=== PATIENT | female | born 1995 | race Caucasian/White ===

== ENCOUNTER → 2017-06-12 11:22 | Outpatient (CLI) | payer OTHER, SELFPAY ==
[2017-06-12 13:04] LABS: hCG Titer Quant., Serum 298 mIU/mL (<9 non-preg)
== END ==
PROVIDERS: Family Provider Pediatrics; PCP Pediatrics; Visit Provider Obstetrics & Gynecology
DX: O20.0 Threatened abortion (principal); Z3A.00 Weeks of gestation of pregnancy not specified
CPT/HCPCS: 36415; 84702

== ENCOUNTER → 2017-06-14 09:39 | Outpatient (CLI) | payer OTHER, SELFPAY ==
[2017-06-14 11:43] LABS: hCG Titer Quant., Serum 576 mIU/mL (<9 non-preg)
== END ==
PROVIDERS: Family Provider Pediatrics; PCP Pediatrics; Visit Provider Obstetrics & Gynecology
DX: O20.0 Threatened abortion (principal); Z3A.00 Weeks of gestation of pregnancy not specified
CPT/HCPCS: 36415; 84702

== ENCOUNTER → 2017-07-06 18:15 | Outpatient (CLI) | payer OTHER, SELFPAY ==
[2017-07-06 20:24] LABS: Chlamydia Trachomatis by PCR Negative (Negative); Neisserai gonorrhoeae by PCR Negative (Negative); Probe Check PASS; Sample Adequacy Control PASS; Specimen Processing Control PASS
[2017-07-11 16:24] LABS: HPV Reflexed? NOT INDICATED
== END ==
PROVIDERS: Visit Provider Obstetrics & Gynecology
DX: Z34.00 Encounter for supervision of normal first pregnancy, unspecified trimester (principal); Z12.4 Encounter for screening for malignant neoplasm of cervix
CPT/HCPCS: 87086; 87088; 87491; 87591; 88175; G0145

== ENCOUNTER → 2017-07-11 13:18 | Outpatient (CLI) | payer OTHER, SELFPAY ==
[2017-07-11 13:45] LABS: Absolute Neutrophil Count 6.4 X10^3/uL (2.0-7.7); Basophil# 0.07 X10^3/uL; Basophil% 0.6 % (0-1); Eosinophil# 0.27 X10^3/uL; Eosinophils% 2.4 % (0-5); Hematocrit 40.8 % (37-47); Hemoglobin 13.8 g/dl (12.0-15.0); Lymphocyte % 34.7 % (19-41); Mean Corp Hgb Conc 33.8 g/gl (32-36); Mean Corpuscular Hgb 27.9 pg (27.0-32.0); Mean Corpuscular Volume 82.6 fL (81-99); Mean Platelet Vol. 9.5 fl (6.2-12.0); Monocyte# 0.62 X10^3/uL; Monocyte% 5.5 % (0-10); Neutrophil # 6.36 X10^3/uL (2.7-7.7); Neutrophil % 56.5 % (47-70); Platelet Count 322 K/mm3 (150-450); RBC Distribution Width CV 13.7 % (11.6-14.6); RBC Distribution Width SD 40.7 fl (35.1-43.9); Red Blood Count 4.94 M/mm3 (4.2-5.4); White Blood Count 11.3 K/mm3 (4.4-11.0)
[2017-07-11 13:53] LABS: POSITIVE COUNT NO; POSITIVE DIFFERENTIAL NO; POSITIVE MORPHOLOGY NO
[2017-07-11 13:54] LABS: Protein, Urine (Random) 19.7 mg/dL (<11.9); Protein:Creat Ratio 111 mg/g CRE (0-200)
[2017-07-11 14:03] LABS: Glucose Challenge Gest 1H 50g 172 mg/dL (70-140)
[2017-07-12 09:23] LABS: HIV - WCH Non-Reactive (Nonreactive); Rubella IgG 19.5 IU/mL
[2017-07-12 20:07] LABS: HCV Quant. RNA PCR HCV Not Detected IU/mL (.)
[2017-07-13 10:16] LABS: HEPATITIS B SURFACE AG Negative (Negative)
[2017-07-14 02:34] LABS: Rapid Plasmin Reagin (RPR) NONREACTIVE (NONREACTIVE)
== END ==
PROVIDERS: Nurse Practitioner Women's Health; Family Provider Pediatrics; PCP Pediatrics; Visit Provider Obstetrics & Gynecology
DX: Z34.00 Encounter for supervision of normal first pregnancy, unspecified trimester (principal)
CPT/HCPCS: 36415; 82570; 82950; 84156; 85025; 86592; 86703; 86762; 86850; 86900; 87340; 87522

== ENCOUNTER 2017-07-12 21:04 | Emergency (ER) | payer OTHER, SELFPAY ==
[2017-07-12 21:05] VITALS: BP 153/102; PULSE 78; RESP 16; TEMP 37; O2SAT 98; BMI 54.7
[2017-07-12 21:35] VITALS: BP 150/95; PULSE 75; RESP 14; O2SAT 98
[2017-07-12] MEDS: DiphenhydrAMINE 50 MG/ML Syringe 25 MG IV (21:56)
[2017-07-12] MEDS: 0.9% Normal Saline 1,000 ML 1000 ML IV (21:56)
[2017-07-12] MEDS: proCHLORPERazine 10 MG/2 ML Vial IV (21:56)
--- NOTE | 2017-07-12 22:35 | ED.VISSUMM ---
- ER Visit Summary Date of Service: 07/12/17 Chief Complaint: [Blurred vision and headache] History of Present Illness: The patient is a 22 F [presents to the emergency department with complaint of blurred vision that started approximately 7:30 PM. Patient had sudden onset of blurred vision in the right eye temporal visual field where she describes almost like a watery film. Patient had a hard time reading the phone numbers on her phone. Patient also saw some flashing lights in her right eye. Symptoms lasted approximately 20 minutes and then patient developed a headache to the left side of her head. 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 Patient does complain of photophobia and nausea currently. Patient denies any recent illness or head injury. Patient is 9 weeks .] Physical Examination: [HEENT-PERRLA, EOMI. Cranial nerves II through XII grossly intact. TMs clear. Mucous membranes moist. No adenopathy. Cardiovascular-regular rate and rhythm without murmur or ectopy Lungs-clear to auscultation, chest wall stable without crepitus or subcu emphysema Abdomen-normoactive bowel sounds, soft, nontender, no rebound or rigidity, no peritoneal signs. Neuro cwtl-tbjjzc-vqoc and heel tang testing within normal limits, negative Romberg, negative pronator drift, fundi benign Extremities-intact ?4, normal range of motion, normal pulses, atraumatic] Test Results: [None indicated] Emergency Department Course and Treatment: [IV line was established and patient given a liter normal same fluid bolus along with Compazine 10 mg IV as well as Benadryl 25 mill grams IV. Patient's headache resolved. I did discuss case with neurologist on-call Dr. Jean Burgos and at this point it spelled symptoms most likely due to complex migraine.] Treatment Plan: [Patient will be referred to Dr. Burgos's office for follow-up.] Disposition: [Discharged to home in stable condition]. Patient advised to return if worsening symptoms or condition should worsen in any way. Impression: [Complex migraine] This note was generated with [employer] dictation software. It may contain incorrect words, spelling, and punctuation that were not noted in review of the chart prior to signing ED Disposition - Plan for ED Patient: Chief Complaint: Vision Prob Referrals: Care Physician,No Primary [Primary Care Provider] -
--- NOTE | 2017-07-12 22:38 | ED.DCSUM_ITS ---
- ER Visit Summary Date of Service: 07/12/17 Chief Complaint: [Blurred vision and headache] History of Present Illness: The patient is a 22 F [presents to the emergency department with complaint of blurred vision that started approximately 7:30 PM. Patient had sudden onset of blurred vision in the right eye temporal visual field where she describes almost like a watery film. Patient had a hard time reading the phone numbers on her phone. Patient also saw some flashing lights in her right eye. Symptoms lasted approximately 20 minutes and then patient developed a headache to the left side of her head. 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 Patient does complain of photophobia and nausea currently. Patient denies any recent illness or head injury. Patient is 9 weeks .] Physical Examination: [HEENT-PERRLA, EOMI. Cranial nerves II through XII grossly intact. TMs clear. Mucous membranes moist. No adenopathy. Cardiovascular-regular rate and rhythm without murmur or ectopy Lungs-clear to auscultation, chest wall stable without crepitus or subcu emphysema Abdomen-normoactive bowel sounds, soft, nontender, no rebound or rigidity, no peritoneal signs. Neuro vbwv-eaahoq-kgrt and heel tang testing within normal limits, negative Romberg, negative pronator drift, fundi benign Extremities-intact ?4, normal range of motion, normal pulses, atraumatic] Test Results: [None indicated] Emergency Department Course and Treatment: [IV line was established and patient given a liter normal same fluid bolus along with Compazine 10 mg IV as well as Benadryl 25 mill grams IV. Patient's headache resolved. I did discuss case with neurologist on-call Dr. Jean Burgos and at this point it spelled symptoms most likely due to complex migraine.] Treatment Plan: [Patient will be referred to Dr. Burgos's office for follow- up.] Disposition: [Discharged to home in stable condition]. Patient advised to return if worsening symptoms or condition should worsen in any way. Impression: [Complex migraine] This note was generated with [employer] dictation software. It may contain incorrect words, spelling, and punctuation that were not noted in review of the chart prior to signing ED Disposition - Plan for ED Patient: Chief Complaint: Vision Prob Referrals: Care Physician,No Primary [Primary Care Provider] -
--- NOTE | 2017-07-12 22:38 | ED.DEP ---
ED Disposition - Plan for ED Patient: Chief Complaint: Vision Prob Instructions: ED Headache Migraine Referrals: Care Physician,No Primary [Primary Care Provider] - Jean Burgos MD [STAFF PHYSICIAN] - 5-7 Days
[2017-07-12 22:49] VITALS: BP 152/100; PULSE 76; O2SAT 95
== END 2017-07-12 22:51 | disposition home or self-care (01) ==
LOC: ED 21:31
PROVIDERS: Emergency Provider Emergency Medicine
DX: O99.89 Other specified diseases and conditions complicating pregnancy, childbirth and the puerperium (principal); G43.909 Migraine, unspecified, not intractable, without status migrainosus; O16.1 Unspecified maternal hypertension, first trimester; O26.891 Other specified pregnancy related conditions, first trimester; R35.0 Frequency of micturition; Z3A.09 9 weeks gestation of pregnancy
CPT/HCPCS: 96374; 96375; 99284; J7030; A4216

== ENCOUNTER → 2017-07-20 07:02 | Outpatient (CLI) | payer OTHER, SELFPAY ==
[2017-07-20 09:06] LABS: Glucose GTT-Gestational 1 Hr 141 mg/dL (<190)
[2017-07-20 09:10] LABS: Glucose GTT-Gestation. Fasting 82 mg/dL (<105)
[2017-07-20 11:18] LABS: Glucose GTT-Gestational 3 Hr 64 L (<145)
[2017-07-20 11:25] LABS: Glucose GTT-Gestational 2 Hr 92 mg/dL (<165)
== END ==
PROVIDERS: Visit Provider Obstetrics & Gynecology
DX: O99.810 Abnormal glucose complicating pregnancy (principal); Z3A.00 Weeks of gestation of pregnancy not specified
CPT/HCPCS: 36415; 82951; 82952

== ENCOUNTER → 2017-08-07 13:31 | Outpatient (CLI) | payer OTHER, SELFPAY | PROVIDERS: Visit Provider Obstetrics & Gynecology Maternal & Fetal Medicine | DX: Z36.82 Encounter for antenatal screening for nuchal translucency (principal) | CPT/HCPCS: 36415 ==

== ENCOUNTER → 2017-08-31 17:13 | Outpatient (CLI) | payer OTHER, SELFPAY ==
[2017-08-31 17:34] LABS: Protein, Urine (Random) 17.5 mg/dL (<11.9); Protein:Creat Ratio 84 mg/g CRE (0-200)
== END ==
PROVIDERS: Visit Provider Obstetrics & Gynecology
DX: O10.919 Unspecified pre-existing hypertension complicating pregnancy, unspecified trimester (principal); Z3A.00 Weeks of gestation of pregnancy not specified
CPT/HCPCS: 82570; 84156

== ENCOUNTER → 2017-09-27 14:07 | Outpatient (CLI) | payer OTHER, SELFPAY ==
--- NOTE | 2017-09-27 14:09 | US_ITS ---
STUDY: SECOND AND THIRD TRIMESTER OBSTETRICAL ULTRASOUND REASON FOR EXAM: Female, 22 years old. Complete 2nd trimester OB ultrasound with anatomy survey and biometrics. LMP: 05/09/2017. GA (LMP) 20 week 1 day. RITA 02/13/2018. TECHNIQUE: Transabdominal pelvic ultrasound of 2nd trimester . Complete anatomic survey and biometrics. PRIOR ULTRASOUND: None. FINDINGS: There is a single intrauterine fetus. The fetus is in breech presentation. There is demonstrated cardiac activity with a heart rate of 160 bpm. There is a normal amniotic fluid volume. The largest amniotic fluid pocket measures 5.8 cm.The placenta is There are Grade 0 placental changes. There is a 1.2 cm placental venous sen. The cervix measures 3.8 in length. The cervix is closed. The placenta is fundal, without previa. No acute adnexal process is evident in limited evaluation. BIOMETRY: BPD: 4.4 cm: 19 weeks, 2 days HC: 16.5 cm: 19 weeks, 2 days AC: 14.2 cm: 19 weeks, 4 days FL: 3.2 cm: 19 weeks, 6 days CI: 80 FL/BPD: 72 FL/AC: 22 HC/AC: 1.16 age by current US: 19 weeks, 4 days. RITA by current US: 02/17/2018. Estimated weight: 301 grams, +/- 11 grams, 18 %. ANATOMY: Gender: Female Cranium: Normal lateral ventricles. Normal choroid plexus. Normal cerebellum. Normal cisterna magna. Normal face, nose and lips. Chest: Normal 4-chamber heart. Abdomen/Pelvis: Normal diaphragm. Normal stomach. Normal abdominal wall. Normal cord insertion. Normal 3 vessel cord. Normal kidneys. Normal bladder. Spine: Normal cervical spine. Normal thoracic spine. Normal lumbar spine. Normal sacrum. Extremities: Normal bilateral upper extremities. Normal bilateral lower extremities. US/OB Anatomy Scan IMPRESSION: 1. Normal anatomic survey. 2. Single live intrauterine gestation. No acute or maternal abnormality is evident. 3. Measurements on today's study are closely concordant with expected dates within 4 days. Electronically Signed: Justin Steward, at 11:13 EDT Tel , Service support ,
== END ==
LOC: US 14:09
PROVIDERS: Visit Provider Obstetrics & Gynecology
DX: Z34.90 Encounter for supervision of normal pregnancy, unspecified, unspecified trimester (principal)
CPT/HCPCS: 76805

== ENCOUNTER 2017-10-17 00:06 | Emergency (ER) | payer OTHER, SELFPAY ==
[2017-10-17 00:06] VITALS: BP 162/91; PULSE 99; RESP 20; TEMP 36.6; O2SAT 98; BMI 54.5
--- NOTE | 2017-10-17 01:13 | RAD_ITS ---
STUDY: X-RAY - LEFT HAND, ATTENTION THIRD FINGER REASON FOR EXAM: Female, 22 years old. Laceration TECHNIQUE: 3 view(s) of the finger were obtained. COMPARISON: None. FINDINGS: Normal metacarpal head. Normal metacarpophalangeal joint. Normal proximal phalanx. Normal middle phalanx. Normal distal phalanx. Normal proximal interphalangeal joint. Normal distal interphalangeal joint. RAD/Finger(s) Min 2 Views IMPRESSION: Normal x-ray examination of the finger. Electronically Signed: Vitaliy Sanchez MD at 1:33 EDT Tel , Service support ,
--- NOTE | 2017-10-17 01:15 | ED.DCSUM_ITS ---
- ER Visit Summary Date of Service: 10/17/17 Chief Complaint: [] Left middle finger injury History of Present Illness: The patient is a 22 F injured her left middle finger today just prior to arrival. She had a glass bowl break in her hand. Suffered laceration to the medial aspect of her distal left middle finger. Last tetanus was greater than 10 years she believes but she is not 100% sure. She is currently at 23 weeks. She is on labetalol for hypertension throughout this Physical Examination: [] Vital signs reviewed General: Well-nourished well-developed Head: Normocephalic atraumatic Eyes: Pupils equal round and reactive to light extraocular movements intact ENT: TMs clear no hemotympanum no trauma Neck: Nontender full range of motion Cardiovascular: Regular rate rhythm no murmurs normal S1-S2 Respiratory: No distress clear to auscultation bilaterally chest nontender Abdomen: Soft nontender nondistended normal bowel sounds no masses Back: Nontender no CVA tenderness Extremities: Abrasion to the left distal phalanx laterally on the middle finger. Distal neurovascular intact. No active bleeding. Neuro alert oriented cranial nerves II through XII intact normal strength sensation reflexes Test Results: [] Emergency Department Course and Treatment: [] X-ray of the finger obtained. Patient refuses tetanus shot. 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 She states that she gets these in her third trimester and her doctor can give it to her tomorrow. She understands the risk of getting tetanus. X- ray was negative for foreign body or injury to the bone. Wound was cleansed with chlorhexidine. Washed with 500 cc of normal saline after being anesthetized with 1% lidocaine 3 cc. Closed with 3 simple five-point 0 suture. Will follow-up in 2 weeks for suture removal. Bacitracin applied and a finger splint applied after wound care. Treatment Plan: [] Disposition: [] Impression: [] Finger laceration status post suture x3 This note was generated with [employer] dictation software. It may contain incorrect words, spelling, and punctuation that were not noted in review of the chart prior to signing ED Disposition - Plan for ED Patient: Chief Complaint: Laceration Referrals: Care Physician,No Primary [Primary Care Provider] -
--- NOTE | 2017-10-17 02:10 | ED.DEP ---
ED Disposition - Plan for ED Patient: Disposition: Home or Assisted Living Chief Complaint: Laceration Instructions: ED Laceration All Referrals: Care Physician,No Primary [Primary Care Provider] - Tres Moulton DO [NON CLINICAL AFFILIATE] -
[2017-10-17 02:15] VITALS: RESP 18
== END 2017-10-17 02:16 | disposition home or self-care (01) ==
PROVIDERS: Emergency Provider Emergency Medicine
DX: O99.89 Other specified diseases and conditions complicating pregnancy, childbirth and the puerperium (principal); S61.213A Laceration without foreign body of left middle finger without damage to nail, initial encounter; W25.XXXA Contact with sharp glass, initial encounter; Y93.9 Activity, unspecified; Y92.9 Unspecified place or not applicable; O10.912 Unspecified pre-existing hypertension complicating pregnancy, second trimester; Z3A.23 23 weeks gestation of pregnancy
CPT/HCPCS: 12001; 73140; 99283

== ENCOUNTER → 2017-11-14 16:30 | Outpatient (CLI) | payer OTHER, SELFPAY ==
[2017-11-14 16:58] LABS: Absolute Lymphocyte Count 2.93 X10^3/ul (0.83-4.51); Absolute Neutrophil Count 9.6 X10^3/uL (2.0-7.7); Basophil# 0.03 X10^3/uL; Basophil% 0.2 % (0-1); Eosinophil# 0.18 X10^3/uL; Eosinophils% 1.3 % (0-5); Hematocrit 37.4 % (37-47); Hemoglobin 12.3 g/dl (12.0-15.0); Lymphocyte # 2.93 X10^3/ul (4.0); Mean Corp Hgb Conc 32.9 g/gl (32-36); Mean Corpuscular Hgb 27.5 pg (27.0-32.0); Mean Corpuscular Volume 83.7 fL (81-99); Mean Platelet Vol. 9.7 fl (6.2-12.0); Monocyte# 1.14 X10^3/uL; Monocyte% 8.2 % (0-10); Neutrophil # 9.59 X10^3/uL (2.7-7.7); Neutrophil % 68.7 % (47-70); Platelet Count 268 K/mm3 (150-450); RBC Distribution Width CV 13.7 % (11.6-14.6); RBC Distribution Width SD 41.5 fl (35.1-43.9); Red Blood Count 4.47 M/mm3 (4.2-5.4)
[2017-11-14 17:08] LABS: POSITIVE COUNT NO; POSITIVE DIFFERENTIAL NO; POSITIVE MORPHOLOGY NO
[2017-11-14 17:14] LABS: ALB/GLOB Ratio 0.8 RATIO (0.9-2.4); AST(SGOT) 11 U/L (15-37); Alanine Aminotransfer ALT/SGPT 28 U/L (13-56); Alkaline Phosphatase 75 U/L (45-117); Anion Gap 7 (5-15); BUN 6 mg/dL (7-18); BUN/Creat Ratio 12.8 RATIO (10-20); Calcium,Total 8.8 mg/dL (8.5-10.1); Chloride 106 mmol/L (98-107); Creatinine, Serum 0.47 mg/dL (0.55-1.02); EST Glomerular Filtration Rate 173 mL/min (>60); Est Glom Filt Rate - Afr Amer 209 mL/min (>60); Globulin 3.9 g/dL (2.2-4.2); Glucose 105 mg/dL (74-106); Glucose Challenge Gest 1H 50g 105 mg/dL (70-140); Potassium 3.9 mmol/L (3.5-5.1); Protein, Total 6.9 g/dL (6.4-8.2); Sodium Level 138 mmol/L (136-145)
[2017-11-14 17:22] LABS: Protein, Urine (Random) 15.3 mg/dL (<11.9); Protein:Creat Ratio 135 mg/g CRE (0-200)
== END ==
PROVIDERS: Visit Provider Obstetrics & Gynecology
DX: O09.91 Supervision of high risk pregnancy, unspecified, first trimester (principal); O10.919 Unspecified pre-existing hypertension complicating pregnancy, unspecified trimester; Z3A.00 Weeks of gestation of pregnancy not specified
CPT/HCPCS: 36415; 80053; 82570; 82950; 84156; 85025

== ENCOUNTER 2017-11-24 15:44 | Outpatient (CLI) | payer OTHER, SELFPAY ==
[2017-11-24 16:34] VITALS: BMI 54.3
[2017-11-24] MEDS: Betamethasone/Betamethasone 30 MG/5 ML Vial 12 MG IM (17:11)
[2017-11-24 17:21] LABS: Hematocrit 37.5 % (37-47); Hemoglobin 12.8 g/dl (12.0-15.0); Mean Corp Hgb Conc 34.1 g/gl (32-36); Mean Corpuscular Hgb 27.9 pg (27.0-32.0); Mean Corpuscular Volume 81.7 fL (81-99); Mean Platelet Vol. 10.4 fl (6.2-12.0); Platelet Count 293 K/mm3 (150-450); RBC Distribution Width CV 13.7 % (11.6-14.6); RBC Distribution Width SD 39.9 fl (35.1-43.9); Red Blood Count 4.59 M/mm3 (4.2-5.4); White Blood Count 14.4 K/mm3 (4.4-11.0)
[2017-11-24 17:22] LABS: Scan Indicated on CBC? Y/N NO
[2017-11-24 17:24] LABS: Prothrombin Time (Protime)PT. 13.1 SECONDS (11.7-14.9)
[2017-11-24 17:25] LABS: Partial Thromboplast Time 24.4 Seconds (24.1-36.2)
[2017-11-24 17:31] LABS: AST(SGOT) 9 U/L (15-37); Alanine Aminotransfer ALT/SGPT 19 U/L (13-56); Creatinine, Serum 0.49 mg/dL (0.55-1.02); EST Glomerular Filtration Rate 164 mL/min (>60); Est Glom Filt Rate - Afr Amer 198 mL/min (>60); Estimated Creatinine Clearance 172.16 ml/min; Uric Acid 3.9 mg/dL (2.6-6.0)
[2017-11-24 17:32] LABS: Protein, Urine (Random) 15.3 mg/dL (<11.9); Protein:Creat Ratio 174 mg/g CRE (0-200)
[2017-11-24] MEDS: Acetaminophen 500 MG Tablet 1000 MG PO (17:49)
[2017-11-24] MEDS: Magnesium Sulfate 20 GM/500 ML BAG IV (18:15)
--- NOTE | 2017-11-24 18:31 | PCM.HPOB.BLA ---
- Problem List (1) Severe preeclampsia Status: Acute Qualifiers: Comment: transport to [facility] c/o Dr Lock (2) screening encounter Status: Acute Comment: 08/07/17 NT normal (3) Supervision of high risk in first trimester Status: Acute Comment: PRR RITA 02/13/18 Girl Crystal Omi (4) Chronic hypertension affecting Status: Acute Comment: labetalol 300mg bid, baseline labs ekg, baby ASA, testing at 32 weeks (5) Abnormal glucose in , antepartum Status: Acute Comment: nl 3 hour gtt (6) BMI 50.0-59.9, adult Status: Chronic Comment: nutrition consult, weekly nsts and growth us from 32 weeks History and Physical Date of Admission: 11/24/17 Allergies diphenhydramine [From Benadryl] Allergy (Mild, Verified 11/24/17 15:28) increases anxiety Medications vitamin,calcium,swgtsfgy-kjdp-trugq acid tablet 1 tab PO QDAY 07/06/17 [History Confirmed 11/24/17] promethazine 12.5 mg tablet 12.5 mg PO Q6H PRN #60 tab 08/31/17 [Rx Confirmed 11/24/17] magnesium oxide 500 mg capsule 500 mg PO QDAY cap 10/17/17 [History Confirmed 11/24/17] blood pressure monitor kit See Dose Instructions .ROUTE .MEDSUPPLY #1 ea 11/22/17 [Rx Confirmed 11/24/17] labetalol 300 mg tablet 300 mg PO BID 11/22/17 [History Confirmed 11/24/17] betamethasone acetate and sodium phos 6 mg/mL suspension for injection 12 mg IM QDAY #5 ml 11/24/17 [Rx Confirmed 11/24/17] Last Menstral Period: 05/09/17 PFSH PFSH Medical History Anxiety (Acute) Surgical History S/P tonsillectomy and adenoidectomy (Resolved) lymph node removed (Resolved) Family History Father Hypertension Grandmother Diabetes Mother Cervical cancer Social History Smoking Status: Never smoker alcohol intake: never substance use type: does not use caffeine: Yes (occasional) what type of physical activity do you participate in: walking, none seatbelt use: always do you feel safe at home: Yes additional social history: - 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 Date Name GA/Weeks Outcome Route Bth Weight Gen Labor Lgth Anesthesia Del Locatn Provider FOB Unknown Delivery Date: On 07/06/17 @ 13:57 Dana Gupta Miscarriage at 5 weeks in 02/2017 HPI BP CHECK : Details: MARCIA RODNEY is a 22 year old who presents for visit secondary to elevated bps at home 140s/80s-90s. she has had an intermittent headache since yesterday, improved today spontaneously but still present. she denies any blurry vision, nausea/vomiting, or RUQ pain. OB Visit RITA Calculator Estimated Delivery Date 02/13/18 Based on LMP (certain) 05/09/17 Current WG 28w 3d Number 1 Expected Delivery Route/Plan Specific Issue/Plans flu vaccine: given tdap vaccine: given rhogam: na LARC form signed: [] labor support person: Omi pain management: epidural cut cord/dad catch: yes : yes PP control planned: [] special requests: [] Initial Weight: 350 lb Labs Hct 37.5 % (37-47) 11/24/17 Hgb 12.8 g/dl (12.0-15.0) 11/24/17 Obstetrics Ultrasound 09/27/17 Glucose 1 Hr 50 gm 105 mg/dL (70-140) 11/14/17 Miscellaneous Test 08/07/17 Blood Type A POSITIVE 07/11/17 Antibody Screen NEGATIVE 07/11/17 Rubella IgG Antibody 19.5 IU/mL 07/11/17 RPR NONREACTIVE (NONREACTIVE) 07/11/17 Hep Bs Antigen Negative (Negative) 07/11/17 Chlam trachomat DNA PCR Negative (Negative) 07/06/17 N.gonorrhoeae DNA (PCR) Negative (Negative) 07/06/17 Details: HIV: neg Urine Culture: neg Sequential Screen: neg NIPT Screen: not done Exam Const General: cooperative, healthy appearing, comfortable, no acute distress GI Inspection: normal to inspection Palpation: soft (gravid appropriate for gestational age) Neuro General: other (no clonus), deep tendon reflexes 2+ bilaterally Assessment & Plan Problems 1. screening encounter Z36.9 08/07/17 NT normal 2. Supervision of high risk in first trimester O09.91 PRR RITA 02/13/18 Girl Crystal Omi 3. Chronic hypertension affecting O10.919 labetalol 300mg bid, baseline labs ekg, baby ASA, testing at 32 weeks 4. Abnormal glucose in , antepartum O99.810 nl 3 hour gtt 5. BMI 50.0-59.9, adult Z68.43 nutrition consult, weekly nsts and growth us from 32 weeks 6. Severe pre-eclampsia in third trimester O14.13 transport to [facility] c/o Dr Ashvin Vasquez patient evaluated on labor and delivery- developed severely elevated blood pressures 170-180/90s. cHTN with SI preeclampsia with severe features- magnesium started 6g bolus followed by 2g/hr. labetalol 20mg then 40mg IV given. bps 130s/90s now. additional 200mg labetalol oral maintenance given at 1830, 300mg was given at 1400 today. Prematurity- celestone 12 mg given. transport to the [facility]
--- NOTE | 2017-11-24 23:37 | NURSING ---
Patient being transferred per Dr. Pacheco to [facility] L&D under care of Dr. Lock.
[2017-11-24 23:40] VITALS: BP 142/71; PULSE 101; RESP 18; TEMP 37; O2SAT 95
== END 2017-11-24 21:00 | disposition short-term general hospital (02) ==
LOC: WPOUT 15:54 → WP 15:54
PROVIDERS: Visit Provider Obstetrics & Gynecology
DX: O14.10 Severe pre-eclampsia, unspecified trimester (principal); O10.919 Unspecified pre-existing hypertension complicating pregnancy, unspecified trimester; Z3A.00 Weeks of gestation of pregnancy not specified
CPT/HCPCS: 96365; 96366 ×3; 36415; 59025; 59050; 82565; 82570; 84156; 84450; 84460; 84550; 85027; 85610; 85730; 96372; 99218; G0378; J0702

== ENCOUNTER → 2017-12-15 12:37 | Outpatient (CLI) | payer OTHER, SELFPAY ==
[2017-12-15 12:57] LABS: Absolute Lymphocyte Count 2.36 X10^3/ul (0.83-4.51); Absolute Neutrophil Count 7.6 X10^3/uL (2.0-7.7); Basophil# 0.02 X10^3/uL; Basophil% 0.2 % (0-1); Eosinophil# 0.15 X10^3/uL; Eosinophils% 1.4 % (0-5); Hematocrit 38.5 % (37-47); Hemoglobin 12.7 g/dl (12.0-15.0); Lymphocyte # 2.36 X10^3/ul (4.0); Lymphocyte % 21.8 % (19-41); Mean Corpuscular Volume 81.9 fL (81-99); Mean Platelet Vol. 9.8 fl (6.2-12.0); Monocyte# 0.67 X10^3/uL; Monocyte% 6.2 % (0-10); Neutrophil # 7.58 X10^3/uL (2.7-7.7); Neutrophil % 69.9 % (47-70); Platelet Count 266 K/mm3 (150-450); RBC Distribution Width CV 13.9 % (11.6-14.6); RBC Distribution Width SD 41.5 fl (35.1-43.9); White Blood Count 10.8 K/mm3 (4.4-11.0)
[2017-12-15 12:58] LABS: POSITIVE COUNT NO; POSITIVE DIFFERENTIAL NO; POSITIVE MORPHOLOGY NO
[2017-12-15 13:24] LABS: ALB/GLOB Ratio 0.7 RATIO (0.9-2.4); AST(SGOT) 16 U/L (15-37); Alanine Aminotransfer ALT/SGPT 35 U/L (13-56); Albumin, Serum 2.9 g/dL (3.2-5.0); Alkaline Phosphatase 88 U/L (45-117); Anion Gap 11 (5-15); BUN 6 mg/dL (7-18); BUN/Creat Ratio 13.7 RATIO (10-20); Chloride 108 mmol/L (98-107); Creatinine, Serum 0.44 mg/dL (0.55-1.02); EST Glomerular Filtration Rate 186 mL/min (>60); Est Glom Filt Rate - Afr Amer 226 mL/min (>60); Globulin 3.9 g/dL (2.2-4.2); Glucose 117 mg/dL (74-106); LDH 154 U/L (84-246); Protein, Total 6.8 g/dL (6.4-8.2); Sodium Level 140 mmol/L (136-145); Uric Acid 3.9 mg/dL (2.6-6.0)
[2017-12-15 15:03] LABS: Protein, Urine (Random) 35.7 mg/dL (<11.9); Protein:Creat Ratio 178 mg/g CRE (0-200)
== END ==
LOC: US 12:38
PROVIDERS: Visit Provider Obstetrics & Gynecology
DX: O14.10 Severe pre-eclampsia, unspecified trimester (principal); O09.91 Supervision of high risk pregnancy, unspecified, first trimester; O10.919 Unspecified pre-existing hypertension complicating pregnancy, unspecified trimester; Z68.43 Body mass index [BMI] 50.0-59.9, adult; O99.810 Abnormal glucose complicating pregnancy; Z3A.00 Weeks of gestation of pregnancy not specified
CPT/HCPCS: 36415; 76816; 80053; 82570; 83615; 84156; 84550; 85025

== ENCOUNTER 2017-12-19 10:20 | Outpatient (CLI) | payer OTHER, SELFPAY ==
[2017-12-19 10:40] VITALS: BMI 53.7
--- NOTE | 2017-12-20 21:41 | OB.TRI.HP_ITS ---
- Problem List (1) Gestational diabetes, diet controlled Status: Acute (2) Severe preeclampsia Status: Acute Qualifiers: Comment: transport to [facility] c/o Dr Lock, unclear if severe pree vs exacerbation of cHTN. was discharged from [facility] will determine if delivery should be 34-37 weeks. recommend intensive outpatient managment with [employer] consult, plan twice weekly visits with weekly RIO/NST, weekly labs. (3) screening encounter Status: Acute Comment: 08/07/17 NT normal (4) Supervision of high risk in first trimester Status: Acute Comment: PRR RITA 02/13/18 Girl Crystal Omi (5) Chronic hypertension affecting Status: Acute Comment: labetalol 300mg bid, baseline labs ekg, baby ASA, testing at 32 weeks (6) Abnormal glucose in , antepartum Status: Acute Comment: nl 3 hour gtt (7) BMI 50.0-59.9, adult Status: Chronic Comment: nutrition consult, weekly nsts and growth us from 32 weeks History of Present Illness Date of Service: 12/19/17 Was patient seen by the physician?: Yes Reason For Visit: NON REACTIVE NST Date of Service: 12/19/17 History of Present Illness: difficulty tracing in office- to l and d for monitoring Allergies diphenhydramine [From Benadryl] Allergy (Mild, Verified 12/19/17 10:42) increases anxiety - Pertinent Past Medical History Medical History: Past Medical History (Last Reviewed 12/19/17 @ 09:06 by Tracey Childress) Anxiety Surgical History: Past Surgical History (Last Reviewed 12/19/17 @ 09:06 by Tracey Childress) S/P tonsillectomy and adenoidectomy lymph node removed from neck NST - FHR Rate Baby A Baseline: 140 Variability:: Moderate Accelerations:: 10 x 10 Decelerations:: None NST Reactive:: Yes FHR Category:: Category I Uterine Activity:: no regular ctx Impression/Plan reactive nst cat I tracing chtn with si preeclampsia
== END 2017-12-19 11:40 | disposition home or self-care (01) ==
LOC: WPOUT 10:24 → WP 10:25
PROVIDERS: Visit Provider Obstetrics & Gynecology
DX: O14.10 Severe pre-eclampsia, unspecified trimester (principal); O24.410 Gestational diabetes mellitus in pregnancy, diet controlled; Z3A.00 Weeks of gestation of pregnancy not specified
CPT/HCPCS: 59025

== ENCOUNTER 2017-12-22 16:30 | Outpatient (CLI) | payer OTHER, SELFPAY ==
[2017-12-22 16:52] VITALS: BMI 53.8
[2017-12-22] MEDS: Acetaminophen 325 MG Tablet 650 MG PO (17:17)
[2017-12-22] MEDS: 0.9% NaCl Peripheral Flush Adult/Peds IV (17:18)
[2017-12-22 17:21] LABS: Hematocrit 37.1 % (37-47); Hemoglobin 12.5 g/dl (12.0-15.0); Mean Corp Hgb Conc 33.7 g/gl (32-36); Mean Corpuscular Hgb 27.4 pg (27.0-32.0); Mean Corpuscular Volume 81.4 fL (81-99); Mean Platelet Vol. 9.9 fl (6.2-12.0); Platelet Count 274 K/mm3 (150-450); RBC Distribution Width SD 41.5 fl (35.1-43.9); Red Blood Count 4.56 M/mm3 (4.2-5.4); White Blood Count 11.3 K/mm3 (4.4-11.0)
[2017-12-22 17:26] LABS: Scan Indicated on CBC? Y/N NO
[2017-12-22 17:33] LABS: Prothrombin Time (Protime)PT. 13.1 SECONDS (11.7-14.9)
[2017-12-22 17:34] LABS: Partial Thromboplast Time 25.2 Seconds (24.1-36.2)
[2017-12-22 17:35] LABS: AST(SGOT) 10 U/L (15-37); Alanine Aminotransfer ALT/SGPT 30 U/L (13-56); Creatinine, Serum 0.49 mg/dL (0.55-1.02); EST Glomerular Filtration Rate 165 mL/min (>60); Est Glom Filt Rate - Afr Amer 200 mL/min (>60); Estimated Creatinine Clearance 172.16 ml/min
[2017-12-22 18:49] LABS: Protein, Urine (Random) 30.1 mg/dL (<11.9); Protein:Creat Ratio 131 mg/g CRE (0-200)
--- NOTE | 2017-12-28 22:27 | OB.TRI.HP_ITS ---
- Problem List (1) Threatened labor Status: Acute (2) Severe preeclampsia Status: Acute Qualifiers: Comment: transport to [facility] c/o Dr Lock, unclear if severe pree vs exacerbation of cHTN. was discharged from [facility] will determine if delivery should be 34-37 weeks. recommend intensive outpatient managment with [employer] consult, plan twice weekly visits with weekly RIO/NST, weekly labs. History of Present Illness Date of Service: 12/22/17 Was patient seen by the physician?: Yes Reason For Visit: R/O LABOR Date of Service: 12/22/17 History of Present Illness: threatened PTL and elevated bps Allergies diphenhydramine [From Benadryl] Allergy (Mild, Verified 12/26/17 11:44) increases anxiety - Pertinent Past Medical History Medical History: Past Medical History (Last Reviewed 12/22/17 @ 16:20 by Mary Robles) Anxiety Surgical History: Past Surgical History (Last Reviewed 12/22/17 @ 16:20 by Mary Robles) S/P tonsillectomy and adenoidectomy lymph node removed from neck NST - FHR Rate Baby A Baseline: 150 Variability:: Moderate Accelerations:: 15 x 15 Decelerations:: None NST Reactive:: Yes FHR Category:: Category I Uterine Activity:: irregular Impression/Plan repeta bps normal to mildly elevated, no regular ctx or cervical dilation. dc home reactive nst
== END 2017-12-22 19:27 | disposition home or self-care (01) ==
LOC: WPOUT 16:39 → WP 16:39
PROVIDERS: Visit Provider Obstetrics & Gynecology
DX: O10.919 Unspecified pre-existing hypertension complicating pregnancy, unspecified trimester (principal); Z3A.00 Weeks of gestation of pregnancy not specified
CPT/HCPCS: 36415; 59025; 59050; 76815; 82565; 82570; 84156; 84450; 84460; 84550; 85027; 85610; 85730; 86850; 86900; 99218; A4216; G0378

== ENCOUNTER → 2017-12-22 18:23 | Outpatient (CLI) | payer OTHER, SELFPAY ==
[2017-12-22 18:49] LABS: Protein, Urine (Random) 14.5 mg/dL (<11.9); Protein:Creat Ratio 166 mg/g CRE (0-200)
== END ==
PROVIDERS: Visit Provider Obstetrics & Gynecology
DX: O10.919 Unspecified pre-existing hypertension complicating pregnancy, unspecified trimester (principal); Z3A.00 Weeks of gestation of pregnancy not specified
CPT/HCPCS: 82570; 84156

== ENCOUNTER 2017-12-26 11:25 | Outpatient (CLI) | payer OTHER, SELFPAY ==
--- NOTE | 2017-12-28 22:29 | OB.TRI.HP_ITS ---
- Problem List (1) Severe preeclampsia Status: Acute Qualifiers: Comment: transport to [facility] c/o Dr Lock, unclear if severe pree vs exacerbation of cHTN. was discharged from [facility] will determine if delivery should be 34-37 weeks. recommend intensive outpatient managment with [employer] consult, plan twice weekly visits with weekly RIO/NST, weekly labs. History of Present Illness Date of Service: 12/26/17 Was patient seen by the physician?: No Reason For Visit: NST Date of Service: 12/26/17 History of Present Illness: elevate dbps and needs nst Allergies diphenhydramine [From Benadryl] Allergy (Mild, Verified 12/26/17 11:44) increases anxiety - Pertinent Past Medical History Medical History: Past Medical History (Last Reviewed 12/22/17 @ 16:20 by Mary Robles) Anxiety Surgical History: Past Surgical History (Last Reviewed 12/22/17 @ 16:20 by Mary Robles) S/P tonsillectomy and adenoidectomy lymph node removed from neck NST - FHR Rate Baby A Baseline: 150 Variability:: Moderate Accelerations:: 15 x 15 Decelerations:: None NST Reactive:: Yes FHR Category:: Category I Uterine Activity:: irregular Impression/Plan chtn reactive nst dc home precautions
== END 2017-12-26 12:20 | disposition home or self-care (01) ==
LOC: WPOUT 11:25 → WP 11:26
PROVIDERS: Visit Provider Obstetrics & Gynecology
DX: O14.10 Severe pre-eclampsia, unspecified trimester (principal); Z3A.00 Weeks of gestation of pregnancy not specified
CPT/HCPCS: 59025

== ENCOUNTER → 2017-12-29 10:51 | Outpatient (CLI) | payer OTHER, SELFPAY ==
--- NOTE | 2017-12-29 10:53 | US_ITS ---
STUDY: OBSTETRICAL ULTRASOUND - BIOPHYSICAL PROFILE REASON FOR EXAM: Female, 22 years old. growth. Preeclampsia. LMP: PRIOR ULTRASOUND: 12/15/2017. TECHNIQUE: Transabdominal ultrasound evaluation was performed. FINDINGS: There is a single intrauterine fetus. The fetus is in a cephalic presentation. There is demonstrated cardiac activity with a heart rate of 152 bpm. There is a normal amniotic fluid volume. The largest amniotic fluid pocket measures 3.0 cm. The amniotic fluid index (RIO) is 8.8 cm. The placenta is fundal in location. There are Grade 1 placental changes. Age by LMP: 33 weeks, 3 days. RITA by LMP: 02/13/2018. age by current US: 32 weeks, 4 days. RITA by current US: 02/19/2018. Gender: BIOPHYSICAL PROFILE: Breathing Movements (FBM): 2 Gross Body Movements (GBM): 2 Tone (FT): 2 Amniotic Fluid Volume (AFV): 2 TOTAL SCORE: US/Biophysical Profile IMPRESSION: Normal biophysical profile of 11/15. Electronically Signed: Genaro Webster MD at 11:49 EDT , Service support ,
[2017-12-29 13:36] LABS: Protein, Urine (Random) 22.5 mg/dL (<11.9); Protein:Creat Ratio 184 mg/g CRE (0-200)
[2017-12-29 13:48] LABS: Absolute Lymphocyte Count 2.44 X10^3/ul (0.83-4.51); Absolute Neutrophil Count 6.8 X10^3/uL (2.0-7.7); Basophil# 0.03 X10^3/uL; Basophil% 0.3 % (0-1); Eosinophil# 0.12 X10^3/uL; Eosinophils% 1.2 % (0-5); Hematocrit 38.3 % (37-47); Lymphocyte # 2.44 X10^3/ul (4.0); Lymphocyte % 23.9 % (19-41); Mean Corp Hgb Conc 33.9 g/gl (32-36); Mean Corpuscular Hgb 27.6 pg (27.0-32.0); Mean Corpuscular Volume 81.3 fL (81-99); Mean Platelet Vol. 10.3 fl (6.2-12.0); Monocyte# 0.77 X10^3/uL; Monocyte% 7.5 % (0-10); Neutrophil % 66.4 % (47-70); POSITIVE COUNT NO; POSITIVE DIFFERENTIAL NO; POSITIVE MORPHOLOGY NO; Platelet Count 288 K/mm3 (150-450); RBC Distribution Width CV 14.5 % (11.6-14.6); RBC Distribution Width SD 41.9 fl (35.1-43.9); Red Blood Count 4.71 M/mm3 (4.2-5.4); White Blood Count 10.2 K/mm3 (4.4-11.0)
[2017-12-29 14:22] LABS: ALB/GLOB Ratio 0.8 RATIO (0.9-2.4); AST(SGOT) 8 U/L (15-37); Alanine Aminotransfer ALT/SGPT 28 U/L (13-56); Albumin, Serum 2.8 g/dL (3.2-5.0); Alkaline Phosphatase 91 U/L (45-117); Anion Gap 11 (5-15); BUN 7 mg/dL (7-18); BUN/Creat Ratio 17.8 RATIO (10-20); Calcium,Total 9.3 mg/dL (8.5-10.1); Chloride 107 mmol/L (98-107); Creatinine, Serum 0.39 mg/dL (0.55-1.02); EST Glomerular Filtration Rate 212 mL/min (>60); Est Glom Filt Rate - Afr Amer 256 mL/min (>60); Globulin 3.7 g/dL (2.2-4.2); Glucose 101 mg/dL (74-106); LDH 126 U/L (84-246); Protein, Total 6.5 g/dL (6.4-8.2); Sodium Level 140 mmol/L (136-145); Uric Acid 3.6 mg/dL (2.6-6.0)
== END ==
PROVIDERS: Nurse Practitioner Women's Health; Visit Provider Obstetrics & Gynecology
DX: O14.10 Severe pre-eclampsia, unspecified trimester (principal); O24.410 Gestational diabetes mellitus in pregnancy, diet controlled; O09.91 Supervision of high risk pregnancy, unspecified, first trimester; O10.919 Unspecified pre-existing hypertension complicating pregnancy, unspecified trimester; Z3A.00 Weeks of gestation of pregnancy not specified
CPT/HCPCS: 36415; 76818; 80053; 82570; 83615; 84156; 84550; 85025

== ENCOUNTER 2018-01-05 12:15 | Outpatient (CLI) | payer OTHER, SELFPAY ==
[2018-01-05 12:54] VITALS: BMI 54.5
--- NOTE | 2018-01-05 14:30 | US_ITS ---
STUDY: OBSTETRICAL ULTRASOUND - BIOPHYSICAL PROFILE REASON FOR EXAM: Female, 22 years old. Evaluate well-being LMP: Unknown. PRIOR ULTRASOUND: 12/29/2017 TECHNIQUE: Transabdominal ultrasound evaluation was performed. FINDINGS: There is a single intrauterine fetus. The fetus is in a cephalic presentation. There is demonstrated cardiac activity with a heart rate of 153 bpm. There is a normal amniotic fluid volume. The largest amniotic fluid pocket measures 4.5 x 2.6 cm. The amniotic fluid index (RIO) is 9 cm. The placenta is fundal in location. There are Grade 2 placental changes. Age by LMP: 34 weeks, 3 days. Estimated date of delivery 02/13/2018 BIOPHYSICAL PROFILE: Breathing Movements (FBM): 2 Gross Body Movements (GBM): 2 Tone (FT): 2 Amniotic Fluid Volume (AFV): 2 TOTAL SCORE: 8 / 8 US/Biophysical Profile IMPRESSION: Normal biophysical profile of 11/15. Electronically Signed: Wayne Jordan DO at 15:31 EDT Tel , Service support ,
--- NOTE | 2018-01-07 02:52 | OB.TRI.NOTE ---
- Problem List (1) Gestational diabetes, diet controlled Status: Acute Qualifiers: Comment: started on NPH 2 U at night, increase to 4 U if above goal at next visit (2) screening encounter Status: Acute Comment: 08/07/17 NT normal (3) Supervision of high risk in first trimester Status: Acute Comment: PRR RITA 02/13/18 Girl Crystal Omi (4) Chronic hypertension affecting Status: Acute Comment: labetalol 600mg TID, baseline labs nl, on baby ASA, recommend growth q 4 wks and weekly quentin and weekly nst, weekly preeclampsia labs. s/p mfm consult and admit for suspected pree, but was exacerbation of cHTN. recommend deliver at 37 weeks (5) BMI 50.0-59.9, adult Status: Chronic Comment: nutrition consult, weekly nsts and growth us from 32 weeks History of Present Illness Date of Service: 01/05/18 Was patient seen by the physician?: No Reason For Visit: NST Date of Service: 01/05/18 History of Present Illness: routine nst Allergies diphenhydramine [From Benadryl] Allergy (Mild, Verified 01/07/18 01:48) increases anxiety - Pertinent Past Medical History Medical History: Past Medical History (Last Reviewed 01/02/18 @ 16:21 by Tracey Childress) Anxiety Surgical History: Past Surgical History (Last Reviewed 01/02/18 @ 16:21 by Tracey Childress) S/P tonsillectomy and adenoidectomy lymph node removed from neck NST - FHR Rate Baby A Baseline: 145-150 Variability:: Moderate Accelerations:: 10 x 10 Decelerations:: None NST Reactive:: Appropriate for gestational age FHR Category:: Category I Uterine Activity:: no regular Impression/Plan borderline reactive nst, 11/15 BPP. kick counts, continue routine monitoring and care
== END 2018-01-05 15:30 | disposition home or self-care (01) ==
LOC: WPOUT 12:31 → WP 12:38
PROVIDERS: Referring Provider Obstetrics & Gynecology; Visit Provider Obstetrics & Gynecology
DX: O24.410 Gestational diabetes mellitus in pregnancy, diet controlled (principal); O10.919 Unspecified pre-existing hypertension complicating pregnancy, unspecified trimester; Z3A.00 Weeks of gestation of pregnancy not specified
CPT/HCPCS: 59025; 76818; 99218; G0378

== ENCOUNTER 2018-01-07 01:30 | Outpatient (CLI) | payer OTHER, SELFPAY ==
[2018-01-07 01:48] VITALS: BMI 54.8
[2018-01-07 02:16] LABS: Bedside Glucose 125 mg/dL (70-110)
--- NOTE | 2018-01-07 02:21 | EKGRS_ITS ---
Test Reason : SHORTNESS OF BREATH Blood Pressure : / mmHG Vent. Rate : 082 BPM Atrial Rate : 082 BPM P-R Int : 148 ms QRS Dur : 098 ms QT Int : 388 ms P-R-T Axes : 044 030 007 degrees QTc Int : 453 ms Normal sinus rhythm Nonspecific T wave abnormality Abnormal ECG Confirmed by RACHEL GODINEZ, EMILIA ([id number]), art editor ORVILLE HERNANDEZ ([id number] on 01/09/2018 2:50:30 PM Referred By: [email or web address] Confirmed By:EMILIA ARMOS MD
[2018-01-07 02:38] LABS: Hematocrit 37.6 % (37-47); Hemoglobin 13.1 g/dl (12.0-15.0); Mean Corp Hgb Conc 34.8 g/gl (32-36); Mean Corpuscular Hgb 27.9 pg (27.0-32.0); Mean Corpuscular Volume 80.2 fL (81-99); Mean Platelet Vol. 10.5 fl (6.2-12.0); Platelet Count 318 K/mm3 (150-450); RBC Distribution Width CV 14.3 % (11.6-14.6); RBC Distribution Width SD 40.8 fl (35.1-43.9); Red Blood Count 4.69 M/mm3 (4.2-5.4); White Blood Count 13.6 K/mm3 (4.4-11.0)
[2018-01-07 02:39] LABS: Scan Indicated on CBC? Y/N NO
[2018-01-07 02:44] LABS: Protein, Urine (Random) 18.1 mg/dL (<11.9); Protein:Creat Ratio 200 mg/g CRE (0-200)
[2018-01-07 02:45] LABS: Partial Thromboplast Time 24.5 Seconds (24.1-36.2); Prothrombin Time (Protime)PT. 13.5 SECONDS (11.7-14.9)
[2018-01-07 02:49] LABS: AST(SGOT) 11 U/L (15-37); Alanine Aminotransfer ALT/SGPT 24 U/L (13-56); Creatinine, Serum 0.43 mg/dL (0.55-1.02); EST Glomerular Filtration Rate 190 mL/min (>60); Est Glom Filt Rate - Afr Amer 230 mL/min (>60); Estimated Creatinine Clearance 196.18 ml/min; Uric Acid 3.3 mg/dL (2.6-6.0)
--- NOTE | 2018-01-07 02:57 | OB.TRI.NOTE ---
- Problem List (1) Gestational diabetes, diet controlled Status: Acute Qualifiers: Comment: started on NPH 2 U at night, increase to 4 U if above goal at next visit (2) screening encounter Status: Acute Comment: 08/07/17 NT normal (3) Supervision of high risk in first trimester Status: Acute Comment: PRR RITA 02/13/18 Girl Crystal Omi (4) Chronic hypertension affecting Status: Acute Comment: labetalol 600mg TID, baseline labs nl, on baby ASA, recommend growth q 4 wks and weekly quentin and weekly nst, weekly preeclampsia labs. s/p mfm consult and admit for suspected pree, but was exacerbation of cHTN. recommend deliver at 37 weeks (5) BMI 50.0-59.9, adult Status: Chronic Comment: nutrition consult, weekly nsts and growth us from 32 weeks History of Present Illness Date of Service: 01/07/18 Was patient seen by the physician?: Yes Reason For Visit: R/O LABOR Date of Service: 01/07/18 Final RITA: 02/13/18 Gestational age: 34 Weeks and 5 Days History of Present Illness: 22 yo @ 34w5d presents with elevated bps at home and nausea. She denies any SAWANT BV RUQ pain, but has had increasing intermittent shortness of breath the last few days. Her bp at home was 160/98 an hour after her labetalol dosing. Allergies diphenhydramine [From Benadryl] Allergy (Mild, Verified 01/07/18 01:48) increases anxiety - Pertinent Past Medical History Medical History: Past Medical History (Last Reviewed 01/02/18 @ 16:21 by Tracey Childress) Anxiety Surgical History: Past Surgical History (Last Reviewed 01/02/18 @ 16:21 by Tracey Childress) S/P tonsillectomy and adenoidectomy lymph node removed from neck Review of Systems Constitutional: Denies: Fever, Malaise Eyes: Denies: Blurred vision, Vision Change HEENT: Denies: Head Aches, Visual Changes Cardiovascular: Denies: Chest Pain, Palpitations Respiratory: Reports: Shortness of Breath. Denies: Cough, Wheezing Gastrointestinal: Reports: Nausea. Denies: Abdominal Pain, Diarrhea, Vomiting Genitourinary: Denies: Dysuria, Hematuria Musculoskeletal: Denies: Joint Pain, Muscle pain Skin: Denies: Lesions, Rash Neurological: Denies: Blurred vision, Focal weakness, Headaches Psychiatric: Denies: Anxiety, Depression Endocrine: Denies: Heat/ Cold Intolerance Hematologic/ Lymphatic: Denies: Easy Bruising, Easy Bleeding Physical Exam General: Alert, Cooperative, No apparent distress HEENT: Atraumatic, Normocephalic. Negative for: Thyromegaly, Lymphadenopathy Cardiovascular: Regular rate Lungs: Normal air movement Abdomen: Soft, Non Tender, Gravid Neurological: Deep Tendon Reflexes 2+/4 and Symmetrical, Neuro grossly intact. 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 Negative for: Vulvar lesions Estimated gestational size: Appropriate for gestational size NST - FHR Rate Baby A Baseline: 140 Variability:: Moderate Accelerations:: 15 x 15 Decelerations:: None NST Reactive:: Yes FHR Category:: Category I Uterine Activity:: no regular Impression/Plan 22 yo @ 34w5d presents with elevated bp 1. preeclampsia labs ordered. mildly elevated bps here. monitor extended obs for now. continue home dose of labetalol. 2. EKG 3. s/p BMZ at 28 weeks, no rescue dose indicated
[2018-01-07 06:16] LABS: Bedside Glucose 115 mg/dL (70-110)
--- NOTE | 2018-01-07 07:24 | OB.TRI.NOTE ---
- Problem List (1) Gestational diabetes, diet controlled Status: Resolved Qualifiers: Comment: started on NPH 2 U at night, increase to 4 U if above goal at next visit (2) screening encounter Status: Acute Comment: 08/07/17 NT normal (3) Supervision of high risk in first trimester Status: Acute Comment: PRR RITA 02/13/18 Girl Crystal Omi (4) Chronic hypertension affecting Status: Acute Comment: labetalol 600mg TID, baseline labs nl, on baby ASA, recommend growth q 4 wks and weekly quentin and weekly nst, weekly preeclampsia labs. s/p mfm consult and admit for suspected pree, but was exacerbation of cHTN. recommend deliver at 37 weeks. declined [facility] consult. (5) BMI 50.0-59.9, adult Status: Chronic Comment: nutrition consult, weekly nsts and growth us from 32 weeks History of Present Illness Reason For Visit: R/O LABOR Date of Service: 01/07/18 Final RITA: 02/13/18 Gestational age: 34 Weeks and 5 Days History of Present Illness: patient did well overnight- normal ekg, labs, and bps lisa lto mildly elevated, sob only with activity not at rest, no SAWANT BV Allergies diphenhydramine [From Benadryl] Allergy (Mild, Verified 01/07/18 01:48) increases anxiety - Pertinent Past Medical History Medical History: Past Medical History (Last Reviewed 01/02/18 @ 16:21 by Tracey Childress) Anxiety Surgical History: Past Surgical History (Last Reviewed 01/02/18 @ 16:21 by Tracey Childress) S/P tonsillectomy and adenoidectomy lymph node removed from neck Review of Systems Constitutional: Denies: Fever, Malaise Eyes: Denies: Blurred vision, Vision Change HEENT: Denies: Head Aches, Visual Changes Cardiovascular: Denies: Chest Pain, Palpitations Respiratory: Denies: Cough, Shortness of Breath, Wheezing Gastrointestinal: Denies: Abdominal Pain, Diarrhea, Nausea, Vomiting Genitourinary: Denies: Dysuria, Hematuria Musculoskeletal: Denies: Joint Pain, Muscle pain Skin: Denies: Lesions, Rash Neurological: Denies: Blurred vision, Focal weakness, Headaches Psychiatric: Denies: Anxiety, Depression Endocrine: Denies: Heat/ Cold Intolerance Hematologic/ Lymphatic: Denies: Easy Bruising, Easy Bleeding Physical Exam General: Alert, Cooperative, No apparent distress HEENT: Atraumatic, Normocephalic. Negative for: Thyromegaly, Lymphadenopathy Cardiovascular: Regular rate Lungs: Normal air movement Abdomen: Soft, Non Tender, Gravid Neurological: Deep Tendon Reflexes 2+/4 and Symmetrical, Neuro grossly intact. 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 Negative for: Vulvar lesions Estimated gestational size: Appropriate for gestational size Presentation: Cephalic Impression/Plan chtn - stable labs and urine negative for protein. dc home preeclampsia preacutions
[2018-01-07] MEDS: Labetalol 200 MG Tablet 600 MG PO (08:04)
== END 2018-01-07 08:15 | disposition home or self-care (01) ==
LOC: WPOUT 01:42 → WP 01:43
PROVIDERS: Visit Provider Obstetrics & Gynecology
DX: O10.913 Unspecified pre-existing hypertension complicating pregnancy, third trimester (principal); O24.410 Gestational diabetes mellitus in pregnancy, diet controlled; Z3A.34 34 weeks gestation of pregnancy
CPT/HCPCS: 36415; 59025; 59050; 82565; 82570; 82962; 84156; 84450; 84460; 84550; 85027; 85610; 85730; 93005; 99218; G0378

== ENCOUNTER 2018-01-09 15:50 | Outpatient (CLI) | payer OTHER, SELFPAY ==
[2018-01-09 16:37] VITALS: BMI 54.5
[2018-01-09] MEDS: Labetalol 200 MG Tablet 600 MG PO (16:53)
--- NOTE | 2018-01-09 17:57 | US_ITS ---
STUDY: OBSTETRICAL ULTRASOUND - BIOPHYSICAL PROFILE REASON FOR EXAM: Female, 22 years old. Nonreactive stress test. LMP: May 09, 2017 per study of December 15, 2017. PRIOR ULTRASOUND: OB ultrasound December 15, 2017; biophysical profile January 05, 2018. TECHNIQUE: Transabdominal TECHNICAL QUALITY: Adequate. FINDINGS: There is a single intrauterine fetus. The fetus is in a cephalic presentation. There is demonstrated cardiac activity with a heart rate of 153 bpm. There is a normal amniotic fluid volume. The largest amniotic fluid pocket measures 2.7 x 3.3 cm. The amniotic fluid index (RIO) is 9.34 cm. The placenta is fundal in location. There are Grade 2 placental changes. Age by LMP: 35 weeks, 0 days. RITA by LMP: February 13, 2018. age by prior US: 34 weeks, 5 days. RTIA by prior US: May 2017. BIOPHYSICAL PROFILE: Breathing Movements (FBM): 0 Gross Body Movements (GBM): 2 Tone (FT): 2 Amniotic Fluid Volume (AFV): 2 TOTAL SCORE: 6 / 8 US/Biophysical Profile IMPRESSION: biophysical profile of only 6/8. No spontaneous breathing movements were observed Electronically Signed: Vincenzo Eubanks MD at 19:16 EDT , Service support ,
--- NOTE | 2018-01-13 04:20 | OB.TRI.NOTE ---
- Problem List (1) Insulin controlled gestational diabetes mellitus (GDM) in third trimester Status: Acute Comment: 4U nph at night. 2x weekly testing. s/p nutrition consult. patient declined [facility] consult (2) Chronic hypertension affecting Status: Acute Comment: plan IOL 37 weeks. labetalol 600mg TID, baseline labs nl, on baby ASA, recommend growth q 4 wks and weekly quentin and weekly nst, weekly preeclampsia labs. s/p mfm consult and admit for suspected pree, but was exacerbation of cHTN. recommend deliver at 37 weeks. declined [facility] consult. History of Present Illness Date of Service: 01/09/18 Was patient seen by the physician?: Yes Reason For Visit: NST History of Present Illness: nst secondary to chtn and diabetes in Allergies diphenhydramine [From Benadryl] Allergy (Mild, Verified 01/12/18 16:18) increases anxiety - Pertinent Past Medical History Medical History: Past Medical History (Last Reviewed 01/12/18 @ 16:19 by Tracey Childress) Anxiety Surgical History: Past Surgical History (Last Reviewed 01/12/18 @ 16:19 by Tracey Childress) S/P tonsillectomy and adenoidectomy lymph node removed from neck NST - FHR Rate Baby A Baseline: 150 Variability:: Moderate Accelerations:: 15 x 15 Decelerations:: None NST Reactive:: Yes FHR Category:: Category I Uterine Activity:: no regular Impression/Plan reactive nst dc home
== END 2018-01-09 19:35 | disposition home or self-care (01) ==
LOC: WPOUT 15:57 → WP 15:57
PROVIDERS: Referring Provider Obstetrics & Gynecology; Visit Provider Obstetrics & Gynecology
DX: O24.414 Gestational diabetes mellitus in pregnancy, insulin controlled (principal); O10.919 Unspecified pre-existing hypertension complicating pregnancy, unspecified trimester; Z3A.00 Weeks of gestation of pregnancy not specified
CPT/HCPCS: 59025; 76818

== ENCOUNTER → 2018-01-10 15:23 | Outpatient (CLI) | payer OTHER, SELFPAY ==
--- NOTE | 2018-01-10 15:25 | US_ITS ---
STUDY: OBSTETRICAL ULTRASOUND - BIOPHYSICAL PROFILE REASON FOR EXAM: Female, 22 years old. well-being. biophysical profile for nonstress test. LMP: May 09, 2017. PRIOR ULTRASOUND: biophysical profile January 09, 2018. TECHNIQUE: Transabdominal TECHNICAL QUALITY: Adequate. FINDINGS: There is a single intrauterine fetus. The fetus is in a cephalic presentation. There is demonstrated cardiac activity with a heart rate of 144 bpm. There is a normal amniotic fluid volume. The largest amniotic fluid pocket measures 3.8 cm. The amniotic fluid index (RIO) is 10.3 cm. The placenta is fundal in location. There are Grade 2 placental changes. Age by LMP: 35 weeks, 1 days. RITA by LMP: February 13, 2018. age by prior US (December 15, 2017): 34 weeks, 6 days. RITA by prior US: February 15, 2018. BIOPHYSICAL PROFILE: Breathing Movements (FBM): 2 Gross Body Movements (GBM): 2 Tone (FT): 2 Amniotic Fluid Volume (AFV): 2 TOTAL SCORE: 8 / 8 US/Biophysical Profile IMPRESSION: Normal biophysical profile of 11/15. Findings were called by the technologist to Camilla at Dr. Pacheco's office at 1616 hours. Electronically Signed: Vincenzo Eubanks MD at 17:33 EDT , Service support ,
== END ==
PROVIDERS: Referring Provider Nurse Practitioner Women's Health; Visit Provider Nurse Practitioner Women's Health
DX: O09.91 Supervision of high risk pregnancy, unspecified, first trimester (principal); O10.919 Unspecified pre-existing hypertension complicating pregnancy, unspecified trimester; O24.414 Gestational diabetes mellitus in pregnancy, insulin controlled; Z3A.00 Weeks of gestation of pregnancy not specified
CPT/HCPCS: 76818

== ENCOUNTER 2018-01-12 15:04 | Outpatient (CLI) | payer OTHER, SELFPAY ==
--- NOTE | 2018-01-12 15:12 | US_ITS ---
STUDY: SECOND AND THIRD TRIMESTER OBSTETRICAL ULTRASOUND - LIMITED REASON FOR EXAM: Female, 22 years old. Check growth. LMP: 05/09/2017 PRIOR ULTRASOUND: None. TECHNIQUE: Transabdominal TECHNICAL QUALITY: Adequate. FINDINGS: There is a single intrauterine fetus. The fetus is in a cephalic presentation. There is demonstrated cardiac activity with a heart rate of 165 bpm. There is a normal amniotic fluid volume. The largest amniotic fluid pocket measures 3.2 cm. The amniotic fluid index (RIO) is 10.6 cm. The placenta is fundal in status location. There are Grade 2 placental changes. The cervix not evaluated as the urinary bladder was not full. BIOMETRY: BPD: 8.48 cm: 34 weeks, 2 days HC: 30.85 cm: 34 weeks, 3 days AC: 31.30 cm: 35 weeks, 2 days FL: 6.85 cm: 35 weeks, 2 days Age by LMP: 35 weeks, 3 days. RITA by LMP: 02/13/2018. age by prior US: 35 weeks, 1 days. RITA by prior US: 02/15/2018. age by current US: 34 weeks, 6 days. RITA by current US: 02/17/2018. Estimated weight: 2573 grams, +/- 370 grams, 37 percentile. US/OB Limited With Biometrics IMPRESSION: 1. Single alive intrauterine uterine seen in a cephalic position. 2. Estimated gestational age by current ultrasound: 34 weeks 6 days and RITA: 02/17/2018. Based on LMP gestational age: 35 weeks 3 days and RITA: 02/13/2018. Based on prior ultrasound gestational age: 35 weeks 1 day and RITA: 02/15/2018. 3. EFW: 2573 g. Electronically Signed: Lebron Kirby MD at 11:38 EDT Tel , Service support ,
[2018-01-12 16:58] VITALS: BMI 55.0
[2018-01-12 18:03] LABS: Hematocrit 39.2 % (37-47); Hemoglobin 13.1 g/dl (12.0-15.0); Mean Corp Hgb Conc 33.4 g/gl (32-36); Mean Corpuscular Hgb 27.2 pg (27.0-32.0); Mean Corpuscular Volume 81.3 fL (81-99); Mean Platelet Vol. 10.4 fl (6.2-12.0); Platelet Count 207 K/mm3 (150-450); RBC Distribution Width CV 14.2 % (11.6-14.6); RBC Distribution Width SD 42.2 fl (35.1-43.9); Red Blood Count 4.82 M/mm3 (4.2-5.4); White Blood Count 12.9 K/mm3 (4.4-11.0)
[2018-01-12 18:04] LABS: Scan Indicated on CBC? Y/N NO
[2018-01-12 18:21] LABS: AST(SGOT) 9 U/L (15-37); Alanine Aminotransfer ALT/SGPT 22 U/L (13-56); Creatinine, Serum 0.48 mg/dL (0.55-1.02); EST Glomerular Filtration Rate 166 mL/min (>60); Est Glom Filt Rate - Afr Amer 201 mL/min (>60); Estimated Creatinine Clearance 175.75 ml/min; Uric Acid 3.5 mg/dL (2.6-6.0)
[2018-01-12 19:07] LABS: Partial Thromboplast Time 24.1 Seconds (24.1-36.2)
[2018-01-12 19:20] LABS: Prothrombin Time (Protime)PT. 13.3 SECONDS (11.7-14.9)
[2018-01-12 19:21] LABS: Protein, Urine (Random) 22.9 mg/dL (<11.9); Protein:Creat Ratio 170 mg/g CRE (0-200)
--- NOTE | 2018-01-12 20:44 | OB.TRI.HP_ITS ---
- Problem List (1) Insulin controlled gestational diabetes mellitus (GDM) in third trimester Status: Acute Comment: 4U nph at night. 2x weekly testing. s/p nutrition consult. patient declined [facility] consult (2) screening encounter Status: Acute Comment: 08/07/17 NT normal (3) Supervision of high risk in first trimester Status: Acute Comment: PRR RITA 02/13/18 Girl Crystal Omi (4) Chronic hypertension affecting Status: Acute Comment: labetalol 600mg TID, baseline labs nl, on baby ASA, recommend growth q 4 wks and weekly rio and weekly nst, weekly preeclampsia labs. s/p mfm consult and admit for suspected pree, but was exacerbation of cHT N. recommend deliver at 37 weeks. declined [facility] consult. (5) BMI 50.0-59.9, adult Status: Chronic Comment: nutrition consult, weekly nsts and growth us from 32 weeks History of Present Illness Date of Service: 01/12/18 Reason For Visit: NO BIOMETRICE/RIO/ NST Allergies diphenhydramine [From Benadryl] Allergy (Mild, Verified 01/12/18 16:18) increases anxiety - Pertinent Past Medical History Medical History: Past Medical History (Last Reviewed 01/12/18 @ 16:19 by Tracey Childress) Anxiety Surgical History: Past Surgical History (Last Reviewed 01/12/18 @ 16:19 by Tracey Childress) S/P tonsillectomy and adenoidectomy lymph node removed from neck NST - FHR Rate Baby A Baseline: 150 Variability:: Moderate Accelerations:: 15 x 15 Decelerations:: None NST Reactive:: Yes FHR Category:: Category I Uterine Activity:: nmo regular Impression/Plan reactive nst
== END 2018-01-12 19:00 | disposition home or self-care (01) ==
LOC: OPUS 15:05 → WPOUT 16:56 → WP 16:57
PROVIDERS: Obstetrics & Gynecology; Referring Provider Nurse Practitioner Women's Health; Visit Provider Nurse Practitioner Women's Health
DX: O24.414 Gestational diabetes mellitus in pregnancy, insulin controlled (principal); O10.919 Unspecified pre-existing hypertension complicating pregnancy, unspecified trimester; Z3A.00 Weeks of gestation of pregnancy not specified
CPT/HCPCS: 36415; 59025; 59050; 76816; 82565; 82570; 84156; 84450; 84460; 84550; 85027; 85610; 85730; 99218; G0378

== ENCOUNTER 2018-01-16 14:40 | Outpatient (CLI) | payer OTHER, SELFPAY ==
[2018-01-16 15:14] VITALS: BMI 55.1
--- NOTE | 2018-01-17 02:41 | OB.TRI.NOTE ---
- Problem List (1) Insulin controlled gestational diabetes mellitus (GDM) in third trimester Status: Acute Comment: 4U nph at night. 2x weekly testing. s/p nutrition consult. patient declined [facility] consult (2) screening encounter Status: Acute Comment: 08/07/17 NT normal (3) Supervision of high risk in first trimester Status: Acute Comment: PRR RITA 02/13/18 Girl Crystal Omi (4) Chronic hypertension affecting Status: Acute Comment: plan IOL 37 weeks. labetalol 600mg TID, baseline labs nl, on baby ASA, recommend growth q 4 wks and weekly quentin and weekly nst, weekly preeclampsia labs. s/p mfm consult and admit for suspected pree, but was exacerbation of cHTN. recommend deliver at 37 weeks. declined [facility] consult. (5) BMI 50.0-59.9, adult Status: Chronic Comment: nutrition consult, weekly nsts and growth us from 32 weeks History of Present Illness Date of Service: 01/16/18 Was patient seen by the physician?: No Reason For Visit: NST Allergies diphenhydramine [From Benadryl] Allergy (Mild, Verified 01/12/18 16:18) increases anxiety - Pertinent Past Medical History Medical History: Past Medical History (Last Reviewed 01/12/18 @ 16:19 by Tracey Childress) Anxiety Surgical History: Past Surgical History (Last Reviewed 01/12/18 @ 16:19 by Tracey Childress) S/P tonsillectomy and adenoidectomy lymph node removed from neck NST - FHR Rate Baby A Baseline: 140 Variability:: Moderate Accelerations:: 15 x 15 Decelerations:: None NST Reactive:: Yes FHR Category:: Category I Uterine Activity:: no regular Impression/Plan chtn diabetes reactive nst cat I
== END 2018-01-16 15:35 | disposition home or self-care (01) ==
LOC: WPOUT 14:41 → WP 14:42
PROVIDERS: Referring Provider Obstetrics & Gynecology; Visit Provider Obstetrics & Gynecology
DX: O10.919 Unspecified pre-existing hypertension complicating pregnancy, unspecified trimester (principal); O24.414 Gestational diabetes mellitus in pregnancy, insulin controlled; Z3A.00 Weeks of gestation of pregnancy not specified
CPT/HCPCS: 59025

== ENCOUNTER → 2018-01-19 18:24 | Outpatient (CLI) | payer OTHER, SELFPAY ==
[2018-01-19 20:52] LABS: Group B Strep DNA By PCR POSITIVE (Negative); Probe Check PASS
== END ==
PROVIDERS: Referring Provider Obstetrics & Gynecology; Visit Provider Obstetrics & Gynecology
DX: Z34.90 Encounter for supervision of normal pregnancy, unspecified, unspecified trimester (principal)
CPT/HCPCS: 87653

== ENCOUNTER 2018-01-20 08:15 | Inpatient (IN) | payer OTHER, SELFPAY ==
[2018-01-19 12:45] VITALS: BMI 55.4
--- NOTE | 2018-01-19 12:56 | US_ITS ---
STUDY: SECOND AND THIRD TRIMESTER OBSTETRICAL ULTRASOUND - LIMITED REASON FOR EXAM: Female, 22 years old. RIO LMP: PRIOR ULTRASOUND: 10.5.18 TECHNIQUE: Transabdominal TECHNICAL QUALITY: Adequate. FINDINGS: There is a single intrauterine fetus. The fetus is in a cephalic presentation. There is demonstrated cardiac activity with a heart rate of 138 bpm. There is a normal amniotic fluid volume. The amniotic fluid index (RIO) is 6.6 cm. The placenta is fundal in location. There are Grade 2 placental changes. The cervix IS NOT SEEN. US/OB Limited (No Biometrics) IMPRESSION: There is a single live intrauterine with a heart rate of 138 bpm. RIO: 6.6 Electronically Signed: Hayder Bella MD at 19:05 EDT , Service support ,
[2018-01-19] MEDS: Labetalol 200 MG Tablet 600 MG PO ×2 (16:29→23:00)
[2018-01-19 23:01] LABS: Bedside Glucose 130 mg/dL (70-110)
[2018-01-19] MEDS: Insulin NPH Human 100 UNITS/ML PEN SC (23:01)
[2018-01-19 23:06] LABS: Bedside Glucose 102 mg/dL (70-110)
[2018-01-20] VITALS (9 sets, daily range): BP systolic 84–134; BP diastolic 40–78; PULSE 83–107; RESP 12–26; TEMP 36.2–37.1; O2SAT 97–100
[2018-01-20] MEDS: Labetalol 200 MG Tablet 600 MG PO ×2 (06:47→14:52)
[2018-01-20 07:51] LABS: Bedside Glucose 95 mg/dL (70-110)
--- NOTE | 2018-01-20 08:00 | US_ITS ---
STUDY: SECOND AND THIRD TRIMESTER OBSTETRICAL ULTRASOUND - LIMITED REASON FOR EXAM: Female, 22 years old. Recheck RIO. LMP: 05/09/2017 PRIOR ULTRASOUND: 01/19/2018 TECHNIQUE: Transabdominal TECHNICAL QUALITY: Adequate. FINDINGS: There is a single intrauterine fetus. The fetus is in a cephalic presentation. There is demonstrated cardiac activity with a heart rate of 150 bpm. There is decreased amniotic fluid volume consistent with oligohydramnios. The largest amniotic fluid pocket measures 3.91 cm. There are Grade 2 placental changes. Cervical length is not visualized. US/OB Limited (No Biometrics) IMPRESSION: Decreased amniotic fluid volume. The largest amniotic fluid pocket measures: 3.91 cm Electronically Signed: Lebron Kirby MD at 8:35 EDT Tel , Service support ,
[2018-01-20] MEDS: 0.9% Saline Lock 10 ML Syringe IV ×2 (09:20→16:23)
[2018-01-20 09:48] LABS: Absolute Lymphocyte Count 2.61 X10^3/ul (0.83-4.51); Absolute Neutrophil Count 8.7 X10^3/uL (2.0-7.7); Basophil# 0.02 X10^3/uL; Basophil% 0.2 % (0-1); Eosinophil# 0.13 X10^3/uL; Eosinophils% 1.1 % (0-5); Hemoglobin 12.7 g/dl (12.0-15.0); Lymphocyte # 2.61 X10^3/ul (4.0); Lymphocyte % 21.1 % (19-41); Mean Corp Hgb Conc 33.4 g/gl (32-36); Mean Corpuscular Hgb 27.1 pg (27.0-32.0); Mean Corpuscular Volume 81.2 fL (81-99); Mean Platelet Vol. 10.4 fl (6.2-12.0); Monocyte# 0.84 X10^3/uL; Monocyte% 6.8 % (0-10); Neutrophil # 8.72 X10^3/uL (2.7-7.7); Neutrophil % 70.6 % (47-70); Platelet Count 268 K/mm3 (150-450); RBC Distribution Width CV 14.4 % (11.6-14.6); RBC Distribution Width SD 42.1 fl (35.1-43.9); Red Blood Count 4.68 M/mm3 (4.2-5.4); White Blood Count 12.4 K/mm3 (4.4-11.0)
[2018-01-20 09:49] LABS: POSITIVE COUNT NO; POSITIVE DIFFERENTIAL NO; POSITIVE MORPHOLOGY NO
[2018-01-20] MEDS: Lactated Ringers 1,000 ML 50 ML IV ×2 (09:56→16:35)
--- NOTE | 2018-01-20 10:05 | HP.PCM_ITS ---
- Problem List (1) Oligohydramnios in third trimester Status: Acute (2) Status: Acute Qualifiers: Comment: Growth US normal 01/12 (3) Insulin controlled gestational diabetes mellitus (GDM) in third trimester Status: Acute Comment: 4U nph at night. 2x weekly testing. s/p nutrition consult. patient declined [facility] consult (4) screening encounter Status: Acute Comment: 08/07/17 NT normal (5) Supervision of high risk in first trimester Status: Acute Comment: PRR RITA 02/13/18 Girl Crystal Omi (6) Chronic hypertension affecting Status: Acute Comment: plan IOL 37 weeks. labetalol 600mg TID, baseline labs nl, on baby ASA, recommend growth q 4 wks and weekly quentin and weekly nst, weekly preeclampsia labs. s/p mfm consult and admit for suspected pree, but was exacerbation of cHTN. recommend deliver at 37 weeks. declined [facility] consult. (7) BMI 50.0-59.9, adult Status: Chronic Comment: nutrition consult, weekly nsts and growth us from 32 weeks History Date of Admission: 11/24/17 Final RITA: 02/13/18 Gestational age: 36 Weeks and 4 Days History of this : This is a 22 year-old, at 36w4d weeks gestational age presents with oligohydramnios. she denies any vb or lof. she admits good fm. she denies any regular ctx. bloodpressures have been well controlled in the third trimester but she had a severe exacerbation of chtn at 28 weeks, received steroids, and was admitted for several weeks to the hospital. since then she has been stable and managed as intensive outpatient. Medical History: Medical History (Last Updated 01/20/18 @ 10:02 by Mishel Pacheco MD) Chronic hypertension I10 Anxiety F41.9 Surgical History: Surgical History (Last Reviewed 01/19/18 @ 11:50 by Tracey Childress) S/P tonsillectomy and adenoidectomy Z90.89 lymph node removed from neck Allergies diphenhydramine [From Benadryl] Allergy (Mild, Verified 01/19/18 11:50) increases anxiety Home Medications: Home Medications vitamin,calcium,[id number] acid tablet 1 tab PO QDAY 07/06/17 magnesium oxide 500 mg capsule 500 mg PO QDAY cap 10/17/17 blood pressure monitor kit See Dose Instructions .ROUTE .MEDSUPPLY #1 ea 11/22/17 Insulin NPH Human Isophane [Novolin N] 4 unit SQ QHS 01/05/18 labetalol 300 mg tablet 600 mg PO TID #120 tab 01/19/18 Smoking Status: Never smoker Alcohol: None Number of Fetus(es): 1 Heart Tracin moderate variability reactive no decels TOCO Analysis: none History Past Pregnancies: Past Pregnancies Delivery Date Name GA/Weeks Outcome Route Weight Gender Labor Length Anesthesia Delivery Location Provider FOB Labs: 22 yo @ 36w4d with oligohydramnios and chtn and GDMA2 Patient presents IOL plan pit/fb, arom prn. Pain management: plans epidural. GBS negative. Management of any complications: continue labetalol, monitor bs q 4 hr latent phase q 1 hr active phase. preeclampsia labs drawn. I have reviewed the [facility] and made any clinically relevant updates. Expected Infant Delivery Method: Spontaneous Vaginal Assessment/Plan All Active Problems (Last Reviewed 01/19/18 @ 11:50 by Tracey Childress) Oligohydramnios in third trimester (Acute) (Acute) Insulin controlled gestational diabetes mellitus (GDM) in third trimester (Acute) screening encounter (Acute) Supervision of high risk in first trimester (Acute) Chronic hypertension affecting (Acute) Abnormal glucose in , antepartum (Resolved) Gestational diabetes, diet controlled (Resolved) Threatened labor (Resolved) Severe preeclampsia (Ruled-out) This is a 22 year-old, G [], P [], at weeks gestational age.
[2018-01-20] MEDS: 0.9% Normal Saline 100 ML IV.SOLN. INTRA-UTER (10:18)
[2018-01-20 10:20] LABS: ALB/GLOB Ratio 0.7 RATIO (0.9-2.4); AST(SGOT) 11 U/L (15-37); Alanine Aminotransfer ALT/SGPT 22 U/L (13-56); Albumin, Serum 2.7 g/dL (3.2-5.0); Alkaline Phosphatase 97 U/L (45-117); Anion Gap 8 (5-15); BUN 10 mg/dL (7-18); BUN/Creat Ratio 18.1 RATIO (10-20); Calcium,Total 8.8 mg/dL (8.5-10.1); Chloride 106 mmol/L (98-107); Creatinine, Serum 0.55 mg/dL (0.55-1.02); EST Glomerular Filtration Rate 142 mL/min (>60); Est Glom Filt Rate - Afr Amer 172 mL/min (>60); Estimated Creatinine Clearance 153.38 ml/min; Globulin 3.8 g/dL (2.2-4.2); Glucose 134 mg/dL (74-106); Potassium 3.8 mmol/L (3.5-5.1); Protein, Total 6.5 g/dL (6.4-8.2); Sodium Level 137 mmol/L (136-145)
[2018-01-20] MEDS: Oxytocin 30 units/NS 500 ml 30 UNITS/500 ML IV.SOLN IV (10:54)
[2018-01-20 11:51] LABS: Bedside Glucose 110 mg/dL (70-110)
[2018-01-20 13:01] LABS: Bedside Glucose 98 mg/dL (70-110)
[2018-01-20] MEDS: Ondansetron 4 MG/2 ML Vial IV (16:23)
[2018-01-20 16:25] LABS: ROM Internal Control Test YES-OK TO RESULT pt. (Internal QC); ROM Patient Test Negative (Negative)
[2018-01-20] MEDS: fentaNYL-bupivacaine (epidural) 100 ML BAG EPIDURAL (16:43)
[2018-01-20 17:31] LABS: Bedside Glucose 93 mg/dL (70-110)
--- NOTE | 2018-01-20 18:07 | PCM.PN.BLA ---
Progress Note cervical change to 4 cm, arom clear fluid. internals placed. now showing cat II tracing with recurrent variables recommend amnioinfusion. continue to monitor. pitocin was turned down.
[2018-01-20] MEDS: Terbutaline 1 MG/ML Vial 0.25 MG SC (18:34)
[2018-01-20] MEDS: Lactated Ringers 1,000 ML 100 ML IV (19:00)
[2018-01-20] MEDS: Oxytocin 30 units/NS 500 ml 30 UNITS/500 ML IV.SOLN 167 UNITS IV (19:18)
--- NOTE | 2018-01-20 20:05 | PCM.OPRPT ---
Problem List (1) Oligohydramnios in third trimester Status: Acute (2) Status: Acute Qualifiers: Comment: Growth US normal 01/12 (3) Insulin controlled gestational diabetes mellitus (GDM) in third trimester Status: Acute Comment: 4U nph at night. 2x weekly testing. s/p nutrition consult. patient declined [facility] (4) screening encounter Status: Acute Comment: 08/07/17 NT normal (5) Supervision of high risk in first trimester Status: Acute Comment: PRR RITA 02/13/18 Girl Crystal Omi (6) Chronic hypertension affecting Status: Acute Comment: plan IOL 37 weeks. labetalol 600mg TID, baseline labs nl, on baby ASA, recommend growth q 4 wks and weekly rio and weekly nst, weekly preeclampsia labs. s/p mfm consult and admit for suspected pree, but was exacerbation of cHTN. recommend deliver at 37 weeks. declined [facility] consult. (7) BMI 50.0-59.9, adult Status: Chronic Comment: nutrition consult, weekly nsts and growth us from 32 weeks (8) heart rate decelerations affecting management of mother Status: Acute Report of Operation Date of Procedure: 01/20/18 Pre-Operative Diagnosis: Induction of labor oligohydramnios, chronic hypertension, insulin controlled gestational diabetes, morbid obesity, prematurity, recurrent heart rate decelerations category 2 tracing Post-Operative Diagnosis: Same Surgery/Procedure Performed:: Primary low transverse Description of Surgical Findings:: Normal uterus tubes and ovaries female vertex with a nuchal cord x1 dope and fabric worker: Rick Greenberg Type of Anesthesia:: Spinal Special Medications: none Specimen's removed: female Drains: evangelista Estimated Blood Loss (mL): 600 Fluids Replaced: crystalloid Description of Procedure: The patient is a 82-year-old at 36 weeks 4 days presented for induction of labor secondary to oligohydramnios with an RIO of 3 cm. Patient had a complicated by chronic hypertension and insulin controlled gestational diabetes but had negative proteinuria and normal laboratory evaluation and blood pressures were stable in the normal to mildly elevated range at the time of induction. Patient underwent Pitocin and Evangelista bulb induction of labor and after the Evangelista bulb was removed artificial rupture membranes showed clear fluid and internal monitors were placed. After rupture of membranes recurrent variable decelerations were noted and the heart rate followed by a decrease in variability and then developing recurrent late decelerations and a category 2 tracing. Pitocin was turned off, IV fluids were given, an amnioinfusion was started, oxygen was given and the patient was changed to multiple positions. Cervical exam was still 4 cm and patient was remote from delivery therefore the decision was made for a primary . Spinal anesthesia was placed without difficulty. Evangelista catheter was placed. The patient was placed in the dorsal supine position with leftward tilt. Patient was prepped and draped in the normal sterile fashion. Pfannenstiel skin incision was made with the scalpel and carried through to the underlying layer of fascia with the scalpel. Fascia was nicked in the midline and the incision extended laterally. The peritoneum was entered digitally. The incision was stretched in a double ring retractor was placed and a low transverse uterine incision was made with the scalpel. The infant's head was delivered atraumatically followed by the anterior and posterior shoulders without complication the rest of the delivered. A loose nuchal cord x1 was reduced over the 's head. Delayed cord clamping was employed for approximately 30-60 seconds and then the cord was clamped and cut and the was handed off to awaiting nurse. The placenta was delivered spontaneously immediately following and was noted to be intact and have a three-vessel cord. The uterus was cleared of all clots and debris, and the incision was closed in a double layer closure using #1 Monocryl. The uterus was returned to the maternal abdomen and gutters were cleared of all clots and debris. The ovaries and fallopian tubes were noted to be within normal limits. The peritoneum was closed with 3-0 Monocryl in a running fashion. Fascia was closed with 0 PDS in a running fashion. Subcutaneous tissue was copiously irrigated and the skin was closed with 3-0 Monocryl in a subcuticular fashion. Steri-Strips and Mepilex dressing were applied without complication. Patient was taken to recovery in stable condition. Grafts/Implants Used: none - Complications none - Admit VTE Documentation VTE Present on Admission: No
--- NOTE | 2018-01-20 20:10 | OP.PCM_ITS ---
Problem List (1) Oligohydramnios in third trimester Status: Acute (2) Status: Acute Qualifiers: Comment: Growth US normal 01/12 (3) Insulin controlled gestational diabetes mellitus (GDM) in third trimester Status: Acute Comment: 4U nph at night. 2x weekly testing. s/p nutrition consult. patient declined [facility] (4) screening encounter Status: Acute Comment: 08/07/17 NT normal (5) Supervision of high risk in first trimester Status: Acute Comment: PRR RITA 02/13/18 Girl Crystal Omi (6) Chronic hypertension affecting Status: Acute Comment: plan IOL 37 weeks. labetalol 600mg TID, baseline labs nl, on baby ASA, recommend growth q 4 wks and weekly rio and weekly nst, weekly preeclampsia labs. s/p mfm consult and admit for suspected pree, but was exacerbation of cHTN. recommend deliver at 37 weeks. declined [facility] consult. (7) BMI 50.0-59.9, adult Status: Chronic Comment: nutrition consult, weekly nsts and growth us from 32 weeks (8) heart rate decelerations affecting management of mother Status: Acute Report of Operation Date of Procedure: 01/20/18 Pre-Operative Diagnosis: Induction of labor oligohydramnios, chronic hypertension, insulin controlled gestational diabetes, morbid obesity, prematurity, recurrent heart rate decelerations category 2 tracing Post-Operative Diagnosis: Same Surgery/Procedure Performed:: Primary low transverse Description of Surgical Findings:: Normal uterus tubes and ovaries female vertex with a nuchal cord x1 wildland firefighter: Rick Greenberg Type of Anesthesia:: Spinal Special Medications: none Specimen's removed: female Drains: evangelista Estimated Blood Loss (mL): 600 Fluids Replaced: crystalloid Description of Procedure: The patient is a 82-year-old at 36 weeks 4 days presented for induction of labor secondary to oligohydramnios with an RIO of 3 cm. Patient had a complicated by chronic hypertension and insulin controlled gestational diabetes but had negative proteinuria and normal laboratory evaluation and blood pressures were stable in the normal to mildly elevated range at the time of induction. Patient underwent Pitocin and Evangelista bulb induction of labor and after the Evangelista bulb was removed artificial rupture membranes showed clear fluid and internal monitors were placed. After rupture of membranes recurrent variable decelerations were noted and the heart rate followed by a decrease in variability and then developing recurrent late decelerations and a category 2 tracing. Pitocin was turned off, IV fluids were given, an amnioinfusion was started, oxygen was given and the patient was changed to multiple positions. Cervical exam was still 4 cm and patient was remote from delivery therefore the decision was made for a primary . Spinal anesthesia was placed without difficulty. Evangelista catheter was placed. The patient was placed in the dorsal supine position with leftward tilt. Patient was prepped and draped in the normal sterile fashion. Pfannenstiel skin incision was made with the scalpel and carried through to the underlying layer of fascia with the scalpel. Fascia was nicked in the midline and the incision extended laterally. The peritoneum was entered digitally. The incision was stretched in a double ring retractor was placed and a low transverse uterine incision was made with the scalpel. The infant's head was delivered atraumatically followed by the anterior and posterior shoulders without complication the rest of the delivered. A loose nuchal cord x1 was reduced over the 's head. Delayed cord clamping was employed for approximately 30-60 seconds and then the cord was clamped and cut and the was handed off to awaiting nurse. The placenta was delivered spontaneously immediately following and was noted to be intact and have a three- vessel cord. The uterus was cleared of all clots and debris, and the incision was closed in a double layer closure using #1 Monocryl. The uterus was returned to the maternal abdomen and gutters were cleared of all clots and debris. The ovaries and fallopian tubes were noted to be within normal limits. The peritoneum was closed with 3-0 Monocryl in a running fashion. Fascia was closed with 0 PDS in a running fashion. Subcutaneous tissue was copiously irrigated and the skin was closed with 3-0 Monocryl in a subcuticular fashion. Steri- Strips and Mepilex dressing were applied without complication. Patient was take n to recovery in stable condition. Grafts/Implants Used: none - Complications none - Admit VTE Documentation VTE Present on Admission: No
[2018-01-20 23:00] LABS: Bedside Glucose 77 mg/dL (70-110)
[2018-01-20] MEDS: oxyCODONE 5 MG Tablet PO (23:06)
[2018-01-20] MEDS: HYDROmorphone 1 MG/ML Syringe IV (23:51)
[2018-01-21] VITALS (8 sets, daily range): BP systolic 114–148; BP diastolic 60–92; PULSE 98–115; RESP 16–20; TEMP 36.3–37.3; O2SAT 96–98
[2018-01-21] MEDS: Ketorolac 30 MG/ML Syringe IV ×4 (01:35→19:13)
[2018-01-21] MEDS: oxyCODONE 5 MG Tablet PO ×5 (03:03→21:35)
[2018-01-21] MEDS: 0.9% Saline Lock 10 ML Syringe IV ×3 (05:36→19:13)
[2018-01-21] MEDS: Labetalol 100 MG Tablet 300 MG PO ×3 (05:37→22:33)
[2018-01-21] MEDS: HYDROmorphone 0.5 MG/0.5 ML SYRINGE IV (05:37)
[2018-01-21 06:02] LABS: Hematocrit 34.2 % (37-47); Hemoglobin 11.6 g/dl (12.0-15.0); Mean Corp Hgb Conc 33.9 g/gl (32-36); Mean Corpuscular Hgb 27.8 pg (27.0-32.0); Mean Corpuscular Volume 81.8 fL (81-99); Mean Platelet Vol. 10.6 fl (6.2-12.0); Platelet Count 242 K/mm3 (150-450); RBC Distribution Width CV 14.4 % (11.6-14.6); RBC Distribution Width SD 41.8 fl (35.1-43.9); Red Blood Count 4.18 M/mm3 (4.2-5.4); White Blood Count 13.5 K/mm3 (4.4-11.0)
[2018-01-21 06:08] LABS: Scan Indicated on CBC? Y/N NO
[2018-01-21 06:15] LABS: Bedside Glucose 96 mg/dL (70-110)
[2018-01-21] MEDS: Senna/Docusate Sodium 1 Tablet PO (07:32)
--- NOTE | 2018-01-21 08:52 | NURSING ---
Patient up to bathroom to perform partial bath at sink. Able to void. Ambulated to [facility] with nurse close behind. Tolerating activity well.
[2018-01-21] MEDS: Enoxaparin 40 MG/0.4 ML Syringe SC (09:41)
--- NOTE | 2018-01-21 10:45 | PCM.PN.OB ---
Patient Problems: Active and Suspected Problems (Last Updated 01/20/18 @ 10:02 by Mishel Pacheco MD) Oligohydramnios in third trimester (Acute) heart rate decelerations affecting management of mother (Acute) Subjective: doing well no complaints no cp sob pain controlled - Physical Exam General: Alert, Oriented x3 Abdomen: Soft, Non Tender, - - C/D/I incision bandage intact Vital Signs Temp Pulse Resp BP Pulse Ox 98.7 F 98 16 128/78 H 98 01/21/18 08:00 01/21/18 08:00 01/21/18 08:00 01/21/18 08:00 01/21/18 08:00 Oxygen Delivery Method Room Air Weight: 353 lb 13.471 oz Body Mass Index (BMI) 55.4 Intake and Output for Last 24 Hours 01/19/18 01/20/18 01/21/18 23:59 23:59 23:59 Intake Total 2900 / 2900 1901 / 1901 Output Total 400 / 400 850 / 850 Balance 2500 / 2500 1051 / 1051 Laboratory Tests Past 24 Hrs 01/20/18 01/20/18 01/21/18 09:20 13:40 05:41 WBC 13.5 H RBC 4.18 L Hgb 11.6 L Hct 34.2 L MCV 81.8 MCH 27.8 MCHC 33.9 RDW 14.4 RDW Differential 41.8 Plt Count 242 MPV 10.6 Vag Amniotic Fld Detect Negative Blood Type A POSITIVE Antibody Screen NEGATIVE POC Glucose 01/21/18 01/20/18 01/20/18 05:37 22:04 17:20 POC Glucose 96 77 93 01/20/18 01/20/18 12:56 11:45 POC Glucose 98 110 Medical Necessity - Tobacco Use Smoking Status: Former smoker Assessment/Plan All Active Problems (Last Updated 01/20/18 @ 10:02 by Mishel Pacheco MD) Chronic hypertension affecting (Acute) Supervision of high risk in first trimester (Acute) screening encounter (Acute) Insulin controlled gestational diabetes mellitus (GDM) in third trimester (Acute) (Acute) Oligohydramnios in third trimester (Acute) heart rate decelerations affecting management of mother (Acute) Abnormal glucose in , antepartum (Resolved) Gestational diabetes, diet controlled (Resolved) Threatened labor (Resolved) Severe preeclampsia (Ruled-out) s/p LTCS POD 1 1. routine care, ambulate, oral pain control 2. dvt prophylaxis- lovenox 3. chtn- labetalol 300 TID 4. GDMA2 BS WNL 5. in SCN
--- NOTE | 2018-01-21 14:23 | CPS ---
nursing to start
[2018-01-21] MEDS: Acetaminophen 500 MG Tablet 1000 MG PO (17:40)
[2018-01-22] MEDS: Acetaminophen 500 MG Tablet 1000 MG PO ×2 (00:43→11:01)
[2018-01-22 01:23] VITALS: BP 115/47; PULSE 105; RESP 18; TEMP 36.7
[2018-01-22] MEDS: oxyCODONE 5 MG Tablet PO (01:29)
[2018-01-22] MEDS: Ketorolac 30 MG/ML Syringe IV ×3 (01:30→12:44)
[2018-01-22] MEDS: 0.9% Saline Lock 10 ML Syringe IV ×2 (01:30→07:19)
[2018-01-22 05:43] VITALS: BP 118/66; PULSE 104
[2018-01-22] MEDS: Enoxaparin 40 MG/0.4 ML Syringe SC (05:47)
[2018-01-22] MEDS: Labetalol 100 MG Tablet 300 MG PO ×3 (05:48→21:41)
[2018-01-22 07:30] VITALS: BP 124/55; PULSE 101; RESP 20; TEMP 36.9; O2SAT 98
--- NOTE | 2018-01-22 07:42 | PCM.PN.OB ---
Patient Problems: Active and Suspected Problems (Last Updated 01/20/18 @ 10:02 by Mishel Pacheco MD) Oligohydramnios in third trimester (Acute) heart rate decelerations affecting management of mother (Acute) Subjective: Doing well, up ambulating. No SOB, CP. Pain controlled - Physical Exam General: Alert, Oriented x3 Abdomen: Soft, Non Tender, Non-Distended, - - FF below U. Dressing dry and intact Vital Signs Temp Pulse Resp BP Pulse Ox 98.1 F 104 H 18 118/66 96 01/22/18 01:23 01/22/18 05:43 01/22/18 01:23 01/22/18 05:43 01/21/18 17:15 Oxygen Delivery Method Room Air Weight: 353 lb 13.471 oz Body Mass Index (BMI) 55.4 Intake and Output for Last 24 Hours 01/20/18 01/21/18 01/22/18 23:59 23:59 23:59 Intake Total 2900 / 2900 1901 / 1901 Output Total 400 / 400 1050 / 1050 Balance 2500 / 2500 851 / 851 Medical Necessity - Tobacco Use Smoking Status: Former smoker Assessment/Plan All Active Problems (Last Updated 01/20/18 @ 10:02 by Mishel Pacheco MD) Chronic hypertension affecting (Acute) Supervision of high risk in first trimester (Acute) screening encounter (Acute) Insulin controlled gestational diabetes mellitus (GDM) in third trimester (Acute) (Acute) Oligohydramnios in third trimester (Acute) heart rate decelerations affecting management of mother (Acute) Abnormal glucose in , antepartum (Resolved) Gestational diabetes, diet controlled (Resolved) Threatened labor (Resolved) Severe preeclampsia (Ruled-out) LTPCS POD #2: Routine care. BPs WNL. Continue labetalol at current dosage for now.
--- NOTE | 2018-01-22 11:15 | CASEMGMT ---
Date of Referral: 01/21/18 Time of Referral: 1407 Referred by: Macey Douglass RN Reason for Referral: Hx of anxiety/depression Date of Intervention: 01/22/18 Time of Intervention: 1045 History obtained from: Medical record and mother of baby (MOB). No family present with MOB during assessment. Household Consists of: MOB, FOKalani, and new infant, Crystal Thomas. No other family, friends or children are in the home. Infant's Parent/Guardian Situations: MOB and FOB have approximately been for 3 years. This is their first child together, and neither of them have children from other relationships. They did have a miscarriage 2 months prior to this , and MOB reports that this was at 5 weeks gestation. Emotional support provided. MOB denies abuse or neglect within the home. Medical History: MOB is G2, P1. Miscarriage nearly a year ago at 5 weeks gestation. MOB received adequate care throughout . Underwent STAT and is presently in [facility]. Educational Status: MOB reports high school education. Pt is able to read and write, and denies issues with comprehension. Financial Status: MOB reports to work for an [employer] in [place]. She will be taking off 12 weeks. Spouse works FT. Reports financial stability and denies any concerns. Childcare/Caregiver: MOB intends on being primary caregiver. Her mother will watch upon MOB's return to work. States that KACIE has room setup at her home and will be on MOB way to work for easy drop off and product picker. Transportation: Both MOB and LORETTA has access to transportation and are able to drive. Agency Involvement: MOB denies any involvement with various agencies. Declines services at this time. Accepts education to various resources such as counseling and [facility]. Behavioral Health History: MOB reports a history of counseling for anxiety and depression as a child. Does not remember what agency this was through. Reports to have symptoms well managed and her spouse is her primary support and she gorge with symptoms by talking with him. Denies hx of medication for mental health diagnoses and does not anticipate need for them at this time. Educate pt to PPD and understanding is expressed. Family and/or Social Stressors: MOB states that her mother presently is ill and on an antibiotic and cannot come to visit or see the which is difficult. Expresses importance of keeping infant away from others while they are sick. Otherwise denies concerns and states that are looking forward to introducing Crystal to family. Support System: MOB identifies spouse, her parents, and FOB parents as supports. FOB parents live in [place] and MOB parents live in [place]. They intend on using [facility] for childcare once MOB returns to work. ASSESSMENT: MOB engaged in conversation. She presents with pleasant affect as evidenced by smiling and willingness to participate in assessment. Maintained eye contact with social work professor throughout conversation and had appropriate social etiquette. Infant was not in room to see MOB interact with infant. No other family or visitors were present at time. MOB educated to resources for counseling and other assistive agencies such [place] [facility] Declined referrals at this time, but did take information. Also discussed importance of a PCP for MOB, and provided with a list of in-network family physicians. She intends on establishing infant with [facility] here in [place]. No further concerns or needs at this time. PLAN: MOB and infant to be discharged home when medically ready. MOB accepted education and information on various resources, but did decline referrals at this time. No further needs at this time. Dena Tyler, COLOR DIPPER, FLIGHT ATTENDANT RAMP
[2018-01-22] MEDS: Senna/Docusate Sodium 1 Tablet PO (13:57)
[2018-01-22 14:15] VITALS: BP 122/76; PULSE 99; RESP 20; TEMP 36.7; O2SAT 99
[2018-01-22 20:31] VITALS: BP 123/72; PULSE 105; RESP 18; TEMP 36.8; O2SAT 94
[2018-01-23] VITALS (8 sets, daily range): BP systolic 128–164; BP diastolic 76–98; PULSE 94–99; RESP 16–26; TEMP 36.7–37; O2SAT 96–99
[2018-01-23] MEDS: Acetaminophen 500 MG Tablet 1000 MG PO ×3 (00:27→18:28)
[2018-01-23] MEDS: Labetalol 100 MG Tablet 300 MG PO ×3 (06:02→20:40)
[2018-01-23] MEDS: Enoxaparin 40 MG/0.4 ML Syringe SC (14:08)
--- NOTE | 2018-01-23 20:43 | PCM.PN.OB ---
Patient Problems: Active and Suspected Problems (Last Updated 01/20/18 @ 10:02 by Mishel Pacheco MD) Oligohydramnios in third trimester (Acute) heart rate decelerations affecting management of mother (Acute) Subjective: doing well no complaints, pain controlled and breast milk production increasing. - Physical Exam General: Alert, Oriented x3 Vital Signs Temp Pulse Resp BP Pulse Ox 98.5 F 98 16 151/83 H 96 01/23/18 14:03 01/23/18 14:03 01/23/18 14:03 01/23/18 14:03 01/23/18 14:03 Oxygen Delivery Method Room Air Weight: 353 lb 13.471 oz Body Mass Index (BMI) 55.4 Intake and Output for Last 24 Hours 01/21/18 01/22/18 01/23/18 23:59 23:59 23:59 Intake Total 1901 / 1901 Output Total 1050 / 1050 Balance 851 / 851 Medical Necessity - Tobacco Use Smoking Status: Former smoker Assessment/Plan All Active Problems (Last Updated 01/20/18 @ 10:02 by Mishel Pacheco MD) Chronic hypertension affecting (Acute) Supervision of high risk in first trimester (Acute) screening encounter (Acute) Insulin controlled gestational diabetes mellitus (GDM) in third trimester (Acute) (Acute) Oligohydramnios in third trimester (Acute) heart rate decelerations affecting management of mother (Acute) Abnormal glucose in , antepartum (Resolved) Gestational diabetes, diet controlled (Resolved) Threatened labor (Resolved) Severe preeclampsia (Ruled-out) s/p LTCS POD 3 1. routine care, ambulate, oral pain control 2. dvt prophylaxis- lovenox 3. chtn- labetalol 300 TID. continue to monitor- elevated this evening will keep another day 4. GDMA2 BS WNL 5. infant in SCN
[2018-01-23] MEDS: Naproxen 250 MG Tablet PO (23:09)
[2018-01-24 01:50] VITALS: BP 143/83; PULSE 96; RESP 18; TEMP 36.7; O2SAT 98
--- NOTE | 2018-01-24 05:14 | DCINST_ITS ---
Discharge Diet: No Restrictions Discharge Activity: Return to Normal Activity, May not drive while taking narcotic pain medications., May Shower May resume sexual activity in: 4-6 weeks Call your doctor if your incision/area has: Continuous Slow Oozing, Sudden Increased Bleeding, Increased Pain/ Swelling, Increased Redness, Foul Smelling Discharge Additional Instructions: If you experience any of the following, contact your healthcare provider. * Bleeding that soaks a pad every hour for 2 hours * Fever 100.4 or higher * Unrelieved incision or abdominal pain * Swelling, redness, discharge or bleeding from your incision or episiotomy site * Your incision begins to separate * Problems urinating (including inability to urinate or burning while urinating). * Visual changes * Severe headache * Flu-like symptoms * Pain or redness in one of both of your breasts * Pain, warmth, tenderness or swelling in your legs, especially the calf area * Frequent nausea and vomiting * Symptoms of depression or anxiety If you experience any of the following, call 911 or go to the nearest Emergency Room. * Chest pain * Problems breathing * Seizure activity * Partial or complete paralysis of a body part, slurred speech, weakness or drooping of the face, or a sudden inability to walk or hold your balance Allergies/Adverse Reactions: Allergies diphenhydramine [From Benadryl] Allergy (Mild, Verified 01/19/18 11:50) increases anxiety Medications to take at Discharge vitamin,calcium,lgeepqqv-rqih-fizwr acid tablet 1 tab PO QDAY 07/06/17 magnesium oxide 500 mg capsule 500 mg PO QDAY cap 10/17/17 Insulin NPH Human Isophane [Novolin N] 4 unit SQ QHS 01/05/18 labetalol 300 mg tablet 600 mg PO TID #120 tab 01/19/18 Please Follow Up With: Mishel Pacheco MD - [phone] When: Call to make an appointment with your doctor in 6 weeks. If you had elevated Blood pressure or 4th degree laceration you will need to be seen in 2 weeks. Primary Care Physician: Care Physician,No Primary [Primary Care Provider] - Test Results: Test results from this visit will be discussed in further detail at your follow- up appointment, if applicable.
--- NOTE | 2018-01-24 05:14 | PCM.DCVAG ---
Discharge Diet: No Restrictions Discharge Activity: Return to Normal Activity, May not drive while taking narcotic pain medications., May Shower May resume sexual activity in: 4-6 weeks Call your doctor if your incision/area has: Continuous Slow Oozing, Sudden Increased Bleeding, Increased Pain/ Swelling, Increased Redness, Foul Smelling Discharge Additional Instructions: If you experience any of the following, contact your healthcare provider. Bleeding that soaks a pad every hour for 2 hours Fever 100.4 or higher Unrelieved incision or abdominal pain Swelling, redness, discharge or bleeding from your incision or episiotomy site Your incision begins to separate Problems urinating (including inability to urinate or burning while urinating). Visual changes Severe headache Flu-like symptoms Pain or redness in one of both of your breasts Pain, warmth, tenderness or swelling in your legs, especially the calf area Frequent nausea and vomiting Symptoms of depression or anxiety If you experience any of the following, call 911 or go to the nearest Emergency Room. Chest pain Problems breathing Seizure activity Partial or complete paralysis of a body part, slurred speech, weakness or drooping of the face, or a sudden inability to walk or hold your balance Allergies/Adverse Reactions: Allergies diphenhydramine [From Benadryl] Allergy (Mild, Verified 01/19/18 11:50) increases anxiety Medications to take at Discharge vitamin,calcium,zrertlaz-kqug-krdog acid tablet 1 tab PO QDAY 07/06/17 magnesium oxide 500 mg capsule 500 mg PO QDAY cap 10/17/17 Insulin NPH Human Isophane [Novolin N] 4 unit SQ QHS 01/05/18 labetalol 300 mg tablet 600 mg PO TID #120 tab 01/19/18 Please Follow Up With: Mishel Pacheco MD - [phone] When: Call to make an appointment with your doctor in 6 weeks. If you had elevated Blood pressure or 4th degree laceration you will need to be seen in 2 weeks. Primary Care Physician: Care Physician,No Primary [Primary Care Provider] - Test Results: Test results from this visit will be discussed in further detail at your follow-up appointment, if applicable.
[2018-01-24] MEDS: Labetalol 100 MG Tablet 300 MG PO (06:23)
--- NOTE | 2018-01-24 07:56 | PCM.PN.OB ---
Patient Problems: Active and Suspected Problems (Last Updated 01/20/18 @ 10:02 by Mishel Pachceo MD) Oligohydramnios in third trimester (Acute) heart rate decelerations affecting management of mother (Acute) Subjective: Doing well. Pain controlled with nonnarcotics. Plans hotel status today. No SOB, CP - Physical Exam General: Alert, Oriented x3 Abdomen: Soft, Non Tender, Non-Distended, - - FF below U. Dressing dry and intact Vital Signs Temp Pulse Resp BP Pulse Ox 98.1 F 96 18 143/83 H 98 01/24/18 01:50 01/24/18 01:50 01/24/18 01:50 01/24/18 01:50 01/24/18 01:50 Oxygen Delivery Method Room Air Weight: 353 lb 13.471 oz Body Mass Index (BMI) 55.4 Medical Necessity - Tobacco Use Smoking Status: Former smoker Assessment/Plan All Active Problems (Last Updated 01/20/18 @ 10:02 by Mishel Pacheco MD) Chronic hypertension affecting (Acute) Supervision of high risk in first trimester (Acute) screening encounter (Acute) Insulin controlled gestational diabetes mellitus (GDM) in third trimester (Acute) (Acute) Oligohydramnios in third trimester (Acute) heart rate decelerations affecting management of mother (Acute) Abnormal glucose in , antepartum (Resolved) Gestational diabetes, diet controlled (Resolved) Threatened labor (Resolved) Severe preeclampsia (Ruled-out) LTPCS POD#4: continue labetalol current dosage. Plan Hotel status today. .
[2018-01-24 10:00] VITALS: BP 154/88; PULSE 90; RESP 20; TEMP 37.1; O2SAT 100
[2018-01-24] MEDS: Enoxaparin 40 MG/0.4 ML Syringe SC (11:01)
[2018-01-24 11:15] VITALS: BP 128/70
--- NOTE | 2018-01-24 11:16 | NURSING ---
patient resting at bp check this time , earlier bp done while sitting and feeding baby
[2018-01-24] MEDS: Labetalol 200 MG Tablet 400 MG PO (14:54)
[2018-01-24 14:59] VITALS: BP 157/89; PULSE 103; RESP 18; TEMP 36.9; O2SAT 99
--- NOTE | 2018-01-24 15:53 | CASEMGMT ---
Social Work Labor and Delivery Unit Touched base with mother of baby (MOB) today as it relates to baby who is in the SCN. Baby may be discharged tomorrow if things continue to go well. MOB denies any new new needs or concerns for home going. However, as conversation went along MOB did discuss feeling a bit stressed with not wanting to offend anyone in the family , but also wanting to set limits in visitors due to worry about baby being exposed to germs. Supportive listening and reflection offered, discussed possible assertive ways to discuss limits with family members, while also encouraging MOB to discuss a plan with father of baby. MOB pleasant, talkative, good eye contact, full affect during social work visit. MOB reports to still have resources provided by director social Dena DALE on Monday. This lyric writer did educate MOB to a weekly chat for MOB who may be experiencing some form of depression and/or anxiety. MOB accepting of this resource. No other services requested or indicated. -SUNSHINE Herrera, VENTILATION WORKER
[2018-01-24 16:27] VITALS: BP 146/52
--- NOTE | 2018-01-24 18:07 | NURSING ---
pt to zainab
--- NOTE | 2018-01-29 10:36 | PCM.DC.SUM ---
Discharge Date and Diagnosis Date of Admission: 11/24/17 - Secondary Discharge Diagnosis Chronic Problems (Last Updated 01/20/18 @ 10:02 by Mishel Pacheco MD) BMI 50.0-59.9, adult (Chronic) nutrition consult, weekly nsts and growth us from 32 weeks Hospital Course and Treatment Consultations 01/20/18 08:18 Consult: Anesthesia Routine Comment: Reason For Exam: LABOR Summary of Care Provided: The patient is a 22 year old F [] - Physical Exam Vital Signs Temp Pulse Resp BP Pulse Ox 98.4 F 103 H 18 146/52 H 99 01/24/18 14:59 01/24/18 14:59 01/24/18 14:59 01/24/18 16:27 01/24/18 14:59 Oxygen Delivery Method Room Air Weight: 353 lb 13.471 oz Body Mass Index (BMI) 55.4 Discharge Diet: No Restrictions Discharge Activity: Return to Normal Activity, May not drive while taking narcotic pain medications., May Shower May resume sexual activity in: 4-6 weeks Call your doctor if your incision/area has: Continuous Slow Oozing, Sudden Increased Bleeding, Increased Pain/ Swelling, Increased Redness, Foul Smelling Discharge Home Medications: Medications to take at Discharge Naproxen [Naprosyn] 250 - 500 mg PO Q8H PRN PRN #30 tablet 01/24/18 Oxycodone HCl/Acetaminophen [Percocet 5-325] 1 - 2 tablet PO Q4H PRN PRN 7 Days #28 tablet 01/24/18 Labetalol [Trandate (Beta Stephanie)] 400 mg PO TID 01/26/18 Following Prescrptions Were Given to Patient: Oxycodone HCl/Acetaminophen [Percocet 5-325] 1 - 2 tablet PO Q4H PRN PRN 7 Days #28 tablet PRN Reason: Moderate-Severe pain Naproxen [Naprosyn] 250 - 500 mg PO Q8H PRN PRN #30 tablet PRN Reason: MILD PAIN Primary Care Physician: Care Physician,No Primary [Primary Care Provider] - Please Follow Up With: Mishel Pacheco MD - [phone] Medical Necessity - Tobacco Use Smoking Status: Former smoker Meaningful Use Info Meaningful Use Diagnoses (Choose all that apply): None applicable
== END 2018-01-24 18:00 | disposition home or self-care (01) | DRG 787 ==
LOC: WPOUT 08:18
PROVIDERS: Admitting Provider Obstetrics & Gynecology; Referring Provider Obstetrics & Gynecology; Visit Provider Obstetrics & Gynecology
DX: O76 Abnormality in fetal heart rate and rhythm complicating labor and delivery (principal); O41.03X0 Oligohydramnios, third trimester, not applicable or unspecified; O10.92 Unspecified pre-existing hypertension complicating childbirth; Z68.43 Body mass index [BMI] 50.0-59.9, adult; Z3A.36 36 weeks gestation of pregnancy; Z37.0 Single live birth; O24.424 Gestational diabetes mellitus in childbirth, insulin controlled; O99.214 Obesity complicating childbirth; E66.01 Morbid (severe) obesity due to excess calories; Z71.3 Dietary counseling and surveillance; Z23 Encounter for immunization; O69.81X0 Labor and delivery complicated by cord around neck, without compression, not applicable or unspecified
CPT/HCPCS: 59025; 59050; 76815; 80053; 82962; 84112; 85025; 85027; 86850; 86900; 99218; J7030; J7120; 90686; A4216; G0378; J2405

== ENCOUNTER 2018-01-26 03:11 | Emergency (ER) | payer OTHER, SELFPAY ==
[2018-01-26 03:12] VITALS: BP 167/93; PULSE 98; RESP 20; TEMP 37; O2SAT 98; BMI 53.2
--- NOTE | 2018-01-26 03:18 | EKG12_ITS ---
Test Reason : Blood Pressure : / mmHG Vent. Rate : 091 BPM Atrial Rate : 091 BPM P-R Int : 154 ms QRS Dur : 090 ms QT Int : 372 ms P-R-T Axes : 034 017 024 degrees QTc Int : 457 ms Normal sinus rhythm Minimal voltage criteria for LVH, may be normal variant Borderline ECG Confirmed by FARIHA GODINEZ, AYO ([id number]), field map editor MAICOL ENCARNACION ([id number]) on 01/29/2018 12:48:42 PM Referred By: Mishel Pacheco Confirmed By:AYO FRIED MD
--- NOTE | 2018-01-26 03:19 | ED.VISSUMM ---
- ER Visit Summary Date of Service: 01/26/18 Chief Complaint: Left leg numbness and tingling History of Present Illness: The patient is a 22 F complaint of numbness and tingling started in her left leg today. Patient just had a baby last week. She did not have any symptoms while she was . She denies any history of DVT or PE. She now complains of some chest pain. She describes as pressure. Worse with breathing. She denies any pain in that left leg. Physical Examination: Vital signs reviewed. HEENT exam unremarkable. Heart is regular rate and rhythm without murmurs. Lungs are clear to auscultation. Abdomen is soft and nontender. Extremities reveal no edema. Peripheral pulses are equal. Skin exam normal. Neurologic exam normal. Test Results: Laboratory studies normal except for a d-dimer of 1.23. CAT scan of the chest reveals no evidence of PE or any other acute pathology Emergency Department Course and Treatment: Patient is concerned about DVT, especially with her recent . Ultrasound will be available in approximately 2 hours. The patient will be observed the emergency department until that time. She was requesting a shot of Lovenox until that time. I feel that that is reasonable. I did give her aspirin during her initial presentation. Patient will be signed out to the oncoming physician to review the patient's ultrasound. Treatment Plan: [] Disposition: Pending ultrasound of the left leg Impression: Left leg paresthesias This note was generated with [employer] dictation software. It may contain incorrect words, spelling, and punctuation that were not noted in review of the chart prior to signing <Charly Mckeon - Last Filed: 01/26/18 05:26> - ER Visit Summary Date of Service: 01/26/18 Chief Complaint: Not applicable History of Present Illness: The patient is a [address] Mckeon. Patient has history of hypertension. She reports systolic blood pressure normally is 150-160. She reports she has not taken her blood pressure medication. Physical Examination: Per Dr. Mckeon Test Results: Venous duplex study was negative. Therefore patient will be discharged home. Emergency Department Course and Treatment: Per Dr. Mckeon Treatment Plan: Discharged home to follow-up with doctors as needed. Disposition: Discharged to home Impression: 1. Left leg pain and paresthesia 2. Pedal edema 3. Hypertension secondary to noncompliance with medication This note was generated with [employer] dictation software. It may contain incorrect words, spelling, and punctuation that were not noted in review of the chart prior to signing <Lucas Ross - Last Filed: 01/26/18 07:52> ED Disposition <Charly Mckeon - Last Filed: 01/26/18 05:26> <Lucas Ross - Last Filed: 01/26/18 07:52> - Plan for ED Patient: Disposition: Home or Assisted Living Chief Complaint: Lower Extremity Injury Instructions: ED Leg Swelling Unilateral Referrals: Mishel Pacheco MD [STAFF PHYSICIAN] -
[2018-01-26] MEDS: Aspirin 81 MG TAB.CHEW 324 MG PO (03:28)
[2018-01-26 04:22] LABS: Absolute Lymphocyte Count 3.15 X10^3/ul (0.83-4.51); Absolute Neutrophil Count 5.1 X10^3/uL (2.0-7.7); Basophil# 0.04 X10^3/uL; Basophil% 0.4 % (0-1); Eosinophil# 0.32 X10^3/uL; Eosinophils% 3.4 % (0-5); Hematocrit 35.1 % (37-47); Hemoglobin 11.5 g/dl (12.0-15.0); Lymphocyte # 3.15 X10^3/ul (4.0); Lymphocyte % 33.6 % (19-41); Mean Corp Hgb Conc 32.8 g/gl (32-36); Mean Corpuscular Hgb 27.3 pg (27.0-32.0); Mean Corpuscular Volume 83.2 fL (81-99); Mean Platelet Vol. 9.6 fl (6.2-12.0); Monocyte# 0.75 X10^3/uL; Neutrophil # 5.08 X10^3/uL (2.7-7.7); Neutrophil % 54.3 % (47-70); Platelet Count 341 K/mm3 (150-450); RBC Distribution Width CV 14.1 % (11.6-14.6); Red Blood Count 4.22 M/mm3 (4.2-5.4); White Blood Count 9.4 K/mm3 (4.4-11.0)
[2018-01-26 04:23] LABS: POSITIVE COUNT NO; POSITIVE DIFFERENTIAL NO; POSITIVE MORPHOLOGY NO
[2018-01-26 04:35] LABS: Anion Gap 11 (5-15); BUN 13 mg/dL (7-18); BUN/Creat Ratio 23.2 RATIO (10-20); Chloride 109 mmol/L (98-107); Creatinine, Serum 0.56 mg/dL (0.55-1.02); EST Glomerular Filtration Rate 141 mL/min (>60); Est Glom Filt Rate - Afr Amer 170 mL/min (>60); Estimated Creatinine Clearance 150.64 ml/min; Glucose 97 mg/dL (74-106); Potassium 3.6 mmol/L (3.5-5.1); Sodium Level 144 mmol/L (136-145)
[2018-01-26 04:37] LABS: D-Dimer Quantitative (DVT/PE) 1.23 FEU/ug/m (0.27-0.49)
--- NOTE | 2018-01-26 04:38 | CT_ITS ---
STUDY: CTA CHEST REASON FOR EXAM: Female, 22 years old. Elevated d-dimer RADIATION DOSAGE (If Supplied By Facility): CTDIvol = ( 13.36 ) mGy, DLP = ( 767.72 ) mGycm TECHNIQUE: The examination was performed with the intravenous administration of 100 ml of Isovue 370 contrast material. Post-processing of the angiographic images was performed, with multiplanar reformation and 3D reconstruction. # of Images: 1225 Individualized dose optimization techniques were used for this CT. COMPARISON: None. FINDINGS: The contrast bolus is suboptimal for detecting small or distal pulmonary emboli. No large or central pulmonary emboli are seen. Normal thoracic aorta and visualized great vessels. There is no demonstrated aortic dissection. Normal heart and pericardium. Normal mediastinum. Normal hilar regions. Normal visualized trachea and bronchi. The lungs are well expanded. Normal pulmonary parenchyma. Normal pleura. Normal chest wall structures. Normal osseous structures. Probable splenomegaly. CT/CTA Chest W/WO Contrast IMPRESSION: The contrast bolus is suboptimal for detecting small or distal pulmonary emboli. No large or central pulmonary emboli are seen. Electronically Signed: Bernard Mitchell MD at 5:20 EDT Tel , Service support ,
[2018-01-26 05:11] VITALS: BP 167/93; PULSE 91; RESP 16; O2SAT 97
--- NOTE | 2018-01-26 05:25 | VDLE_ITS ---
Reason For Study: SWELLING Procedure LEFT Exam performed portable in ED. GSV is normal. The study was technically limited. FV is compressible, spontaneous, phasic, Left CFV not visualized due to recent C- competent and demonstrates normal section and body habitus. Tchnically augmentation. difficult study due to body habitus. POP V is compressible, spontaneous, phasic, A preliminary report was called and/or faxed competent and demonstrates normal to ED. augmentation. T/P Trunk is compressible. PTV is compressible. LT PerV is compressible. Interpretation Summary Deep veins of the left lower extremity are patent and compressible segmentally. There is no evidence of left lower extremity deep vein thrombosis. Valvular competence appears intact within the proximal deep venous system on the left . The left greater saphenous vein appears patent and compressible segmentally. The left common femoral vein was not visualized. Ordering Physician: Charly Mckeon Referring Physician: Mishel Pacheco Performed By: Pam Messina, SUNITHA, RVT
--- NOTE | 2018-01-26 05:27 | ED.DEP ---
ED Disposition - Plan for ED Patient: Disposition: Home or Assisted Living Chief Complaint: Lower Extremity Injury Instructions: ED Leg Swelling Unilateral Referrals: Mishel Pacheco MD [STAFF PHYSICIAN] -
[2018-01-26] MEDS: Enoxaparin 120 MG/0.8 ML Syringe SC (05:38)
[2018-01-26 07:50] VITALS: BP 172/81; PULSE 70; RESP 16; O2SAT 97
--- NOTE | 2018-01-26 07:51 | ED.RN ---
PT STATED HER B/P WAS ALWAYS ELEVATED AND SHE DID NOT TAKE HER BP MEDS YET THIS MORNING.
== END 2018-01-26 07:53 | disposition home or self-care (01) ==
PROVIDERS: Emergency Provider Emergency Medicine
DX: M79.605 Pain in left leg (principal); R20.2 Paresthesia of skin; R60.0 Localized edema; I10 Essential (primary) hypertension; Z91.14 Patient's other noncompliance with medication regimen; R79.89 Other specified abnormal findings of blood chemistry; G43.909 Migraine, unspecified, not intractable, without status migrainosus; Z79.899 Other long term (current) drug therapy
CPT/HCPCS: 71275; 80048; 84484; 85025; 85379; 93005; 93971; 96372; 99284; Q9967; A4216

== ENCOUNTER → 2018-01-31 17:10 | Outpatient (CLI) | payer OTHER, SELFPAY | PROVIDERS: Referring Provider Obstetrics & Gynecology; Visit Provider Obstetrics & Gynecology | DX: R30.0 Dysuria (principal) | CPT/HCPCS: 87086; 87088 ==

== ENCOUNTER → 2018-03-22 14:00 | Outpatient (CLI) | payer OTHER, SELFPAY ==
[2018-03-22 14:30] VITALS: BMI 49.9
[2018-03-27 11:35] LABS: HPV Reflexed? NOT INDICATED
--- OUTSIDE RECORDS SUMMARY | 2018-05-08 22:29 | XMS RPT_ITS ---
:1995 Author Organization [place] Support Name Relationship Address Phone DEEDEE TIPTON Unavailable [address] + [facility], [facility] PHYSICIAN AMBULANCE Unavailable [address] + [place] [address] DEEDEE TIPTON Unavailable [address] + [facility] YOHANA SHI Unavailable [address] + [facility] PHYSICIAN AMBULANCE Unavailable [address] + [place] [id number] DEEDEE TIPTON Unavailable [address] + [facility], [facility] PHYSICIAN AMBULANCE Unavailable [address] + [place] [phone] DEEDEE TIPTON Unavailable [address] + [facility], [facility] YOHANA SHI Unavailable [address] + [facility], [facility] PHYSICIAN AMBULANCE Unavailable [address] + [place] [phone] DEEDEE TIPTON Unavailable [address] + [facility] YOHANA SHI Unavailable [address] + [facility] PHYSICIAN AMBULANCE Unavailable [address] + [place] [id number] ADAN TIPTONSHUA Unavailable [address] + [facility] YOHANA SHI Unavailable [address] + [facility], [facility] PHYSICIAN AMBULANCE Unavailable [address] + [place] [phone] DEEDEE TIPTON Unavailable [address] + [place] [address] YOHANA SHI Unavailable [address] + [place] [address] PHYSICIAN AMBULANCE Unavailable [address] + [place] [address] DEEDEE TIPTON Unavailable [address] + [facility], [place] [address] YOHANA SHI Unavailable [address] + [facility], [place] [address] PHYSICIAN AMBULANCE Unavailable [address] + [place] [address] DEEDEE TIPTON Unavailable [address] + [place] [address] YOHANA SHI Unavailable [address] + [place] [address] PHYSICIAN AMBULANCE Unavailable [address] + [place] [address] DEEDEE TIPTON Unavailable [address] + [facility], [place] [address] YOHANA SHI Unavailable [address] + [place] [address] PHYSICIAN AMBULANCE Unavailable [address] + [place] [phone] DEEDEE TIPTON Unavailable [address] + [place] [id number] YOHANA SHI Unavailable [address] + [facility], [place] [address] PHYSICIAN AMBULANCE Unavailable [address] + [place] [phone] DEEDEE TIPTON Unavailable [address] + [facility], [place] [address] YOHANA SHI Unavailable [address] + [place] [address] PHYSICIAN AMBULANCE Unavailable [address] + [place] [phone] DEEDEE TIPTON Unavailable [address] + [place] [phone] YOHANA SHI Unavailable [address] + [facility], [facility] PHYSICIAN AMBULANCE Unavailable [address] + [place] [phone] DEEDEE TIPTON Unavailable [address] + [facility], [facility] YOHANA SHI Unavailable [address] + [facility], [facility] PHYSICIAN AMBULANCE Unavailable [address] + [place] [phone] DEEDEE TIPTON Unavailable [address] + [place], [place] [address] YOHANA SHI Unavailable [address] + [facility], [place] [address] PHYSICIAN AMBULANCE Unavailable [address] + [place] [address] DEEDEE TIPTON Unavailable [address] + [facility], [place] [address] YOHANA SHI Unavailable [address] + [facility], [place] [address] PHYSICIAN AMBULANCE Unavailable [address] + [place] [address] DEEDEE TIPTON Unavailable [address] + [facility], [facility] YOHANA SHI Unavailable [address] + [facility], [facility] PHYSICIAN AMBULANCE Unavailable [address] + [place] [phone] DEEDEE TIPTON Unavailable [address] + [facility], [facility] YOHANA SHI Unavailable Unavailable + [place] [address] PHYSICIAN AMBULANCE Unavailable [address] + [place] [phone] DEEDEE TIPTON Unavailable [address] + [facility], [facility] YOHANA SHI Unavailable [address] + [facility], [facility] PHYSICIAN AMBULANCE Unavailable [address] + [place] [address] DEEDEE TIPTON Unavailable [address] + [place] [address] YOHANA SHI Unavailable . + [place] [address] PHYSICIAN AMBULANCE Unavailable [address] + [place] [address] DEEDEE TIPTON Unavailable [address] + [place] [address] YOHANA SHI Unavailable . + [place] [address] PHYSICIAN AMBULANCE Unavailable [address] + [place] [address] ADAN TIPTONSHUA Unavailable [address] + [facility], [facility] YOHANA SHI Unavailable Unavailable + [place] [address] PHYSICIAN AMBULANCE Unavailable [address] + [place] [address] DEEDEE TIPTON Unavailable [address] + [facility], [facility] YOHANA SHI Unavailable Unavailable + [place] [address] PHYSICIAN AMBULANCE Unavailable [address] + [place] [address] DEEDEE TIPTON Unavailable [address] + [facility], [facility] YOHANA SHI Unavailable Unavailable + [place] [address] PHYSICIAN AMBULANCE Unavailable [address] + [place] [address] DEEDEE TIPTON Unavailable [address] + [facility], [facility] YOHANA SHI Unavailable [address] + [place], [facility] PHYSICIAN AMBULANCE Unavailable [address] + [place] [address] GUSTABO TIPTONUA Unavailable [address] + [facility], [facility] YOHANA SHI Unavailable Unavailable + [place] [address] PHYSICIAN AMBULANCE Unavailable [address] + [place] [address] ADAN TIPTONSHUA Unavailable [address] + [facility], [facility] YOHANA SHI Unavailable [address] + [facility], [facility] PHYSICIAN AMBULANCE Unavailable [address] + [place] [address] ADAN TIPTONSHUA Unavailable [address] + [facility], [facility] YOHANA SHI Unavailable Unavailable + [place] [address] PHYSICIAN AMBULANCE Unavailable [address] + [place] [phone] ADAN TIPTONSHUA Unavailable [address] + [facility], [facility] YOHANA SHI Unavailable . + [place] [address] PHYSICIAN AMBULANCE Unavailable [address] + [place] [phone] GUSTABO TIPTONUA Unavailable [address] + [place] [phone] YOHANA SHI Unavailable . + [place] [address] PHYSICIAN AMBULANCE Unavailable [address] + [place] [address] ADAN TIPTONSHUA Unavailable [address] + [facility], [facility] YOHANA SHI Unavailable . + [place] [address] PHYSICIAN AMBULANCE Unavailable [address] + [place] [address] ADAN TIPTONSHUA Unavailable [address] + [facility], [facility] YOHANA SHI Unavailable . + [place] [address] PHYSICIAN AMBULANCE Unavailable [address] + [place] [address] ADAN TIPTONSHUA Unavailable [address] + [facility], [facility] YOHANA SHI Unavailable . + [place] [address] PHYSICIAN AMBULANCE Unavailable [address] + [place] [address] ADAN TIPTONSHUA Unavailable [address] + [facility], [facility] YOHANA SHI Unavailable . + [place] [address] PHYSICIAN AMBULANCE Unavailable [address] + [place] [address] DANUTA DEEDEE Unavailable [address] + [facility], [facility] YOHANA SHI Unavailable Unavailable + PHYSICIAN AMBULANCE Unavailable [address] + [place] [phone] ADAN TIPTONSHUA Unavailable [address] + [place] [phone] YOHANA SHI Unavailable . + [place] [address] PHYSICIAN AMBULANCE Unavailable [address] + [place] [phone] ADAN TIPTONSHUA Unavailable [address] + [facility], [facility] YOHANA SHI Unavailable . + [place] [address] PHYSICIAN AMBULANCE Unavailable [address] + [place] [address] ADAN TIPTONSHUA Unavailable [address] + [place] [phone] YOHANA SHI Unavailable [address] + [place] [id number] PHYSICIAN AMBULANCE Unavailable [address] + [place] [address] DANUTA DEEDEE Unavailable [address] + [facility], [facility] YOHANA SHI Unavailable Unavailable + [place] [address] PHYSICIAN AMBULANCE Unavailable [address] + [place] [address] DANUTA DEEDEE Unavailable [address] + [facility], [facility] YOHANA SHI Unavailable . + [place] [address] PHYSICIAN AMBULANCE Unavailable [address] + [place] [address] ADAN TIPTONSHUA Unavailable [address] + [place] [id number] YOHANA SHI Unavailable Unavailable + [place] [address] PHYSICIAN AMBULANCE Unavailable [address] + [place] [address] ADAN TIPTONSHUA Unavailable [address] + [place] [phone] YOHANA SHI Unavailable . + [place] [address] PHYSICIAN AMBULANCE Unavailable [address] + [place] [phone] ADAN TIPTONSHUA Unavailable [address] + [place] [address] YOHANA SHI Unavailable Unavailable + PHYSICIAN AMBULANCE Unavailable [address] + [place] [address] Gustabo Tipton Unavailable Unavailable + Yohana Shi Unavailable Unavailable + ADAN TIPTONSHUA Unavailable [address] + [place] [id number] YOHANA SHI Unavailable Unavailable + PHYSICIAN AMBULANCE Unavailable [address] + [place] [address] ADAN TIPTONSHUA Unavailable [address] + [place] [address] YOHANA SHI Unavailable Unavailable + PHYSICIAN AMBULANCE Unavailable [address] + [place] [address] ADAN TIPTONSHUA Unavailable [address] + [place] [address] YOHANA SHI Unavailable UNKNOWN + [place] [address] PHYSICIAN AMBULANCE Unavailable [address] + [place] [address] ADAN TIPTONSHUA Unavailable [address] + [place] [address] YOHANA SHI Unavailable UNKNOWN + [place] [address] PHYSICIAN AMBULANCE Unavailable [address] + [place] [address] ADAN TIPTONSHUA Unavailable [address] + [facility] [place] [address] YOHANA SHI Unavailable UNKNOWN + [place] [address] PHYSICIAN AMBULANCE Unavailable [address] + [place] [address] ADAN TIPTONSHUA Unavailable [address] + [place] [address] YOHANA SHI Unavailable UNKNOWN + [place] [address] PHYSICIAN AMBULANCE Unavailable [address] + [place] [address] ADAN TIPTONSHUA Unavailable [address] + [place] [address] YOHANA SHI Unavailable UNKNOWN + [place] [address] PHYSICIAN AMBULANCE Unavailable [address] + [place] [address] ADAN TIPTONSHUA Unavailable [address] + [facility] [place] [address] YOHANA SHI Unavailable UNKNOWN + [place] [address] PHYSICIAN AMBULANCE Unavailable [address] + [place] [address] ADAN TIPTONSHUA Unavailable [address] + [facility] [place] [address] YOHANA SHI Unavailable UNKNOWN + [place] [address] PHYSICIAN AMBULANCE Unavailable [address] + [place] [address] ADAN TIPTONSHUA Unavailable [address] + [place] [address] YOHANA SHI Unavailable UNKNOWN + [place] [address] PHYSICIAN AMBULANCE Unavailable [address] + [place] [address] ADAN TIPTONSHUA Unavailable [address] + [place] [address] YOHANA SHI Unavailable UNKNOWN + [place] [address] PHYSICIAN AMBULANCE Unavailable [address] + [place] [address] DANUTAADANDEEDEE Unavailable [address] + [place] [address] YOHANA SHI Unavailable UNKNOWN + [place] [address] PHYSICIAN AMBULANCE Unavailable [address] + [place] [address] DANUTAADANDEEDEE Unavailable [address] + [place] [id number] YOHANA SHI Unavailable UNKNOWN + [place] [address] PHYSICIAN AMBULANCE Unavailable [address] + [place] [address] YOHANA RODNEY Unavailable [address] + [place] [address] DANUTA DEEDEE Unavailable [address] + [place] [id number] YOHANA SHI Unavailable UNKNOWN + [place] [address] PHYSICIAN AMBULANCE Unavailable [address] + [place] [address] DANUTAADANDEEDEE Unavailable [address] + [place] [address] YOHANA SHI Unavailable UNKNOWN + [place] [address] PHYSICIAN AMBULANCE Unavailable [address] + [place] [address] DANUTAADANDEEDEE Unavailable [address] + [place] [address] YOHANA SHI Unavailable UNKNOWN + [place] [address] PHYSICIAN AMBULANCE Unavailable [address] + [place] [address] DANUTAADANDEEDEE Unavailable [address] + [place] [address] YOHANA SHI Unavailable UNKNOWN + [place] [address] PHYSICIAN AMBULANCE Unavailable [address] + [place] [address] TIPTON, DEEDEE Unavailable [address] + [place] [address] PHYSICIAN AMBULANCE Unavailable / +/ [place] [address] [facility] Unavailable [address] + [place] [address] ADAN TIPTONSHUA Unavailable [address] + [place] [address] [facility] Unavailable [address] + [place] [address] ADAN TIPTONSHUA Unavailable [address] + [place] [address] [facility] Unavailable [address] + [place] [address] ADAN TIPTONSHUA Unavailable [address] + [place] [address] [facility] Unavailable [address] + [place] [address] [facility] Unavailable [address] + [place] [id number] ADAN TIPTONSHUA Unavailable [address] + [place] [address] [facility] Unavailable [address] + [place] [address] ADAN TIPTONSHUA Unavailable [address] + [place] [address] YOHANA RODNEY/CAS Unavailable [address] + [place] [address] [facility] Unavailable [address] + [place] [address] ADAN TIPTONSHUA Unavailable [address] + [place] [address] YOHANA RODNEY/CAS Unavailable [address] + [place] [address] Danuta Gustabo Unavailable Unavailable + Yohana Shi Unavailable Unavailable + Gustabo Tipton Unavailable Unavailable + Yohana Shi Unavailable Unavailable + Care Team Providers Name Role Phone Kaiden Huber Attending Unavailable Ananth, Mirian Referring Unavailable Ananth, Mirian Primary Care Unavailable Kaiden Huber Attending Unavailable Ananth, Mirian Referring Unavailable Ananth, Mirian Primary Care Unavailable Ananth, Mirian Referring Unavailable Ananth, Mirian Primary Care Unavailable Lauren Lock Attending Unavailable GUY, GALILEA Michele Attending Unavailable MARCANTHONY, MISHEL Barron Referring Unavailable FALL, IONA L Primary Care Unavailable RAEDY, EMILIANO F Attending Unavailable SELF, SELF Referring Unavailable Willi, Marielle Attending Unavailable Primay Care Physicia, No Referring Unavailable Willi, Marielle Attending Unavailable Willi, Marielle Referring Unavailable Primay Care Physicia, No Primary Care Unavailable Marcanthony, Mishel Attending Unavailable Marcanthony, Mishel Referring Unavailable Ananth, Mirian Primary Care Unavailable Marcanthony, Mishel Attending Unavailable Marcanthony, Mishel Referring Unavailable Ananth, Mirian Primary Care Unavailable Marcanthony, Mishel Attending Unavailable Ananth, Mirian Referring Unavailable Ananth, Mirian Primary Care Unavailable [place], Marielle Attending Unavailable Primay Care Physicia, No Referring Unavailable Marcanthony, Mishel Attending Unavailable Willi, Marielle Attending Unavailable Ananth, Mirian Referring Unavailable Marcanthony, Mishel Attending Unavailable Marcanthony, Mishel Referring Unavailable Ananth, Mirian Primary Care Unavailable Darrell Emmanuel Attending Unavailable Primay Care Physicia, No Primary Care Unavailable Marcanthony, Mishel Attending Unavailable Marcanthony, Mishel Referring Unavailable Primay Care Physicia, No Primary Care Unavailable Marcanthony, Mishel Attending Unavailable Ananht, Mirian Referring Unavailable Primay Care Physicia, No Primary Care Unavailable Marcanthony, Mishel Attending Unavailable Ananth, Mirian Referring Unavailable Marcanthony, Mishel Attending Unavailable Marcanthony, Mishel Referring Unavailable Primay Care Physicia, No Primary Care Unavailable Guy, Galilea Attending Unavailable Guy, Galilea Referring Unavailable Primay Care Physicia, No Primary Care Unavailable Marcanthony, Mishel Attending Unavailable Primay Care Physicia, No Referring Unavailable Primay Care Physicia, No Primary Care Unavailable Marcanthony, Mishel Attending Unavailable Primay Care Physicia, No Primary Care Unavailable Marcanthony, Mishel Referring Unavailable Marcanthony, Mishel Attending Unavailable Primay Care Physicia, No Referring Unavailable Primay Care Physicia, No Primary Care Unavailable Marcanthony, Mishel Attending Unavailable Marcanthony, Mishel Referring Unavailable Primay Care Physicia, No Primary Care Unavailable Primay Care Physicia, No Primary Care Unavailable Cas Morrell Attending Unavailable [place], Marielle Attending Unavailable Primay Care Physicia, No Referring Unavailable Primay Care Physicia, No Primary Care Unavailable Marcanthony, Mishel Attending Unavailable Primay Care Physicia, No Referring Unavailable Primay Care Physicia, No Primary Care Unavailable Marcanthony, Mishel Attending Unavailable Marcanthony, Mishel Referring Unavailable Primay Care Physicia, No Primary Care Unavailable Willi, Marielle Attending Unavailable Primay Care Physicia, No Referring Unavailable Primay Care Physicia, No Primary Care Unavailable Marcanthony, Mishel Attending Unavailable Primay Care Physicia, No Referring Unavailable Primay Care Physicia, No Primary Care Unavailable Marcanthony, Mishel Attending Unavailable Marcanthony, Mishel Referring Unavailable Primay Care Physicia, No Primary Care Unavailable Marcanthony, Mishel Attending Unavailable Marcanthony, Mishel Referring Unavailable Primay Care Physicia, No Primary Care Unavailable Marcanthony, Mishel Consulting Unavailable Marcanthony, Mishel Attending Unavailable Primay Care Physicia, No Referring Unavailable Marcanthony, Mishel Attending Unavailable Primay Care Physicia, No Referring Unavailable Primay Care Physicia, No Primary Care Unavailable Marcanthony, Mishel Attending Unavailable Marcanthony, Mishel Referring Unavailable Primay Care Physicia, No Primary Care Unavailable Marcanthony, Mishel Attending Unavailable Primay Care Physicia, No Referring Unavailable Primay Care Physicia, No Primary Care Unavailable Marcanthony, Mishel Attending Unavailable Marcanthony, Mishel Referring Unavailable Primay Care Physicia, No Primary Care Unavailable Marcanthony, Mishel Attending Unavailable Marcanthony, Mishel Referring Unavailable Primay Care Physicia, No Primary Care Unavailable Marcanthony, Mishel Consulting Unavailable Marcanthony, Mishel Attending Unavailable Primay Care Physicia, No Referring Unavailable Primay Care Physicia, No Primary Care Unavailable Marcanthony, Mishel Attending Unavailable Marcanthony, Mishel Referring Unavailable Primay Care Physicia, No Primary Care Unavailable Marcanthony, Mishel Attending Unavailable Marcanthony, Mishel Referring Unavailable Marcanthony, Mishel Attending Unavailable Marcanthony, Mishel Referring Unavailable Primay Care Physicia, No Primary Care Unavailable [place], Marielle Attending Unavailable Primay Care Physicia, No Referring Unavailable Primay Care Physicia, No Primary Care Unavailable Marcanthony, Mishel Attending Unavailable Marcanthony, Mishel Referring Unavailable Primay Care Physicia, No Primary Care Unavailable Marcanthony, Mishel Consulting Unavailable Marcanthony, Mishel Attending Unavailable Marcanthony, Mishel Referring Unavailable Primay Care Physicia, No Primary Care Unavailable Willi, Marielle Consulting Unavailable Willi, Marielle Attending Unavailable Primay Care Physicia, No Referring Unavailable Primay Care Physicia, No Primary Care Unavailable Primay Care Physicia, No Referring Unavailable Marcanthony, Mishel Attending Unavailable Marcanthony, Mishel Attending Unavailable Marcanthony, Mishel Referring Unavailable Primay Care Physicia, No Primary Care Unavailable Marcanthony, Mishel Attending Unavailable Primay Care Physicia, No Primary Care Unavailable Marcanthony, Mishel Attending Unavailable Marcanthony, Mishel Referring Unavailable Primay Care Physicia, No Primary Care Unavailable Marcanthony, Mishel Consulting Unavailable Marcanthony, Mishel Attending Unavailable Marcanthony, Mishel Referring Unavailable Primay Care Physicia, No Primary Care Unavailable [place], Marielle Attending Unavailable [place], Marielle Referring Unavailable Primay Care Physicia, No Primary Care Unavailable [place], Marielle Attending Unavailable Primay Care Physicia, No Primary Care Unavailable Marcanthony, Mishel Consulting Unavailable [place], Marielle Referring Unavailable Marcanthony, Mishel Attending Unavailable Primay Care Physicia, No Referring Unavailable Marcanthony, Mishel Attending Unavailable [place], Marielle Referring Unavailable Primay Care Physicia, No Primary Care Unavailable Marcanthony, Mishel Consulting Unavailable Willi, Marielle Consulting Unavailable Marcanthony, Mishel Attending Unavailable Marcanthony, Mishel Referring Unavailable Primay Care Physicia, No Primary Care Unavailable Marcanthony, Mishel Consulting Unavailable Marcanthony, Mishel Attending Unavailable Marcanthony, Mishel Referring Unavailable Primay Care Physicia, No Primary Care Unavailable Marcanthony, Mishel Attending Unavailable Marcanthony, Mishel Referring Unavailable Primay Care Physicia, No Primary Care Unavailable Marcanthony, Mishel Consulting Unavailable Marcanthony, Mishel Attending Unavailable Primay Care Physicia, No Referring Unavailable Marcanthony, Mishel Attending Unavailable Marcanthony, Mishel Referring Unavailable Primay Care Physicia, No Primary Care Unavailable Marcanthony, Mishel Admitting Unavailable Marcanthony, Mishel Attending Unavailable Primay Care Physicia, No Primary Care Unavailable Marcanthony, Mishel Referring Unavailable Marcanthony, Mishel Admitting Unavailable Marcanthony, Mishel Attending Unavailable Marcanthony, Mishel Referring Unavailable Primay Care Physicia, No Primary Care Unavailable Marcanthony, Mishel Consulting Unavailable Marcanthony, Mishel Admitting Unavailable Marcanthony, Mishel Attending Unavailable Marcanthony, Mishel Referring Unavailable Primay Care Physicia, No Primary Care Unavailable Marcanthony, Mishel Consulting Unavailable Marcanthony, Mishel Admitting Unavailable [place], Marielle Attending Unavailable Marcanthony, Mishel Referring Unavailable Primay Care Physicia, No Primary Care Unavailable Marcanthony, Mishel Consulting Unavailable Marcanthony, Mishel Admitting Unavailable Marcanthony, Mishel Attending Unavailable Marcanthony, Mishel Referring Unavailable Primay Care Physicia, No Primary Care Unavailable Marcanthony, Mishel Consulting Unavailable Marcanthony, Mishel Admitting Unavailable [place], Marielle Attending Unavailable Marcanthony, Mishel Referring Unavailable Primay Care Physicia, No Primary Care Unavailable Marcanthony, Mishel Consulting Unavailable Primay Care Physicia, No Primary Care Unavailable Charly Mckeon Attending Unavailable Marcanthony, Mishel Admitting Unavailable Willi, Marielle Attending Unavailable Marcanthony, Mishel Referring Unavailable Primay Care Physicia, No Primary Care Unavailable Marcanthony, Mishel Consulting Unavailable Marcanthony, Mishel Attending Unavailable Primay Care Physicia, No Referring Unavailable Marcanthony, Mishel Attending Unavailable Marcanthony, Mishel Referring Unavailable Primay Care Physicia, No Primary Care Unavailable Brayan Cole Attending Unavailable Marcanthony, Mishel Referring Unavailable Willi, Marielle Attending Unavailable [facility] Physicia, No Referring Unavailable PROBLEMS PROBLEMS DATE TYPE CONDITION / CODE ATTENDING STATUS SOURCE Unknown Z30.431 - Encounter Willi, Active [place] 8 for routine checking [facility] contraceptive device / Repository Z30.431(ICD-10) Unknown N92.6 - Irregular Willi, Active [place] 8 menstruation, [facility] unspecified / Hospital N92.6(ICD-10) Repository Unknown Z97.5 - Presence of Willi, Active [place] 8 (intrauterine) [facility] contraceptive device / Hospital Z97.5(ICD-10) Repository Unknown Z30.430 - Encounter Willi, Active [place] 8 for insertion of [facility] intrauterine Hospital contraceptive device / Repository Z30.430(ICD-10) Unknown I10 - Essential Willi, Active [place] (primary) hypertension [facility] / I10(ICD-10) Hospital Repository Unknown Z12.4 - Encounter for Willi, Active [place] 8 screening for [facility] malignant neoplasm of Hospital cervix / Z12.4(ICD-10) Repository Unknown Z39.2 - Encounter for Willi, Active [place] 8 routine [facility] follow-up / Hospital Z39.2(ICD-10) Repository Unknown R30.0 - Dysuria / Marcanthony, Active [place] 8 R30.0(ICD-10) [facility] Repository Unknown G89.18 - Other acute Willi, Active [place] 8 postprocedural pain / [facility] G89.18(ICD-10) Hospital Repository Unknown Z34.90 - Encounter for Edwige, Active [place] 8 supervision of normal [facility] , Hospital unspecified, Repository unspecified trimester / Z34.90(ICD-10) Unknown O10.919 - Unspecified Marcclaudioony, Active [place] 8 pre-existing [facility] hypertension Hospital complicating Repository , unspecified trimester / O10.919(ICD-10) Unknown O09.91 - Supervision Marcnata, Active [place] 8 of high risk [facility] , Hospital unspecified, first Repository trimester / O09.91(ICD-10) Unknown Z36.9 - Encounter for Marcnata, Active [place] 8 screening, [facility] unspecified / Hospital Z36.9(ICD-10) Repository Unknown O24.414 - Gestational Marcnata, Active [place] 8 diabetes mellitus in [facility] , insulin Hospital controlled / Repository O24.414(ICD-10) Unknown Z68.43 - Body mass Marcnata, Active [place] 8 index (BMI) 50-59.9, [facility] adult / Z68.43(ICD-10) Hospital Repository Unknown Z3A.36 - 36 weeks Marcnata, Active [place] 8 gestation of [facility] / Z3A.36(ICD-10) Hospital Repository Unknown R94.31 - Abnormal Douglas, Ladd Active [place] 8 electrocardiogram [facility] [ECG] [EKG] / Hospital R94.31(ICD-10) Repository Unknown Z68.43 - Body mass Marcanthony, Active [place] 8 index (BMI) 50-59.9 , [facility] adult / Z68.43(ICD-10) Hospital Repository Unknown O14.10 - Severe Marcanthony, Active [place] 8 pre-eclampsia, [facility] unspecified trimester Hospital / O14.10(ICD-10) Repository Unknown O24.410 - Gestational Marcanthbenson, Active [place] 8 diabetes mellitus in [facility] , [facility] controlled / Repository O24.410(ICD-10) Admitting Pre-existing Ashvin Lauren Active [facility] 8 Diagnosis hypertension w System pre-eclampsia, third Repository trimester / O11.3(ICD-10) Admitting Pre-existing essential Ashvin, Lauren Active [facility] 8 Diagnosis htn comp , System third trimester / Repository O10.013(ICD-10) Admitting Body mass index (BMI) Ashvin Lauren Active [facility] 8 Diagnosis 50-59.9 , adult / System Z68.43(ICD-10) Repository Admitting Diseases of the circ Ashvin Lauren Active [facility] 8 Diagnosis sys comp , System third trimester / Repository O99.413(ICD-10) Admitting Other ill-defined Ashvin, Lauren Active [facility] 8 Diagnosis heart diseases / System I51.89(ICD-10) Repository Admitting 28 weeks gestation of Ashvin Lauren Active [facility] 8 Diagnosis / System Z3A.28(ICD-10) Repository Admitting Obesity complicating Ashvin, Lauren Active [facility] 8 Diagnosis , third System trimester / Repository O99.213(ICD-10) Admitting Morbid (severe) Lauren Lock [facility] 8 Diagnosis obesity due to excess System calories / Repository E66.01(ICD-10) Admitting Diseases of the Lauren Lock Active [facility] 8 Diagnosis nervous sys comp System , third Repository trimester / O99.353(ICD-10) Admitting Migraine with aura, Lauren [facility] 8 Diagnosis not intractable, w/o System status migrainosus / Repository G43.109(ICD-10) Admitting Oth mental disorders Lauren Lock [facility] 8 Diagnosis complicating System , third Repository trimester / O99.343(ICD-10) Admitting Generalized anxiety Casey Locka [facility] 8 Diagnosis disorder / System F41.1(ICD-10) Repository Admitting Major depressive Lauren Lock [facility] 8 Diagnosis disorder, single System episode, unspecified / Repository F32.9(ICD-10) Admitting Oth related Lauren Lock [facility] 8 Diagnosis conditions, third System trimester / Repository O26.893(ICD-10) Admitting Other chronic pain / Lauren Lock Active [facility] 8 Diagnosis G89.29(ICD-10) System Repository Admitting Dorsalgia, unspecified Lauren Lock [facility] 8 Diagnosis / M54.9(ICD-10) System Repository Unknown O16.2 - Unspecified Willi, Active [place] 8 maternal hypertension, Marielle [facility] second trimester / Hospital O16.2(ICD-10) Repository Unknown Z23 - Encounter for Edwige, Active [place] 8 immunization / [facility] Z23(ICD-10) Hospital Repository Admitting Migraine with aura, RAEDY, EMILIANO Active [facility] 8 Diagnosis not intractable, F System ([place]) without status Repository migrainosus / G43.109(ICD-10) Unknown Z36.82 - Encounter for Galilea Valente Active [place] 8 [facility] translucency / Repository Z36.82(ICD-10) Unknown Z34.00 - Encounter for Willi, Active [place] 8 supervision of normal Marielle [facility] first , Hospital unspecified trimester Repository / Z34.00(ICD-10) Unknown O20.0 - Threatened Edwige, Active [place] 8 / Mishel [facility] O20.0(ICD-10) Hospital Repository PROCEDURES PROCEDURES No Procedure Records FoundRESULTS RESULTS CONTRACT AGENT OFFICE VISIT Observed: 03/28/2018 Status: F Source: [place] REPORT 2:13 PM [facility] REPOSITORY [facility] [address] [place] [address]. [address] [place] [address] OFFICE VISIT Date of Service: 03/28/18 MR#: [id number] Acct: [id number] Name: REBECCA RODNEY Rep #: [id number] : 1995 Provider: RONDA Márquez Age/Sex: 22/F Location: [facility] Status: Signed Intake Vital Signs03/28/18 Body Mass Index (BMI) 49.9 03/28/18 Height 5 ft 7 in 03/28/18 Weight: 319 lb 03/28/18 Body Mass Index (BMI) 49.9 Intake Visit Reasons: IUD coming out/pinching Linen Room Custodian Required: No Is patient in pain?: No Allergies diphenhydramine [From Benadryl] Allergy (Mild, Verified 03/28/18 13:53) increases anxiety Medications labetalol 200 mg tablet 400 mg PO TID #180 tab 03/22/18 [Rx Confirmed 03/28/18] levonorgestrel 19.5 mcg/24 hour (4 years) intrauterine device 1 insert INTRAUTERINE ONCE 03/28/18 [History Confirmed 03/28/18] PFSH Medical History Anxiety (Acute) Chronic hypertension (Acute) Surgical History S/P tonsillectomy and adenoidectomy (Resolved) lymph node removed (Resolved) Family History Father Hypertension Grandmother Diabetes Mother Cervical cancer Social History Smoking Status: Former smoker alcohol intake: never substance use type: does not use caffeine: Yes (occasional) what type of physical activity do you participate in: walking, none seatbelt use: always do you feel safe at home: Yes 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 Pregancy History 2 Elective abortions Hx Para 1 Spontaneous abortions 1 Past Pregnancies Del. DateName GA/Weeks Outcome Route Bth WeighInfant GeLabor LgtAnesthesiDel LocatProvider FOB t n h a n Delivery Date: 01/20/18 On 01/24/18 @ 15:15 Dana Gupta Chronic HTN, GDMA2, Oligo, decels Delivery Date: On 07/06/17 @ 13:57 Dana Gupta Miscarriage at 5 weeks in 02/2017 Exam Speculum Exam - Cervix: normal appearance of the cervix (IUD strings trimmed to 1 cm from os. No vaginal irritation noted) Assessment AND Plan Problems 1. IUD check up Z30.431 Plan RTO 5 weeks for follow up Coding Level of Care Code Off vis,est,level 3 Diagnoses IUD check up Z30.431 03/28/18 1413 <Electronically signed by Marielle RIOS> Date Marielle RIOS Cosigner Signature: Date (if applicable) CC: CONTRACT AGENT OFFICE VISIT Observed: 03/22/2018 Status: F Source: [place] REPORT 3:33 PM [facility] REPOSITORY [facility] [address] [place] [address]. [address] [place] [address] OFFICE VISIT Date of Service: 03/22/18 MR#: [id number] Acct: [id number] Name: REBECCA RODNEY Rep #: [id number] : 1995 Provider: RONDA Márquez Age/Sex: 22/F Location: [facility] Status: Signed with Addenda ADDENDUM by Mary Robles on 03/22/18 at 1533 OFFICE PROCEDURES Office Procedure Documentation entered by Mary Robles 03/22/18 15:33: Liletta IUD IUD GC/Chlamydia:: not done Test: Yes Negative Consent Signed: Yes Time out checklist: patient, procedure, site marked/identified, positioning of patient, supplies available, allergies confirmed, team agrees on procedure IUD: Yes Dickson Time out time: 14:45 Details: Sign in Communication: Completed Sign out documentation: Completed The uterus sounded to 8 cm. After prepping the cervix with betadine and using sterile technique, the cervix was grasped with a single tooth tenaculum and the IUD was inserted without difficulty and the string was cut to 3cm from the external os of the cervix. All instruments were removed from the vagina and excellent hemostasis was noted. Procedure Summary: patient tolerated the procedure well without complication. levonorgestrel 20 mcg/24 hr (5 years) intrauterine device 1 insert Intrauterine ONCE IUD Details: Sign in Communication: Completed Sign out documentation: Completed The uterus sounded to [] cm. After prepping the cervix with betadine and using sterile technique, the cervix was grasped with a single tooth tenaculum and the IUD was inserted without difficulty and the string was cut to 3cm from the external os of the cervix. All instruments were removed from the vagina and excellent hemostasis was noted. Procedure Summary: patient tolerated the procedure well without complication. Office Meds levonorgestrel Performing Provider: BLANCA Levine Administered by: BLANCA Levine on 03/22/18 14:44 Dose Route Admin Location Lot Number Expiration DateNDC Refrigerating Engineer 1 insert Intrauterine uterus [id number] 12/07/21 [id number] [employer] 03/22/18 1533 <Electronically signed by Mary Robles > Date Robles,Mary M cc: * Signed Intake Vital Signs03/22/18 Height 5 ft 7 in 03/22/18 Weight: 319 lb 03/22/18 Body Mass Index (BMI) 49.9 03/22/18 Blood Pressure 122/80 H Intake Visit Reasons: PP Visit (work as annual) and IUD Insert Chief Complaint: post and iud insertion Linen Room Custodian Required: No Is patient in pain?: No Allergies diphenhydramine [From Benadryl] Allergy (Mild, Verified 03/22/18 14:31) increases anxiety Medications labetalol 200 mg tablet 400 mg PO TID #180 tab 03/22/18 [Rx Confirmed 03/22/18] : Yes [facility] Medical History Anxiety (Acute) Chronic hypertension (Acute) Surgical History S/P tonsillectomy and adenoidectomy (Resolved) lymph node removed (Resolved) Family History Father Hypertension Grandmother Diabetes Mother Cervical cancer Social History Smoking Status: Former smoker alcohol intake: never substance use type: does not use caffeine: Yes (occasional) what type of physical activity do you participate in: walking, none seatbelt use: always do you feel safe at home: Yes 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 DateName GA/Weeks Outcome Route [facility] WeighInfant GeLabor LgtAnesthesiDel LocatProvider FOB t n h a n Delivery Date: 01/20/18 On 01/24/18 @ 15:15 Dana Gupta Chronic HTN, GDMA2, Oligo, decels Delivery Date: On 07/06/17 @ 13:57 Dana Gupta Miscarriage at 5 weeks in 02/2017 Depression Screen PHQ-2/9 If score is 2 or greater, continue Source: Developed by Drs. Ej Walden, Pamela Balderas, Srikanth Aleman and colleagues, with an educational jaden from [employer]. Scoring: Total Score Depression Severity Action 1-4 Minimal depression No action needed 5-9 Mild depression Repeat PHQ-9 at follow up 10-14 Moderate depression Make tx plan,consider counseling, fup, prescription Post HPI PP Visit (work as annual) and IUD Insert: Details: REBECCA ORDNEY is a 22 year old who presents for insertion mirena IUD and due for pap Infant Feeding: Breast Menses resumed: Yes [place] since delivery: Yes Emotional Support: Yes ROS Card Denies chest pain, Denies shortness of breath Resp Denies shortness of breath GI Denies change in bowel habits, Denies bloating Denies difficulty urinating Skin/Breast Denies breast lump, Denies breast pain, Denies breast skin changes Exam General: bladder normal to palpation External Female Exam: normal external appearance, normal appearance of the urethra Urethra: normal appearance of the urethra Speculum Exam - Vagina: normal appearance of the vagina, normal vaginal discharge Speculum Exam - Cervix: normal appearance of the cervix Bimanual Exam- Vagina AND Uterus: bladder normal to palpation, normal bimanual exam, uterine size normal, uterine shape normal, uterine mobility normal, uterus non-tender Bimanual Exam- Adnexa, other: normal adnexae, no adnexal masses, adnexae non-tender, pelvic support normal Pelvic Support: normal Office Procedures Liletta IUD IUD GC/Chlamydia:: not done Test: Yes Negative Consent Signed: Yes Time out checklist: patient, procedure, site marked/identified, positioning of patient, supplies available, allergies confirmed, team agrees on procedure IUD: Yes Dickson Time out time: 14:45 Details: Sign in Communication: Completed Sign out documentation: Completed The uterus sounded to 8 cm. After prepping the cervix with betadine and using sterile technique, the cervix was grasped with a single tooth tenaculum and the IUD was inserted without difficulty and the string was cut to 3cm from the external os of the cervix. All instruments were removed from the vagina and excellent hemostasis was noted. Procedure Summary: patient tolerated the procedure well without complication. levonorgestrel 20 mcg/24 hr (5 years) intrauterine device 1 insert Intrauterine ONCE IUD Details: Sign in Communication: Completed Sign out documentation: Completed The uterus sounded to [] cm. After prepping the cervix with betadine and using sterile technique, the cervix was grasped with a single tooth tenaculum and the IUD was inserted without difficulty and the string was cut to 3cm from the external os of the cervix. All instruments were removed from the vagina and excellent hemostasis was noted. Procedure Summary: patient tolerated the procedure well without complication. Office Meds levonorgestrel Performing Provider: BLANCA Levine Documented (not given) by: BLANCA Levine on 03/22/18 14:44 Dose Route Admin Location Lot Number Expiration Date NDC Refrigerating Engineer 1 insert Intrauterine Results Office , Urine Office , Urine Negative Last Edit by Mary Robles on 03/22/18 14:32 Assessment AND Plan Problems 1. Encounter for IUD insertion Z30.430 2. Pap smear for cervical cancer screening Z12.4 3. Essential hypertension I10 Plan Reviewed S AND S infection and condom use. Written information given Refilled labetelol and will see PCP for further management Thin prep pap with reflex HPV RTO 6 weeks Orders Orders: Medications New: Discontinued: labetalol Take one tablet by mouth with 300 mg L400 mg (4 x 100 mg) PO TID 36 tabs 3RF abetalol tablets to equal 400 mg. Discontinued Reason: Order Changed Coding Level of Care Code No Charge Diagnoses Encounter for IUD insertion Z30.430 Pap smear for cervical cancer screening Z12.4 Essential hypertension I10 Hypertension type: essential hypertension Additional Codes IUD (05788) 03/22/18 1501 <Electronically signed by Marielle RIOS> Date Marielle RIOS Cosigner Signature: Date (if applicable) CC: PAP I-G W/RFX Collected: 03/22/2018 Status: F Source: [place] HRHPV-APTIMA 2:00 PM [facility] REPOSITORY Order Comment: CYTOLOGY INFORMATION: - CLINICAL INFORMATION: - DATE LMP/MENOPAUSE: - COLLECTION VIAL: Thin Prep Vial - PROCESS DESIGNER SOURCE: CERVICAL - COLLECTION TECHNIQUE: CX BROOM ONLY Specimen Comment: [id number] Specimen Comment: Source.............Cervix Specimen Comment: Other..............Post- Specimen Comment: No. of containers..01 ThinPrep Vial TYPE CODE TESTS RESULT OUT OF RANGE REFERENCE UNITS LAB L7400.0800 . Normal DIAGN Comment Result Comment: NEGATIVE FOR INTRAEPITHELIAL LESION AND MALIGNANCY. LAB L7400.0900 . Normal ADEQ Comment Result Comment: Satisfactory for evaluation. Endocervical and/or squamous metaplastic cells (endocervical component) are present. LAB L7400.1400 . Normal PERFORM Comment Result Comment: Liz Riley, Clerk Operator (ASCP) LAB L7400.2575 . Normal TEST METHOD Comment Result Comment: This liquid based ThinPrep(R) pap test was screened with the use of an image guided system. LAB L7400.2600 . Normal . COMM LAB L7400.2700 . Normal PAPSMR Comment Result Comment: The Pap smear is a screening test designed to aid in the detection of premalignant and malignant conditions of the uterine cervix. It is not a diagnostic procedure and should not be used as the sole means of detecting cervical cancer. Both false-positive and false-negative reports do occur. LAB L7400.2800 . Normal HPV RFLX Comment Result Comment: The HPV DNA reflex criteria were not met with this specimen result therefore, no HPV testing was performed. Performed at: [address] [id number] Bobtail Driver: Rosana Condon MD, Phone: [phone] Performed By: #### L7400.0353 #### [facility] (refer to report for specific site) refer to report for address and phone number CONTRACT AGENT OFFICE VISIT Observed: 02/16/2018 Status: F Source: [place] REPORT 3:19 PM [facility] [address] [place] [address] OFFICE VISIT Date of Service: 02/16/18 MR#: [id number] Acct: [id number] Name: REBECCA RODNEY Rep #: [id number] : 1995 Provider: RONDA Márquez Age/Sex: 22/F Location: [facility] Status: Signed Intake Vital Signs02/16/18 Height 5 ft 7 in 02/16/18 Weight: 325 lb 02/16/18 Body Mass Index (BMI) 50.8 02/16/18 Blood Pressure 124/84 H Intake Visit Reasons: 2 WEEK PP Linen Room Custodian Required: No Is patient in pain?: No Allergies diphenhydramine [From Benadryl] Allergy (Mild, Verified 02/16/18 15:04) increases anxiety Medications Naproxen [Naprosyn] 250 - 500 mg PO Q8H PRN PRN #30 tab 01/24/18 [Rx Confirmed 02/16/18] Labetalol [Trandate (Beta Stephanie)] 400 mg PO TID 01/26/18 [History Confirmed 02/16/18] sulfamethoxazole 400 mg-trimethoprim 80 mg tablet 1 tab PO BID #6 tab 01/31/18 [Rx Confirmed 02/16/18] : No PFSH Medical History Anxiety (Acute) Chronic hypertension (Acute) Surgical History S/P tonsillectomy and adenoidectomy (Resolved) lymph node removed (Resolved) Family History Father Hypertension Grandmother Diabetes Mother Cervical cancer Social History Smoking Status: Former smoker alcohol intake: never substance use type: does not use caffeine: Yes (occasional) what type of physical activity do you participate in: walking, none seatbelt use: always do you feel safe at home: Yes 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 DateName GA/Weeks Outcome Route Bth WeighInfant GeLabor LgtAnesthesiDel LocatProvider FOB t n h a n Delivery Date: 01/20/18 On 01/24/18 @ 15:15 Dana Gupta Chronic HTN, GDMA2, Oligo, decels Delivery Date: On 07/06/17 @ 13:57 Dana Gupta Miscarriage at 5 weeks in 02/2017 Depression Screen PHQ-2/9 If score is 2 or greater, continue Source: Developed by Drs. Ej Walden, Pamela Balderas, Srikanth Aleman and colleagues, with an educational jaden from [employer]. Scoring: Total Score Depression Severity Action 1-4 Minimal depression No action needed 5-9 Mild depression Repeat PHQ-9 at follow up 10-14 Moderate depression Make tx plan,consider counseling, fup, prescription Post HPI 2 WEEK PP: Details: REBECCA RODNEY is a 22 year old who presents for her 2 week post visit. Had primary c section. Denies problems with bowel or bladder habits. States doing well. . Exam Const General: cooperative Orientation: oriented x3 GI Palpation: soft, nontender, other (Incision well healed, nonerythematous) Assessment AND Plan Problems 1. Routine follow-up Z39.2 Plan Routine care Contraceptive options discussed. Will plan liletta at 6 wk pp visit. BP now normal. Discussed will need 2 hr glucose in future RTO 4 weeks Coding Level of Care Code No Charge Diagnoses Routine follow-up Z39.2 02/16/18 1519 <Electronically signed by Marielle RIOS> Date Marielle RIOS Cosigner Signature: Date (if applicable) CC: OFFICE VISIT REPORT Observed: 02/03/2018 Status: F Source: [place] 6:02 AM [place] [id number] [place] [id number] OFFICE VISIT Date of Service: 01/31/18 MR#: [id number] Acct: [id number] Patient: REBECCA RODNEY Rep #: [id number] : 1995 Provider: Mishel Pacheco MD Age/Sex: 22/F Location: [facility] Status: Signed Intake Vital Signs01/31/18 Height 5 ft 7 in 01/31/18 Weight: 333 lb 01/31/18 Body Mass Index (BMI) 52.1 01/31/18 Blood Pressure 138/78 H Intake Visit Reasons: BP check Chief Complaint: est ob Linen Room Custodian Required: No Is patient in pain?: No Allergies diphenhydramine [From Benadryl] Allergy (Mild, Verified 01/31/18 14:31) increases anxiety Medications Naproxen [Naprosyn] 250 - 500 mg PO Q8H PRN PRN #30 tab 01/24/18 [Rx Confirmed 01/31/18] Labetalol [Trandate (Beta Stephanie)] 400 mg PO TID 01/26/18 [History Confirmed 01/31/18] sulfamethoxazole 400 mg-trimethoprim 80 mg tablet 1 tab PO BID #6 tab 01/31/18 [Rx] Is last menstrual period known: No Post menopausal: No Patient : No Results BMSUA Office Urine Color DARK YELLOW Last Edit by Mary Robles on 01/31/18 14:40 Office Urine Clarity Cloudy Last Edit by Mary Robles on 01/31/18 14:40 Assessment AND Plan Orders Orders: 02/03/18 0602 <Electronically signed by Mishel Pacheco MD> Date Mishel Pacheco MD Cosigner Signature: Date (if applicable) CC: Observed: 01/31/2018 Status: F Source: [place] CULTURE, URINE 5:57 PM [facility] REPOSITORY Urine Culture ORGANISM 1: Mixed Gram Positive Organisms Deridder Count >100,000 MIX CULTURE Mixed contaminants. Submit a new specimen if indicated. Performed By: #### M100.0650 #### [facility] [address] [place], [address] 12 LEAD ELECTROCARDIOGRAM Observed: 01/29/2018 Status: F Source: [place] 12:49 PM [facility] REPOSITORY [facility] Cardiovascular Services [address] [place] [address] 12 Lead EKG 01/26/18 0332 MR#: [id number] Acct: [id number] Name: REBECCA RODNEY Carlos Rep #: [id number] : 1995 22 From: Alec Whitt MD Attending Dr: Status: DEP ER Ordering Dr: Charly Mckeon MD Date: 01/26/18 Location: ED Sex: F C Admitted: Test Reason : Blood Pressure : / mmHG Vent. Rate : 091 BPM Atrial Rate : 091 BPM P-R Int : 154 ms QRS Dur : 090 ms QT Int : 372 ms P-R-T Axes : 034 017 024 degrees QTc Int : 457 ms Normal sinus rhythm Minimal voltage criteria for LVH, may be normal variant Borderline ECG Confirmed by FARIHA GODINEZ, ALEC ([id number]), desk editor MAICOL ENCARNACION ([id number]) on 01/29/2018 12:48:42 PM Referred By: Mishel Pacheco Confirmed By:ALEC WHITT MD 01/29/18 1248 Date Alec Whitt MD CC: No Primary Care Physician; Charly Mckeon MD Signed DISCHARGE SUMMARY Observed: 01/29/2018 Status: F Source: [facility]KA 10:38 AM [facility] REPOSITORY [facility] Medical Records Department [address] [place] [address] Discharge Summary 01/29/18 1036 MR#: [id number] Acct: [id number] Name: REBECCA RODNEY Carlos Rep #: [id number] : 1995 22 From: Marielle Márquez WATER SUPERVISORAyaan PCP: Care Physician, No Primary Status: DIS IN Y Location: [id number] Discharge Date and Diagnosis Date of Admission: 11/24/17 - Secondary Discharge Diagnosis Chronic Problems (Last Updated 01/20/18 @ 10:02 by Mishel Pacheco MD) BMI 50.0-59.9, adult (Chronic) nutrition consult, weekly nsts and growth us from 32 weeks Hospital Course and Treatment Consultations 01/20/18 08:18 Consult: Anesthesia Routine Comment: Reason For Exam: LABOR Summary of Care Provided: The patient is a 22 year old F [] - Physical Exam Vital Signs Temp Pulse Resp BP Pulse Ox 98.4 F 103 H 18 146/52 H 99 01/24/18 14:59 01/24/18 14:59 01/24/18 14:59 01/24/18 16:27 01/24/18 14:59 Oxygen Delivery Method Room Air Weight: 353 lb 13.471 oz Body Mass Index (BMI) 55.4 Discharge Diet: No Restrictions Discharge Activity: Return to Normal Activity, May not drive while taking narcotic pain medications., May Shower May resume sexual activity in: 4-6 weeks Call your doctor if your incision/area has: Continuous Slow Oozing, Sudden Increased Bleeding, Increased Pain/ Swelling, Increased Redness, Foul Smelling Discharge Home Medications: Medications to take at Discharge Naproxen [Naprosyn] 250 - 500 mg PO Q8H PRN PRN #30 tablet 01/24/18 Oxycodone HCl/Acetaminophen [Percocet 5-325] 1 - 2 tablet PO Q4H PRN PRN 7 Days #28 tablet 01/24/18 Labetalol [Trandate (Beta Stephanie)] 400 mg PO TID 01/26/18 Following Prescrptions Were Given to Patient: Oxycodone HCl/Acetaminophen [Percocet 5-325] 1 - 2 tablet PO Q4H PRN PRN 7 Days #28 tablet PRN Reason: Moderate-Severe pain Naproxen [Naprosyn] 250 - 500 mg PO Q8H PRN PRN #30 tablet PRN Reason: MILD PAIN Primary Care Physician: Care Physician,No Primary [Primary Care Provider] - Please Follow Up With: Mishel Pacheco MD - [phone] Medical Necessity - Tobacco Use Smoking Status: Former smoker Meaningful Use Info Meaningful Use Diagnoses (Choose all that apply): None applicable 01/29/18 1038 <Electronically signed by Marielle HENSONC> Date Marielle Márquez WATER SUPERVISOR-C Cosigner Signature (if applicable): Date CC: WATER SUPERVISOR Marielle Márquez; No Primary Care Physician Signed EMERGENCY DEPARTMENT Observed: 01/27/2018 Status: F Source: [place] SUMMARY 3:09 PM [facility] REPOSITORY [facility] Medical Records Department [address] [facility] [place] [address] Emergency Department Summary 01/26/18 0319 MR#: [id number] Acct: [id number] Name: REBECCA RODNEY Rep #: [id number] : 1995 22 From: Charly Mckeon MD PCP: Care Physician, No Primary Status: DEP ER - ER Visit Summary Date of Service: 01/26/18 Chief Complaint: Left leg numbness and tingling History of Present Illness: The patient is a 22 F complaint of numbness and tingling started in her left leg today. Patient just had a baby last week. She did not have any symptoms while she was . She denies any history of DVT or PE. She now complains of some chest pain. She describes as pressure. Worse with breathing. She denies any pain in that left leg. Physical Examination: Vital signs reviewed. HEENT exam unremarkable. Heart is regular rate and rhythm without murmurs. Lungs are clear to auscultation. Abdomen is soft and nontender. Extremities reveal no edema. Peripheral pulses are equal. Skin exam normal. Neurologic exam normal. Test Results: Laboratory studies normal except for a d-dimer of 1.23. CAT scan of the chest reveals no evidence of PE or any other acute pathology Emergency Department Course and Treatment: Patient is concerned about DVT, especially with her recent . Ultrasound will be available in approximately 2 hours. The patient will be observed the emergency department until that time. She was requesting a shot of Lovenox until that time. I feel that that is reasonable. I did give her aspirin during her initial presentation. Patient will be signed out to the oncoming physician to review the patient's ultrasound. Treatment Plan: [] Disposition: Pending ultrasound of the left leg Impression: Left leg paresthesias This note was generated with KartMe dictation software. It may contain incorrect words, spelling, and punctuation that were not noted in review of the chart prior to signing <Charly Mckeon - Last Filed: 01/26/18 05:26> - ER Visit Summary Date of Service: 01/26/18 Chief Complaint: Not applicable History of Present Illness: The patient is a [address] Mckeon. Patient has history of hypertension. She reports systolic blood pressure normally is 150-160. She reports she has not taken her blood pressure medication. Physical Examination: Per Dr. Mckeon Test Results: Venous duplex study was negative. Therefore patient will be discharged home. Emergency Department Course and Treatment: Per Dr. Mckeon Treatment Plan: Discharged home to follow-up with doctors as needed. Disposition: Discharged to home Impression: 1. Left leg pain and paresthesia 2. Pedal edema 3. Hypertension secondary to noncompliance with medication This note was generated with KartMe dictation software. It may contain incorrect words, spelling, and punctuation that were not noted in review of the chart prior to signing <Lucas Ross - Last Filed: 01/26/18 07:52> ED Disposition <Charly Mckeon - Last Filed: 01/26/18 05:26> <Lucas Ross - Last Filed: 01/26/18 07:52> - Plan for ED Patient: Disposition: Home or Assisted Living Chief Complaint: Lower Extremity Injury Instructions: ED Leg Swelling Unilateral Referrals: Mishel Pacheco MD [STAFF PHYSICIAN] - What to do if you have Problems For any increased pain, shortness of breath, bleeding, nausea or vomiting, chest pain, or any unexpected problems, contact your Primary Care Provider. Call [facility] ([phone]) or report to the closest Emergency Room. Call 911 if necessary. 01/27/18 5166 <Electronically signed by Charly Mckeon MD> Date Charly Mckeon MD 01/27/18 0811<Electronically signed by Lucas Ross MD> Cosigner Signature (If Indicated): Date Lucas Ross MD CC: No Primary Care Physician VENOUS DUPLEX LOWER Observed: 01/27/2018 Status: F Source: [facility] EXTREMITY 10:34 AM [facility] REPOSITORY [facility] Cardiovascular Services [address] [place] [address] Venous Duplex US, Unilateral 01/26/18 0711 MR#: [id number] Acct: [id number] Name: REBECCA RODNEY Rep #: [id number] : 1995 22 From: Javi Smith MD Attending Dr: Status: DEP ER Ordering Dr: Charly Mckeon MD Date: 01/26/18 Location: ED Sex: F C Admitted: Reason For Study: SWELLING Procedure LEFT Exam performed portable in ED. GSV is normal. The study was technically limited. FV is compressible, spontaneous, phasic, Left CFV not visualized due to recent C- competent and demonstrates normal section and body habitus. Tchnically augmentation. difficult study due to body habitus. POP V is compressible, spontaneous, phasic, A preliminary report was called and/or faxed competent and demonstrates normal to ED. augmentation. T/P Trunk is compressible. PTV is compressible. LT PerV is compressible. Interpretation Summary Deep veins of the left lower extremity are patent and compressible segmentally. There is no evidence of left lower extremity deep vein thrombosis. Valvular competence appears intact within the proximal deep venous system on the left . The left greater saphenous vein appears patent and compressible segmentally. The left common femoral vein was not visualized. Ordering Physician: Charly Mckeon Referring Physician: Mishel Pacheco Performed By: Pam Messina RDCS, RVT 01/27/18 103 Date Javi Smith MD CC: No Primary Care Physician; Charly Mckeon MD Date Dictated: 01/26/18710 Date Transcribed: 01/27/181032 Whittling Room Operator: Signed DISCHARGE INSTRUCTION Observed: 01/26/2018 Status: F Source: [place] 5:28 AM [facility] REPOSITORY [facility] Medical Records Department [address] [place] [address] Discharge Instruction 01/26/18526 MR#: [id number] Acct: [id number] Name: REBECCA RODNEY Rep #: [id number] : 1995 22 From: Charly Mckeon MD PCP: Care Physician, No Primary Status: REG ER ED Disposition - Plan for ED Patient: Disposition: Home or Assisted Living Chief Complaint: Lower Extremity Injury Instructions: ED Leg Swelling Unilateral Referrals: Mishel Pacheco MD [STAFF PHYSICIAN] - What to do if you have Problems For any increased pain, shortness of breath, bleeding, nausea or vomiting, chest pain, or any unexpected problems, contact your Primary Care Provider. Call [facility] ([phone]) or report to the closest Emergency Room. Call 911 if necessary. 01/26/18527 <Electronically signed by Charly Mckeon MD> Date Charly Mckeon MD Cosigner Signature (If Indicated): Date CC: No Primary Care Physician CTA CHEST W/WO Observed: 01/26/2018 Status: F Source: [place] CONTRAST 4:38 AM [facility] REPOSITORY [facility] Imaging Services [address] [address] CTA Chest W/WO Contrast MR#: [id number] Acct: [id number] Name: REBECCA RODNEY Rep #: [id number] : 1995 F 22 From: Bernard Mitchell MD PCP: Care Physician, No Primary Status: REG ER Study: CTA Chest W/WO Contrast Date of Exam: 01/26/18 Exam# [id number] Ordering Dr: Charly Mckeon MD STUDY: CTA CHEST REASON FOR EXAM: Female, 22 years old. Elevated d-dimer RADIATION DOSAGE (If Supplied By Facility): CTDIvol = ( 13.36 ) mGy, DLP = ( 767.72 ) mGycm TECHNIQUE: The examination was performed with the intravenous administration of 100 ml of Isovue 370 contrast material. Post-processing of the angiographic images was performed, with multiplanar reformation and 3D reconstruction. # of Images: 1225 Individualized dose optimization techniques were used for this CT. COMPARISON: None. FINDINGS: The contrast bolus is suboptimal for detecting small or distal pulmonary emboli. No large or central pulmonary emboli are seen. Normal thoracic aorta and visualized great vessels. There is no demonstrated aortic dissection. Normal heart and pericardium. Normal mediastinum. Normal hilar regions. Normal visualized trachea and bronchi. The lungs are well expanded. Normal pulmonary parenchyma. Normal pleura. Normal chest wall structures. Normal osseous structures. Probable splenomegaly. CT/CTA Chest W/WO Contrast IMPRESSION: The contrast bolus is suboptimal for detecting small or distal pulmonary emboli. No large or central pulmonary emboli are seen. Electronically Signed: Bernard Mitchell MD at 5:20 EDT Tel , Service support , CC: No Primary Care Physician; Charly Mckeon MD Whittling Room Operator: Signed CBC W/DIFF, AUTOMATED Collected: 01/26/2018 Status: F Source: [place] 3:27 AM [facility] REPOSITORY TYPE CODE TESTS RESULT OUT OF RANGE REFERENCE UNITS LAB L100.1000 4.4-11.0 K/mm3 Normal WBC 9.4 LAB L100.1200 4.2-5.4 M/mm3 Normal RBC 4.22 LAB L100.1300 12.0-15.0 g/dl Low HGB 11.5 LAB L100.1400 37-47 % Low HCT 35.1 LAB L100.1500 81-99 fL Normal MCV 83.2 LAB L100.1600 27.0-32.0 pg Normal MCH 27.3 LAB L100.1700 32-36 g/gl Normal MCHC 32.8 LAB L100.1810 11.6-14.6 % Normal RDW CV 14.1 LAB L100.1820 35.1-43.9 fl Normal RDW SD 43.0 LAB L100.1900 150-450 K/mm3 Normal PLT 341 LAB L100.2000 6.2-12.0 fl Normal MPV 9.6 LAB L100.2100 47-70 % Normal NEUT% 54.3 LAB L100.2200 19-41 % Normal LY% 33.6 LAB L100.2300 0-10 % Normal MONO% 8.0 LAB L100.2400 0-5 % Normal EO% 3.4 LAB L100.2500 0-1 % Normal BASO% 0.4 LAB L100.2550 0.0-0.9 % Normal IM GRAN % 0.300 Result Comment: IG% - Immature Granulocytes (promyelocytes, myelocytes and metamyelocytes) > 1% indicates that a LEFT SHIFT is Present. LAB L100.2620 2.0-7.7 X10 3/uL Normal Absolute Neut 5.1 LAB L100.2720 0.83-4.51 X10 3/ul Normal Absolute Lymph 3.15 Performed By: #### L100.0100 #### [facility] [address] [place], [place], [address] BASIC METABOLIC Collected: 01/26/2018 Status: F Source: [place] PROFILE (BMP) 3:27 AM [facility] REPOSITORY TYPE CODE TESTS RESULT OUT OF RANGE REFERENCE UNITS LAB L501.0100 74-106 mg/dL Normal GLU 97 Result Comment: Please note revised GLUCOSE reference range effective 2017. LAB L501.1000 7-18 mg/dL Normal BUN 13 LAB L501.1100 0.55-1.02 mg/dL Normal CREAT,SERUM 0.56 Result Comment: The validity of the calculated GFR AND GFRAA in patients over 70 years has not been determined. Clinical correlation is essential. LAB L501.1110 >60 mL/min Normal EST GFR 141 Result Comment: Non- GFR Calc LAB L501.1115 >60 mL/min Normal EST GFR - AA 170 Result Comment: GFR Calc LAB L501.1255 ml/min Normal Estimated CRCL 150.64 LAB L501.1300 10-20 RATIO High BUN/CRE 23.2 LAB L501.2200 8.5-10 mg/dL .1 CA Normal 9.0 LAB L501.5300 136-14 mmol/L 5 NA Normal 144 LAB L501.5600 3.5-5. mmol/L 1 K Normal 3.6 LAB L501.5900 98-107 mmol/L High CL 109 LAB L501.6100 21.0-3 mmol/L 2.0 CO2 Normal 24.0 LAB L501.6200 5-15 GAP Normal 11 Performed By: #### L500.2500, L501.4010 #### [facility] [address] [place], [address] TROPONIN-I Collected: 01/26/2018 Status: F Source: [facility] 3:27 AM [facility] REPOSITORY TYPE CODE TESTS RESULT OUT OF RANGE REFERENCE UNITS LAB L501.4010 <0.045 ng/mL Normal < 0.015 TROPONIN-I Result Comment: TROPONIN-I EXPECTED VALUES <0.045 Negative 0.045 - 0.590 Consistent with Cardiac Damage > OR = 0.600 Critical Value Not every elevated troponin is indicative of KS. These values should be used with clinical judgement in examining the patient's clinical picture for diagnosis. To establish a diagnosis of KS versus myocardial injury, there must be a demonstrated rise and/or fall in the troponin values, in addition to ischemic symptoms, EKG changes, new regional wall motion abnormality, and/or angiographical evidence. PLEASE NOTE: REFERENCE RANGES EDITED 17 Performed By: #### L500.2500, L501.4010 #### [facility] [address] [place] [place], [address] D-DIMER QUANTITATIVE Collected: 01/26/2018 Status: F Source: [place] (DVT/PE) 3:27 AM [facility] REPOSITORY TYPE CODE TESTS RESULT OUT OF RANGE REFERENCE UNITS LAB L300.8000 0.27-0.49 FEU/ug/m High alert D-DIMER 1.23 QUANT Result Comment: D-Dimer ELEVATED (>0.49): Additional studies and clinical assessments are indicated to conclude diagnosis of: Deep Vein Thrombosis (DVT) or Pulmonary Embolism (PE) CRITICAL VALUE VERIFIED. CALLED TO [place] [phone] 01/26/18 0429 Valeria Roldan. RESULTS READ BACK BY SAME . Performed By: #### L300.8000 #### [facility] [address] [facility] [place], [address] DISCHARGE INSTRUCTION Observed: 01/24/2018 Status: F Source: [place] 5:14 AM [facility] REPOSITORY [facility] Medical Records Department [address] [place] [address] Instructions for Home/Discharge Instructions 01/24/18 0514 MR#: [id number] Acct: [id number] Name: RASHAUNREBECCA L Rep #: [id number] : 1995 22 From: Mishel Pacheco MD PCP: Care Physician, No Primary Status: ADM IN Discharge Diet: No Restrictions Discharge Activity: Return to Normal Activity, May not drive while taking narcotic pain medications., May Shower May resume sexual activity in: 4-6 weeks Call your doctor if your incision/area has: Continuous Slow Oozing, Sudden Increased Bleeding, Increased Pain/ Swelling, Increased Redness, Foul Smelling Discharge Additional Instructions: If you experience any of the following, contact your healthcare provider. * Bleeding that soaks a pad every hour for 2 hours * Fever 100.4 or higher * Unrelieved incision or abdominal pain * Swelling, redness, discharge or bleeding from your incision or episiotomy site * Your incision begins to separate * Problems urinating (including inability to urinate or burning while urinating). * Visual changes * Severe headache * Flu-like symptoms * Pain or redness in one of both of your breasts * Pain, warmth, tenderness or swelling in your legs, especially the calf area * Frequent nausea and vomiting * Symptoms of depression or anxiety If you experience any of the following, call 911 or go to the nearest Emergency Room. * Chest pain * Problems breathing * Seizure activity * Partial or complete paralysis of a body part, slurred speech, weakness or drooping of the face, or a sudden inability to walk or hold your balance Allergies/Adverse Reactions: Allergies diphenhydramine [From Benadryl] Allergy (Mild, Verified 01/19/18 11:50) increases anxiety Medications to take at Discharge vitamin,calcium,sptkcdnf-aqvk-aqmel acid tablet 1 tab PO QDAY 07/06/17 magnesium oxide 500 mg capsule 500 mg PO QDAY cap 10/17/17 Insulin NPH Human Isophane [Novolin N] 4 unit SQ QHS 01/05/18 labetalol 300 mg tablet 600 mg PO TID #120 tab 01/19/18 Please Follow Up With: Mishel Pacheco MD - [phone] When: Call to make an appointment with your doctor in 6 weeks. If you had elevated Blood pressure or 4th degree laceration you will need to be seen in 2 weeks. Primary Care Physician: Care Physician,No Primary [Primary Care Provider] - Test Results: Test results from this visit will be discussed in further detail at your follow-up appointment, if applicable. 01/24/18 0514 <Electronically signed by Mishel Pacheco MD> Date Mishel Pacheco MD CC: No Primary Care Physician CBC-COMPLETE BLOOD CNT Collected: 01/21/2018 Status: F Source: [place] NO DIFF 5:41 AM [facility] REPOSITORY Order Comment: Comments: Day #1 Reason for Laboratory Test TYPE CODE TESTS RESULT OUT OF RANGE REFERENCE UNITS LAB L100.1000 4.4-11.0 K/mm3 High WBC 13.5 LAB L100.1200 4.2-5.4 M/mm3 Low RBC 4.18 LAB L100.1300 12.0-15.0 g/dl Low HGB 11.6 LAB L100.1400 37-47 % Low HCT 34.2 LAB L100.1500 81-99 fL Normal MCV 81.8 LAB L100.1600 27.0-32.0 pg Normal MCH 27.8 LAB L100.1700 32-36 g/gl Normal MCHC 33.9 LAB L100.1810 11.6-14.6 % Normal RDW CV 14.4 LAB L100.1820 35.1-43.9 fl Normal RDW SD 41.8 LAB L100.1900 150-450 K/mm3 Normal PLT 242 LAB L100.2000 6.2-12.0 fl Normal MPV 10.6 Performed By: #### L100.0500 #### [facility] [address] [facility] [address] BEDSIDE GLUCOSE Collected: 01/21/2018 Status: F Source: [facility]KA 5:37 AM [facility] REPOSITORY TYPE CODE TESTS RESULT OUT OF RANGE REFERENCE UNITS LAB L501.080 70-110 mg/dL Normal BEDSIDE GLU 96 Result Comment: MANAGEMENT OF PATIENT CARE PER NURSING PROTOCOL Performed By: #### L501.080 #### [facility] Point of Care [address] [facility] [place] [address] BEDSIDE GLUCOSE Collected: 01/20/2018 Status: F Source: [place] 10:04 PM [facility] REPOSITORY TYPE CODE TESTS RESULT OUT OF RANGE REFERENCE UNITS LAB L501.080 70-110 mg/dL Normal BEDSIDE GLU 77 Result Comment: MANAGEMENT OF PATIENT CARE PER NURSING PROTOCOL Performed By: #### L501.080 #### [facility] Point of Care [address] [place] [place] [address] OPERATIVE REPORT Observed: 01/20/2018 Status: F Source: [facility] 8:10 PM [facility] REPOSITORY [facility] Medical Records Department [address] [place] [address] Operative Report 01/20/182004 MR#: [id number] Acct: [id number] Name: REBECCA RODNEY Rep #: [id number] : 1995 22 From: Mishel Pacheco MD PCP: Care Physician, No Primary Status: ADM IN Y Location: [place] [address] Problem List (1) Oligohydramnios in third trimester Status: Acute (2) Status: Acute Qualifiers: Comment: Growth US normal 01/12 (3) Insulin controlled gestational diabetes mellitus (GDM) in third trimester Status: Acute Comment: 4U nph at night. 2x weekly testing. s/p nutrition consult. patient declined [facility] consult (4) screening encounter Status: Acute Comment: 08/07/17 NT normal (5) Supervision of high risk in first trimester Status: Acute Comment: PRR RITA 02/13/18 Girl Crystal Gustabo (6) Chronic hypertension affecting Status: Acute Comment: plan IOL 37 weeks. labetalol 600mg TID, baseline labs nl, on baby ASA, recommend growth q 4 wks and weekly quentin and weekly nst, weekly preeclampsia labs. s/p mfm consult and admit for suspected pree, but was exacerbation of cHTN. recommend deliver at 37 weeks. declined [facility] consult. (7) BMI 50.0-59.9, adult Status: Chronic Comment: nutrition consult, weekly nsts and growth us from 32 weeks (8) heart rate decelerations affecting management of mother Status: Acute Report of Operation Date of Procedure: 01/20/18 Pre-Operative Diagnosis: Induction of labor oligohydramnios, chronic hypertension, insulin controlled gestational diabetes, morbid obesity, prematurity, recurrent heart rate decelerations category 2 tracing Post-Operative Diagnosis: Same Surgery/Procedure Performed:: Primary low transverse Description of Surgical Findings:: Normal uterus tubes and ovaries female vertex with a nuchal cord x1 surgical pathologist: Rick Greenberg Type of Anesthesia:: Spinal Special Medications: none Specimen's removed: female infant Drains: nance Estimated Blood Loss (mL): 600 Fluids Replaced: crystalloid Description of Procedure: The patient is a 82-year-old at 36 weeks 4 days presented for induction of labor secondary to oligohydramnios with an QUENTIN of 3 cm. Patient had a complicated by chronic hypertension and insulin controlled gestational diabetes but had negative proteinuria and normal laboratory evaluation and blood pressures were stable in the normal to mildly elevated range at the time of induction. Patient underwent Pitocin and Nance bulb induction of labor and after the Nance bulb was removed artificial rupture membranes showed clear fluid and internal monitors were placed. After rupture of membranes recurrent variable decelerations were noted and the heart rate followed by a decrease in variability and then developing recurrent late decelerations and a category 2 tracing. Pitocin was turned off, IV fluids were given, an amnioinfusion was started, oxygen was given and the patient was changed to multiple positions. Cervical exam was still 4 cm and patient was remote from delivery therefore the decision was made for a primary . Spinal anesthesia was placed without difficulty. Nance catheter was placed. The patient was placed in the dorsal supine position with leftward tilt. Patient was prepped and draped in the normal sterile fashion. Pfannenstiel skin incision was made with the scalpel and carried through to the underlying layer of fascia with the scalpel. Fascia was nicked in the midline and the incision extended laterally. The peritoneum was entered digitally. The incision was stretched in a double ring retractor was placed and a low transverse uterine incision was made with the scalpel. The infant's head was delivered atraumatically followed by the anterior and posterior shoulders without complication the rest of the infant delivered. A loose nuchal cord x1 was reduced over the infant's head. Delayed cord clamping was employed for approximately 30-60 seconds and then the cord was clamped and cut and the was handed off to awaiting nurse. The placenta was delivered spontaneously immediately following and was noted to be intact and have a three-vessel cord. The uterus was cleared of all clots and debris, and the incision was closed in a double layer closure using #1 Monocryl. The uterus was returned to the maternal abdomen and gutters were cleared of all clots and debris. The ovaries and fallopian tubes were noted to be within normal limits. The peritoneum was closed with 3-0 Monocryl in a running fashion. Fascia was closed with 0 PDS in a running fashion. Subcutaneous tissue was copiously irrigated and the skin was closed with 3-0 Monocryl in a subcuticular fashion. Steri-Strips and Mepilex dressing were applied without complication. Patient was taken to recovery in stable condition. Grafts/Implants Used: none - Complications none - Admit VTE Documentation VTE Present on Admission: No 01/20/182009 <Electronically signed by Mishel Pacheco MD> Date Mishel Pacheco MD CC: No Primary Care Physician; Mishel Pacheco MD Signed BEDSIDE GLUCOSE Collected: 01/20/2018 Status: F Source: [facility] 5:20 PM [facility] REPOSITORY TYPE CODE TESTS RESULT OUT OF RANGE REFERENCE UNITS LAB L501.080 70-110 mg/dL Normal BEDSIDE GLU 93 Result Comment: MANAGEMENT OF PATIENT CARE PER NURSING PROTOCOL Performed By: #### L501.080 #### [facility] Point of Care [address] [place] [address] (ROM) RUPTURE OF Collected: 01/20/2018 Status: F Source: [facility] 1:40 PM [facility] REPOSITORY TYPE CODE TESTS RESULT OUT OF RANGE REFERENCE UNITS LAB L205.1310 Negative Normal ROM Negative Result Comment: Amniotic fluid not present indicates No Rupture of Membranes at time of specimen collection. Performed By: #### L205.1000 #### [facility] [address] [place], [address] BEDSIDE GLUCOSE Collected: 01/20/2018 Status: F Source: [facility] 12:56 PM [facility] REPOSITORY TYPE CODE TESTS RESULT OUT OF RANGE REFERENCE UNITS LAB L501.080 70-110 mg/dL Normal BEDSIDE GLU 98 Result Comment: MANAGEMENT OF PATIENT CARE PER NURSING PROTOCOL Performed By: #### L501.080 #### [facility] Point of Care [address] [place] [address] BEDSIDE GLUCOSE Collected: 01/20/2018 Status: F Source: [place] 11:45 AM [facility] REPOSITORY TYPE CODE TESTS RESULT OUT OF RANGE REFERENCE UNITS LAB L501.080 70-110 mg/dL Normal BEDSIDE GLU 110 Result Comment: MANAGEMENT OF PATIENT CARE PER NURSING PROTOCOL Performed By: #### L501.080 #### [facility] Point of Care [address] [place] [address] HISTORY AND PHYSICAL Observed: 01/20/2018 Status: F Source: [facility] 10:23 AM [facility] REPOSITORY [facility] Medical Records Department [address] [place] [address] History and Physical 01/20/18 1000 MR#: [id number] Acct: [id number] Name: REBECCA RODNEY Rep #: [id number] : 1995 22 From: Mishel Pacheco MD PCP: Care Physician, No Primary Status: ADM IN Y Location: [place] [id number] ADDENDUM by Mishel Pacheco MD on 01/20/18 at 1023 Code Visit initial GBS at 28 weeks was negative but repeat gbs yesterday showed dna positive- will recommend PCN in active labor 01/20/18 1023 <Electronically signed by Mishel Pacheco MD> Date Mishel Pacheco MD cc: No Primary Care Physician; Mishel Pacheco MD * Signed - Problem List (1) Oligohydramnios in third trimester Status: Acute (2) Status: Acute Qualifiers: Comment: Growth US normal 01/12 (3) Insulin controlled gestational diabetes mellitus (GDM) in third trimester Status: Acute Comment: 4U nph at night. 2x weekly testing. s/p nutrition consult. patient declined [facility] consult (4) screening encounter Status: Acute Comment: 08/07/17 NT normal (5) Supervision of high risk in first trimester Status: Acute Comment: PRR RITA 02/13/18 Girl Crystal Gustabo (6) Chronic hypertension affecting Status: Acute Comment: plan IOL 37 weeks. labetalol 600mg TID, baseline labs nl, on baby ASA, recommend growth q 4 wks and weekly quentin and weekly nst, weekly preeclampsia labs. s/p mfm consult and admit for suspected pree, but was exacerbation of cHTN. recommend deliver at 37 weeks. declined [facility] home [facility] care consult. (7) BMI 50.0-59.9, adult Status: Chronic Comment: nutrition consult, weekly nsts and growth us from 32 weeks History Date of Admission: 11/24/17 Final RITA: 02/13/18 Gestational age: 36 Weeks and 4 Days History of this : This is a 22 year-old, at 36w4d weeks gestational age presents with oligohydramnios. she denies any vb or lof. she admits good fm. she denies any regular ctx. bloodpressures have been well controlled in the third trimester but she had a severe exacerbation of chtn at 28 weeks, received steroids, and was admitted for several weeks to the hospital. since then she has been stable and managed as intensive outpatient. Medical History: Medical History (Last Updated 01/20/18 @ 10:02 by Mishel Pacheco MD) Chronic hypertension I10 Anxiety F41.9 Surgical History: Surgical History (Last Reviewed 01/19/18 @ 11:50 by Tracey Childress) S/P tonsillectomy and adenoidectomy Z90.89 lymph node removed from neck Allergies diphenhydramine [From Benadryl] Allergy (Mild, Verified 01/19/18 11:50) increases anxiety Home Medications: Home Medications vitamin,calcium,dhpiprgq-dmlc-pdxew acid tablet 1 tab PO QDAY 07/06/17 magnesium oxide 500 mg capsule 500 mg PO QDAY cap 10/17/17 blood pressure monitor kit See Dose Instructions .ROUTE .MEDSUPPLY #1 ea 11/22/17 Insulin NPH Human Isophane [Novolin N] 4 unit SQ QHS 01/05/18 labetalol 300 mg tablet 600 mg PO TID #120 tab 01/19/18 Smoking Status: Never smoker Alcohol: None Number of Fetus(es): 1 Heart Tracin moderate variability reactive no decels TOCO Analysis: none History Past Pregnancies: Past Pregnancies Delivery Name GA/Weeks Outcome Route WeiInfant GeLabor LenAnesthesiDelivery Provider FOB Date ght [facility] a Location Labs: 22 yo @ 36w4d with oligohydramnios and chtn and GDMA2 Patient presents IOL plan pit/fb, arom prn. Pain management: plans epidural. GBS negative. Management of any complications: continue labetalol, monitor bs q 4 hr latent phase q 1 hr active phase. preeclampsia labs drawn. I have reviewed the [facility] and made any clinically relevant updates. Expected Infant Delivery Method: Spontaneous Vaginal Assessment/Plan All Active Problems (Last Reviewed 01/19/18 @ 11:50 by Tracey Childress) Oligohydramnios in third trimester (Acute) (Acute) Insulin controlled gestational diabetes mellitus (GDM) in third trimester (Acute) screening encounter (Acute) Supervision of high risk in first trimester (Acute) Chronic hypertension affecting (Acute) Abnormal glucose in , antepartum (Resolved) Gestational diabetes, diet controlled (Resolved) Threatened labor (Resolved) Severe preeclampsia (Ruled-out) This is a 22 year-old, G [], P [], at weeks gestational age. 01/20/18 1005 <Electronically signed by Mishel Pacheco MD> Date Mishel Pacheco MD Cosigner Signature: Date (if applicable) CC: No Primary Care Physician; Mishel Pacheco MD Signed CBC W/DIFF, AUTOMATED Collected: 01/20/2018 Status: F Source: [facility] 9:20 AM [facility] REPOSITORY TYPE CODE TESTS RESULT OUT OF RANGE REFERENCE UNITS LAB L100.1000 4.4-11.0 K/mm3 High WBC 12.4 LAB L100.1200 4.2-5.4 M/mm3 Normal RBC 4.68 LAB L100.1300 12.0-15.0 g/dl Normal HGB 12.7 LAB L100.1400 37-47 % Normal HCT 38.0 LAB L100.1500 81-99 fL Normal MCV 81.2 LAB L100.1600 27.0-32.0 pg Normal MCH 27.1 LAB L100.1700 32-36 g/gl Normal MCHC 33.4 LAB L100.1810 11.6-14.6 % Normal RDW CV 14.4 LAB L100.1820 35.1-43.9 fl Normal RDW SD 42.1 LAB L100.1900 150-450 K/mm3 Normal PLT 268 LAB L100.2000 6.2-12.0 fl Normal MPV 10.4 LAB L100.2100 47-70 % High NEUT% 70.6 LAB L100.2200 19-41 % Normal LY% 21.1 LAB L100.2300 0-10 % Normal MONO% 6.8 LAB L100.2400 0-5 % Normal EO% 1.1 LAB L100.2500 0-1 % Normal BASO% 0.2 LAB L100.2550 0.0-0.9 % Normal IM GRAN % 0.200 Result Comment: IG% - Immature Granulocytes (promyelocytes, myelocytes and metamyelocytes) > 1% indicates that a LEFT SHIFT is Present. LAB L100.2620 2.0-7.7 X10 3/uL High Absolute Neut 8.7 LAB L100.2720 0.83-4.51 X10 3/ul Normal Absolute Lymph 2.61 Performed By: #### L100.0100, L500.4050 #### [facility] [address] [place], [address] COMPREHENSIVE METABOLIC Collected: 01/20/2018 Status: F Source: [facility] 9:20 AM [facility] REPOSITORY TYPE CODE TESTS RESULT OUT OF RANGE REFERENCE UNITS LAB L501.0100 74-106 mg/dL High GLU 134 Result Comment: Fasting Glucose result greater than or equal to 126 mg/dL suggests DIABETES MELLITUS per A.D.A. criteria. Please note revised GLUCOSE reference range effective 2017. LAB L501.1000 7-18 mg/dL Normal BUN 10 LAB L501.1100 0.55-1.02 mg/dL Normal CREAT,SERUM 0.55 Result Comment: The validity of the calculated GFR AND GFRAA in patients over 70 years has not been determined. Clinical correlation is essential. LAB L501.1110 >60 mL/min Normal EST GFR 142 Result Comment: Non- GFR Calc LAB L501.1115 >60 mL/min Normal EST GFR - AA 172 Result Comment: GFR Calc LAB L501.1255 ml/min Normal Estimated CRCL 153.38 LAB L501.1300 10-20 RATIO BUN/CRE Normal 18.1 LAB L501.1500 6.4-8. g/dL 2 T PROT Normal 6.5 LAB L501.1800 3.2-5. g/dL Low 0 ALB 2.7 LAB L501.1950 2.2-4. g/dL 2 GLOB Normal 3.8 LAB L501.2000 0.9-2. RATIO Low 4 A/G 0.7 LAB L501.2200 8.5-10 mg/dL .1 CA Normal 8.8 LAB L501.4100 15-37 U/L Low AST 11 LAB L501.4305 45-117 U/L ALK P Normal 97 LAB L501.4405 13-56 U/L ALT Normal 22 LAB L501.4600 0.20-1 mg/dL .00 T BILI Normal 0.20 LAB L501.5300 136-14 mmol/L 5 NA Normal 137 LAB L501.5600 3.5-5. mmol/L 1 K Normal 3.8 LAB L501.5900 98-107 mmol/L CL Normal 106 LAB L501.6100 21.0-3 mmol/L 2.0 CO2 Normal 23.0 LAB L501.6200 5-15 GAP Normal 8 Performed By: #### L100.0100, L500.4050 #### [facility] [address] [place], [place], [id number] TYPE AND SCREEN Collected: 01/20/2018 Status: F Source: [facility] 9:20 AM [facility] REPOSITORY Order Comment: Has pt arrived? Y Reason for Type AND Screen/Red Cells: TYPE CODE TESTS RESULT OUT OF RANGE REFERENCE UNITS LAB B10.0800 A Normal BLOOD TYPE GEL POSITIVE LAB B100.4000 Normal Antibody NEGATIVE Screen Performed By: #### B101.7450 #### [facility] [address] [place], [place], [id number] BEDSIDE GLUCOSE Collected: 01/20/2018 Status: F Source: [facility] 6:46 AM [facility] REPOSITORY TYPE CODE TESTS RESULT OUT OF RANGE REFERENCE UNITS LAB L501.080 70-110 mg/dL Normal BEDSIDE GLU 95 Result Comment: MANAGEMENT OF PATIENT CARE PER NURSING PROTOCOL Performed By: #### L501.080 #### [facility] Point of Care [address] [place] [address] OB LIMITED (NO Observed: 01/20/2018 Status: F Source: [facility]) 12:01 AM [facility] REPOSITORY [facility] Imaging Services [address] [place] [address] OB Limited (No Biometrics) MR#: [id number] Acct: [id number] Name: REBECCA RODNEY Rep #: [id number] : 1995 F 22 From: Minh Kirby PCP: Care Physician, No Primary Status: ADM IN Study: OB Limited (No Biometrics) Date of Exam: 01/20/18 Exam# [id number] Ordering Dr: Mishel Pacheco MD STUDY: SECOND AND THIRD TRIMESTER OBSTETRICAL ULTRASOUND - LIMITED REASON FOR EXAM: Female, 22 years old. Recheck QUENTIN. LMP: 05/09/2017 PRIOR ULTRASOUND: 01/19/2018 TECHNIQUE: Transabdominal TECHNICAL QUALITY: Adequate. FINDINGS: There is a single intrauterine fetus. The fetus is in a cephalic presentation. There is demonstrated cardiac activity with a heart rate of 150 bpm. There is decreased amniotic fluid volume consistent with oligohydramnios. The largest amniotic fluid pocket measures 3.91 cm. There are Grade 2 placental changes. Cervical length is not visualized. US/OB Limited (No Biometrics) IMPRESSION: Decreased amniotic fluid volume. The largest amniotic fluid pocket measures: 3.91 cm Electronically Signed: Lebron Kirby MD at 8:35 EDT Tel , Service support , CC: No Primary Care Physician; Mishel Pacheco MD Whittling Room Operator: Signed BEDSIDE GLUCOSE Collected: 01/19/2018 Status: F Source: [facility] 10:59 PM [facility] REPOSITORY TYPE CODE TESTS RESULT OUT OF RANGE REFERENCE UNITS LAB L501.080 70-110 mg/dL Normal BEDSIDE GLU 102 Result Comment: MANAGEMENT OF PATIENT CARE PER NURSING PROTOCOL Performed By: #### L501.080 #### [facility] Point of Care [address] [place] [address] BEDSIDE GLUCOSE Collected: 01/19/2018 Status: F Source: [facility] 8:12 PM [facility] REPOSITORY TYPE CODE TESTS RESULT OUT OF REFERENCE UNITS RANGE LAB L501.080 70-110 mg/dL High BEDSIDE GLU 130 Result Comment: MANAGEMENT OF PATIENT CARE PER NURSING PROTOCOL Performed By: #### L501.080 #### [facility] Point of Care [address] [place] [address] OB LIMITED (NO Observed: 01/19/2018 Status: F Source: [facility]) 12:56 PM [facility] REPOSITORY [facility] Imaging Services [address] [place] [address] OB Limited (No Biometrics) MR#: [id number] Acct: [id number] Name: REBECCA RODNEY Rep #: [id number] : 1995 F 22 From: Hayder Bella MD PCP: Care Physician, No Primary Status: REG CLI Study: OB Limited (No Biometrics) Date of Exam: 01/19/18 Exam# [id number] Ordering Dr: Mishel Pacheco MD STUDY: SECOND AND THIRD TRIMESTER OBSTETRICAL ULTRASOUND - LIMITED REASON FOR EXAM: Female, 22 years old. QUENTIN LMP: PRIOR ULTRASOUND: 01.12.18 TECHNIQUE: Transabdominal TECHNICAL QUALITY: Adequate. FINDINGS: There is a single intrauterine fetus. The fetus is in a cephalic presentation. There is demonstrated cardiac activity with a heart rate of 138 bpm. There is a normal amniotic fluid volume. The amniotic fluid index (QUENTIN) is 6.6 cm. The placenta is fundal in location. There are Grade 2 placental changes. The cervix IS NOT SEEN. US/OB Limited (No Biometrics) IMPRESSION: There is a single live intrauterine with a heart rate of 138 bpm. QUENTIN: 6.6 Electronically Signed: Hayder Bella MD at 19:05 EDT , Service support , CC: No Primary Care Physician; Mishel Pacheco MD Whittling Room Operator: Signed CONTRACT AGENT OFFICE VISIT Observed: 01/19/2018 Status: F Source: [facility] 12:10 PM [facility] [address] [place] [address] OFFICE VISIT Date of Service: 01/19/18 MR#: [id number] Acct: [id number] Name: REBECCA RODNEY Rep #: [id number] : 1995 Provider: Mishel Pacheco MD Age/Sex: 22/F Location: [facility] Status: Signed Intake Vital Signs01/19/18 Height 5 ft 7 in 01/19/18 Weight: 355 lb 01/19/18 Body Mass Index (BMI) 55.5 01/19/18 Blood Pressure 144/90 H Intake Visit Reasons: ob/nst Linen Room Custodian Required: No Is patient in pain?: No Allergies diphenhydramine [From Benadryl] Allergy (Mild, Verified 01/19/18 11:50) increases anxiety Medications vitamin,calcium,wpanocdi-gbcg-bolef acid tablet 1 tab PO QDAY 07/06/17 [History Confirmed 01/19/18] magnesium oxide 500 mg capsule 500 mg PO QDAY cap 10/17/17 [History Confirmed 01/19/18] blood pressure monitor kit See Dose Instructions .ROUTE .MEDSUPPLY #1 ea 11/22/17 [Rx Confirmed 01/19/18] Insulin NPH Human Isophane [Novolin N] 4 unit SQ QHS 01/05/18 [History Confirmed 01/19/18] labetalol 300 mg tablet 600 mg PO TID #120 tab 01/19/18 [Rx Confirmed 01/19/18] Last Menstral Period: 05/09/17 Zika: Zika virus screening: Negative : No PFSH PFSH Medical History Anxiety (Acute) Surgical History S/P tonsillectomy and adenoidectomy (Resolved) lymph node removed (Resolved) Family History Father Hypertension Grandmother Diabetes Mother Cervical cancer Social History Smoking Status: Never smoker alcohol intake: never substance use type: does not use caffeine: Yes (occasional) what type of physical activity do you participate in: walking, none seatbelt use: always do you feel safe at home: Yes 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 DateName GA/Weeks Outcome Route Bth WeighInfant GeLabor LgtAnesthesiDel LocatProvider FOB t n h a n Unknown Delivery Date: On 07/06/17 @ 13:57 Dana Gupta Miscarriage at 5 weeks in 02/2017 HPI ob/nst: Details: REBECCA RODNEY is a 22 year old who presents for routine OB visit. OB Visit RITA Calculator Estimated Delivery Date 02/13/18 Based on LMP (certain) 05/09/17 Current WG 36w 3d Number 1 Expected Delivery Route/Plan Specific Issue/Plans flu vaccine: given tdap vaccine: given rhogam: na LARC form signed: declined labor support person: Gustabo pain management: epidural cut cord/dad catch: yes : yes PP control planned: [] special requests: [] Initial Weight: 350 lb Date Weight BP Urine PrFHR FuHt Pres MoCTX DilationFetal StVisit NoProviderComments E ot v te GA G Effac lucose ed Visit Notes Visit Date: 01/19/18 to l graciela d for nst. Mishel Pacheco MD on 01/19/18 Visit Date: 01/12/18 no vb lof good fm no regualr ctx no SAWANT BV n v bps controlled at home. fbs 90s 2 hr ppg 120s. on 4 u nph at night Mishel Pacheco MD on 01/12/18 Visit Date: 01/02/18 reviewed blood sugars, increase nph to 4 u at night. no vb lof good fm no regular ctx no SAWANT BV bps well controlled. labs done. continue to monitor outpatient expectant management with 2x weekly testing. reactive nst Mishel Pacheco MD on 01/07/18 Visit Date: 12/29/17 No visit notes to display Visit Date: 12/19/17 borderline non reactive nst recommend prolonged monitoring and possible BPP. to l and d for monitoring. expecting call from [facility] tomorrow to discuss plan for GA of delivery. FBS normal today. discussed making snack earlier at night to decrease FBS Mishel Pacheco MD on 12/19/17 Visit Date: 12/15/17 follow up after transport to [facility]. severe preeclampsia versus exacerbation of cHTN. will call [facility] to discuss management. recommend home bp checks. plan twice weekly visits, weekly nst and weekly QUENTIN. recommend optum consult for bp and GDM intensive outpatient managment. consult endocrine to start insulin. check weekly labs. reviewed preeclampsia precautions- negative today. Mishel Pacheco MD on 12/16/17 Visit Date: 11/24/17 reveiwed home bps- elevated to 140s over 80s which is higher than they have been in the past few weeks- having a headache today. labs normal two weeks ago. recommend evaluation on l and d- see hpi Mishel Pacheco MD on 11/24/17 Visit Date: 11/22/17 Note slight elevated BP. No headache or vision changes. States BPs at work are 130s/80s daily. Good FM. No VB, LOF BLANCA Levine on 11/22/17 Visit Date: 11/14/17 elevated bp- check cmp and urine protein cr ratio and increased labetalol to 300mg BID, fu 1 week Mishel Pacheco MD on 11/14/17 no vb lof good fm no regular ctx bp elevated today. no SAWANT BV cbc glucola Mishel Pacheco MD on 11/14/17 Visit Date: 10/17/17 No VB, LOF. Good FM. ED last night-sutures in left finger/dropped a glass bowl Marielle Márquez NP-Paul on 10/17/17 Visit Date: 08/31/17 no vb lof good fm no regualr ctx Mishel Pacheco MD on 09/05/17 labetalol increased borderline elevated bps at home. urine protein ratio sent. seeing neurologist for migraines. referring to PT and chiropractor also. no vb still having nausea Mishel Pacheco MD on 08/31/17 Visit Date: 08/03/17 bps WNL at home, needs nt screening and ekg done, ordered Mishel Pacheco MD on 08/04/17 Visit Date: 07/25/17 no vb cramping, elevated bps recommend starting labetalol, already had baseline urine negative for protein, ordered ekg Mishel Pacheco MD on 07/25/17 no vb cramping Mishel Pacheco MD on 07/25/17 Visit Date: 07/06/17 No visit notes to display ACOG First Trimester First Trimester: Desire for , Alcohol, Tobacco Cessation, Illicit/Recreational Drug/Substance Use, Intimate Partner Violence, Barriers to care, Unstable Housing, Communication Barriers, Environmental/Work Hazards, Anticipated Course of Care, Toxoplasmosis Precations, Use of Any medications, Sexual activity, Exercise, Dental Care, Sauna/Hot tub use, Seat Belt use, Childbirth classes/Hospital facilities, , Travel, Indications for US and Screening for Aneuploidy Diagnostics Diagnostics Labs Hct 39.2 % (37-47) 01/12/18 Hgb 13.1 g/dl (12.0-15.0) 01/12/18 Obstetrics Ultrasound 01/12/18 Details: HIV: Urine Culture: Sequential Screen: NIPT Screen: Results [id number] Office Urine Glucose Negative Last Edit by Tracey Childress on 01/19/18 11:47 Office Urine Protein Negative Last Edit by Tracey Childress on 01/19/18 11:47 Assessment AND Plan Problems 1. 36 weeks gestation of Z3A.36 Growth US normal 01/12 2. Insulin controlled gestational diabetes mellitus (GDM) in third trimester O24.414 4U nph at night. 2x weekly testing. s/p nutrition consult. patient declined [facility] care consult 3. screening encounter Z36.9 08/07/17 NT normal 4. Supervision of high risk in first trimester O09. PRR RITA 02/13/18 Girl Crystal Gustabo 5. Chronic hypertension affecting O10.919 plan IOL 37 weeks. labetalol 600mg TID, baseline labs nl, on baby ASA, recommend growth q 4 wks and weekly quentin and weekly nst, weekly preeclampsia labs. s/p mfm consult and admit for suspected pree, but was exacerbation of cHTN. recommend deliver at 37 weeks. declined [facility] home health care consult. 6. BMI 50.0-59.9, adult Z68.43 nutrition consult, weekly nsts and growth us from 32 weeks Plan movement and labor precautions reviewed. ACOG trimester education reviewed and updated. see problem list details for updated plan management information and see below for orders placed at this visit. GA appropriate handout given. Orders Orders: Medications New: Coding Level of Care Code OB Routine Diagnoses 36 weeks gestation of Z3A.36 Weeks of gestation: 36 weeks Insulin controlled gestational diabetes mellitus (GDM) in third trimester O24.414 screening encounter Z36.9 Supervision of high risk in first trimester O09. Chronic hypertension affecting O10.919 BMI 50.0-59.9, adult Z68.43 01/19/18 1210 <Electronically signed by Mishel Pacheco MD> Date Mishel Pacheco MD Cosigner Signature: Date (if applicable) CC: GROUP B STREP DNA Collected: 01/19/2018 Status: F Source: [place] BY [facility] 12:00 AM [facility] REPOSITORY Order Comment: Source: Vaginal-Rectal TYPE CODE TESTS RESULT OUT OF REFERENCE UNITS RANGE LAB L8200.0100 Negative High GBS TEST POSITIVE RESULT Result Comment: Penicillin is the recommended antibiotic for the treatment of Group B Streptococcal disease. In case of penicillin allergy, susceptibility testing for Clindamycin and Erythromycin is suggested by request. Performed By: #### L8200.0000 #### [facility] [address] [place], [address] CONTRACT AGENT OFFICE VISIT Observed: 01/12/2018 Status: F Source: [place] RE[facility] 8:53 PM [facility] REPOSITORY [facility] [address] [place] [address] OFFICE VISIT Date of Service: 01/12/18 MR#: [id number] Acct: [id number] Name: REBECCA RODNEY Rep #: [id number] : 1995 Provider: Mishel Pacheco MD Age/Sex: 22/F Location: [facility] Status: Signed Intake Vital Signs01/12/18 Height 5 ft 7 in 01/12/18 Weight: 352 lb 8 oz 01/12/18 Body Mass Index (BMI) 55.2 01/12/18 Blood Pressure 124/90 H H Intake Visit Reasons: OB/NST Linen Room Custodian Required: No Is patient in pain?: No Allergies diphenhydramine [From Benadryl] Allergy (Mild, Verified 01/12/18 16:18) increases anxiety Medications vitamin,calcium,mwijavrl-djfd-nqrjd acid tablet 1 tab PO QDAY 07/06/17 [History Confirmed 01/12/18] magnesium oxide 500 mg capsule 500 mg PO QDAY cap 10/17/17 [History Confirmed 01/12/18] blood pressure monitor kit See Dose Instructions .ROUTE .MEDSUPPLY #1 ea 11/22/17 [Rx Confirmed 01/12/18] labetalol 300 mg tablet 600 mg PO TID tab 12/15/17 [History Confirmed 01/12/18] Insulin NPH Human Isophane [Novolin N] 4 unit SQ QHS 01/05/18 [History Confirmed 01/12/18] Last Menstral Period: 05/09/17 Zika: Zika virus screening: Negative : No PFSH PFSH Medical History Anxiety (Acute) Surgical History S/P tonsillectomy and adenoidectomy (Resolved) lymph node removed (Resolved) Family History Father Hypertension Grandmother Diabetes Mother Cervical cancer Social History Smoking Status: Never smoker alcohol intake: never substance use type: does not use caffeine: Yes (occasional) what type of physical activity do you participate in: walking, none seatbelt use: always do you feel safe at home: Yes 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 DateName GA/Weeks Outcome Route Bth WeighInfant GeLabor LgtAnesthesiDel LocatProvider FOB t n h a n Unknown Delivery Date: On 07/06/17 @ 13:57 Dana Gupta Miscarriage at 5 weeks in 02/2017 HPI OB/NST: Details: REBECCA RODNEY is a 22 year old who presents for routine OB visit. OB Visit RITA Calculator Estimated Delivery Date 02/13/18 Based on LMP (certain) 05/09/17 Current WG 35w 3d Number 1 Expected Delivery Route/Plan Specific Issue/Plans flu vaccine: given tdap vaccine: given rhogam: na LARC form signed: declined labor support person: Gustabo pain management: epidural cut cord/dad catch: yes : yes PP control planned: [] special requests: [] Initial Weight: 350 lb Date Weight BP Urine PFHR FuHt Pres MCTX DilatioFetal SVisit NProvideComment rot ov n t ote r s EGA Ef Gluco faced se 07/06/1349 lb 156/93 8 2 oz (+ 8w2 oz) 2d Visit Notes Visit Date: 01/12/18 no vb lof good fm no regualr ctx no SAWANT BV n v bps controlled at home. fbs 90s 2 hr ppg 120s. on 4 u nph at night Mishel Pacheco MD on 01/12/18 Visit Date: 01/02/18 reviewed blood sugars, increase nph to 4 u at night. no vb lof good fm no regular ctx no SAWANT BV bps well controlled. labs done. continue to monitor outpatient expectant management with 2x weekly testing. reactive nst Mishel Pacheco MD on 01/07/18 Visit Date: 12/29/17 No visit notes to display Visit Date: 12/19/17 borderline non reactive nst recommend prolonged monitoring and possible BPP. to l and d for monitoring. expecting call from [facility] tomorrow to discuss plan for GA of delivery. FBS normal today. discussed making snack earlier at night to decrease FBS Mishel Pacheco MD on 12/19/17 Visit Date: 12/15/17 follow up after transport to [facility]. severe preeclampsia versus exacerbation of cHTN. will call [facility] to discuss management. recommend home bp checks. plan twice weekly visits, weekly nst and weekly QUENTIN. recommend optum consult for bp and GDM intensive outpatient managment. consult endocrine to start insulin. check weekly labs. reviewed preeclampsia precautions- negative today. Mishel Pacheco MD on 12/16/17 Visit Date: 11/24/17 reveiwed home bps- elevated to 140s over 80s which is higher than they have been in the past few weeks- having a headache today. labs normal two weeks ago. recommend evaluation on l and d- see hpi Mishel Pacheco MD on 11/24/17 Visit Date: 11/22/17 Note slight elevated BP. No headache or vision changes. States BPs at work are 130s/80s daily. Good FM. No VB, LOF NATIVIDAD LevineC on 11/22/17 Visit Date: 11/14/17 elevated bp- check cmp and urine protein cr ratio and increased labetalol to 300mg BID, fu 1 week Mishel Pacheco MD on 11/14/17 no vb lof good fm no regular ctx bp elevated today. no SAWANT BV cbc glucola Mishel Pacheco MD on 11/14/17 Visit Date: 10/17/17 No VB, LOF. Good FM. ED last night-sutures in left finger/dropped a glass bowl NATIVIDAD LevineC on 10/17/17 Visit Date: 08/31/17 no vb lof good fm no regualr ctx Mishel Pacheco MD on 09/05/17 labetalol increased borderline elevated bps at home. urine protein ratio sent. seeing neurologist for migraines. referring to PT and chiropractor also. no vb still having nausea Mishel Pacheco MD on 08/31/17 Visit Date: 08/03/17 bps WNL at home, needs nt screening and ekg done, ordered Mishel Pacheco MD on 08/04/17 Visit Date: 07/25/17 no vb cramping, elevated bps recommend starting labetalol, already had baseline urine negative for protein, ordered ekg Mishel Pacheco MD on 07/25/17 no vb cramping Mishel Pacheco MD on 07/25/17 Visit Date: 07/06/17 No visit notes to display ACOG First Trimester First Trimester: Desire for , Alcohol, Tobacco Cessation, Illicit/Recreational Drug/Substance Use, Intimate Partner Violence, Barriers to care, Unstable Housing, Communication Barriers, Environmental/Work Hazards, Anticipated Course of Care, Toxoplasmosis Precations, Use of Any medications, Sexual activity, Exercise, Dental Care, Sauna/Hot tub use, Seat Belt use, Childbirth classes/Hospital facilities, , Travel, Indications for US and Screening for Aneuploidy Diagnostics Diagnostics Labs Hct 39.2 % (37-47) 01/12/18 Hgb 13.1 g/dl (12.0-15.0) 01/12/18 Obstetrics Ultrasound 01/12/18 Details: HIV: Urine Culture: Sequential Screen: NIPT Screen: Results [id number] Office Urine Glucose Negative Last Edit by Tracey Childress on 01/12/18 16:17 Office Urine Protein Negative Last Edit by Tracey Childress on 01/12/18 16:17 Assessment AND Plan Problems 1. Insulin controlled gestational diabetes mellitus (GDM) in third trimester O24.414 4U nph at night. 2x weekly testing. s/p nutrition consult. patient declined [facility] consult 2. Supervision of high risk in first trimester O09.91 PRR RITA 02/13/18 Girl Crystal Gustabo 3. screening encounter Z36.9 08/07/17 NT normal 4. Chronic hypertension affecting O10.919 plan IOL 37 weeks. labetalol 600mg TID, baseline labs nl, on baby ASA, recommend growth q 4 wks and weekly quentin and weekly nst, weekly preeclampsia labs. s/p mfm consult and admit for suspected pree, but was exacerbation of cHTN. recommend deliver at 37 weeks. declined [facility] home [facility] care consult. 5. BMI 50.0-59.9, adult Z68.43 nutrition consult, weekly nsts and growth us from 32 weeks Plan movement and labor precautions reviewed. ACOG trimester education reviewed and updated. see problem list details for updated plan management information and see below for orders placed at this visit. GA appropriate handout given. nst on l and d Orders Orders: Coding Level of Care Code OB Routine Diagnoses Insulin controlled gestational diabetes mellitus (GDM) in third trimester O24.414 Supervision of high risk in first trimester O09.91 screening encounter Z36.9 Chronic hypertension affecting O10.919 BMI 50.0-59.9, adult Z68.43 01/12/182052 <Electronically signed by Mishel Pacheco MD> Date Mishel Pacheco MD Cosigner Signature: Date (if applicable) CC: PROTEIN+CREATININE Collected: Status: F Source: [facility],URINE 01/12/2018 6:50 PM [facility] REPOSITORY TYPE CODE TESTS RESULT OUT OF RANGE REFERENCE UNITS LAB L501.1200 NO RANGE EST. mg/dL Normal UR CREAT 135.00 LAB L501.1930 <11.9 mg/dL High 22.9 PROTEIN,UR.R AN. LAB L501.1940 0-200 mg/g CRE Normal PROT:CRE 170 RATIO Performed By: #### L501.0900 #### [facility] [address] [place], [place], [id number] PROTHROMBIN TIME W/INR Collected: 01/12/2018 Status: F Source: [facility] 6:25 PM [facility] REPOSITORY Order Comment: REDRAW. PREVIOUS SPECIMEN REJECTED DUE TO CLOTTED SPECIMEN. 01/12/18 182 Sabina Bruno. TYPE CODE TESTS RESULT OUT OF RANGE REFERENCE UNITS LAB L300.4150 11.7-14.9 SECONDS Normal PROTIME 13.3 LAB L300.4200 Normal INR 1.0 Performed By: #### L300.3900, L300.4310 #### [facility] [address] [place], [address] PARTIAL THROMBOPLAST Collected: 01/12/2018 Status: F Source: [facility] TIME 6:25 PM [facility] REPOSITORY Order Comment: REDRAW. PREVIOUS SPECIMEN REJECTED DUE TO CLOTTED SPECIMEN. 01/12/181821 Sabina Bruno. TYPE CODE TESTS RESULT OUT OF RANGE REFERENCE UNITS LAB L300.4310 24.1-36.2 Seconds Normal PTT 24.1 Performed By: #### L300.3900, L300.4310 #### [facility] [address] [place], [address] CBC-COMPLETE BLOOD CNT Collected: 01/12/2018 Status: F Source: [facility] NO DIFF 5:45 PM [facility] REPOSITORY TYPE CODE TESTS RESULT OUT OF RANGE REFERENCE UNITS LAB L100.1000 4.4-11.0 K/mm3 High WBC 12.9 LAB L100.1200 4.2-5.4 M/mm3 Normal RBC 4.82 LAB L100.1300 12.0-15.0 g/dl Normal HGB 13.1 LAB L100.1400 37-47 % Normal HCT 39.2 LAB L100.1500 81-99 fL Normal MCV 81.3 LAB L100.1600 27.0-32.0 pg Normal MCH 27.2 LAB L100.1700 32-36 g/gl Normal MCHC 33.4 LAB L100.1810 11.6-14.6 % Normal RDW CV 14.2 LAB L100.1820 35.1-43.9 fl Normal RDW SD 42.2 LAB L100.1900 150-450 K/mm3 Normal PLT 207 LAB L100.2000 6.2-12.0 fl Normal MPV 10.4 Performed By: #### L100.0500 #### [facility] [address] [place], [place], [id number] SERUM CREATININE AND Collected: 01/12/2018 Status: F Source: [facility] GFR 5:45 PM [facility] REPOSITORY TYPE CODE TESTS RESULT OUT OF RANGE REFERENCE UNITS LAB L501.1100 0.55-1.02 mg/dL Low 0.48 CREAT,SERUM Result Comment: The validity of the calculated GFR AND GFRAA in patients over 70 years has not been determined. Clinical correlation is essential. LAB L501.1110 >60 mL/min Normal EST GFR 166 Result Comment: Non- GFR Calc LAB L501.1115 >60 mL/min Normal EST GFR - AA 201 Result Comment: GFR Calc LAB L501.1255 ml/min Normal Estimated CRCL 175.75 Performed By: #### L501.1105, L501.1400, L501.4100, L501.4405 #### [facility] [address] [place], [address] URIC ACID Collected: 01/12/2018 Status: F Source: [facility] 5:45 PM [facility] REPOSITORY TYPE CODE TESTS RESULT OUT OF RANGE REFERENCE UNITS LAB L501.1400 2.6-6.0 mg/dL Normal URIC 3.5 Result Comment: The drugs N-Acetylcysteine and Metamizole may falsely depress this assay. Performed By: #### L501.1105, L501.1400, L501.4100, L501.4405 #### [facility] [address] [place], [address] AST(SGOT) Collected: 01/12/2018 Status: F Source: [place] 5:45 PM [facility] REPOSITORY TYPE CODE TESTS RESULT OUT OF RANGE REFERENCE UNITS LAB L501.4100 15-37 U/L Low AST 9 Performed By: #### L501.1105, L501.1400, L501.4100, L501.4405 #### [facility] [address] [place], [address] ALANINE AMINOTRANSFERAS Collected: 01/12/2018 Status: F Source: [facility] (SGPT) 5:45 PM [facility] REPOSITORY TYPE CODE TESTS RESULT OUT OF RANGE REFERENCE UNITS LAB L501.4405 13-56 U/L Normal ALT 22 Performed By: #### L501.1105, L501.1400, L501.4100, L501.4405 #### [facility] [address] [place], [address] OB LIMITED WITH Observed: 01/12/2018 Status: F Source: [facility] BIOMETRICS 3:12 PM [facility] REPOSITORY [facility] Services [address] [place] [address] OB Limited With Biometrics MR#: [id number] Acct: [id number] Name: REBECCA RODNEY Rep #: [id number] : 1995 F 22 From: Minh Kirby PCP: Care Physician, No Primary Status: DEP CLI Study: OB Limited With Biometrics Date of Exam: 01/12/18 Exam# [id number] Ordering Dr: Marielle Márquez WATER SUPERVISOR-C STUDY: SECOND AND THIRD TRIMESTER OBSTETRICAL ULTRASOUND - LIMITED REASON FOR EXAM: Female, 22 years old. Check growth. LMP: 05/09/2017 PRIOR ULTRASOUND: None. TECHNIQUE: Transabdominal TECHNICAL QUALITY: Adequate. FINDINGS: There is a single intrauterine fetus. The fetus is in a cephalic presentation. There is demonstrated cardiac activity with a heart rate of 165 bpm. There is a normal amniotic fluid volume. The largest amniotic fluid pocket measures 3.2 cm. The amniotic fluid index (QUENTIN) is 10.6 cm. The placenta is fundal in status location. There are Grade 2 placental changes. The cervix not evaluated as the urinary bladder was not full. BIOMETRY: BPD: 8.48 cm: 34 weeks, 2 days HC: 30.85 cm: 34 weeks, 3 days AC: 31.30 cm: 35 weeks, 2 days FL: 6.85 cm: 35 weeks, 2 days Age by LMP: 35 weeks, 3 days. RITA by LMP: 02/13/2018. age by prior US: 35 weeks, 1 days. RITA by prior US: 02/15/2018. age by current US: 34 weeks, 6 days. RITA by current US: 02/17/2018. Estimated weight: 2573 grams, +/- 370 grams, 37 percentile. US/OB Limited With Biometrics IMPRESSION: 1. Single alive intrauterine uterine seen in a cephalic position. 2. Estimated gestational age by current ultrasound: 34 weeks 6 days and RITA: 02/17/2018. Based on LMP gestational age: 35 weeks 3 days and RITA: 02/13/2018. Based on prior ultrasound gestational age: 35 weeks 1 day and RITA: 02/15/2018. 3. EFW: 2573 g. Electronically Signed: Lebron Kirby MD at 11:38 EDT Tel , Service support , CC: RONDA Márquez; No Primary Care Physician Whittling Room Operator: Signed BIOPHYSICAL PROFILE Observed: 01/10/2018 Status: F Source: [place] 3:25 PM [facility] REPOSITORY [facility] Imaging Services [address] [place] [id number] Biophysical Profile MR#: [id number] Acct: [id number] Name: REBECCA RODNEY Rep #: [id number] : 1995 F 22 From: Robin Eubanks MD PCP: Care Physician, No Primary Status: REG CLI Study: Biophysical Profile Date of Exam: 01/10/18 Exam# [id number] Ordering Dr: Marielle Márquez WATER SUPERVISOR-C STUDY: OBSTETRICAL ULTRASOUND - BIOPHYSICAL PROFILE REASON FOR EXAM: Female, 22 years old. well-being. biophysical profile for nonstress test. LMP: May 09, 2017. PRIOR ULTRASOUND: biophysical profile January 09, 2018. TECHNIQUE: Transabdominal TECHNICAL QUALITY: Adequate. FINDINGS: There is a single intrauterine fetus. The fetus is in a cephalic presentation. There is demonstrated cardiac activity with a heart rate of 144 bpm. There is a normal amniotic fluid volume. The largest amniotic fluid pocket measures 3.8 cm. The amniotic fluid index (QUENTIN) is 10.3 cm. The placenta is fundal in location. There are Grade 2 placental changes. Age by LMP: 35 weeks, 1 days. RITA by LMP: February 13, 2018. age by prior US (December 15, 2017): 34 weeks, 6 days. RITA by prior US: February 15, 2018. BIOPHYSICAL PROFILE: Breathing Movements (FBM): 2 Gross Body Movements (GBM): 2 Tone (FT): 2 Amniotic Fluid Volume (AFV): 2 TOTAL SCORE: US/Biophysical Profile IMPRESSION: Normal biophysical profile of 11/15. Findings were called by the technologist to Camilla at Dr. Pacheco's office at 1616 hours. Electronically Signed: Vincenzo Eubanks MD at 17:33 EDT , Service support , CC: RONDA Márquez; No Primary Care Physician Whittling Room Operator: Signed BIOPHYSICAL PROFILE Observed: 01/09/2018 Status: F Source: [place] 5:58 PM [facility] REPOSITORY [facility] Imaging Services [address] [place] [address] Biophysical Profile MR#: [id number] Acct: [id number] Name: REBECCA RODNEY Rep #: [id number] : 1995 F 22 From: Robin Eubanks MD PCP: Care Physician, No Primary Status: REG CLI Study: Biophysical Profile Date of Exam: 01/09/18 Exam# [id number] Ordering Dr: Mishel Pacheco MD STUDY: OBSTETRICAL ULTRASOUND - BIOPHYSICAL PROFILE REASON FOR EXAM: Female, 22 years old. Nonreactive stress test. LMP: May 09, 2017 per study of December 15, 2017. PRIOR ULTRASOUND: OB ultrasound December 15, 2017; biophysical profile January 05, 2018. TECHNIQUE: Transabdominal TECHNICAL QUALITY: Adequate. FINDINGS: There is a single intrauterine fetus. The fetus is in a cephalic presentation. There is demonstrated cardiac activity with a heart rate of 153 bpm. There is a normal amniotic fluid volume. The largest amniotic fluid pocket measures 2.7 x 3.3 cm. The amniotic fluid index (QUENTIN) is 9.34 cm. The placenta is fundal in location. There are Grade 2 placental changes. Age by LMP: 35 weeks, 0 days. RITA by LMP: February 13, 2018. age by prior US: 34 weeks, 5 days. RITA by prior US: May 2017. BIOPHYSICAL PROFILE: Breathing Movements (FBM): 0 Gross Body Movements (GBM): 2 Tone (FT): 2 Amniotic Fluid Volume (AFV): 2 TOTAL SCORE: 6 / 8 US/Biophysical Profile IMPRESSION: biophysical profile of only 09/15. No spontaneous breathing movements were observed Electronically Signed: Vincenzo Eubanks MD at 19:16 EDT , Service support , CC: No Primary Care Physician; Mishel Pacheco MD Whittling Room Operator: Signed 12 LEAD EKG W/ Observed: 01/09/2018 Status: F Source: [facility] RHYTHM STRIP 2:50 PM [facility] REPOSITORY [facility] Cardiovascular Services [address] [place] [address] 12 Lead EKG with Rhythm Strip 01/07/18 0323 MR#: [id number] Acct: [id number] Name: REBECCA RODNEY Rep #: [id number] : 1995 22 From: Brayan Cole MD Attending Dr: Msihel Pacheco MD Status: DEP CLI Ordering Dr: Mishel Pacheco MD Date: 01/07/18 Location: [facility] Sex: F C Admitted: Test Reason : SHORTNESS OF BREATH Blood Pressure : / mmHG Vent. Rate : 082 BPM Atrial Rate : 082 BPM P-R Int : 148 ms QRS Dur : 098 ms QT Int : 388 ms P-R-T Axes : 044 030 007 degrees QTc Int : 453 ms Normal sinus rhythm Nonspecific T wave abnormality Abnormal ECG Confirmed by BRAYAN COLE MD ([id number]), desk editor ORVILLE HERNANDEZ ([id number]) on 01/09/2018 2:50:30 PM Referred By: [email or web address] Confirmed By:BRAYAN COLE MD 01/09/18 1450 Date Brayan Cole MD CC: No Primary Care Physician; Mishel Pacheco MD Signed BEDSIDE GLUCOSE Collected: 01/07/2018 Status: F Source: [facility] 6:06 AM [facility] REPOSITORY TYPE CODE TESTS RESULT OUT OF REFERENCE UNITS RANGE LAB L501.080 70-110 mg/dL High BEDSIDE GLU 115 Result Comment: MANAGEMENT OF PATIENT CARE PER NURSING PROTOCOL Performed By: #### L501.080 #### [facility] Point of Care [facility] [place] [address] CONTRACT AGENT OFFICE VISIT Observed: 01/07/2018 Status: F Source: [facility] REPORT 3:54 AM [facility] REPOSITORY [facility] [place] [address] [place] [address] OFFICE VISIT Date of Service: 01/02/18 MR#: [id number] Acct: [id number] Name: RASHAUNREBECCA L Rep #: [id number] : 1995 Provider: Mishel Pacheco MD Age/Sex: 22/F Location: [facility] Status: Signed Intake Vital Signs01/02/18 Blood Pressure 132/88 H Intake Visit Reasons: 34 weeks Is patient in pain?: No Allergies diphenhydramine [From Benadryl] Allergy (Mild, Verified 01/07/18 01:48) increases anxiety Medications vitamin,calcium,hnzhyzlg-auhh-kwykb acid tablet 1 tab PO QDAY 07/06/17 [History Confirmed 01/07/18] magnesium oxide 500 mg capsule 500 mg PO QDAY cap 10/17/17 [History Confirmed 01/07/18] blood pressure monitor kit See Dose Instructions .ROUTE .MEDSUPPLY #1 ea 11/22/17 [Rx Confirmed 01/02/18] labetalol 300 mg tablet 600 mg PO TID tab 12/15/17 [History Confirmed 01/07/18] Insulin NPH Human Isophane [Novolin N] 4 unit SQ QHS 01/05/18 [History Confirmed 01/07/18] Last Menstral Period: 05/09/17 Zika: Zika virus screening: Negative : No PFSH PFSH Medical History Anxiety (Acute) Surgical History S/P tonsillectomy and adenoidectomy (Resolved) lymph node removed (Resolved) Family History Father Hypertension Grandmother Diabetes Mother Cervical cancer Social History Smoking Status: Never smoker alcohol intake: never substance use type: does not use caffeine: Yes (occasional) what type of physical activity do you participate in: walking, none seatbelt use: always do you feel safe at home: Yes 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 DateName GA/Weeks Outcome Route Bth WeighInfant GeLabor LgtAnesthesiDel LocatProvider FOB t n h a n Unknown Delivery Date: On 07/06/17 @ 13:57 Dana Gupta Miscarriage at 5 weeks in 02/2017 HPI 34 weeks: Details: REBECCA RODNEY is a 22 year old who presents for routine OB visit. OB Visit RITA Calculator Estimated Delivery Date 02/13/18 Based on LMP (certain) 05/09/17 Current WG 34w 5d Number 1 Expected Delivery Route/Plan Specific Issue/Plans flu vaccine: given tdap vaccine: given rhogam: na LARC form signed: [] labor support person: [employer] pain management: epidural cut cord/dad catch: yes : yes PP control planned: [] special requests: [] Initial Weight: 350 lb Date Weight BP Urine PrFHR FuHt Pres MoCTX DilationFetal StVisit NoProviderComments E ot v te GA G Effac lucose ed Visit Notes Visit Date: 01/02/18 reviewed blood sugars, increase nph to 4 u at night. no vb lof good fm no regular ctx no SAWANT BV bps well controlled. labs done. continue to monitor outpatient expectant management with 2x weekly testing. reactive nst Mishel Pacheco MD on 01/07/18 Visit Date: 12/29/17 No visit notes to display Visit Date: 12/19/17 borderline non reactive nst recommend prolonged monitoring and possible BPP. to l and d for monitoring. expecting call from [facility] tomorrow to discuss plan for GA of delivery. FBS normal today. discussed making snack earlier at night to decrease FBS Mishel Pacheco MD on 12/19/17 Visit Date: 12/15/17 follow up after transport to [facility]. severe preeclampsia versus exacerbation of cHTN. will call [facility] to discuss management. recommend home bp checks. plan twice weekly visits, weekly nst and weekly QUENTIN. recommend optum consult for bp and GDM intensive outpatient managment. consult endocrine to start insulin. check weekly labs. reviewed preeclampsia precautions- negative today. Mishel Pacheco MD on 12/16/17 Visit Date: 11/24/17 reveiwed home bps- elevated to 140s over 80s which is higher than they have been in the past few weeks- having a headache today. labs normal two weeks ago. recommend evaluation on l and d- see hpi Mishel Pacheco MD on 11/24/17 Visit Date: 11/22/17 Note slight elevated BP. No headache or vision changes. States BPs at work are 130s/80s daily. Good FM. No VB, LOF NATIVIDAD LevineC on 11/22/17 Visit Date: 11/14/17 elevated bp- check cmp and urine protein cr ratio and increased labetalol to 300mg BID, fu 1 week Mishel Pacheco MD on 11/14/17 no vb lof good fm no regular ctx bp elevated today. no SAWANT BV cbc glucola Mishel Pacheco MD on 11/14/17 Visit Date: 10/17/17 No VB, LOF. Good FM. ED last night-sutures in left finger/dropped a glass bowl Marielle Márquez NP-C on 10/17/17 Visit Date: 08/31/17 no vb lof good fm no regualr ctx Mishel Pacheco MD on 09/05/17 labetalol increased borderline elevated bps at home. urine protein ratio sent. seeing neurologist for migraines. referring to PT and chiropractor also. no vb still having nausea Mishel Pacheco MD on 08/31/17 Visit Date: 08/03/17 bps WNL at home, needs nt screening and ekg done, ordered Mishel Pacheco MD on 08/04/17 Visit Date: 07/25/17 no vb cramping, elevated bps recommend starting labetalol, already had baseline urine negative for protein, ordered ekg Mishel Pacheco MD on 07/25/17 no vb cramping Mishel Pacheco MD on 07/25/17 Visit Date: 07/06/17 No visit notes to display ACOG First Trimester First Trimester: Desire for , Alcohol, Tobacco Cessation, Illicit/Recreational Drug/Substance Use, Intimate Partner Violence, Barriers to care, Unstable Housing, Communication Barriers, Environmental/Work Hazards, Anticipated Course of Care, Toxoplasmosis Precations, Use of Any medications, Sexual activity, Exercise, Dental Care, Sauna/Hot tub use, Seat Belt use, Childbirth classes/Hospital facilities, , Travel, Indications for US and Screening for Aneuploidy Diagnostics Diagnostics Labs Blood Type A POSITIVE 12/22/17 Antibody Screen NEGATIVE 12/22/17 Hct 37.6 % (37-47) 01/07/18 Hgb 13.1 g/dl (12.0-15.0) 01/07/18 Details: HIV: Urine Culture: Sequential Screen: NIPT Screen: Results [id number] Office Urine Glucose Negative Last Edit by Tracey Childress on 01/02/18 16:18 Office Urine Protein Negative Last Edit by Tracey Childress on 01/02/18 16:18 Assessment AND Plan Problems 1. Insulin controlled gestational diabetes mellitus (GDM) in third trimester O24.414 4U nph at night. 2x weekly testing. s/p nutrition consult. patient declined [facility] care consult 2. BMI 50.0-59.9, adult Z68.43 nutrition consult, weekly nsts and growth us from 32 weeks 3. Chronic hypertension affecting O10.919 labetalol 600mg TID, baseline labs nl, on baby ASA, recommend growth q 4 wks and weekly quentin and weekly nst, weekly preeclampsia labs. s/p mfm consult and admit for suspected pree, but was exacerbation of cHTN. recommend deliver at 37 weeks. declined [facility] home health care consult. 4. Supervision of high risk in first trimester O09. PRR RITA 02/13/18 Girl Crystal Gustabo 5. screening encounter Z36.9 08/07/17 NT normal Plan movement and labor precautions reviewed. ACOG trimester education reviewed and updated. see problem list details for updated plan management information and see below for orders placed at this visit. GA appropriate handout given. Coding Level of Care Code OB Routine Diagnoses Insulin controlled gestational diabetes mellitus (GDM) in third trimester O24.414 BMI 50.0-59.9, adult Z68.43 Chronic hypertension affecting O10.919 Supervision of high risk in first trimester O09. screening encounter Z36.9 01/07/18 0354 <Electronically signed by Mishel Pacheco MD> Date Mishel Pacheco MD Cosigner Signature: Date (if applicable) CC: CBC-COMPLETE BLOOD CNT Collected: 01/07/2018 Status: F Source: [facility] NO DIFF 2:10 AM [facility] REPOSITORY TYPE CODE TESTS RESULT OUT OF RANGE REFERENCE UNITS LAB L100.1000 4.4-11.0 K/mm3 High WBC 13.6 LAB L100.1200 4.2-5.4 M/mm3 Normal RBC 4.69 LAB L100.1300 12.0-15.0 g/dl Normal HGB 13.1 LAB L100.1400 37-47 % Normal HCT 37.6 LAB L100.1500 81-99 fL Low MCV 80.2 LAB L100.1600 27.0-32.0 pg Normal MCH 27.9 LAB L100.1700 32-36 g/gl Normal MCHC 34.8 LAB L100.1810 11.6-14.6 % Normal RDW CV 14.3 LAB L100.1820 35.1-43.9 fl Normal RDW SD 40.8 LAB L100.1900 150-450 K/mm3 Normal PLT 318 LAB L100.2000 6.2-12.0 fl Normal MPV 10.5 Performed By: #### L100.0500 #### [facility] [address] [place], [address] SERUM CREATININE AND Collected: 01/07/2018 Status: F Source: [place] GFR 2:10 AM [facility] REPOSITORY TYPE CODE TESTS RESULT OUT OF RANGE REFERENCE UNITS LAB L501.1100 0.55-1.02 mg/dL Low 0.43 CREAT,SERUM Result Comment: The validity of the calculated GFR AND GFRAA in patients over 70 years has not been determined. Clinical correlation is essential. LAB L501.1110 >60 mL/min Normal EST GFR 190 Result Comment: Non- GFR Calc LAB L501.1115 >60 mL/min Normal EST GFR - AA 230 Result Comment: GFR Calc LAB L501.1255 ml/min Normal Estimated CRCL 196.18 Performed By: #### L501.1105, L501.1400, L501.4100, L501.4405, L300.3900, L300.4310 #### [facility] [address] [place], [place], [id number] URIC ACID Collected: 01/07/2018 Status: F Source: [place] 2:10 AM [facility] REPOSITORY TYPE CODE TESTS RESULT OUT OF RANGE REFERENCE UNITS LAB L501.1400 2.6-6.0 mg/dL Normal URIC 3.3 Result Comment: The drugs N-Acetylcysteine and Metamizole may falsely depress this assay. Performed By: #### L501.1105, L501.1400, L501.4100, L501.4405, L300.3900, L300.4310 #### [facility] [address] [place], [place], [id number] AST(SGOT) Collected: 01/07/2018 Status: F Source: [place] 2:10 AM [facility] REPOSITORY TYPE CODE TESTS RESULT OUT OF RANGE REFERENCE UNITS LAB L501.4100 15-37 U/L Low AST 11 Performed By: #### L501.1105, L501.1400, L501.4100, L501.4405, L300.3900, L300.4310 #### [facility] [address] [place], [place], [id number] ALANINE AMINOTRANSFERAS Collected: 01/07/2018 Status: F Source: [facility] (SGPT) 2:10 AM [facility] REPOSITORY TYPE CODE TESTS RESULT OUT OF RANGE REFERENCE UNITS LAB L501.4405 13-56 U/L Normal ALT 24 Performed By: #### L501.1105, L501.1400, L501.4100, L501.4405, L300.3900, L300.4310 #### [facility] [address] [place], [place], [id number] PROTHROMBIN TIME W/INR Collected: 01/07/2018 Status: F Source: [place] 2:10 AM [facility] REPOSITORY TYPE CODE TESTS RESULT OUT OF RANGE REFERENCE UNITS LAB L300.4150 11.7-14.9 SECONDS Normal PROTIME 13.5 LAB L300.4200 Normal INR 1.0 Performed By: #### L501.1105, L501.1400, L501.4100, L501.4405, L300.3900, L300.4310 #### [facility] [address] [place], [place], [id number] PARTIAL THROMBOPLAST Collected: 01/07/2018 Status: F Source: [place] TIME 2:10 AM [facility] REPOSITORY TYPE CODE TESTS RESULT OUT OF RANGE REFERENCE UNITS LAB L300.4310 24.1-36.2 Seconds Normal PTT 24.5 Performed By: #### L501.1105, L501.1400, L501.4100, L501.4405, L300.3900, L300.4310 #### [facility] [address] [place], [address] BEDSIDE GLUCOSE Collected: 01/07/2018 Status: F Source: [facility] 2:06 AM [facility] REPOSITORY TYPE CODE TESTS RESULT OUT OF REFERENCE UNITS RANGE LAB L501.080 70-110 mg/dL High BEDSIDE GLU 125 Result Comment: MANAGEMENT OF PATIENT CARE PER NURSING PROTOCOL Performed By: #### L501.080 #### [facility] Point of Care [address] [place] [address] PROTEIN+CREATININE Collected: Status: F Source: [facility] RATIO,URINE 01/07/2018 1:40 AM [facility] REPOSITORY TYPE CODE TESTS RESULT OUT OF RANGE REFERENCE UNITS LAB L501.1200 NO RANGE EST. mg/dL Normal UR CREAT 90.50 LAB L501.1930 <11.9 mg/dL High 18.1 PROTEIN,UR.R AN. LAB L501.1940 0-200 mg/g CRE Normal PROT:CRE 200 RATIO Performed By: #### L501.0900 #### [facility] [address] [place], [address] BIOPHYSICAL PROFILE Observed: 01/05/2018 Status: F Source: [facility] 12:54 PM [facility] REPOSITORY [facility] Imaging Services [address] [place] [address] Biophysical Profile MR#: [id number] Acct: [id number] Name: REBECCA RODNEY Rep #: [id number] : 1995 F 22 From: Wayne Jordan DO PCP: Care Physician, No Primary Status: REG CLI Study: Biophysical Profile Date of Exam: 01/05/18 Exam# [id number] Ordering Dr: Mishel Pacheco MD STUDY: OBSTETRICAL ULTRASOUND - BIOPHYSICAL PROFILE REASON FOR EXAM: Female, 22 years old. Evaluate well-being LMP: Unknown. PRIOR ULTRASOUND: 12/29/2017 TECHNIQUE: Transabdominal ultrasound evaluation was performed. FINDINGS: There is a single intrauterine fetus. The fetus is in a cephalic presentation. There is demonstrated cardiac activity with a heart rate of 153 bpm. There is a normal amniotic fluid volume. The largest amniotic fluid pocket measures 4.5 x 2.6 cm. The amniotic fluid index (QUENTIN) is 9 cm. The placenta is fundal in location. There are Grade 2 placental changes. Age by LMP: 34 weeks, 3 days. Estimated date of delivery 02/13/2018 BIOPHYSICAL PROFILE: Breathing Movements (FBM): 2 Gross Body Movements (GBM): 2 Tone (FT): 2 Amniotic Fluid Volume (AFV): 2 TOTAL SCORE: 8 / 8 US/Biophysical Profile IMPRESSION: Normal biophysical profile of 11/15. Electronically Signed: Wayne Jordan DO at 15:31 EDT Tel , Service support , CC: No Primary Care Physician; Mishel Pacheco MD Whittling Room Operator: Signed CONTRACT AGENT OFFICE VISIT Observed: 12/29/2017 Status: F Source: [facility] REPORT 2:33 PM [facility] [address] [place] [address] OFFICE VISIT Date of Service: 12/29/17 MR#: [id number] Acct: [id number] Name: RASHAUNLITORobert Gonzalez Rep #: [id number] : 1995 Provider: RONDA Márquez Age/Sex: 22/F Location: [facility] Status: Signed Intake Vital Signs12/29/17 Height 5 ft 7 in 12/29/17 Weight: 345 lb 8 oz 12/29/17 Body Mass Index (BMI) 54.1 12/29/17 Blood Pressure 120/68 Intake Visit Reasons: 33 weeks Is patient in pain?: No Allergies diphenhydramine [From Benadryl] Allergy (Mild, Verified 12/29/17 12:16) increases anxiety Medications vitamin,calcium,xjrrynat-kcaz-hqfsx acid tablet 1 tab PO QDAY 07/06/17 [History Confirmed 12/29/17] magnesium oxide 500 mg capsule 500 mg PO QDAY cap 10/17/17 [History Confirmed 12/29/17] blood pressure monitor kit See Dose Instructions .ROUTE .MEDSUPPLY #1 ea 11/22/17 [Rx Confirmed 12/29/17] labetalol 300 mg tablet 600 mg PO TID tab 12/15/17 [History Confirmed 12/29/17] Insulin NPH Human Isophane [Novolin N] 2 unit SQ QHS #5 vial 12/22/17 [Rx Confirmed 12/29/17] Last Menstral Period: 05/09/17 Zika: Zika virus screening: Negative : No PFSH PFSH Medical History Anxiety (Acute) Surgical History S/P tonsillectomy and adenoidectomy (Resolved) lymph node removed (Resolved) Family History Father Hypertension Grandmother Diabetes Mother Cervical cancer Social History Smoking Status: Never smoker alcohol intake: never substance use type: does not use caffeine: Yes (occasional) what type of physical activity do you participate in: walking, none seatbelt use: always do you feel safe at home: Yes 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 DateName GA/Weeks Outcome Route Bth WeighInfant GeLabor LgtAnesthesiDel LocatProvider FOB t n h a n Unknown Delivery Date: On 07/06/17 @ 13:57 Dana Gupta Miscarriage at 5 weeks in 02/2017 HPI 33 weeks: Details: REBECCA RODNEY is a 22 year old who presents for routine OB visit. OB Visit RITA Calculator Estimated Delivery Date 02/13/18 Based on LMP (certain) 05/09/17 Current WG 33w 3d Number 1 Expected Delivery Route/Plan Specific Issue/Plans flu vaccine: given tdap vaccine: given rhogam: na LARC form signed: [] labor support person: Gustabo pain management: epidural cut cord/dad catch: yes : yes PP control planned: [] special requests: [] Initial Weight: 350 lb Date Weight BP Urine PFHR FuHt Pres MCTX DilatioFetal SVisit NProvideComment rot ov n t ote r s EGA Ef Gluco faced se 07/06/1349 lb 156/93 8 2 oz (+ 8w2 oz) 2d Visit Notes Visit Date: 12/29/17 No visit notes to display Visit Date: 12/19/17 borderline non reactive nst recommend prolonged monitoring and possible BPP. to l and d for monitoring. expecting call from m tomorrow to discuss plan for GA of delivery. FBS normal today. discussed making snack earlier at night to decrease FBS Mishel Pacheco MD on 12/19/17 Visit Date: 12/15/17 follow up after transport to [facility]. severe preeclampsia versus exacerbation of cHTN. will call [facility] to discuss management. recommend home bp checks. plan twice weekly visits, weekly nst and weekly QUENTIN. recommend optum consult for bp and GDM intensive outpatient managment. consult endocrine to start insulin. check weekly labs. reviewed preeclampsia precautions- negative today. Mishel Pacheco MD on 12/16/17 Visit Date: 11/24/17 reveiwed home bps- elevated to 140s over 80s which is higher than they have been in the past few weeks- having a headache today. labs normal two weeks ago. recommend evaluation on l and d- see hpi Mishel Pacheco MD on 11/24/17 Visit Date: 11/22/17 Note slight elevated BP. No headache or vision changes. States BPs at work are 130s/80s daily. Good FM. No VB, LOF Marielle Márquez NP-C on 11/22/17 Visit Date: 11/14/17 elevated bp- check cmp and urine protein cr ratio and increased labetalol to 300mg BID, fu 1 week Mishel Pacheco MD on 11/14/17 no vb lof good fm no regular ctx bp elevated today. no SAWANT BV cbc glucola Mishel Pacheco MD on 11/14/17 Visit Date: 10/17/17 No VB, LOF. Good FM. ED last night-sutures in left finger/dropped a glass bowl Marielle Márquez NP-C on 10/17/17 Visit Date: 08/31/17 no vb lof good fm no regualr ctx Mishel Pacheco MD on 09/05/17 labetalol increased borderline elevated bps at home. urine protein ratio sent. seeing neurologist for migraines. referring to PT and chiropractor also. no vb still having nausea Mishel Pacheco MD on 08/31/17 Visit Date: 08/03/17 bps WNL at home, needs nt screening and ekg done, ordered Mishel Pacheco MD on 08/04/17 Visit Date: 07/25/17 no vb cramping, elevated bps recommend starting labetalol, already had baseline urine negative for protein, ordered ekg Mishel Pacheco MD on 07/25/17 no vb cramping iMshel Pacheco MD on 07/25/17 Visit Date: 07/06/17 No visit notes to display ACOG First Trimester First Trimester: Desire for , Alcohol, Tobacco Cessation, Illicit/Recreational Drug/Substance Use, Intimate Partner Violence, Barriers to care, Unstable Housing, Communication Barriers, Environmental/Work Hazards, Anticipated Course of Care, Toxoplasmosis Precations, Use of Any medications, Sexual activity, Exercise, Dental Care, Sauna/Hot tub use, Seat Belt use, Childbirth classes/Hospital facilities, , Travel, Indications for US and Screening for Aneuploidy Diagnostics Diagnostics Labs Blood Type A POSITIVE 12/22/17 Antibody Screen NEGATIVE 12/22/17 Hct 38.3 % (37-47) 12/29/17 Hgb 13.0 g/dl (12.0-15.0) 12/29/17 Obstetrics Ultrasound 12/15/17 Details: HIV: Urine Culture: Sequential Screen: NIPT Screen: Results [id number] Office Urine Glucose Negative Last Edit by Camilla Finnegan on 12/29/17 12:16 Office Urine Protein Negative Last Edit by Camilla Finnegan on 12/29/17 12:16 Assessment AND Plan Problems 1. Supervision of high risk in first trimester O09.91 PRR RITA 02/13/18 Girl Crystal Gustabo 2. screening encounter Z36.9 08/07/17 NT normal 3. Diet controlled gestational diabetes mellitus (GDM) in third trimester O24.410 started on NPH 2 U at night, increase to 4 U if above goal at next visit 4. Chronic hypertension affecting O10.919 labetalol 600mg TID, baseline labs nl, on baby ASA, recommend growth q 4 wks and weekly quentin and weekly nst, weekly preeclampsia labs. s/p mfm consult and admit for suspected pree, but was exacerbation of cHTN. recommend deliver at 37 weeks 5. BMI 50.0-59.9, adult Z68.43 nutrition consult, weekly nsts and growth us from 32 weeks Plan Orders placed: NST reactive; pre E labs BBP was 11/15 today Reviewed of labor precautions, movement/kick counts ACOG trimester education reviewed and updated See problem list details for updated plan of care Gestational age appropriate handout given RTO: 4 days for NST, 1 week OB/NST and also BPP next week Orders Orders: Coding Level of Care Code OB Routine Diagnoses Supervision of high risk in first trimester O09.91 screening encounter Z36.9 Diet controlled gestational diabetes mellitus (GDM) in third trimester O24.410 Trimester: third trimester Chronic hypertension affecting O10.919 BMI 50.0-59.9, adult Z68.43 12/29/17 1433 <Electronically signed by Marielle RIOS> Date Marielle Márquez NP-C Cosigner Signature: Date (if applicable) CC: CBC W/DIFF, AUTOMATED Collected: 12/29/2017 Status: F Source: [facility] 1:35 PM [facility] REPOSITORY TYPE CODE TESTS RESULT OUT OF RANGE REFERENCE UNITS LAB L100.1000 4.4-11.0 K/mm3 Normal WBC 10.2 LAB L100.1200 4.2-5.4 M/mm3 Normal RBC 4.71 LAB L100.1300 12.0-15.0 g/dl Normal HGB 13.0 LAB L100.1400 37-47 % Normal HCT 38.3 LAB L100.1500 81-99 fL Normal MCV 81.3 LAB L100.1600 27.0-32.0 pg Normal MCH 27.6 LAB L100.1700 32-36 g/gl Normal MCHC 33.9 LAB L100.1810 11.6-14.6 % Normal RDW CV 14.5 LAB L100.1820 35.1-43.9 fl Normal RDW SD 41.9 LAB L100.1900 150-450 K/mm3 Normal PLT 288 LAB L100.2000 6.2-12.0 fl Normal MPV 10.3 LAB L100.2100 47-70 % Normal NEUT% 66.4 LAB L100.2200 19-41 % Normal LY% 23.9 LAB L100.2300 0-10 % Normal MONO% 7.5 LAB L100.2400 0-5 % Normal EO% 1.2 LAB L100.2500 0-1 % Normal BASO% 0.3 LAB L100.2550 0.0-0.9 % Normal IM GRAN % 0.700 Result Comment: IG% - Immature Granulocytes (promyelocytes, myelocytes and metamyelocytes) > 1% indicates that a LEFT SHIFT is Present. LAB L100.2620 2.0-7.7 X10 3/uL Normal Absolute Neut 6.8 LAB L100.2720 0.83-4.51 X10 3/ul Normal Absolute Lymph 2.44 Performed By: #### L100.0100 #### [facility] [address] [facility]. [place], [place], [address] COMPREHENSIVE METABOLIC Collected: 12/29/2017 Status: F Source: [facility] 1:35 PM [facility] REPOSITORY Order Comment: Serial Specimen #1, #2 or #3? 1 TYPE CODE TESTS RESULT OUT OF RANGE REFERENCE UNITS LAB L501.0100 74-106 mg/dL Normal GLU 101 Result Comment: Fasting Glucose result from 100 to 125 mg/dL suggests IMPAIRED HOMEOSTASIS per A.D.A. criteria. Please note revised GLUCOSE reference range effective 2017. LAB L501.1000 7-18 mg/dL Normal BUN 7 LAB L501.1100 0.55-1.02 mg/dL Low CREAT,SERUM 0.39 Result Comment: The validity of the calculated GFR AND GFRAA in patients over 70 years has not been determined. Clinical correlation is essential. LAB L501.1110 >60 mL/min Normal EST GFR 212 Result Comment: Non- GFR Calc LAB L501.1115 >60 mL/min Normal EST GFR - AA 256 Result Comment: GFR Calc LAB L501.1300 10-20 RATIO Normal BUN/CRE 17.8 LAB L501.1500 6.4-8.2 g/dL T Normal PROT 6.5 LAB L501.1800 3.2-5.0 g/dL Low ALB 2.8 LAB L501.1950 2.2-4.2 g/dL Normal GLOB 3.7 LAB L501.2000 0.9-2.4 RATIO Low A/G 0.8 LAB L501.2200 8.5-10.1 mg/dL CA Normal 9.3 LAB L501.4100 15-37 U/L Low AST 8 LAB L501.4305 45-117 U/L Normal ALK P 91 LAB L501.4405 13-56 U/L Normal ALT 28 LAB L501.4600 0.20-1.00 mg/dL T Normal BILI 0.20 LAB L501.5300 136-145 mmol/L NA Normal 140 LAB L501.5600 3.5-5.1 mmol/L K Normal 4.0 LAB L501.5900 98-107 mmol/L CL Normal 107 LAB L501.6100 21.0-32.0 mmol/L Normal CO2 22.0 LAB L501.6200 5-15 Normal GAP 11 Performed By: #### L500.4050, L501.1400, L504.2610 #### [facility] [address] [place], [address] URIC ACID Collected: 12/29/2017 Status: F Source: [place] 1:35 PM [facility] REPOSITORY Order Comment: Serial Specimen #1, #2 or #3? 1 TYPE CODE TESTS RESULT OUT OF RANGE REFERENCE UNITS LAB L501.1400 2.6-6.0 mg/dL Normal URIC 3.6 Result Comment: The drugs N-Acetylcysteine and Metamizole may falsely depress this assay. Performed By: #### L500.4050, L501.1400, L504.2610 #### [facility] [address] [place] [place], [address] LDH Collected: 12/29/2017 Status: F Source: [facility] 1:35 PM [facility] REPOSITORY Order Comment: Serial Specimen #1, #2 or #3? 1 TYPE CODE TESTS RESULT OUT OF RANGE REFERENCE UNITS LAB L504.2610 84-246 U/L Normal LDH 126 Performed By: #### L500.4050, L501.1400, L504.2610 #### [facility] [address] [place], [address] PROTEIN+CREATININE Collected: Status: F Source: [facility] RATIO,URINE 12/29/2017 1:21 PM [facility] REPOSITORY TYPE CODE TESTS RESULT OUT OF RANGE REFERENCE UNITS LAB L501.1200 NO RANGE EST. mg/dL Normal UR CREAT 122.00 LAB L501.1930 <11.9 mg/dL High 22.5 PROTEIN,UR.R AN. LAB L501.1940 0-200 mg/g CRE Normal PROT:CRE 184 RATIO Performed By: #### L501.0900 #### [facility] [address] [place], [address] BIOPHYSICAL PROFILE Observed: 12/29/2017 Status: F Source: [facility] 10:53 AM [facility] REPOSITORY [facility] Imaging Services [address] [facility] [place] [address] Biophysical Profile MR#: [id number] Acct: [id number] Name: RASHAUNREBECCA L Rep #: [id number] : 1995 F 22 From: Genaro Webster MD PCP: Care Physician, No Primary Status: REG CLI Study: Biophysical Profile Date of Exam: 12/29/17 Exam# [id number] Ordering Dr: Marielle Márquez STUDY: OBSTETRICAL ULTRASOUND - BIOPHYSICAL PROFILE REASON FOR EXAM: Female, 22 years old. growth. Preeclampsia. LMP: PRIOR ULTRASOUND: 12/15/2017. TECHNIQUE: Transabdominal ultrasound evaluation was performed. FINDINGS: There is a single intrauterine fetus. The fetus is in a cephalic presentation. There is demonstrated cardiac activity with a heart rate of 152 bpm. There is a normal amniotic fluid volume. The largest amniotic fluid pocket measures 3.0 cm. The amniotic fluid index (QUENTIN) is 8.8 cm. The placenta is fundal in location. There are Grade 1 placental changes. Age by LMP: 33 weeks, 3 days. RITA by LMP: 02/13/2018. age by current US: 32 weeks, 4 days. RITA by current US: 02/19/2018. Gender: BIOPHYSICAL PROFILE: Breathing Movements (FBM): 2 Gross Body Movements (GBM): 2 Tone (FT): 2 Amniotic Fluid Volume (AFV): 2 TOTAL SCORE: US/Biophysical Profile IMPRESSION: Normal biophysical profile of 11/15. Electronically Signed: Genaro Webster MD at 11:49 EDT , Service support , CC: RONDA Márquez; No Primary Care Physician Whittling Room Operator: Signed PROTEIN+CREATININE Collected: Status: F Source: [facility] RATIO,URINE 12/22/2017 6:24 PM [facility] REPOSITORY TYPE CODE TESTS RESULT OUT OF RANGE REFERENCE UNITS LAB L501.1200 NO RANGE EST. mg/dL Normal UR CREAT 87.50 LAB L501.1930 <11.9 mg/dL High 14.5 PROTEIN,UR.R AN. LAB L501.1940 0-200 mg/g CRE Normal PROT:CRE 166 RATIO Performed By: #### L501.0900 #### [facility] [place], [place], [address] PROTEIN+CREATININE Collected: Status: F Source: [facility] RATIO,URINE 12/22/2017 6:15 PM [facility] REPOSITORY TYPE CODE TESTS RESULT OUT OF RANGE REFERENCE UNITS LAB L501.1200 NO RANGE EST. mg/dL Normal UR CREAT 229.00 LAB L501.1930 <11.9 mg/dL High 30.1 PROTEIN,UR.R AN. LAB L501.1940 0-200 mg/g CRE Normal PROT:CRE 131 RATIO Performed By: #### L300.3900, L300.4310, L501.0900 #### [facility] [address] [place], [place], [address] CBC-COMPLETE BLOOD CNT Collected: 12/22/2017 Status: F Source: [facility] NO DIFF 5:00 PM [facility] REPOSITORY TYPE CODE TESTS RESULT OUT OF RANGE REFERENCE UNITS LAB L100.1000 4.4-11.0 K/mm3 High WBC 11.3 LAB L100.1200 4.2-5.4 M/mm3 Normal RBC 4.56 LAB L100.1300 12.0-15.0 g/dl Normal HGB 12.5 LAB L100.1400 37-47 % Normal HCT 37.1 LAB L100.1500 81-99 fL Normal MCV 81.4 LAB L100.1600 27.0-32.0 pg Normal MCH 27.4 LAB L100.1700 32-36 g/gl Normal MCHC 33.7 LAB L100.1810 11.6-14.6 % Normal RDW CV 14.0 LAB L100.1820 35.1-43.9 fl Normal RDW SD 41.5 LAB L100.1900 150-450 K/mm3 Normal PLT 274 LAB L100.2000 6.2-12.0 fl Normal MPV 9.9 Performed By: #### L100.0500 #### [facility] [address] [facility] [place], [place], [id number] SERUM CREATININE AND Collected: 12/22/2017 Status: F Source: [facility] GFR 5:00 PM [facility] REPOSITORY TYPE CODE TESTS RESULT OUT OF RANGE REFERENCE UNITS LAB L501.1100 0.55-1.02 mg/dL Low 0.49 CREAT,SERUM Result Comment: The validity of the calculated GFR AND GFRAA in patients over 70 years has not been determined. Clinical correlation is essential. LAB L501.1110 >60 mL/min Normal EST GFR 165 Result Comment: Non- GFR Calc LAB L501.1115 >60 mL/min Normal EST GFR - AA 200 Result Comment: GFR Calc LAB L501.1255 ml/min Normal Estimated CRCL 172.16 Performed By: #### L501.1105, L501.1400, L501.4100, L501.4405 #### [facility] [address] [place], [address] URIC ACID Collected: 12/22/2017 Status: F Source: [place] 5:00 PM [facility] REPOSITORY TYPE CODE TESTS RESULT OUT OF RANGE REFERENCE UNITS LAB L501.1400 2.6-6.0 mg/dL Normal URIC 4.0 Result Comment: The drugs N-Acetylcysteine and Metamizole may falsely depress this assay. Performed By: #### L501.1105, L501.1400, L501.4100, L501.4405 #### [facility] [address] [facility] [place], [address] AST(SGOT) Collected: 12/22/2017 Status: F Source: [place] 5:00 PM [facility] REPOSITORY TYPE CODE TESTS RESULT OUT OF RANGE REFERENCE UNITS LAB L501.4100 15-37 U/L Low AST 10 Performed By: #### L501.1105, L501.1400, L501.4100, L501.4405 #### [facility] [address] [facility] [place], [address] ALANINE AMINOTRANSFERAS Collected: 12/22/2017 Status: F Source: [facility] (SGPT) 5:00 PM [facility] REPOSITORY TYPE CODE TESTS RESULT OUT OF RANGE REFERENCE UNITS LAB L501.4405 13-56 U/L Normal ALT 30 Performed By: #### L501.1105, L501.1400, L501.4100, L501.4405 #### [facility] [address] [facility] [place], [address] PROTHROMBIN TIME W/INR Collected: 12/22/2017 Status: F Source: [place] 5:00 PM [facility] REPOSITORY TYPE CODE TESTS RESULT OUT OF RANGE REFERENCE UNITS LAB L300.4150 11.7-14.9 SECONDS Normal PROTIME 13.1 LAB L300.4200 Normal INR 1.0 Performed By: #### L300.3900, L300.4310, L501.0900 #### [facility] [address] [place], [address] PARTIAL THROMBOPLAST Collected: 12/22/2017 Status: F Source: [facility] TIME 5:00 PM [facility] REPOSITORY TYPE CODE TESTS RESULT OUT OF RANGE REFERENCE UNITS LAB L300.4310 24.1-36.2 Seconds Normal PTT 25.2 Performed By: #### L300.3900, L300.4310, L501.0900 #### [facility] [address] [place], [address] TYPE AND SCREEN Collected: 12/22/2017 Status: F Source: AMBIKA 5:00 PM [facility] REPOSITORY Order Comment: Reason for Type AND Screen/Red Cells: ROUTINE TYPE CODE TESTS RESULT OUT OF RANGE REFERENCE UNITS LAB B10.0800 A Normal BLOOD TYPE GEL POSITIVE LAB B100.4000 Normal Antibody NEGATIVE Screen Performed By: #### B101.7450 #### [facility] [address] [place], [address] CONTRACT AGENT OFFICE VISIT Observed: 12/22/2017 Status: F Source: AMBIKA REPORT 4:54 PM [facility] REPOSITORY [facility] [address] [place] [address] OFFICE VISIT Date of Service: 12/22/17 MR#: [id number] Acct: [id number] Name: ZEEFELYREBECCA Cutler Carlos Rep #: [id number] : 1995 Provider: Mishel Pacheco MD Age/Sex: 22/F Location: [facility] Status: Signed Intake Vital Signs12/22/17 Height 5 ft 7 in 12/22/17 Weight: 346 lb 2 oz 12/22/17 Body Mass Index (BMI) 54.2 12/22/17 Blood Pressure 150/98 Intake Visit Reasons: 33 weeks Chief Complaint: est ob Linen Room Custodian Required: No Is patient in pain?: No Allergies diphenhydramine [From Benadryl] Allergy (Mild, Verified 12/22/17 16:19) increases anxiety Medications vitamin,calcium,jdiydino-lxtu-rntic acid tablet 1 tab PO QDAY 07/06/17 [History Confirmed 12/22/17] magnesium oxide 500 mg capsule 500 mg PO QDAY cap 10/17/17 [History Confirmed 12/22/17] blood pressure monitor kit See Dose Instructions .ROUTE .MEDSUPPLY #1 ea 11/22/17 [Rx Confirmed 12/22/17] labetalol 300 mg tablet 600 mg PO TID tab 12/15/17 [History Confirmed 12/22/17] Last Menstral Period: 05/09/17 Zika: Zika virus screening: Negative : No PFSH PFSH Medical History Anxiety (Acute) Surgical History S/P tonsillectomy and adenoidectomy (Resolved) lymph node removed (Resolved) Family History Father Hypertension Grandmother Diabetes Mother Cervical cancer Social History Smoking Status: Never smoker alcohol intake: never substance use type: does not use caffeine: Yes (occasional) what type of physical activity do you participate in: walking, none seatbelt use: always do you feel safe at home: Yes 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 DateName GA/Weeks Outcome Route Bth WeighInfant GeLabor LgtAnesthesiDel LocatProvider FOB t n h a n Unknown Delivery Date: On 07/06/17 @ 13:57 Dana Gupta Miscarriage at 5 weeks in 02/2017 HPI 33 weeks: Details: REBECCA RODNEY is a 22 year old who presents for routine OB visit. OB Visit RITA Calculator Estimated Delivery Date 02/13/18 Based on LMP (certain) 05/09/17 Current WG 32w 3d Number 1 Expected Delivery Route/Plan Specific Issue/Plans flu vaccine: given tdap vaccine: given rhogam: na LARC form signed: [] labor support person: [employer] pain management: epidural cut cord/dad catch: yes : yes PP control planned: [] special requests: [] Initial Weight: 350 lb Date Weight BP Urine PrFHR FuHt Pres MoCTX DilationFetal StVisit NoProviderComments E ot v te GA G Effac lucose ed Visit Notes Visit Date: 12/19/17 borderline non reactive nst recommend prolonged monitoring and possible BPP. to l and d for monitoring. expecting call from [facility] tomorrow to discuss plan for GA of delivery. FBS normal today. discussed making snack earlier at night to decrease FBS Mishel Pacheco MD on 12/19/17 Visit Date: 12/15/17 follow up after transport to [facility]. severe preeclampsia versus exacerbation of cHTN. will call [facility] to discuss management. recommend home bp checks. plan twice weekly visits, weekly nst and weekly QUENTIN. recommend optum consult for bp and GDM intensive outpatient managment. consult endocrine to start insulin. check weekly labs. reviewed preeclampsia precautions- negative today. Mishel Pacheco MD on 12/16/17 Visit Date: 11/24/17 reveiwed home bps- elevated to 140s over 80s which is higher than they have been in the past few weeks- having a headache today. labs normal two weeks ago. recommend evaluation on l and d- see hpi Mishel Pacheco MD on 11/24/17 Visit Date: 11/22/17 Note slight elevated BP. No headache or vision changes. States BPs at work are 130s/80s daily. Good FM. No VB, LOF Marilele Márquez NP-C on 11/22/17 Visit Date: 11/14/17 elevated bp- check cmp and urine protein cr ratio and increased labetalol to 300mg BID, fu 1 week Mishel Pacheco MD on 11/14/17 no vb lof good fm no regular ctx bp elevated today. no SAWANT BV cbc glucola Mishel Pacheco MD on 11/14/17 Visit Date: 10/17/17 No VB, LOF. Good FM. ED last night-sutures in left finger/dropped a glass bowl Marielle Márquez NP-C on 10/17/17 Visit Date: 08/31/17 no vb lof good fm no regualr ctx Mishel Pacheco MD on 09/05/17 labetalol increased borderline elevated bps at home. urine protein ratio sent. seeing neurologist for migraines. referring to PT and chiropractor also. no vb still having nausea Mishel Pacheco MD on 08/31/17 Visit Date: 08/03/17 bps WNL at home, needs nt screening and ekg done, ordered Mishel Pacheco MD on 08/04/17 Visit Date: 07/25/17 no vb cramping, elevated bps recommend starting labetalol, already had baseline urine negative for protein, ordered ekg Mishel Pacheco MD on 07/25/17 no vb cramping Mishel Pacheco MD on 07/25/17 Visit Date: 07/06/17 No visit notes to display ACOG First Trimester First Trimester: Desire for , Alcohol, Tobacco Cessation, Illicit/Recreational Drug/Substance Use, Intimate Partner Violence, Barriers to care, Unstable Housing, Communication Barriers, Environmental/Work Hazards, Anticipated Course of Care, Toxoplasmosis Precations, Use of Any medications, Sexual activity, Exercise, Dental Care, Sauna/Hot tub use, Seat Belt use, Childbirth classes/Hospital facilities, , Travel, Indications for US and Screening for Aneuploidy Diagnostics Diagnostics Labs Hct 38.5 % (37-47) 12/15/17 Hgb 12.7 g/dl (12.0-15.0) 12/15/17 Obstetrics Ultrasound 12/15/17 Glucose 1 Hr 50 gm 105 mg/dL (70-140) 11/14/17 Details: HIV: Urine Culture: Sequential Screen: NIPT Screen: Assessment AND Plan Problems 1. Severe pre-eclampsia in third trimester O14.10 transport to [facility] c/o Dr Lock, unclear if severe pree vs exacerbation of cHTN. was discharged from [facility] will determine if delivery should be 34-37 weeks. recommend intensive outpatient managment with [facility] consult, plan twice weekly visits with weekly QUENTIN/NST, weekly labs. Plan to l and d for evaluation Orders Orders: Coding Level of Care Code OB Routine Diagnoses Severe pre-eclampsia in third trimester O14.10 12/22/17 0052 <Electronically signed by Mishel Pacheco MD> Date [facility] P[facility]co MD [facility] Signature: Date (if applicable) CC: CONTRACT AGENT OFFICE VISIT Observed: 12/19/2017 Status: F Source: AMBIKA REPORT 11:19 AM [facility] [address] [place] [address] OFFICE VISIT Date of Service: 12/19/17 MR#: [id number] Acct: [id number] Name: REBECCA RODNEY Rep #: [id number] : 1995 Provider: Mishel Pacheco MD Age/Sex: 22/F Location: [facility] Status: Signed Intake Vital Signs12/19/17 Height 5 ft 7 in 12/19/17 Weight: 344 lb 6 oz 12/19/17 Body Mass Index (BMI) 53.9 12/19/17 Blood Pressure 126/86 Intake Visit Reasons: 32 weeks Linen Room Custodian Required: No Is patient in pain?: No Allergies diphenhydramine [From Benadryl] Allergy (Mild, Verified 12/19/17 10:42) increases anxiety Medications vitamin,calcium,objwcdxr-ddjt-alkhi acid tablet 1 tab PO QDAY 07/06/17 [History Confirmed 12/19/17] magnesium oxide 500 mg capsule 500 mg PO QDAY cap 10/17/17 [History Confirmed 12/19/17] blood pressure monitor kit See Dose Instructions .ROUTE .MEDSUPPLY #1 ea 11/22/17 [Rx Confirmed 12/19/17] labetalol 300 mg tablet 600 mg PO TID tab 12/15/17 [History Confirmed 12/19/17] Last Menstral Period: 05/09/17 Zika: Zika virus screening: Negative : No PFSH PFSH Medical History Anxiety (Acute) Surgical History S/P tonsillectomy and adenoidectomy (Resolved) lymph node removed (Resolved) Family History Father Hypertension Grandmother Diabetes Mother Cervical cancer Social History Smoking Status: Never smoker alcohol intake: never substance use type: does not use caffeine: Yes (occasional) what type of physical activity do you participate in: walking, none seatbelt use: always do you feel safe at home: Yes 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 DateName GA/Weeks Outcome Route Bth WeighInfant GeLabor LgtAnesthesiDel LocatProvider FOB t n h a n Unknown Delivery Date: On 07/06/17 @ 13:57 Dana Gupta Miscarriage at 5 weeks in 02/2017 HPI 32 weeks: Details: REBECCA RODNEY is a 22 year old who presents for routine OB visit. OB Visit RITA Calculator Estimated Delivery Date 02/13/18 Based on LMP (certain) 05/09/17 Current WG 32w 0d Number 1 Expected Delivery Route/Plan Specific Issue/Plans flu vaccine: given tdap vaccine: given rhogam: na LARC form signed: [] labor support person: [employer] pain management: epidural cut cord/dad catch: yes : yes PP control planned: [] special requests: [] Initial Weight: 350 lb Date Weight BP Urine PrFHR FuHt Pres MoCTX DilationFetal StVisit NoProviderComments E ot v te GA G Effac lucose ed Visit Notes Visit Date: 12/19/17 borderline non reactive nst recommend prolonged monitoring and possible BPP. to l and d for monitoring. expecting call from [facility] tomorrow to discuss plan for GA of delivery. FBS normal today. discussed making snack earlier at night to decrease FBS Mishel Pacheco MD on 12/19/17 Visit Date: 12/15/17 follow up after transport to [facility]. severe preeclampsia versus exacerbation of cHTN. will call [facility] to discuss management. recommend home bp checks. plan twice weekly visits, weekly nst and weekly QUENTIN. recommend optum consult for bp and GDM intensive outpatient managment. consult endocrine to start insulin. check weekly labs. reviewed preeclampsia precautions- negative today. Mishel Pacheco MD on 12/16/17 Visit Date: 11/24/17 reveiwed home bps- elevated to 140s over 80s which is higher than they have been in the past few weeks- having a headache today. labs normal two weeks ago. recommend evaluation on l and d- see hpi Mishel Pacheco MD on 11/24/17 Visit Date: 11/22/17 Note slight elevated BP. No headache or vision changes. States BPs at work are 130s/80s daily. Good FM. No VB, LOF NATIVIDAD LevineC on 11/22/17 Visit Date: 11/14/17 elevated bp- check cmp and urine protein cr ratio and increased labetalol to 300mg BID, fu 1 week Mihsel Pacheco MD on 11/14/17 no vb lof good fm no regular ctx bp elevated today. no SAWANT BV cbc glucola Mishel Pacheco MD on 11/14/17 Visit Date: 10/17/17 No VB, LOF. Good FM. ED last night-sutures in left finger/dropped a glass bowl NATIVIDAD LevineC on 10/17/17 Visit Date: 08/31/17 no vb lof good fm no regualr ctx Mishel Pacheco MD on 09/05/17 labetalol increased borderline elevated bps at home. urine protein ratio sent. seeing neurologist for migraines. referring to PT and chiropractor also. no vb still having nausea Mishel Pacheco MD on 08/31/17 Visit Date: 08/03/17 bps WNL at home, needs nt screening and ekg done, ordered Mishel Pacheco MD on 08/04/17 Visit Date: 07/25/17 no vb cramping, elevated bps recommend starting labetalol, already had baseline urine negative for protein, ordered ekg Mishel Pacheco MD on 07/25/17 no vb cramping Mishel Pacheco MD on 07/25/17 Visit Date: 07/06/17 No visit notes to display ACOG First Trimester First Trimester: Desire for , Alcohol, Tobacco Cessation, Illicit/Recreational Drug/Substance Use, Intimate Partner Violence, Barriers to care, Unstable Housing, Communication Barriers, Environmental/Work Hazards, Anticipated Course of Care, Toxoplasmosis Precations, Use of Any medications, Sexual activity, Exercise, Dental Care, Sauna/Hot tub use, Seat Belt use, Childbirth classes/Hospital facilities, , Travel, Indications for US and Screening for Aneuploidy Diagnostics Diagnostics Labs Hct 38.5 % (37-47) 12/15/17 Hgb 12.7 g/dl (12.0-15.0) 12/15/17 Obstetrics Ultrasound 12/15/17 Glucose 1 Hr 50 gm 105 mg/dL (70-140) 11/14/17 Details: HIV: Urine Culture: Sequential Screen: NIPT Screen: Results [id number] Office Urine Glucose Negative Last Edit by Tracey Childress on 12/19/17 09:03 Office Urine Protein Negative Last Edit by Tracey Childress on 12/19/17 09:03 Assessment AND Plan Problems 1. Severe pre-eclampsia in third trimester O14.10 transport to [facility] c/o Dr Lock, unclear if severe pree vs exacerbation of cHTN. was discharged from [facility] will determine if delivery should be 34-37 weeks. recommend intensive outpatient managment with [employer] consult, plan twice weekly visits with weekly QUENTIN/NST, weekly labs. 2. Chronic hypertension affecting O10.919 labetalol 300mg bid, baseline labs ekg, baby ASA, testing at 32 weeks 3. BMI 50.0-59.9, adult Z68.43 nutrition consult, weekly nsts and growth us from 32 weeks 4. Abnormal glucose in , antepartum O99.810 nl 3 hour gtt 5. screening encounter Z36.9 08/07/17 NT normal 6. Supervision of high risk in first trimester O09. PRR RITA 02/13/18 Girl Crystal [employer] Plan reactive NST on l and d. kick counts. home bp monitoring and blood sugar testing. fu monday for quentin. Orders Orders: Coding Level of Care Code OB Routine Diagnoses Severe pre-eclampsia in third trimester O14.10 Chronic hypertension affecting O10.919 BMI 50.0-59.9, adult Z68.43 Abnormal glucose in , antepartum O99.810 screening encounter Z36.9 Supervision of high risk in first trimester O09.12/19/17 1119 <Electronically signed by Mishel Pacheco MD> Date Mishel Pacheco MD Cosigner Signature: Date (if applicable) CC: CONTRACT AGENT OFFICE VISIT Observed: 12/16/2017 Status: F Source: AMBIKA REPORT 6:01 AM [facility] [address] [place] [address] OFFICE VISIT Date of Service: 12/15/17 MR#: [id number] Acct: [id number] Name: REBECCA RODNEY Rep #: [id number] : 1995 Provider: Mishel Pacheco MD Age/Sex: 22/F Location: 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 Required: No Is patient in pain?: No Allergies diphenhydramine [From Benadryl] Allergy (Mild, Verified 12/15/17 12:19) increases anxiety Medications vitamin,calcium,yntxyezu-ixzt-pjwnv acid tablet 1 tab PO QDAY 07/06/17 [History Confirmed 11/24/17] promethazine 12.5 mg tablet 12.5 mg PO Q6H PRN #60 tab 08/31/17 [Rx Confirmed 11/24/17] magnesium oxide 500 mg capsule 500 mg PO QDAY cap 10/17/17 [History Confirmed 11/24/17] blood pressure monitor kit See Dose Instructions .ROUTE .MEDSUPPLY #1 ea 11/22/17 [Rx Confirmed 11/24/17] betamethasone acetate and sodium phos 6 mg/mL suspension for injection 12 mg IM QDAY #5 ml 11/24/17 [Rx Confirmed 11/24/17] labetalol 300 mg tablet 600 mg PO TID tab 12/15/17 [History Confirmed 12/15/17] Last Menstral Period: 05/09/17 Zika: Zika virus screening: Negative : No PFSH PFSH Medical History Anxiety (Acute) Surgical History S/P tonsillectomy and adenoidectomy (Resolved) lymph node removed (Resolved) Family History Father Hypertension Grandmother Diabetes Mother Cervical cancer Social History Smoking Status: Never smoker alcohol intake: never substance use type: does not use caffeine: Yes (occasional) what type of physical activity do you participate in: walking, none seatbelt use: always do you feel safe at home: Yes 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 DateName GA/Weeks Outcome Route Bth WeighInfant GeLabor LgtAnesthesiDel LocatProvider FOB t n h a n Unknown Delivery Date: On 07/06/17 @ 13:57 Dana Gupta Miscarriage at 5 weeks in 02/2017 HPI F/U admission: Details: REBECCA RODNEY is a 22 year old who presents for routine OB visit. OB Visit RITA Calculator Estimated Delivery Date 02/13/18 Based on LMP (certain) 05/09/17 Current WG 31w 4d Number 1 Expected Delivery Route/Plan Specific Issue/Plans flu vaccine: given tdap vaccine: given rhogam: na LARC form signed: [] labor support person: [employer] pain management: epidural cut cord/dad catch: yes : yes PP control planned: [] special requests: [] Initial Weight: 350 lb Date Weight BP Urine PrFHR FuHt Pres MoCTX DilationFetal StVisit NoProviderComments E ot v te GA G Effac lucose ed Visit Notes Visit Date: 12/15/17 follow up after transport to [facility]. severe preeclampsia versus exacerbation of cHTN. will call [facility] to discuss management. recommend home bp checks. plan twice weekly visits, weekly nst and weekly QUENTIN. recommend optum consult for bp and GDM intensive outpatient managment. consult endocrine to start insulin. check weekly labs. reviewed preeclampsia precautions- negative today. Mishel Pacheco MD on 12/16/17 Visit Date: 11/24/17 reveiwed home bps- elevated to 140s over 80s which is higher than they have been in the past few weeks- having a headache today. labs normal two weeks ago. recommend evaluation on l and d- see hpi Mishel Pacheco MD on 11/24/17 Visit Date: 11/22/17 Note slight elevated BP. No headache or vision changes. States BPs at work are 130s/80s daily. Good FM. No VB, LOF Marielle Márquez NP-C on 11/22/17 Visit Date: 11/14/17 elevated bp- check cmp and urine protein cr ratio and increased labetalol to 300mg BID, fu 1 week Mishel Pacheco MD on 11/14/17 no vb lof good fm no regular ctx bp elevated today. no SAWANT BV cbc glucola Mishel Pacheco MD on 11/14/17 Visit Date: 10/17/17 No VB, LOF. Good FM. ED last night-sutures in left finger/dropped a glass bowl Marielle Márquez NP-C on 10/17/17 Visit Date: 08/31/17 no vb lof good fm no regualr ctx Mishel Pacheco MD on 09/05/17 labetalol increased borderline elevated bps at home. urine protein ratio sent. seeing neurologist for migraines. referring to PT and chiropractor also. no vb still having nausea Mishel Pacheco MD on 08/31/17 Visit Date: 08/03/17 bps WNL at home, needs nt screening and ekg done, ordered Mishel Pacheco MD on 08/04/17 Visit Date: 07/25/17 no vb cramping, elevated bps recommend starting labetalol, already had baseline urine negative for protein, ordered ekg Mishel Pacheco MD on 07/25/17 no vb cramping Mishel Pacheco MD on 07/25/17 Visit Date: 07/06/17 No visit notes to display ACOG First Trimester First Trimester: Desire for , Alcohol, Tobacco Cessation, Illicit/Recreational Drug/Substance Use, Intimate Partner Violence, Barriers to care, Unstable Housing, Communication Barriers, Environmental/Work Hazards, Anticipated Course of Care, Toxoplasmosis Precations, Use of Any medications, Sexual activity, Exercise, Dental Care, Sauna/Hot tub use, Seat Belt use, Childbirth classes/Hospital facilities, , Travel, Indications for US and Screening for Aneuploidy Diagnostics Diagnostics Labs Hct 38.5 % (37-47) 12/15/17 Hgb 12.7 g/dl (12.0-15.0) 12/15/17 Obstetrics Ultrasound 12/15/17 Glucose 1 Hr 50 gm 105 mg/dL (70-140) 11/14/17 Miscellaneous Test 08/07/17 Details: HIV: Urine Culture: Sequential Screen: NIPT Screen: Results [id number] Office Urine Glucose Negative Last Edit by Dana Gupta on 12/15/17 12:22 Office Urine Protein Negative Last Edit by Dana Gupta on 12/15/17 12:22 Assessment AND Plan Problems 1. Severe pre-eclampsia in third trimester O14.10 transport to [facility] c/o Dr Lock, unclear if severe pree vs exacerbation of cHTN. was discharged from [facility] will determine if delivery should be 34-37 weeks. recommend intensive outpatient managment with [employer] consult, plan twice weekly visits with weekly QUENTIN/NST, weekly labs. 2. Chronic hypertension affecting O10.919 labetalol 300mg bid, baseline labs ekg, baby ASA, testing at 32 weeks 3. BMI 50.0-59.9, adult Z68.43 nutrition consult, weekly nsts and growth us from 32 weeks 4. Abnormal glucose in , antepartum O99.810 nl 3 hour gtt 5. screening encounter Z36.9 08/07/17 NT normal 6. Supervision of high risk in first trimester O09.91 PRR RITA 02/13/18 Marti Braga Plan ACOG trimester education reviewed and updated. see problem list details for updated plan management information and see below for orders placed at this visit. GA appropriate handout given. movement and labor precautions reviewed. Orders Orders: Coding Level of Care Code OB Routine Diagnoses Severe pre-eclampsia in third trimester O14.10 Chronic hypertension affecting O10.919 BMI 50.0-59.9, adult Z68.43 Abnormal glucose in , antepartum O99.810 screening encounter Z36.9 Supervision of high risk in first trimester O09.91 12/16/17 0601 <Electronically signed by Mishel Pacheco MD> Date Mishel Pacheco MD Cosigner Signature: Date (if applicable) CC: OB LIMITED WITH Observed: 12/15/2017 Status: F Source: [facility] [employer] 1:52 PM [facility] REPOSITORY [facility] Imaging Services [address] [place] [id number] OB Limited With Biometrics MR#: [id number] Acct: [id number] Name: REBECCA RODNEY Rep #: [id number] : 1995 F 22 From: Galilea Mayberry MD PCP: Care Physician, No Primary Status: REG CLI Study: OB Limited With Biometrics Date of Exam: 12/15/17 Exam# [id number] Ordering Dr: Mishel Pacheco MD STUDY: SECOND AND THIRD TRIMESTER OBSTETRICAL ULTRASOUND - LIMITED REASON FOR EXAM: Female, 22 years old. , assessment LMP: May 09, 2017 PRIOR ULTRASOUND: September 27, 2017 TECHNIQUE: Transabdominal evaluation of the pelvis was performed using real-time ultrasound. FINDINGS: There is a single intrauterine fetus. The fetus is in a cephalic presentation. There is demonstrated cardiac activity with a heart rate of 146 bpm. There is a normal amniotic fluid volume. The largest amniotic fluid pocket measures 2.6 cm. The amniotic fluid index (QUENTIN) is 6.0 cm. The placenta is posterior in location and is not low lying. There are Grade 1 placental changes. The cervix was not visualized. BIOMETRY: BPD: 7.90 cm: 31 weeks, 5 days HC: 28.59 cm: 31 weeks, 3 days AC: 26.23 cm: 30 weeks, 3 days FL: 5.86 cm: 30 weeks, 5 days Age by LMP: 31 weeks, 3 days. RITA by LMP: February 13, 2018. age by prior US: weeks, days. RITA by prior US: February 17, 2018. age by current US: 31 weeks, 1 days. RITA by current US: February 15, 2018. Estimated weight: 1612 grams, +/- 235 grams, 17 percentile. US/OB Limited With Biometrics IMPRESSION: There is a viable intrauterine with estimated gestational age of 31 weeks 1 day by the current ultrasound. Amniotic fluid is low normal with amniotic fluid index measuring 6.0 cm. Electronically Signed: Galilea Mayberry MD at 18:48 EDT Tel Direct: [phone], Service support , CC: No Primary Care Physician; Mishel Pacheco MD [place] Room Operator: Signed CBC W/DIFF, AUTOMATED Collected: 12/15/2017 Status: F Source: [facility] 12:41 PM [facility] REPOSITORY TYPE CODE TESTS RESULT OUT OF RANGE REFERENCE UNITS LAB L100.1000 4.4-11.0 K/mm3 Normal WBC 10.8 LAB L100.1200 4.2-5.4 M/mm3 Normal RBC 4.70 LAB L100.1300 12.0-15.0 g/dl Normal HGB 12.7 LAB L100.1400 37-47 % Normal HCT 38.5 LAB L100.1500 81-99 fL Normal MCV 81.9 LAB L100.1600 27.0-32.0 pg Normal MCH 27.0 LAB L100.1700 32-36 g/gl Normal MCHC 33.0 LAB L100.1810 11.6-14.6 % Normal RDW CV 13.9 LAB L100.1820 35.1-43.9 fl Normal RDW SD 41.5 LAB L100.1900 150-450 K/mm3 Normal PLT 266 LAB L100.2000 6.2-12.0 fl Normal MPV 9.8 LAB L100.2100 47-70 % Normal NEUT% 69.9 LAB L100.2200 19-41 % Normal LY% 21.8 LAB L100.2300 0-10 % Normal MONO% 6.2 LAB L100.2400 0-5 % Normal EO% 1.4 LAB L100.2500 0-1 % Normal BASO% 0.2 LAB L100.2550 0.0-0.9 % Normal IM GRAN % 0.500 Result Comment: IG% - Immature Granulocytes (promyelocytes, myelocytes and metamyelocytes) > 1% indicates that a LEFT SHIFT is Present. LAB L100.2620 2.0-7.7 X10 3/uL Normal Absolute Neut 7.6 LAB L100.2720 0.83-4.51 X10 3/ul Normal Absolute Lymph 2.36 Performed By: #### L100.0100, L500.4050, L501.1400, L504.2610, L501.0900 #### [facility] [address] [place], [place], [address] COMPREHENSIVE METABOLIC Collected: 12/15/2017 Status: F Source: [facility] 12:41 PM [facility] REPOSITORY Order Comment: Serial Specimen #1, #2 or #3? 1 TYPE CODE TESTS RESULT OUT OF RANGE REFERENCE UNITS LAB L501.0100 74-106 mg/dL High GLU 117 Result Comment: Fasting Glucose result from 100 to 125 mg/dL suggests IMPAIRED HOMEOSTASIS per A.D.A. criteria. Please note revised GLUCOSE reference range effective 2017. LAB L501.1000 7-18 mg/dL Low BUN 6 LAB L501.1100 0.55-1.02 mg/dL Low CREAT,SERUM 0.44 Result Comment: The validity of the calculated GFR AND GFRAA in patients over 70 years has not been determined. Clinical correlation is essential. LAB L501.1110 >60 mL/min Normal EST GFR 186 Result Comment: Non- GFR Calc LAB L501.1115 >60 mL/min Normal EST GFR - AA 226 Result Comment: GFR Calc LAB L501.1300 10-20 RATIO Normal BUN/CRE 13.7 LAB L501.1500 6.4-8.2 g/dL T Normal PROT 6.8 LAB L501.1800 3.2-5.0 g/dL Low ALB 2.9 LAB L501.1950 2.2-4.2 g/dL Normal GLOB 3.9 LAB L501.2000 0.9-2.4 RATIO Low A/G 0.7 LAB L501.2200 8.5-10.1 mg/dL CA Normal 9.0 LAB L501.4100 15-37 U/L Normal AST 16 LAB L501.4305 45-117 U/L Normal ALK P 88 LAB L501.4405 13-56 U/L Normal ALT 35 LAB L501.4600 0.20-1.00 mg/dL T Normal BILI 0.20 LAB L501.5300 136-145 mmol/L NA Normal 140 LAB L501.5600 3.5-5.1 mmol/L K Normal 4.0 LAB L501.5900 98-107 mmol/L High CL 108 LAB L501.6100 21.0-32.0 mmol/L Normal CO2 21.0 LAB L501.6200 5-15 Normal GAP 11 Performed By: #### L100.0100, L500.4050, L501.1400, L504.2610, L501.0900 #### [facility] [address] [facility] [place], [address] URIC ACID Collected: 12/15/2017 Status: F Source: [facility] 12:41 PM [facility] REPOSITORY Order Comment: Serial Specimen #1, #2 or #3? 1 TYPE CODE TESTS RESULT OUT OF RANGE REFERENCE UNITS LAB L501.1400 2.6-6.0 mg/dL Normal URIC 3.9 Result Comment: The drugs N-Acetylcysteine and Metamizole may falsely depress this assay. Performed By: #### L100.0100, L500.4050, L501.1400, L504.2610, L501.0900 #### [facility] [address] [place], [address] LDH Collected: 12/15/2017 Status: F Source: [facility] 12:41 PM [facility] REPOSITORY Order Comment: Serial Specimen #1, #2 or #3? 1 TYPE CODE TESTS RESULT OUT OF RANGE REFERENCE UNITS LAB L504.2610 84-246 U/L Normal LDH 154 Performed By: #### L100.0100, L500.4050, L501.1400, L504.2610, L501.0900 #### [facility] [address] [place], [address] PROTEIN+CREATININE Collected: Status: F Source: [facility],URINE 12/15/2017 12:41 PM [facility] REPOSITORY TYPE CODE TESTS RESULT OUT OF RANGE REFERENCE UNITS LAB L501.1200 NO RANGE EST. mg/dL Normal UR CREAT 201.00 LAB L501.1930 <11.9 mg/dL High 35.7 PROTEIN,UR.R AN. LAB L501.1940 0-200 mg/g CRE Normal PROT:CRE 178 RATIO Performed By: #### L100.0100, L500.4050, L501.1400, L504.2610, L501.0900 #### [facility] [address] [place], [address] GLUCOSE,BEDSIDE Collected: 12/10/2017 Status: F Source: [facility] 10:17 AM SYSTEM REPOSITORY TYPE CODE TESTS RESULT OUT OF RANGE REFERENCE UNITS LAB BGLU 70-100 mg/dL High 133 Glucose,Beds mayela Result Comment: Test performed by glucose meter. Results may be 10%-15% lower than serum/plasma values. (CLIA ID [id number]) Performed By: #### BGLU #### [facility] [address] [place] [address] GLUCOSE,BEDSIDE Collected: 12/10/2017 Status: F Source: [facility] 8:26 AM SYSTEM REPOSITORY TYPE CODE TESTS RESULT OUT OF RANGE REFERENCE UNITS LAB BGLU 70-100 mg/dL Normal 100 Glucose,Beds mayela Result Comment: Test performed by glucose meter. Results may be 10%-15% lower than serum/plasma values. (CLIA ID [id number]) Performed By: #### BGLU #### [facility] [address] [place] [address] GLUCOSE,BEDSIDE Collected: 12/09/2017 Status: F Source: [facility] 7:33 PM SYSTEM REPOSITORY TYPE CODE TESTS RESULT OUT OF RANGE REFERENCE UNITS LAB BGLU 70-100 mg/dL High 107 Glucose,Beds mayela Result Comment: Test performed by glucose meter. Results may be 10%-15% lower than serum/plasma values. (CLIA ID [id number]) Performed By: #### BGLU #### [facility] [place] [address] ADD ON TEST FROM Collected: 12/09/2017 Status: F Source: [facility] HIS 4:24 PM SYSTEM REPOSITORY TYPE CODE TESTS RESULT OUT OF REFERENCE UNITS RANGE LAB ADDON NA Add Accepted on test from HIS Result Comment: Specimen available & acceptable for analysis. Performed By: #### ADDON #### [facility] [place] [address] GLUCOSE,BEDSIDE Collected: 12/09/2017 Status: F Source: [facility]) 3:22 PM SYSTEM REPOSITORY TYPE CODE TESTS RESULT OUT OF RANGE REFERENCE UNITS LAB BGLU 70-100 mg/dL High 160 Glucose,Beds mayela Result Comment: Test performed by glucose meter. Results may be 10%-15% lower than serum/plasma values. (CLIA ID [id number]) Performed By: #### BGLU #### [facility] [place] [address] [place] [address] CREAT CLEARANCE,24HR Collected: 12/09/2017 Status: F Source: [facility] 2:21 PM SYSTEM REPOSITORY TYPE CODE TESTS RESULT OUT OF RANGE REFERENCE UNITS LAB CC24 80.0-125.0 mL/min/{1.7 High 3_m2} Creat 216.7 Clearance,24H r LAB 24CCL 1.0-1.8 g/(24.h) Normal Creatinine, 1.8 Ur 24 Hr LAB CRT3 0.52-1.25 mg/dL Low Creatinine, 0.40 Serum LAB CCUR mg/dL Creatinine, 86.4 Urine LAB HT3 [in_i] Height 67.0 LAB WT3 [lb_av] Weight 339 LAB 24VLM mL Total Volume 2104 Performed By: #### CC24H, TP324 #### [facility] [place], [place] TOTAL PROTEIN,UR 24HR Collected: 12/09/2017 Status: F Source: [facility]) 2:21 PM SYSTEM REPOSITORY TYPE CODE TESTS RESULT OUT OF RANGE REFERENCE UNITS LAB 3TP24 42-225 mg/(24.h) Normal Total 210 Protein, Ur 24Hr Performed By: #### CC24H, TP324 #### [facility] [place], [place] Observed: 12/09/2017 Status: F Source: [facility] TS GEL 11:39 AM SYSTEM REPOSITORY ABO Group: A Rh, Gel: POS Antibody Screen Gel: NEG Performed By: #### TSGL #### [facility] [place] [address] GLUCOSE,BEDSIDE Collected: 12/09/2017 Status: F Source: [facility]) 8:58 AM SYSTEM REPOSITORY TYPE CODE TESTS RESULT OUT OF RANGE REFERENCE UNITS LAB BGLU 70-100 mg/dL High 149 Glucose,Beds mayela Result Comment: Test performed by glucose meter. Results may be 10%-15% lower than serum/plasma values. (CLIA ID [id number]) Performed By: #### BGLU #### [facility] [place], [place] GLUCOSE,BEDSIDE Collected: 12/09/2017 Status: F Source: [facility]) 7:27 AM SYSTEM REPOSITORY TYPE CODE TESTS RESULT OUT OF RANGE REFERENCE UNITS LAB BGLU 70-100 mg/dL High 110 Glucose,Beds mayela Result Comment: Test performed by glucose meter. Results may be 10%-15% lower than serum/plasma values. (CLIA ID [id number]) Performed By: #### BGLU #### [facility] [address] [place] [address] GLUCOSE,BEDSIDE Collected: 12/08/2017 Status: F Source: [facility]) 9:20 PM SYSTEM REPOSITORY TYPE CODE TESTS RESULT OUT OF RANGE REFERENCE UNITS LAB BGLU 70-100 mg/dL High 137 Glucose,Beds mayela Result Comment: Test performed by glucose meter. Results may be 10%-15% lower than serum/plasma values. (CLIA ID [id number]) Performed By: #### BGLU #### [facility] [address] [place] [address] GLUCOSE,BEDSIDE Collected: 12/08/2017 Status: F Source: [facility] 1:43 PM SYSTEM REPOSITORY TYPE CODE TESTS RESULT OUT OF RANGE REFERENCE UNITS LAB BGLU 70-100 mg/dL High 122 Glucose,Beds mayela Result Comment: Test performed by glucose meter. Results may be 10%-15% lower than serum/plasma values. (CLIA ID [id number]) Performed By: #### BGLU #### [facility] [address] [place] [address] GLUCOSE,BEDSIDE Collected: 12/08/2017 Status: F Source: [employer]) 9:54 AM SYSTEM REPOSITORY TYPE CODE TESTS RESULT OUT OF RANGE REFERENCE UNITS LAB BGLU 70-100 mg/dL High 133 Glucose,Beds mayela Result Comment: Test performed by glucose meter. Results may be 10%-15% lower than serum/plasma values. (CLIA ID [id number]) Performed By: #### BGLU #### [facility] [address] [place] [address] GLUCOSE,BEDSIDE Collected: 12/08/2017 Status: F Source: [employer] 6:58 AM SYSTEM REPOSITORY TYPE CODE TESTS RESULT OUT OF RANGE REFERENCE UNITS LAB BGLU 70-100 mg/dL High 118 Glucose,Beds mayela Result Comment: Test performed by glucose meter. Results may be 10%-15% lower than serum/plasma values. (CLIA ID [id number]) Performed By: #### BGLU #### [facility] [address] [place] [address] GLUCOSE,BEDSIDE Collected: 12/07/2017 Status: F Source: [employer]) 8:34 PM SYSTEM REPOSITORY TYPE CODE TESTS RESULT OUT OF RANGE REFERENCE UNITS LAB BGLU 70-100 mg/dL High 158 Glucose,Beds mayela Result Comment: Test performed by glucose meter. Results may be 10%-15% lower than serum/plasma values. (CLIA ID [id number]) Performed By: #### BGLU #### [facility] [address] [place] [address] GLUCOSE,BEDSIDE Collected: 12/07/2017 Status: F Source: [employer]) 4:02 PM SYSTEM REPOSITORY TYPE CODE TESTS RESULT OUT OF RANGE REFERENCE UNITS LAB BGLU 70-100 mg/dL High 127 Glucose,Beds mayela Result Comment: Test performed by glucose meter. Results may be 10%-15% lower than serum/plasma values. (CLIA ID [id number]) Performed By: #### BGLU #### [facility] [address] [place] [address] [facility] [place] Observed: 12/07/2017 Status: F Source: [facility] 9:33 AM SYSTEM REPOSITORY Patient Name: REBECCA RODNEY Maternal Medicine Exam Date/Time 12/07/2017 09:27:44 EDT Exam [facility] Limited Ordering Physician ADEBAYO REDDY Accession Number [id number] Reason For Exam preeclampsia Report OBSTETRICS REPORT (Signed Final 12/07/2017 03:21 pm) Patient Info ID #: [id number] : [birth year] (22 yrs) Name: REBECCA RODNEY Visit Date: 12/07/2017 09:33 am Performed By Performed By: Chari Witt Referred By: ADEBAYO REDDY RDMS, MD Attending: Lauren Lock MD Location: [facility] Service(s) Provided [place] [address] Indications Preeclampsia Evaluation Num Of Fetuses: 1 Preg. Location: Intrauterine Pole: Visualized Heart 145 Rate(bpm): Cardiac Activity: Present Lie: Observed Presentation: Cephalic Placenta: Fundal P. Cord Insertion: Normal Amniotic Fluid QUENTIN FV: Within normal limits QUENTIN Sum: 8.16 cm 3 %Tile Larg Pckt: 4.81 cm RUQ: 4.81 cm RLQ: 3.35 cm Gestational Age Clinical RITA: 30w 2d RITA: 02/13/18 Best: 30w 2d Det. By: Clinical RITA RITA: 02/13/18 Impression - Single living fetus with a gestational age of 30w 2d based on the reported clinical dates. - Amniotic fluid within normal limits. Recommendations Clinical correlation is suggested. Lauren Lock MD Electronically Signed Final Report 12/07/2017 03:21 pm Final Dictated: 12/07/2017 9:33 am Dictating Physician: LAUREN LOCK Signed Date and Time: 12/07/2017 3:21 pm Signed by: LAUREN LOCK GLUCOSE,BEDSIDE Collected: 12/07/2017 Status: F Source: [facility]) 7:51 AM SYSTEM REPOSITORY TYPE CODE TESTS RESULT OUT OF RANGE REFERENCE UNITS LAB BGLU 70-100 mg/dL High 125 Glucose,Beds mayela Result Comment: Test performed by glucose meter. Results may be 10%-15% lower than serum/plasma values. (CLIA ID [id number]) Performed By: #### BGLU #### [facility] [address] [place] [address] GLUCOSE,BEDSIDE Collected: 12/07/2017 Status: F Source: [employer]) 6:03 AM SYSTEM REPOSITORY TYPE CODE TESTS RESULT OUT OF RANGE REFERENCE UNITS LAB BGLU 70-100 mg/dL High 109 Glucose,Beds mayela Result Comment: Test performed by glucose meter. Results may be 10%-15% lower than serum/plasma values. (CLIA ID [id number]) Performed By: #### BGLU #### [facility] [address] [place] [address] HEMOGRAM W/ AUTODIFF Collected: 12/07/2017 Status: F Source: [employer]) 5:57 AM SYSTEM REPOSITORY TYPE CODE TESTS RESULT OUT OF REFERENCE UNITS RANGE LAB IWBC 3.6-10.7 10*3/uL WBC High 16.0 LAB RBC 3.80-5.20 10*6/uL RBC Normal 4.58 LAB HGB 11.7-16.0 g/dL Hemoglobin Normal 12.5 LAB HCT 35.0-47.0 % Hematocrit Normal 36.9 LAB MCV 79.0-98.0 fL MCV Normal 80.6 LAB MCH 26.0-34.0 pg MCH Normal 27.3 LAB MCHC 32.0-36.0 % MCHC Normal 33.8 LAB RDW 11.5-14.5 % RDW Normal 14.2 LAB PLT 140-440 10*3/uL Platelet Normal 288 LAB MPV 7.4-10.4 fL MPV Normal 8.2 LAB GRAN% 40.0-80.0 % Granulocytes Normal 68.7 LAB LYMP% 20.0-40.0 % Lymphocytes Normal 23.0 LAB MONO% 2.0-10.0 % Monocytes Normal 7.0 LAB EOS% 1.0-6.0 % Eosinophils Normal 1.1 LAB BAS% 0.0-2.0 % Basophils Normal 0.2 LAB ANC 1.8-7.0 10*3/uL Abs High Neutrophile Cnt 11.0 LAB ALC 1.0-4.3 10*3/uL Abs Lymph Cnt Normal 3.7 LAB AMC 0.0-0.8 10*3/uL Abs Monocyte High Cnt 1.1 LAB AEC 0.0-0.5 10*3/uL Abs Eosin Cnt Normal 0.2 LAB ABC 0.0-0.2 10*3/uL Abs Baso Cnt Normal 0.0 Performed By: #### HEMDF, CMP3 #### [facility] [address] [address] COMP METABOLIC PANEL Collected: 12/07/2017 Status: F Source: [facility]) 5:57 AM SYSTEM REPOSITORY TYPE CODE TESTS RESULT OUT OF RANGE REFERENCE UNITS LAB NA3 137-145 mmol/L Low Sodium 136 LAB K3 3.5-5.1 mmol/L Normal Potassium 3.8 LAB CL3 98-107 mmol/L Chloride Normal 106 LAB CO23 22-30 mmol/L Carbon Normal Dioxide 22 LAB ANIN3 NA Anion Gap 8 LAB GLUC3 70-100 mg/dL High Glucose 104 LAB BUN3 7-20 mg/dL Low Urea Nitrogen 6 LAB CRET3 0.52-1.25 mg/dL Low Creatinine 0.40 LAB GF3BR >60 mL/min eGFR > 60.0 LAB GF3WR >60 mL/min eGFR OTHER > 60.0 Result Comment: Source- MDRD equation with creatinine calibration to IDMS(NKDEP) eGFR not recommended for drug dose adjustment LAB CA3 8.4-10.4 mg/dL Calcium Normal 9.5 LAB ALB3 3.5-5.0 g/dL Albumin, Serum Normal 3.8 LAB TP3 6.3-8.2 g/dL Total Protein Normal 6.4 LAB BILT3 0.2-1.3 mg/dL Normal Bilirubin,Total 0.2 LAB ALKP3 38-126 U/L Alkaline Normal Phosphatase 79 LAB ALT3 13-69 U/L ALT (SGPT) Normal 26 LAB AST3 15-46 U/L AST (SGOT) Normal 16 Performed By: #### HEMDF, CMP3 #### [facility] [address] [place] [address] GLUCOSE,BEDSIDE Collected: 12/06/2017 Status: F Source: [employer]) 7:59 PM SYSTEM REPOSITORY TYPE CODE TESTS RESULT OUT OF RANGE REFERENCE UNITS LAB BGLU 70-100 mg/dL High 114 Glucose,Beds mayela Result Comment: Test performed by glucose meter. Results may be 10%-15% lower than serum/plasma values. (CLIA ID [id number]) Performed By: #### BGLU #### [facility] [address] [place] [address] GLUCOSE,BEDSIDE Collected: 12/06/2017 Status: F Source: [employer]) 4:08 PM SYSTEM REPOSITORY TYPE CODE TESTS RESULT OUT OF RANGE REFERENCE UNITS LAB BGLU 70-100 mg/dL High 188 Glucose,Beds mayela Result Comment: Test performed by glucose meter. Results may be 10%-15% lower than serum/plasma values. (CLIA ID [id number]) Performed By: #### BGLU #### [facility] [address] [place] [address] GLUCOSE,BEDSIDE Collected: 12/06/2017 Status: F Source: [employer]) 10:32 AM SYSTEM REPOSITORY TYPE CODE TESTS RESULT OUT OF RANGE REFERENCE UNITS LAB BGLU 70-100 mg/dL High 140 Glucose,Beds mayela Result Comment: Test performed by glucose meter. Results may be 10%-15% lower than serum/plasma values. (CLIA ID [id number]) Performed By: #### BGLU #### [facility] [address] [place] [address] GLUCOSE,BEDSIDE Collected: 12/06/2017 Status: F Source: [employer]) 8:07 AM SYSTEM REPOSITORY TYPE CODE TESTS RESULT OUT OF RANGE REFERENCE UNITS LAB BGLU 70-100 mg/dL High 110 Glucose,Beds mayela Result Comment: Test performed by glucose meter. Results may be 10%-15% lower than serum/plasma values. (CLIA ID [id number]) Performed By: #### BGLU #### [facility] [address] [place] [address] GLUCOSE,BEDSIDE Collected: 12/05/2017 Status: F Source: [employer]) 6:56 PM SYSTEM REPOSITORY TYPE CODE TESTS RESULT OUT OF RANGE REFERENCE UNITS LAB BGLU 70-100 mg/dL High 107 Glucose,Beds mayela Result Comment: Test performed by glucose meter. Results may be 10%-15% lower than serum/plasma values. (CLIA ID [id number]) Performed By: #### BGLU #### [facility] [place] [address] GLUCOSE,BEDSIDE Collected: 12/05/2017 Status: F Source: [employer] [facility]) 2:39 PM SYSTEM REPOSITORY TYPE CODE TESTS RESULT OUT OF RANGE REFERENCE UNITS LAB BGLU 70-100 mg/dL High 134 Glucose,Beds mayela Result Comment: Test performed by glucose meter. Results may be 10%-15% lower than serum/plasma values. (CLIA ID [id number]) Performed By: #### BGLU #### [facility] [place] [address] GLUCOSE,BEDSIDE Collected: 12/05/2017 Status: F Source: [employer]) 8:00 AM SYSTEM REPOSITORY TYPE CODE TESTS RESULT OUT OF RANGE REFERENCE UNITS LAB BGLU 70-100 mg/dL High 106 Glucose,Beds mayela Result Comment: Test performed by glucose meter. Results may be 10%-15% lower than serum/plasma values. (CLIA ID [id number]) Performed By: #### BGLU #### [facility] [address] [place] [address] Observed: 12/05/2017 Status: F Source: [employer]) TS GEL 6:06 AM SYSTEM REPOSITORY ABO Group: A Rh, Gel: POS Antibody Screen Gel: NEG Performed By: #### TSGL #### [facility] [address] [place] [address] GLUCOSE,BEDSIDE Collected: 12/04/2017 Status: F Source: [employer] ([employer]) 8:40 PM SYSTEM REPOSITORY TYPE CODE TESTS RESULT OUT OF RANGE REFERENCE UNITS LAB BGLU 70-100 mg/dL High 125 Glucose,Beds mayela Result Comment: Test performed by glucose meter. Results may be 10%-15% lower than serum/plasma values. (CLIA ID [id number]) Performed By: #### BGLU #### [facility] [address] [place] [address] GLUCOSE,BEDSIDE Collected: 12/04/2017 Status: F Source: [employer]) 4:07 PM SYSTEM REPOSITORY TYPE CODE TESTS RESULT OUT OF RANGE REFERENCE UNITS LAB BGLU 70-100 mg/dL High 157 Glucose,Beds mayela Result Comment: Test performed by glucose meter. Results may be 10%-15% lower than serum/plasma values. (CLIA ID [id number]) Performed By: #### BGLU #### [facility] [address] [place] [address] GLUCOSE,BEDSIDE Collected: 12/04/2017 Status: F Source: [employer]) 12:05 PM SYSTEM REPOSITORY TYPE CODE TESTS RESULT OUT OF RANGE REFERENCE UNITS LAB BGLU 70-100 mg/dL Normal 97 Glucose,Beds mayela Result Comment: Test performed by glucose meter. Results may be 10%-15% lower than serum/plasma values. (CLIA ID [id number]) Performed By: #### BGLU #### [facility] [address] [place] [address] [facility] Observed: 12/04/2017 Status: F Source: [facility] 10:36 AM SYSTEM REPOSITORY Patient Name: REBECCA RODNEY Maternal Medicine Exam Date/Time 12/04/2017 10:35:01 EDT Exam [facility] Limited Ordering Physician ADEBAYO REDDY Accession Number [id number] Reason For Exam Preeclampsia Report OBSTETRICS REPORT (Signed Final 12/04/2017 01:49 pm) Patient Info ID #: [id number] : [birth year] (22 yrs) Name: REBECCA RODNEY Visit Date: 12/04/2017 10:36 am Performed By Performed By: Chari Witt Referred By: ADEBAYO REDDY RDMS, MD Attending: Lauren Lock MD Location: [facility] Service(s) Provided [place] [address] Indications Preeclampsia Evaluation Num Of Fetuses: 1 Preg. Location: Intrauterine Pole: Visualized Heart 159 Rate(bpm): Cardiac Activity: Present Lie: Observed Presentation: Cephalic Placenta: Posterior Grade 1 P. Cord Insertion: Normal Amniotic Fluid QUENTIN FV: Within normal limits QUENTIN Sum: 11.5 cm 25 %Tile Larg Pckt: 3.51 cm RUQ: 1.31 cm RLQ: 3.51 cm LUQ: 3.41 cm LLQ: 3.27 cm Gestational Age Clinical RITA: 29w 6d RITA: 02/13/18 Best: 29w 6d Det. By: Clinical RITA RITA: 02/13/18 Impression - Single living fetus with a gestational age of 29w 6d based on the reported clinical dates. - Amniotic fluid within normal limits. Recommendations Clinical correlation is suggested. Lauren Lock MD Electronically Signed Final Report 12/04/2017 01:49 pm Final Dictated: 12/04/2017 10:36 am Dictating Physician: LAUREN LOCK Signed Date and Time: 12/04/2017 1:49 pm Signed by: LAUREN LOCK HEMOGRAM W/ AUTODIFF Collected: 12/04/2017 Status: F Source: [facility]) 12:30 AM SYSTEM REPOSITORY TYPE CODE TESTS RESULT OUT OF REFERENCE UNITS RANGE LAB IWBC 3.6-10.7 10*3/uL WBC High 16.7 LAB RBC 3.80-5.20 10*6/uL RBC Normal 4.56 LAB HGB 11.7-16.0 g/dL Hemoglobin Normal 12.7 LAB HCT 35.0-47.0 % Hematocrit Normal 37.1 LAB MCV 79.0-98.0 fL MCV Normal 81.4 LAB MCH 26.0-34.0 pg MCH Normal 28.0 LAB MCHC 32.0-36.0 % MCHC Normal 34.4 LAB RDW 11.5-14.5 % RDW Normal 14.2 LAB PLT 140-440 10*3/uL Platelet Normal 301 LAB MPV 7.4-10.4 fL MPV Normal 8.3 LAB GRAN% 40.0-80.0 % Granulocytes Normal 63.4 LAB LYMP% 20.0-40.0 % Lymphocytes Normal 27.8 LAB MONO% 2.0-10.0 % Monocytes Normal 6.8 LAB EOS% 1.0-6.0 % Eosinophils Normal 1.5 LAB BAS% 0.0-2.0 % Basophils Normal 0.5 LAB ANC 1.8-7.0 10*3/uL Abs High Neutrophile Cnt 10.6 LAB ALC 1.0-4.3 10*3/uL Abs Lymph Cnt High 4.6 LAB AMC 0.0-0.8 10*3/uL Abs Monocyte High Cnt 1.1 LAB AEC 0.0-0.5 10*3/uL Abs Eosin Cnt Normal 0.3 LAB ABC 0.0-0.2 10*3/uL Abs Baso Cnt Normal 0.1 Performed By: #### HEMDF, CMP3 #### [facility] [address] [address] COMP METABOLIC PANEL Collected: 12/04/2017 Status: F Source: [facility] ([employer]) 12:30 AM SYSTEM REPOSITORY TYPE CODE TESTS RESULT OUT OF RANGE REFERENCE UNITS LAB NA3 137-145 mmol/L Low Sodium 135 LAB K3 3.5-5.1 mmol/L Normal Potassium 3.6 LAB CL3 98-107 mmol/L Chloride Normal 103 LAB CO23 22-30 mmol/L Low Carbon Dioxide 21 LAB ANIN3 NA Anion Gap 11 LAB GLUC3 70-100 mg/dL High Glucose 144 LAB BUN3 7-20 mg/dL Urea Normal Nitrogen 10 LAB CRET3 0.52-1.25 mg/dL Low Creatinine 0.48 LAB GF3BR >60 mL/min eGFR > 60.0 LAB GF3WR >60 mL/min eGFR OTHER > 60.0 Result Comment: Source- MDRD equation with creatinine calibration to IDMS(NKDEP) eGFR not recommended for drug dose adjustment LAB CA3 8.4-10.4 mg/dL Calcium Normal 9.7 LAB ALB3 3.5-5.0 g/dL Albumin, Serum Normal 4.1 LAB TP3 6.3-8.2 g/dL Total Protein Normal 6.7 LAB BILT3 0.2-1.3 mg/dL Normal Bilirubin,Total 0.2 LAB ALKP3 38-126 U/L Alkaline Normal Phosphatase 78 LAB ALT3 13-69 U/L ALT (SGPT) Normal 26 LAB AST3 15-46 U/L AST (SGOT) Normal 15 Performed By: #### HEMDF, CMP3 #### [facility] [address] [place] [phone] Observed: 12/02/2017 Status: F Source: [facility] 10:47 AM SYSTEM REPOSITORY ABO Group: A Rh, Gel: POS Antibody Screen Gel: NEG Performed By: #### TSGL #### [facility] [address] [place] [id number] TOTAL PROTEIN,UR 24HR Collected: 11/30/2017 Status: F Source: [facility]) 9:01 AM SYSTEM REPOSITORY TYPE CODE TESTS RESULT OUT OF RANGE REFERENCE UNITS LAB [id number] 42-225 mg/(24.h) High Total 387 Protein, Ur 24Hr Result Comment: CORRECTED RESULT...Previous above value was 3517, verified on 11/30/17 at 09:23 by TS4 . Performed By: #### [id number], [id number] #### [facility] [address] [place] [id number] CREAT CLEARANCE,24HR Collected: 11/30/2017 Status: F Source: [facility] ([facility]) 9:01 AM SYSTEM REPOSITORY TYPE CODE TESTS RESULT OUT OF REFERENCE UNITS RANGE LAB CC24 80.0-125.0 mL/min/{1.7 3_m2} High Creat 320.6 Clearance,24H r LAB 24CCL 1.0-1.8 g/(24.h) High Creatinine, 2.6 Ur 24 Hr LAB CRT3 0.52-1.25 mg/dL Low Creatinine, 0.40 Serum LAB CCUR mg/dL Creatinine, 72.6 Urine LAB HT3 [in_i] Height 67.0 LAB WT3 [lb_av] Weight 300 LAB 24VLM mL Total Volume 3517 Performed By: #### TP324, CC24H #### [facility] [address] [place] [address] [facility] US Observed: 11/30/2017 Status: F Source: Everlaw 7:58 AM SYSTEM REPOSITORY Patient Name: REBECCA RODNEY Maternal Medicine Exam Date/Time 11/30/2017 07:57:30 EDT Exam [facility] US Limited Ordering Physician MD [facility] Accession Number [id number] Reason For Exam preeclampsia Report OBSTETRICS REPORT (Signed Final 11/30/2017 06:16 pm) Patient Info ID #: [id number] : [birth year] (22 yrs) Name: REBECCA RODNEY Visit Date: 11/30/2017 07:58 am Performed By Performed By: Sharri Cherry Referred By: ADEBAYO REDDY RDMS, MD Attending: Lauren Lock MD Location: [facility] Service(s) Provided [place] Limited [id number] Indications Preeclampsia Evaluation Num Of Fetuses: 1 Preg. Location: Intrauterine Heart 142 Rate(bpm): Cardiac Activity: Regular rhythm Lie: Observed Presentation: Breech Placenta: Anterior Left P. Cord Insertion: Normal Amniotic Fluid QUENTIN FV: Within normal limits QUENTIN Sum: 10.39 cm 15 %Tile Larg Pckt: 4.66 cm RUQ: 2.2 cm RLQ: 4.66 cm LUQ: 1.81 cm LLQ: 1.72 cm Gestational Age Clinical RITA: 29w 2d RITA: 02/13/18 Best: 29w 2d Det. By: Clinical RITA RITA: 02/13/18 Impression - Single living fetus with a gestational age of 29w 2d based on the reported clinical dates. - Amniotic fluid within normal limits. - Breech presentation Recommendations Clinical correlation is suggested. Lauren Lock MD Electronically Signed Final Report 11/30/2017 06:16 pm Final Dictated: 11/30/2017 7:58 am Dictating Physician: LAUREN LOCK Signed Date and Time: 11/30/2017 6:17 pm Signed by: LAUREN LOCK HEMOGRAM W/ AUTODIFF Collected: 11/30/2017 Status: F Source: Fundamo (Proprietary) 5:08 AM SYSTEM REPOSITORY TYPE CODE TESTS RESULT OUT OF REFERENCE UNITS RANGE LAB IWBC 3.6-10.7 10*3/uL WBC High 18.3 LAB RBC 3.80-5.20 10*6/uL RBC Normal 4.56 LAB HGB 11.7-16.0 g/dL Hemoglobin Normal 12.6 LAB HCT 35.0-47.0 % Hematocrit Normal 36.7 LAB MCV 79.0-98.0 fL MCV Normal 80.6 LAB MCH 26.0-34.0 pg MCH Normal 27.7 LAB MCHC 32.0-36.0 % MCHC Normal 34.3 LAB RDW 11.5-14.5 % RDW Normal 14.3 LAB PLT 140-440 10*3/uL Platelet Normal 276 LAB MPV 7.4-10.4 fL MPV Normal 8.6 LAB GRAN% 40.0-80.0 % Granulocytes Normal 68.4 LAB LYMP% 20.0-40.0 % Lymphocytes Normal 23.4 LAB MONO% 2.0-10.0 % Monocytes Normal 6.4 LAB EOS% 1.0-6.0 % Eosinophils Normal 1.5 LAB BAS% 0.0-2.0 % Basophils Normal 0.3 LAB ANC 1.8-7.0 10*3/uL Abs High Neutrophile Cnt 12.5 LAB ALC 1.0-4.3 10*3/uL Abs Lymph Cnt Normal 4.3 LAB AMC 0.0-0.8 10*3/uL Abs Monocyte High Cnt 1.2 LAB AEC 0.0-0.5 10*3/uL Abs Eosin Cnt Normal 0.3 LAB ABC 0.0-0.2 10*3/uL Abs Baso Cnt Normal 0.1 Performed By: #### PRIYANKA MARTINEZ3 #### [employer] [address] [address] COMP METABOLIC PANEL Collected: 11/30/2017 Status: F Source: Fundamo (Proprietary) 5:08 AM SYSTEM REPOSITORY TYPE CODE TESTS RESULT OUT OF RANGE REFERENCE UNITS LAB NA3 137-145 mmol/L Low Sodium 136 LAB K3 3.5-5.1 mmol/L Normal Potassium 3.9 LAB CL3 98-107 mmol/L Chloride Normal 104 LAB CO23 22-30 mmol/L Low Carbon Dioxide 21 LAB ANIN3 NA Anion Gap 11 LAB GLUC3 70-100 mg/dL High Glucose 114 LAB BUN3 7-20 mg/dL Urea Normal Nitrogen 9 LAB CRET3 0.52-1.25 mg/dL Low Creatinine 0.40 LAB GF3BR >60 mL/min eGFR > 60.0 LAB GF3WR >60 mL/min eGFR OTHER > 60.0 Result Comment: Source- MDRD equation with creatinine calibration to IDMS(NKDEP) eGFR not recommended for drug dose adjustment LAB CA3 8.4-10.4 mg/dL Calcium Normal 9.4 LAB ALB3 3.5-5.0 g/dL Albumin, Serum Normal 4.1 LAB TP3 6.3-8.2 g/dL Total Protein Normal 6.7 LAB BILT3 0.2-1.3 mg/dL Normal Bilirubin,Total 0.3 LAB ALKP3 38-126 U/L Alkaline Normal Phosphatase 70 LAB ALT3 13-69 U/L ALT (SGPT) Normal 28 LAB AST3 15-46 U/L Low AST (SGOT) 12 Performed By: #### MICHELLE CMP3 #### [facility] [employer] [address] [address] DISCHARGE SUMMARY Observed: 11/29/2017 Status: F Source: Fundamo (Proprietary) 8:15 AM SYSTEM REPOSITORY Discharge Summary Rebecca Rodney 11/24/2017 Reasons for Admission on 11/24/2017 11:23 PM Preeclampsia, third trimester [O14.93] Pertinent Findings & Procedures: Rebecca Rodney is a 22yo who presented at 28/4 on 11/24 as a transport from [place]. She had a known history of chronic hypertension and received the diagnosis of superimposed preeclampsia with severe features based on severe range BPs at the outside hospital requiring treatment with labetalol 20mg and 40mg. She was on labetalol 300mg BID which was titrated up to TID on admission. Preeclampsia labs were normal on admission. She had a 24 hour urine that was elevated. She also reported a history of an arrhythmia for which she previously followed with Cardiology and was on cardizem in the past. Cardiology was consulted and recommended an echo. Echo showed EF of 56% with grade I diastolic dysfunction. Per cardiology, no change in medication or further intervention was needed. Her labetalol was titrated to 600mg TID on 11/30. Her blood pressures were stable for the next week on this medication. Her repeat 24 hour urine was 210 suggesting that this was an exacerbation of chronic hypertension and not superimposed preeclampsia. She was also found to have elevated BGTs during her admission. Fasting and 1h PP BGTs were checked with at least 2 elevated BGTs per day. These were believed to be falsely elevated as the patient was not fasting for more than 3-4 hours at any given time. She was offered a 3h GTT, but she declined. BGT monitoring was recommended on discharge. Blood Type/Rh: Rh+ Antibody Screen: Antibody Screen Date Value Ref Range Status 12/09/2017 NEG NA Final Comment: [facility], [address] [place] [id number] Rubella: Lab Results Component Value Date RUBELLAIGG immune 07/11/2017 Discharge to: Home Meds: Rebecca Rodney Home Medication Instructions BRYAN:[id number] Printed on:12/09/17 300 Medication Information blood glucose monitor strips Check BGT fasting and 2 hr postprandial labetalol (NORMODYNE) 300 MG tablet Take 2 tablets by mouth every 8 hours Lancets MISC Check BGTs fasting and 2hr postprandial Lisdexamfetamine Dimesylate (VYVANSE PO) Take by mouth as needed magnesium gluconate (MAGONATE) 500 MG tablet Take 500 mg by mouth every evening Vit-Fe Fumarate-FA ( 1+1 PO) Take 1 tablet by mouth daily Activity: activity as tolerated Diet: diabetic diet Follow up: 9/5 days with MFM, 1w with primary OB Condition on discharge: good and stable Discharge date: 12/11/17 Discharge dx: Chronic hypertension Preeclampsia, third trimester [O14.93] Patient Active Problem List Diagnosis ? SOBOE (shortness of breath on exertion) ? Morbid obesity (HCC) ? Irregular menstrual cycle ? Hypercholesteremia ? HTN (hypertension) ? Daytime sleepiness ? Back pain ? Preeclampsia, third trimester ? Obesity affecting in third trimester Veronica Parr MD on 12/09/2017 at 7:11 PM MFM US AFTER Observed: 11/27/2017 Status: F Source: Fundamo (Proprietary) 1ST TRIMESTER 8:22 AM SYSTEM REPOSITORY Patient Name: REBECCA RODNEY Maternal Medicine Exam Date/Time 11/27/2017 08:21:10 EDT Exam [facility] US After 1st Trimester Ordering Physician ADEBAYO REDDY Accession Number [id number] Reason For Exam preeclampsia Report OBSTETRICS REPORT (Signed Final 11/30/2017 05:13 pm) Patient Info ID #: [id number] : [birth year] (22 yrs) Name: REBECCA RODNEY Visit Date: 11/27/2017 08:22 am Performed By Performed By: Chari Witt Referred By: ADEBAYO REDDY RDMS, MD Attending: Lauren Lock MD Location: [facility] Service(s) Provided US >= 14 weeks [address] Indications Preeclapsia Morbid obesity Evaluation Num Of Fetuses: 1 Heart 162 Rate(bpm): Cardiac Activity: Present Lie: Longitudinal Presentation: Cephalic Placenta: Posterior Grade 2 Amniotic Fluid QUENTIN FV: Within normal limits QUENTIN Sum: 13.42 cm 41 %Tile Larg Pckt: 3.84 cm RUQ: 3.84 cm RLQ: 2.95 cm LUQ: 2.81 cm LLQ: 3.82 cm Biometry -------- BPD: 70.6 mm G. Age: 28w 2d 23 % CI: 77.9 % 70 - 86 OFD: 90.6 mm FL/HC: 20.8 % 19.6 - 20.8 HC: 257.1 mm G. Age: 27w 6d 5 % HC/AC: 1.03 0.99 - 1.21 AC: 250.5 mm G. Age: 29w 2d 56 % FL/BPD: 75.6 % 71 - 87 FL: 53.4 mm G. Age: 28w 3d 22 % FL/AC: 21.3 % 20 - 24 LV: 3.97 mm RIGHT FL: 53.4 mm G. Age: 28w 3d 22 % LEFT Est. FW: 1279 gm 2 lb 13 oz 34 % Gestational Age Clinical RITA: 28w 6d RITA: 02/13/18 U/S Today: 28w 3d RITA: 02/16/18 Best: 28w 6d Det. By: Clinical RITA RITA: 02/13/18 Anatomy ------- Cranium: Normal appearance LVOT: Normal appearance Cavum: Normal appearance Aortic Arch: Normal appearance Ventricles: Normal appearance Ductal Arch: Normal appearance Choroid Plexus: Normal appearance Diaphragm: Normal appearance Cerebellum: Normal appearance Stomach: Normal appearance Posterior Fossa: Normal appearance Abdomen: Normal appearance Nuchal Fold: Normal appearance Abdominal Wall: Normal appearance Face: Suboptimal views Cord Vessels: Normal 3-Vessel Cord Lips: Normal appearance Kidneys: Normal appearance Palate: Normal appearance Bladder: Normal appearance Thoracic: Normal appearance Spine: Suboptimal views Heart: Normal appearance Upper Present Extremities: RVOT: Normal appearance Lower Present Extremities: Impression - Single living fetus with a gestational age of 28w 6d based on the reported clinical dates. - Current growth parameters are consistent with the clinical date, indicating normal growth. - Estimated weight corresponds to the 34th percentile for 28w 6d - Amniotic fluid Within normal limits. - Normal anatomic survey. anatomical evaluation was performed and no structural abnormalities are noted. - Ultrasound evaluation of anatomy is limited due to advance gestational age/ maternal body habitus/ position. Recommendations Clinical correlation is suggested. Lauren Lock MD Electronically Signed Final Report 11/30/2017 05:13 pm Final Dictated: 11/27/2017 8:22 am Dictating Physician: LAUREN LOCK Signed Date and Time: 11/30/2017 5:14 pm Signed by: LAUREN LOCK HEMOGRAM Collected: 11/27/2017 Status: F Source: Fundamo (Proprietary) 5:49 AM SYSTEM REPOSITORY TYPE CODE TESTS RESULT OUT OF RANGE REFERENCE UNITS LAB IWBC 3.6-10.7 10*3/uL High WBC 16.2 LAB RBC 3.80-5.20 10*6/uL RBC Normal 4.27 LAB HGB 11.7-16.0 g/dL Normal Hemoglobin 11.9 LAB HCT 35.0-47.0 % Low Hematocrit 34.5 LAB MCV 79.0-98.0 fL MCV Normal 80.7 LAB MCH 26.0-34.0 pg MCH Normal 27.9 LAB MCHC 32.0-36.0 % MCHC Normal 34.6 LAB RDW 11.5-14.5 % High RDW 14.6 LAB PLT 140-440 10*3/uL Platelet Normal 258 LAB MPV 7.4-10.4 fL MPV Normal 8.3 Performed By: #### HEMOG, CMP3 #### [facility] [employer] [address] [place] [phone] COMP METABOLIC PANEL Collected: 11/27/2017 Status: F Source: Fundamo (Proprietary) 5:49 AM SYSTEM REPOSITORY TYPE CODE TESTS RESULT OUT OF RANGE REFERENCE UNITS LAB NA3 137-145 mmol/L Sodium Normal 137 LAB K3 3.5-5.1 mmol/L Normal Potassium 3.6 LAB CL3 98-107 mmol/L Chloride Normal 105 LAB CO23 22-30 mmol/L Low Carbon Dioxide 21 LAB ANIN3 NA Anion Gap 11 LAB GLUC3 70-100 mg/dL High Glucose 109 LAB BUN3 7-20 mg/dL Low Urea Nitrogen 6 LAB CRET3 0.52-1.25 mg/dL Low Creatinine 0.34 LAB GF3BR >60 mL/min eGFR > 60.0 LAB GF3WR >60 mL/min eGFR OTHER > 60.0 Result Comment: Source- MDRD equation with creatinine calibration to IDMS(NKDEP) eGFR not recommended for drug dose adjustment LAB CA3 8.4-10.4 mg/dL Calcium Normal 9.4 LAB ALB3 3.5-5.0 g/dL Albumin, Serum Normal 3.8 LAB TP3 6.3-8.2 g/dL Low Total Protein 6.1 LAB BILT3 0.2-1.3 mg/dL Normal Bilirubin,Total 0.2 LAB ALKP3 38-126 U/L Alkaline Normal Phosphatase 61 LAB ALT3 13-69 U/L ALT (SGPT) Normal 26 LAB AST3 15-46 U/L Low AST (SGOT) 13 Performed By: #### HEMOG, CMP3 #### [employer] [address] [place] [phone] OFFICE VISIT REPORT Observed: 11/26/2017 Status: F Source: AMBIKA 7:28 PM [address] [place] [address] OFFICE VISIT Date of Service: 11/24/17 MR#: [id number] Acct: [id number] Patient: REBECCA RODNEY Rep #: [id number] : 1995 Provider: Mishel Pacheco MD Age/Sex: 22/F Location: 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 Is patient in pain?: No Allergies diphenhydramine [From Benadryl] Allergy (Mild, Verified 11/24/17 15:28) increases anxiety Medications vitamin,calcium,grtbzejd-igwo-jrzvc acid tablet 1 tab PO QDAY 07/06/17 [History Confirmed 11/24/17] promethazine 12.5 mg tablet 12.5 mg PO Q6H PRN #60 tab 08/31/17 [Rx Confirmed 11/24/17] magnesium oxide 500 mg capsule 500 mg PO QDAY cap 10/17/17 [History Confirmed 11/24/17] blood pressure monitor kit See Dose Instructions .ROUTE .MEDSUPPLY #1 ea 11/22/17 [Rx Confirmed 11/24/17] labetalol 300 mg tablet 300 mg PO BID 11/22/17 [History Confirmed 11/24/17] betamethasone acetate and sodium phos 6 mg/mL suspension for injection 12 mg IM QDAY #5 ml 11/24/17 [Rx Confirmed 11/24/17] Is last menstrual period known: Yes Post menopausal: No Patient : Yes 11/26/171927 <Electronically signed by Mishel Pacheco MD> Date Mishel Pacheco MD Cosigner Signature: Date (if applicable) CC: CONTRACT AGENT OFFICE VISIT Observed: 11/26/2017 Status: F Source: AMBIKA REPORT 7:15 PM [facility] [address] [place] [address] OFFICE VISIT Date of Service: 11/24/17 MR#: [id number] Acct: [id number] Name: REBECCA RODNEY Carlos Rep #: [id number] : 1995 Provider: Mishel Pacheco MD Age/Sex: 22/F Location: [facility] Status: Signed Intake Vital Signs11/24/17 Body Mass Index (BMI) 54.5 11/24/17 Blood Pressure 148/84 11/24/17 Height 5 ft 7 in 11/24/17 Weight: 348 lb 11/24/17 Body Mass Index (BMI) 54.5 11/24/17 Blood Pressure 148/84 Intake Visit Reasons: BP CHECK Allergies diphenhydramine [From Benadryl] Allergy (Mild, Verified 11/24/17 15:28) increases anxiety Medications vitamin,calcium,nadfdftt-zwol-rwflk acid tablet 1 tab PO QDAY 07/06/17 [History Confirmed 11/24/17] promethazine 12.5 mg tablet 12.5 mg PO Q6H PRN #60 tab 08/31/17 [Rx Confirmed 11/24/17] magnesium oxide 500 mg capsule 500 mg PO QDAY cap 10/17/17 [History Confirmed 11/24/17] blood pressure monitor kit See Dose Instructions .ROUTE .MEDSUPPLY #1 ea 11/22/17 [Rx Confirmed 11/24/17] labetalol 300 mg tablet 300 mg PO BID 11/22/17 [History Confirmed 11/24/17] betamethasone acetate and sodium phos 6 mg/mL suspension for injection 12 mg IM QDAY #5 ml 11/24/17 [Rx Confirmed 11/24/17] Last Menstral Period: 05/09/17 PFSH PFSH Medical History Anxiety (Acute) Surgical History S/P tonsillectomy and adenoidectomy (Resolved) lymph node removed (Resolved) Family History Father Hypertension Grandmother Diabetes Mother Cervical cancer Social History Smoking Status: Never smoker alcohol intake: never substance use type: does not use caffeine: Yes (occasional) what type of physical activity do you participate in: walking, none seatbelt use: always do you feel safe at home: Yes 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 DateName GA/Weeks Outcome Route Bth WeighInfant GeLabor LgtAnesthesiDel LocatProvider FOB t n h a n Unknown Delivery Date: On 07/06/17 @ 13:57 Dana Gupta Miscarriage at 5 weeks in 02/2017 HPI BP CHECK : Details: REBECCA RODNEY is a 22 year old who presents for visit secondary to elevated bps at home 140s/80s-90s. she has had an intermittent headache since yesterday, improved today spontaneously but still present. she denies any blurry vision, nausea/vomiting, or RUQ pain. OB Visit RITA Calculator Estimated Delivery Date 02/13/18 Based on LMP (certain) 05/09/17 Current WG 28w 5d Number 1 Expected Delivery Route/Plan Specific Issue/Plans flu vaccine: given tdap vaccine: given rhogam: na LARC form signed: [] labor support person: [employer] pain management: epidural cut cord/dad catch: yes : yes PP control planned: [] special requests: [] Initial Weight: 350 lb Date Weight BP Urine PFHR FuHt Pres MCTX DilatioFetal SVisit NProvideComment rot ov n t ote r s EGA Ef Gluco faced se 07/06/1349 lb 156/93 8 2 oz (+ 8w2 oz) 2d Visit Notes Visit Date: 11/24/17 reveiwed home bps- elevated to 140s over 80s which is higher than they have been in the past few weeks- having a headache today. labs normal two weeks ago. recommend evaluation on l and d- see hpi Mishel Pacheco MD on 11/24/17 Visit Date: 11/22/17 Note slight elevated BP. No headache or vision changes. States BPs at work are 130s/80s daily. Good FM. No VB, LOF NATIVIDAD LevineC on 11/22/17 Visit Date: 11/14/17 elevated bp- check cmp and urine protein cr ratio and increased labetalol to 300mg BID, fu 1 week Mishel Pacheco MD on 11/14/17 no vb lof good fm no regular ctx bp elevated today. no SAWANT BV cbc glucola Mishel Pacheco MD on 11/14/17 Visit Date: 10/17/17 No VB, LOF. Good FM. ED last night-sutures in left finger/dropped a glass bowl BLANCA Levine on 10/17/17 Visit Date: 08/31/17 no vb lof good fm no regualr ctx Mishel Pacheco MD on 09/05/17 labetalol increased borderline elevated bps at home. urine protein ratio sent. seeing neurologist for migraines. referring to PT and chiropractor also. no vb still having nausea Mishel Pacheco MD on 08/31/17 Visit Date: 08/03/17 bps WNL at home, needs nt screening and ekg done, ordered Mishel Pacheco MD on 08/04/17 Visit Date: 07/25/17 no vb cramping, elevated bps recommend starting labetalol, already had baseline urine negative for protein, ordered ekg Mishel Pacheco MD on 07/25/17 no vb cramping Mishel Pacheco MD on 07/25/17 Visit Date: 07/06/17 No visit notes to display ACOG First Trimester First Trimester: Desire for , Alcohol, Tobacco Cessation, Illicit/Recreational Drug/Substance Use, Intimate Partner Violence, Barriers to care, Unstable Housing, Communication Barriers, Environmental/Work Hazards, Anticipated Course of Care, Toxoplasmosis Precations, Use of Any medications, Sexual activity, Exercise, Dental Care, Sauna/Hot tub use, Seat Belt use, Childbirth classes/Hospital facilities, , Travel, Indications for US and Screening for Aneuploidy Diagnostics Diagnostics Labs Hct 37.5 % (37-47) 11/24/17 Hgb 12.8 g/dl (12.0-15.0) 11/24/17 Obstetrics Ultrasound 09/27/17 Glucose 1 Hr 50 gm 105 mg/dL (70-140) 11/14/17 Miscellaneous Test 08/07/17 Details: HIV: neg Urine Culture: neg Sequential Screen: neg NIPT Screen: not done Exam Const General: cooperative, healthy appearing, comfortable, no acute distress GI Inspection: normal to inspection Palpation: soft (gravid appropriate for gestational age) Neuro General: other (no clonus), deep tendon reflexes 2+ bilaterally Assessment AND Plan Problems 1. screening encounter Z36.9 08/07/17 NT normal 2. Supervision of high risk in first trimester O09.91 PRR RITA 02/13/18 Girl Crystal [employer] 3. Chronic hypertension affecting O10.919 labetalol 300mg bid, baseline labs ekg, baby ASA, testing at 32 weeks 4. Abnormal glucose in , antepartum O99.810 nl 3 hour gtt 5. BMI 50.0-59.9, adult Z68.43 nutrition consult, weekly nsts and growth us from 32 weeks 6. Severe pre-eclampsia in third trimester O14.13 transport to [facility] c/o Dr Ashvin Vasquez patient evaluated on labor and delivery- developed severely elevated blood pressures 170-180/90s. cHTN with SI preeclampsia with severe features- magnesium started 6g bolus followed by 2g/hr. labetalol 20mg then 40mg IV given. bps 130s/90s now. additional 200mg labetalol oral maintenance given at 1830, 300mg was given at 1400 today. Prematurity- celestone 12 mg given. transport to [facility] Coding Level of Care Code OB Routine Diagnoses screening encounter Z36.9 Supervision of high risk in first trimester O09.91 Chronic hypertension affecting O10.919 Abnormal glucose in , antepartum O99.810 BMI 50.0-59.9, adult Z68.43 Severe pre-eclampsia in third trimester O14.13 Trimester: third trimester 11/26/17 1915 <Electronically signed by Mishel Pacheco MD> Date Mishel Pacheco MD Cosigner Signature: Date (if applicable) CC: Observed: 11/26/2017 Status: F Source: [facility] GROUP B STREP 4:27 PM SYSTEM REPOSITORY SCREEN PCR Order Comment: Specimen Source Comment:Vaginal-Perirectal Group B Strep Screen PCR --> Status: F POSITIVE Expected Result: Negative CDC guidelines for prevention of Group B Strep disease recommends collection of both vaginal and rectal specimens for optimal recovery of GBS. Methodology - Real Time PCR (Cepheid) Expected Result: Negative CDC guidelines for prevention of Group B Strep disease recommends collection of both vaginal and rectal specimens for optimal recovery of GBS. Methodology - Real Time PCR (Cepheid) 1 Organism Streptococcus agalactiae (Group B) Isolated: Susceptibility testing not routinely performed. Group B streptococcus is universally susceptible to beta-lactam antibiotics and vancomycin. If patient is beta-lactam allergic, please call [facility] Microbiology lab ([phone]) within 2 days to request susceptibility testing. If isolated from urine, Group B strep may indicate colonization or infection. 1 Organism Antibiotic Result Intrp Ampicillin(SANDER) <= 0.25 S Ceftriaxone(SANDER) <= 0.12 S Clindamycin(SANDER) >= 1 R Erythromycin(SANDER) >= 8 R Inducible Clindamycin Resistant(SANDER)Neg Neg Levofloxacin(SANDER) = 1 S Linezolid(SANDER) <= 2 S Penicillin(SANDER) = 0.12 S Tetracycline(SANDER) >= 16 R Vancomycin(SANDER) = 0.5 S Performed By: #### GBSPC #### [facility] [employer] [address] [place] [phone] [facility] [employer] [address] [place] [address] [id number] Observed: 11/26/2017 Status: F Source: [employer] (Proprietary) GROUP A STREP 1:14 PM SYSTEM REPOSITORY SCREEN BY PCR Order Comment: Specimen Source Comment:Throat Group A Strep Screen by PCR --> Status: F NOT Detected Expected Result: Not Detected Methodology - Real Time PCR (Cepheid) Expected Result: Not Detected Methodology - Real Time PCR (Cepheid) Performed By: #### GASPC #### [facility] [employer] [address] [place] [phone] ECHO COMPLETE W/WO Observed: 11/26/2017 Status: F Source: [employer] 7:18 AM SYSTEM REPOSITORY Patient Name: REBECCA RODNEY Ultrasound Exam Date/Time 11/26/2017 08:53:41 EDT Exam Echo Complete w/wo Contrast Ordering Physician MD LEO, ERIN Accession Number [id number] Reason For Exam preclampsia Report TRANSTHORACIC ECHOCARDIOGRAM PATIENT: Rebecca Rodney STUDY DATE: 11/26/2017 : 1995 AGE: 22 HT/WT: 170.2 cm (67 156.9 kg (345.3 in) lb) GENDER: F BP: 142 / 83 LOCATION: [facility] PATIENT Inpatient [facility] STATUS: *ORDERING PHYSICIAN: * Erin Begum *READING PHYSICIAN: * Rodo Foster MD *WATER RIGHTS SPECIALIST: Griffin Zhu RD, AE --- INDICATIONS: Preclampsia O15.2 --- HISTORY: 28 weeks . --- CONCLUSIONS SUMMARY: 1. Left ventricle: There is mild concentric hypertrophy. Systolic function is normal by the biplane method of disks. The estimated ejection fraction is 56%. There are no regional wall motion abnormalities. 2. Pericardium, extracardiac: A possible, small pericardial effusion is identified posterior to the heart. There is no evidence of hemodynamic compromise. 3. No significant valve disease. --- STUDY DATA: Complete transthoracic echocardiogram. Procedure: Image quality was suboptimal. M-mode, complete 2D, complete spectral Doppler, and color flow Doppler images were acquired and archived for permanent storage and are available for subsequent review. Study status: Routine. Patient status: Inpatient. --- FINDINGS LEFT VENTRICLE: The cavity size is normal. There is mild concentric hypertrophy. Systolic function is normal by the biplane method of disks. The estimated ejection fraction is 56%. There are no regional wall motion abnormalities. The pulmonary vein flow pattern is normal. Doppler parameters are consistent with abnormal left ventricular relaxation (grade 1 diastolic dysfunction). E/e' average: 9 RIGHT VENTRICLE: The cavity size is normal. Wall thickness is normal. Systolic function is normal. Right ventricular systolic pressure is within the normal range. VENTRICULAR SEPTUM: There is no evidence of a ventricular septal defect. LEFT ATRIUM: The atrium is normal in size. RIGHT ATRIUM: The atrium is normal in size. ATRIAL SEPTUM: Color Doppler shows no evidence of shunt. MITRAL VALVE: Structurally normal valve. Doppler: There is no evidence for stenosis. There is trivial, less than 1+ regurgitation. Peak gradient (D): 5 mm Hg. AORTIC VALVE: Structurally normal valve. Trileaflet. Doppler: There is no stenosis. There is no regurgitation. Peak gradient (S): 20 mm Hg. Peak velocity (S): 2.2 m/sec. TRICUSPID VALVE: Structurally normal valve. Doppler: There is trivial, less than 1+ regurgitation. PULMONIC VALVE: Structurally normal valve. Doppler: There is trivial, less than 1+ regurgitation. Peak gradient (S): 10 mm Hg. AORTA: The aorta is normal. PULMONARY ARTERY: Main pulmonary artery: Normal. PERICARDIUM: A possible, small pericardial effusion is identified posterior to the heart. There is no evidence of hemodynamic compromise. SYSTEMIC VEINS: Inferior vena cava: The vessel is normal. The IVC collapses by greater than 50% with inspiration. --- Measurements Left ventricle Value Reference LV ID, ED 4.9 cm 3.9 - 5.3 LV ID, ES 3.1 cm --------- LV PW thickness, ED (H) 1.2 cm 0.6 - 0.9 LV end-diastolic volume, 1-p A4C 90 ml 56 - 104 LV end-systolic volume, 1-p A4C 42 ml 19 - 49 LV end-diastolic volume, 2-p (H) 113 ml 56 - 104 LV end-systolic volume, 2-p 49 ml 19 - 49 LV ejection fraction, 2-p 56 % >=55 LV E/e', lateral 8.7 --------- LV E/e', medial 9.6 --------- LV E/e', average 9.1 --------- Ventricular septum Value Reference IVS thickness, ED (H) 1.3 cm 0.6 - 0.9 LVOT Value Reference LVOT mean velocity, S 1 m/sec --------- LVOT VTI, S 25.5 cm --------- LVOT peak gradient, S 8 mm Hg --------- Aortic valve Value Reference Aortic valve peak velocity, S 2.2 m/sec --------- Aortic peak gradient, S 20 mm Hg --------- Aorta Value Reference Ascending aorta ID, A-P, S 2.5 cm --------- Left atrium Value Reference LA volume/bsa, ES, 2-p 19 ml/m2 --------- Mitral valve Value Reference Mitral E-wave peak velocity 1.1 m/sec --------- Mitral A-wave peak velocity 1.5 m/sec --------- Mitral deceleration time 106 ms --------- Mitral peak gradient, D 5 mm Hg --------- Mitral E/A ratio, peak 0.8 --------- Right atrium Value Reference RA area, ES, A4C 13 cm2 10 - 18 Pulmonic valve Value Reference Pulmonic peak gradient, S 10 mm Hg --------- Legend: (L) and (H) melo values outside specified reference range. Electronically signed by Rodo Foster MD 11/26/2017 13:15 Final Dictated: 11/26/2017 1:15 pm Dictating Physician: MD FOSTER STEPHEN M Signed Date and Time: 11/26/2017 1:15 pm Signed by: MD FOSTER STEPHEN M HEMOGRAM Collected: 11/26/2017 Status: F Source: [facility] (Proprietary) 6:15 AM SYSTEM REPOSITORY TYPE CODE TESTS RESULT OUT OF RANGE REFERENCE UNITS LAB IWBC 3.6-10.7 10*3/uL High WBC 19.4 LAB RBC 3.80-5.20 10*6/uL RBC Normal 4.29 LAB HGB 11.7-16.0 g/dL Normal Hemoglobin 12.1 LAB HCT 35.0-47.0 % Low Hematocrit 34.6 LAB MCV 79.0-98.0 fL MCV Normal 80.7 LAB MCH 26.0-34.0 pg MCH Normal 28.2 LAB MCHC 32.0-36.0 % MCHC Normal 34.9 LAB RDW 11.5-14.5 % RDW Normal 14.1 LAB PLT 140-440 10*3/uL Platelet Normal 279 LAB MPV 7.4-10.4 fL MPV Normal 8.4 Performed By: #### HEMOG, CMP3 #### [facility] [address] [place] [id number] COMP METABOLIC PANEL Collected: 11/26/2017 Status: F Source: [facility] (Proprietary) 6:15 AM SYSTEM REPOSITORY TYPE CODE TESTS RESULT OUT OF RANGE REFERENCE UNITS LAB NA3 137-145 mmol/L Sodium Normal 138 LAB K3 3.5-5.1 mmol/L Normal Potassium 3.8 LAB CL3 98-107 mmol/L High Chloride 109 LAB CO23 22-30 mmol/L Low Carbon Dioxide 20 LAB ANIN3 NA Anion Gap 8 LAB GLUC3 70-100 mg/dL High Glucose 137 LAB BUN3 7-20 mg/dL Low Urea Nitrogen 6 LAB CRET3 0.52-1.25 mg/dL Low Creatinine 0.34 LAB GF3BR >60 mL/min eGFR > 60.0 LAB GF3WR >60 mL/min eGFR OTHER > 60.0 Result Comment: Source- MDRD equation with creatinine calibration to IDMS(NKDEP) eGFR not recommended for drug dose adjustment LAB CA3 8.4-10.4 mg/dL Calcium Normal 9.1 LAB ALB3 3.5-5.0 g/dL Albumin, Serum Normal 4.0 LAB TP3 6.3-8.2 g/dL Total Protein Normal 6.6 LAB BILT3 0.2-1.3 mg/dL Normal Bilirubin,Total 0.3 LAB ALKP3 38-126 U/L Alkaline Normal Phosphatase 66 LAB ALT3 13-69 U/L ALT (SGPT) Normal 19 LAB AST3 15-46 U/L Low AST (SGOT) 11 Performed By: #### HEMOG, CMP3 #### [facility] [address] [place] [phone] CREAT CLEARANCE,24HR Collected: 11/26/2017 Status: F Source: [facility] (Proprietary) 1:26 AM SYSTEM REPOSITORY TYPE CODE TESTS RESULT OUT OF RANGE REFERENCE UNITS LAB CC24 80.0-125.0 mL/min/{1.7 High 3_m2} Creat 195.1 Clearance,24H r LAB 24CCL 1.0-1.8 g/(24.h) Normal Creatinine, 1.6 Ur 24 Hr LAB CRT3 0.52-1.25 mg/dL Low Creatinine, 0.39 Serum LAB CCUR mg/dL Creatinine, 61.6 Urine LAB HT3 [in_i] Height 67.0 LAB WT3 [lb_av] Weight 346 LAB 24VLM mL Total Volume 2614 Performed By: #### CC24H, TP324 #### [facility] [address] [place] [phone] TOTAL PROTEIN,UR 24HR Collected: 11/26/2017 Status: F Source: [facility] (Proprietary) 1:26 AM SYSTEM REPOSITORY TYPE CODE TESTS RESULT OUT OF RANGE REFERENCE UNITS LAB 3TP24 42-225 mg/(24.h) High Total 627 Protein, Ur 24Hr Performed By: #### CC24H, TP324 #### [facility] [address] [phone] CR CHEST PA/LAT Observed: 11/25/2017 Status: F Source: [facility] (Proprietary) 2:17 PM SYSTEM REPOSITORY Patient Name: REBECCA RODNEY Diagnostic Radiology Exam Date/Time 11/25/2017 14:17:43 EDT Exam CR Chest PA/LAT Ordering Physician [facility] Accession Number [id number] CPT4 Codes 08867 () Reason For Exam shortness of breath Report CHEST X-RAY PA/LATERAL CLINICAL INDICATION: Shortness of breath Frontal and lateral plain films of the chest were obtained. COMPARISON: None FINDINGS: The cardiac silhouette is within normal limits. No focal consolidation is seen within the lungs. No pleural effusion or pneumothorax is identified. The bony structures of the chest are unremarkable as visualized. IMPRESSION: No acute cardiopulmonary disease. Report Dictated on Final Dictated: 11/25/2017 2:17 pm Dictating Physician: JIMBO ERIC Signed Date and Time: 11/25/2017 2:17 pm Signed by: JIMBO ERIC Transcribed Date and Time: 11/25/2017 2:17 Observed: 11/25/2017 Status: F Source: [facility] (Proprietary) TS GEL 2:17 AM SYSTEM REPOSITORY ABO Group: A Rh, Gel: POS Antibody Screen Gel: NEG Performed By: #### TSGL #### [facility] [address] [address] HISTORY AND PHYSICAL Observed: 11/24/2017 Status: F Source: [facility] EXAM 6:32 PM [facility] REPOSITORY [facility] Medical Records Department [address] [place] [address] History and Physical 11/24/17 1831 MR#: [id number] Acct: [id number] Name: REBECCA RODNEY Rep #: [id number] : 1995 22 From: Mishel Pacheco MD PCP: Care Physician, No Primary Status: REG CLI Y Location: [id number] - Problem List (1) Severe preeclampsia Status: Acute Qualifiers: Comment: transport to [facility] c/o Dr Lock (2) screening encounter Status: Acute Comment: 08/07/17 NT normal (3) Supervision of high risk in first trimester Status: Acute Comment: PRR RITA 02/13/18 Girl Crystal Gustabo (4) Chronic hypertension affecting Status: Acute Comment: labetalol 300mg bid, baseline labs ekg, baby ASA, testing at 32 weeks (5) Abnormal glucose in , antepartum Status: Acute Comment: nl 3 hour gtt (6) BMI 50.0-59.9, adult Status: Chronic Comment: nutrition consult, weekly nsts and growth us from 32 weeks History and Physical Date of Admission: 11/24/17 Allergies diphenhydramine [From Benadryl] Allergy (Mild, Verified 11/24/17 15:28) increases anxiety Medications vitamin,calcium,sfolmrmb-mcsh-jhylv acid tablet 1 tab PO QDAY 07/06/17 [History Confirmed 11/24/17] promethazine 12.5 mg tablet 12.5 mg PO Q6H PRN #60 tab 08/31/17 [Rx Confirmed 11/24/17] magnesium oxide 500 mg capsule 500 mg PO QDAY cap 10/17/17 [History Confirmed 11/24/17] blood pressure monitor kit See Dose Instructions .ROUTE .MEDSUPPLY #1 ea 11/22/17 [Rx Confirmed 11/24/17] labetalol 300 mg tablet 300 mg PO BID 11/22/17 [History Confirmed 11/24/17] betamethasone acetate and sodium phos 6 mg/mL suspension for injection 12 mg IM QDAY #5 ml 11/24/17 [Rx Confirmed 11/24/17] Last Menstral Period: 05/09/17 PFSH PFSH Medical History Anxiety (Acute) Surgical History S/P tonsillectomy and adenoidectomy (Resolved) lymph node removed (Resolved) Family History Father Hypertension Grandmother Diabetes Mother Cervical cancer Social History Smoking Status: Never smoker alcohol intake: never substance use type: does not use caffeine: Yes (occasional) what type of physical activity do you participate in: walking, none seatbelt use: always do you feel safe at home: Yes 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 Date Name GA/Weeks Outcome Route Bth Weight Gen Labor Lgth Anesthesia Del Locatn Provider FOB Unknown Delivery Date: On 07/06/17 @ 13:57 Dana Gupta Miscarriage at 5 weeks in 02/2017 HPI BP CHECK : Details: REBECCA RODNEY is a 22 year old who presents for visit secondary to elevated bps at home 140s/80s-90s. she has had an intermittent headache since yesterday, improved today spontaneously but still present. she denies any blurry vision, nausea/vomiting, or RUQ pain. OB Visit RITA Calculator Estimated Delivery Date 02/13/18 Based on LMP (certain) 05/09/17 Current WG 28w 3d Number 1 Expected Delivery Route/Plan Specific Issue/Plans flu vaccine: given tdap vaccine: given rhogam: na LARC form signed: [] labor support person: Gustabo pain management: epidural cut cord/dad catch: yes : yes PP control planned: [] special requests: [] Initial Weight: 350 lb Labs Hct 37.5 % (37-47) 11/24/17 Hgb 12.8 g/dl (12.0-15.0) 11/24/17 Obstetrics Ultrasound 09/27/17 Glucose 1 Hr 50 gm 105 mg/dL (70-140) 11/14/17 Miscellaneous Test 08/07/17 Blood Type A POSITIVE 07/11/17 Antibody Screen NEGATIVE 07/11/17 Rubella IgG Antibody 19.5 IU/mL 07/11/17 RPR NONREACTIVE (NONREACTIVE) 07/11/17 Hep Bs Antigen Negative (Negative) 07/11/17 Chlam trachomat DNA PCR Negative (Negative) 07/06/17 N.gonorrhoeae DNA (PCR) Negative (Negative) 07/06/17 Details: HIV: neg Urine Culture: neg Sequential Screen: neg NIPT Screen: not done Exam Const General: cooperative, healthy appearing, comfortable, no acute distress GI Inspection: normal to inspection Palpation: soft (gravid appropriate for gestational age) Neuro General: other (no clonus), deep tendon reflexes 2+ bilaterally Assessment AND Plan Problems 1. screening encounter Z36.9 08/07/17 NT normal 2. Supervision of high risk in first trimester O09.91 PRR RITA 02/13/18 Girl Crystal Gustabo 3. Chronic hypertension affecting O10.919 labetalol 300mg bid, baseline labs ekg, baby ASA, testing at 32 weeks 4. Abnormal glucose in , antepartum O99.810 nl 3 hour gtt 5. BMI 50.0-59.9, adult Z68.43 nutrition consult, weekly nsts and growth us from 32 weeks 6. Severe pre-eclampsia in third trimester O14.13 transport to [facility] c/o Dr Ashvin Vasquez patient evaluated on labor and delivery- developed severely elevated blood pressures 170-180/90s. cHTN with SI preeclampsia with severe features- magnesium started 6g bolus followed by 2g/hr. labetalol 20mg then 40mg IV given. bps 130s/90s now. additional 200mg labetalol oral maintenance given at 1830, 300mg was given at 1400 today. Prematurity- celestone 12 mg given. transport to [facility] 11/24/17 1832 <Electronically signed by Misehl Pacheco MD> Date Mishel Pacheco MD Cosigner Signature: Date (if applicable) CC: No Primary Care Physician; Mishel Pacheco MD Signed CBC-COMPLETE BLOOD CNT Collected: 11/24/2017 Status: F Source: [facility] NO DIFF 5:00 PM [facility] REPOSITORY TYPE CODE TESTS RESULT OUT OF RANGE REFERENCE UNITS LAB L100.1000 4.4-11.0 K/mm3 High WBC 14.4 LAB L100.1200 4.2-5.4 M/mm3 Normal RBC 4.59 LAB L100.1300 12.0-15.0 g/dl Normal HGB 12.8 LAB L100.1400 37-47 % Normal HCT 37.5 LAB L100.1500 81-99 fL Normal MCV 81.7 LAB L100.1600 27.0-32.0 pg Normal MCH 27.9 LAB L100.1700 32-36 g/gl Normal MCHC 34.1 LAB L100.1810 11.6-14.6 % Normal RDW CV 13.7 LAB L100.1820 35.1-43.9 fl Normal RDW SD 39.9 LAB L100.1900 150-450 K/mm3 Normal PLT 293 LAB L100.2000 6.2-12.0 fl Normal MPV 10.4 Performed By: #### L100.0500, L300.3900, L300.4310 #### [facility] [address] [place], [place], [id number] PROTHROMBIN TIME W/INR Collected: 11/24/2017 Status: F Source: [facility] 5:00 PM [facility] REPOSITORY TYPE CODE TESTS RESULT OUT OF RANGE REFERENCE UNITS LAB L300.4150 11.7-14.9 SECONDS Normal PROTIME 13.1 LAB L300.4200 Normal INR 1.0 Performed By: #### L100.0500, L300.3900, L300.4310 #### [facility] [address] [place], [address] PARTIAL THROMBOPLAST Collected: 11/24/2017 Status: F Source: [facility] TIME 5:00 PM [facility] REPOSITORY TYPE CODE TESTS RESULT OUT OF RANGE REFERENCE UNITS LAB L300.4310 24.1-36.2 Seconds Normal PTT 24.4 Performed By: #### L100.0500, L300.3900, L300.4310 #### [facility] [address] [place], [address] SERUM CREATININE AND Collected: 11/24/2017 Status: F Source: [facility] GFR 5:00 PM [facility] REPOSITORY TYPE CODE TESTS RESULT OUT OF RANGE REFERENCE UNITS LAB L501.1100 0.55-1.02 mg/dL Low 0.49 CREAT,SERUM Result Comment: The validity of the calculated GFR AND GFRAA in patients over 70 years has not been determined. Clinical correlation is essential. LAB L501.1110 >60 mL/min Normal EST GFR 164 Result Comment: Non- GFR Calc LAB L501.1115 >60 mL/min Normal EST GFR - AA 198 Result Comment: GFR Calc LAB L501.1255 ml/min Normal Estimated CRCL 172.16 Performed By: #### L501.1105, L501.1400, L501.4100, L501.4405 #### [facility] [address] [place], [address] URIC ACID Collected: 11/24/2017 Status: F Source: [facility] 5:00 PM [facility] REPOSITORY TYPE CODE TESTS RESULT OUT OF RANGE REFERENCE UNITS LAB L501.1400 2.6-6.0 mg/dL Normal URIC 3.9 Result Comment: The drugs N-Acetylcysteine and Metamizole may falsely depress this assay. Performed By: #### L501.1105, L501.1400, L501.4100, L501.4405 #### [facility] [address] [place], [address] AST(SGOT) Collected: 11/24/2017 Status: F Source: [facility] 5:00 PM [facility] REPOSITORY TYPE CODE TESTS RESULT OUT OF RANGE REFERENCE UNITS LAB L501.4100 15-37 U/L Low AST 9 Performed By: #### L501.1105, L501.1400, L501.4100, L501.4405 #### [facility] [address] [place], [address] ALANINE AMINOTRANSFERAS Collected: 11/24/2017 Status: F Source: [facility] (SGPT) 5:00 PM [facility] REPOSITORY TYPE CODE TESTS RESULT OUT OF RANGE REFERENCE UNITS LAB L501.4405 13-56 U/L Normal ALT 19 Performed By: #### L501.1105, L501.1400, L501.4100, L501.4405 #### [facility] [address] [place], [address] PROTEIN+CREATININE Collected: Status: F Source: [facility] RATIO,URINE 11/24/2017 5:00 PM [facility] REPOSITORY TYPE CODE TESTS RESULT OUT OF RANGE REFERENCE UNITS LAB L501.1200 NO RANGE EST. mg/dL Normal UR CREAT 87.70 LAB L501.1930 <11.9 mg/dL High 15.3 PROTEIN,UR.R AN. LAB L501.1940 0-200 mg/g CRE Normal PROT:CRE 174 RATIO Performed By: #### L501.0900 #### [facility] [address] [place], [address] CONTRACT AGENT OFFICE VISIT Observed: 11/22/2017 Status: F Source: [facility] REPORT 4:02 PM [facility] REPOSITORY [facility] [address] [place] [address] OFFICE VISIT Date of Service: 11/22/17 MR#: [id number] Acct: [id number] Name: REBECCA RODNEY Carlos Rep #: [id number] : 1995 Provider: RONDA Márquez Age/Sex: 22/F Location: [facility] Status: Signed Intake Vital Signs11/22/17 Height 5 ft 7 in 11/22/17 Weight: 351 lb 11/22/17 Body Mass Index (BMI) 54.9 11/22/17 Blood Pressure 144/80 Intake Visit Reasons: BP check Linen Room Custodian Required: No Accompanied by: Is patient in pain?: No Allergies diphenhydramine [From Benadryl] Allergy (Mild, Verified 11/22/17 15:13) increases anxiety Medications vitamin,calcium,jhxirqpu-fqkb-opfip acid tablet 1 tab PO QDAY 07/06/17 [History Confirmed 11/22/17] promethazine 12.5 mg tablet 12.5 mg PO Q6H PRN #60 tab 08/31/17 [Rx Confirmed 11/22/17] magnesium oxide 500 mg capsule 500 mg PO QDAY cap 10/17/17 [History Confirmed 11/22/17] blood pressure monitor kit See Dose Instructions .ROUTE .MEDSUPPLY #1 ea 11/22/17 [Rx Confirmed 11/22/17] labetalol 300 mg tablet 300 mg PO BID 11/22/17 [History Confirmed 11/22/17] Last Menstral Period: 05/09/17 Zika: Zika virus screening: Positive ([facility]) : No PFSH PFSH Medical History Anxiety (Acute) Surgical History S/P tonsillectomy and adenoidectomy (Resolved) lymph node removed (Resolved) Family History Father Hypertension Grandmother Diabetes Mother Cervical cancer Social History Smoking Status: Never smoker alcohol intake: never substance use type: does not use caffeine: Yes (occasional) what type of physical activity do you participate in: walking, none seatbelt use: always do you feel safe at home: Yes 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 DateName GA/Weeks Outcome Route Bth WeighInfant GeLabor LgtAnesthesiDel LocatProvider FOB t n h a n Unknown Delivery Date: On 07/06/17 @ 13:57 Dana Gupta Miscarriage at 5 weeks in 02/2017 HPI BP check : Details: REBECCA RODNEY is a 22 year old who presents for routine OB visit. OB Visit RITA Calculator Estimated Delivery Date 02/13/18 Based on LMP (certain) 05/09/17 Current WG 28w 1d Number 1 Expected Delivery Route/Plan Specific Issue/Plans flu vaccine: given tdap vaccine: given rhogam: na LARC form signed: [] labor support person: Gustabo pain management: epidural cut cord/dad catch: yes : yes PP control planned: [] special requests: [] Initial Weight: Not Recorded Date Weight BP Urine PrFHR FuHt Pres MoCTX DilationFetal StVisit NoProviderComments E ot v te GA G Effac lucose ed Visit Notes Visit Date: 11/22/17 Note slight elevated BP. No headache or vision changes. States BPs at work are 130s/80s daily. Good FM. No VB, LOF Marielle Márquez WATER SUPERVISOR-C on 11/22/17 Visit Date: 11/14/17 elevated bp- check cmp and urine protein cr ratio and increased labetalol to 300mg BID, fu 1 week Mishel Pacheco MD on 11/14/17 no vb lof good fm no regular ctx bp elevated today. no SAWANT BV cbc glucola Mishel Pacheco MD on 11/14/17 Visit Date: 10/17/17 No VB, LOF. Good FM. ED last night-sutures in left finger/dropped a glass bowl Marielle Márquez NP-C on 10/17/17 Visit Date: 08/31/17 no vb lof good fm no regualr ctx Mishel Pacheco MD on 09/05/17 labetalol increased borderline elevated bps at home. urine protein ratio sent. seeing neurologist for migraines. referring to PT and chiropractor also. no vb still having nausea Mishel Pacheco MD on 08/31/17 Visit Date: 08/03/17 bps WNL at home, needs nt screening and ekg done, ordered Mishel Pacheco MD on 08/04/17 Visit Date: 07/25/17 no vb cramping, elevated bps recommend starting labetalol, already had baseline urine negative for protein, ordered ekg Mishel Pacheco MD on 07/25/17 no vb cramping Mishel Pacheco MD on 07/25/17 Visit Date: 07/06/17 No visit notes to display ACOG First Trimester First Trimester: Desire for , Alcohol, Tobacco Cessation, Illicit/Recreational Drug/Substance Use, Intimate Partner Violence, Barriers to care, Unstable Housing, Communication Barriers, Environmental/Work Hazards, Anticipated Course of Care, Toxoplasmosis Precations, Use of Any medications, Sexual activity, Exercise, Dental Care, Sauna/Hot tub use, Seat Belt use, Childbirth classes/Hospital facilities, , Travel, Indications for US and Screening for Aneuploidy Diagnostics Diagnostics Labs Blood Type A POSITIVE 07/11/17 Antibody Screen NEGATIVE 07/11/17 Hct 37.4 % (37-47) 11/14/17 Hgb 12.3 g/dl (12.0-15.0) 11/14/17 Obstetrics Ultrasound 09/27/17 Rubella IgG Antibody 19.5 IU/mL 07/11/17 RPR NONREACTIVE (NONREACTIVE) 07/11/17 Hep Bs Antigen Negative (Negative) 07/11/17 Glucose 1 Hr 50 gm 105 mg/dL (70-140) 11/14/17 Miscellaneous Test 08/07/17 Details: HIV: Urine Culture: Sequential Screen: NIPT Screen: Results [id number] Office Urine Glucose Negative Last Edit by Dana Gupta on 11/22/17 15:15 Office Urine Protein Negative Last Edit by Dana Gupta on 11/22/17 15:15 Assessment AND Plan Problems 1. Supervision of high risk in first trimester O. PRR RITA 02/13/18 Girl Gustabo 2. screening encounter Z36.9 08/07/17 NT Optimal draw dates: 09/03/17-09/17/17 3. Abnormal glucose in , antepartum O99.810 nl 3 hour gtt 4. BMI 50.0-59.9, adult Z68.43 nutrition consult, weekly nsts and growth us from 32 weeks 5. Hypertension affecting in second trimester O16.2 Plan Orders placed: BP cuff Rx and take bid:call if >140/90 Reviewed of labor precautions, movement/kick counts ACOG trimester education reviewed and updated See problem list details for updated plan of care Gestational age appropriate handout given RTO: 1 week Orders Orders: Medications New: Discontinued: Coding Level of Care Code OB Routine Diagnoses Supervision of high risk in first trimester O. screening encounter Z36.9 Abnormal glucose in , antepartum O99.810 BMI 50.0-59.9, adult Z68.43 Hypertension affecting in second trimester O16.2 Trimester: second trimester 11/22/17 1602 <Electronically signed by Marielle RIOS> Date Marielle RIOS Cosigner Signature: Date (if applicable) CC: CONTRACT AGENT OFFICE VISIT Observed: 11/14/2017 Status: F Source: [facility] REPORT 5:09 PM [facility] [address] [place] [address] OFFICE VISIT Date of Service: 11/14/17 MR#: [id number] Acct: [id number] Name: REBECCA RODNEY Rep #: [id number] : 1995 Provider: Mishel Pacheco MD Age/Sex: 22/F Location: [facility] Status: Signed Intake Vital Signs11/14/17 Height 5 ft 7 in 11/14/17 Weight: 350 lb 11/14/17 Body Mass Index (BMI) 54.8 11/14/17 Blood Pressure 154/90 Intake Visit Reasons: 26 week ob Linen Room Custodian Required: No Accompanied by: Is patient in pain?: No Allergies diphenhydramine [From Benadryl] Allergy (Mild, Verified 11/14/17 15:33) increases anxiety Medications vitamin,calcium,atmtzuip-blhj-pnbol acid tablet 1 tab PO QDAY 07/06/17 [History Confirmed 11/14/17] promethazine 12.5 mg tablet 12.5 mg PO Q6H PRN #60 tab 08/31/17 [Rx Confirmed 11/14/17] labetalol 200 mg tablet 200 mg PO BID #60 tab 09/27/17 [Rx Confirmed 11/14/17] magnesium oxide 500 mg capsule 500 mg PO QDAY cap 10/17/17 [History Confirmed 11/14/17] Last Menstral Period: 05/09/17 Zika: Zika virus screening: Negative : No PFSH PFSH Medical History Anxiety (Acute) Surgical History S/P tonsillectomy and adenoidectomy (Resolved) lymph node removed (Resolved) Family History Father Hypertension Grandmother Diabetes Mother Cervical cancer Social History Smoking Status: Never smoker alcohol intake: never substance use type: does not use caffeine: Yes (occasional) what type of physical activity do you participate in: walking, none seatbelt use: always do you feel safe at home: Yes 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 DateName GA/Weeks Outcome Route Bth WeighInfant GeLabor LgtAnesthesiDel LocatProvider FOB t n h a n Unknown Delivery Date: On 07/06/17 @ 13:57 Dana Gupta Miscarriage at 5 weeks in 02/2017 HPI 26 week ob: Details: REBECCA RODNEY is a 22 year old who presents for routine OB visit. OB Visit RITA Calculator Estimated Delivery Date 02/13/18 Based on LMP (certain) 05/09/17 Current WG 27w 0d Number 1 Expected Delivery Route/Plan Specific Issue/Plans flu vaccine: given minichart given: [] tdap vaccine: [] rhogam: [] LARC form signed: [] labor support person: [employer] pain management: epidural cut cord/dad catch: yes : yes PP control planned: [] special requests: [] Initial Weight: Not Recorded Date Weight BP Urine PFHR FuHt Pres MCTX DilatioFetal SVisit NProvideComment rot ov n t ote r s EGA Ef Gluco faced se 07/06/1349 lb 156/93 8 2 oz 8w 2d Visit Notes Visit Date: 11/14/17 elevated bp- check cmp and urine protein cr ratio and increased labetalol to 300mg BID, fu 1 week Mishel Pacheco MD on 11/14/17 no vb lof good fm no regular ctx bp elevated today. no SAWANT BV cbc glucola Mishel Pacheco MD on 11/14/17 Visit Date: 10/17/17 No VB, LOF. Good FM. ED last night-sutures in left finger/dropped a glass bowl BLANCA Levine on 10/17/17 Visit Date: 08/31/17 no vb lof good fm no regualr ctx Mishel Pacheco MD on 09/05/17 labetalol increased borderline elevated bps at home. urine protein ratio sent. seeing neurologist for migraines. referring to PT and chiropractor also. no vb still having nausea Mishel Pacheco MD on 08/31/17 Visit Date: 08/03/17 bps WNL at home, needs nt screening and ekg done, ordered Mishel Pacheco MD on 08/04/17 Visit Date: 07/25/17 no vb cramping, elevated bps recommend starting labetalol, already had baseline urine negative for protein, ordered ekg Mishel Pacheco MD on 07/25/17 no vb cramping Mishel Pacheco MD on 07/25/17 Visit Date: 07/06/17 No visit notes to display ACOG First Trimester First Trimester: Desire for , Alcohol, Tobacco Cessation, Illicit/Recreational Drug/Substance Use, Intimate Partner Violence, Barriers to care, Unstable Housing, Communication Barriers, Environmental/Work Hazards, Anticipated Course of Care, Toxoplasmosis Precations, Use of Any medications, Sexual activity, Exercise, Dental Care, Sauna/Hot tub use, Seat Belt use, Childbirth classes/Hospital facilities, , Travel, Indications for US and Screening for Aneuploidy Diagnostics Diagnostics Labs Blood Type A POSITIVE 07/11/17 Antibody Screen NEGATIVE 07/11/17 Hct 37.4 % (37-47) 11/14/17 Hgb 12.3 g/dl (12.0-15.0) 11/14/17 Obstetrics Ultrasound 09/27/17 Rubella IgG Antibody 19.5 IU/mL 07/11/17 RPR NONREACTIVE (NONREACTIVE) 07/11/17 Hep Bs Antigen Negative (Negative) 07/11/17 Chlam trachomat DNA PCR Negative (Negative) 07/06/17 N.gonorrhoeae DNA (PCR) Negative (Negative) 07/06/17 Glucose 1 Hr 50 gm Pending 11/14/17 Miscellaneous Test 08/07/17 Details: HIV: Urine Culture: Sequential Screen: NIPT Screen: Immunizations Boostrix Tdap Performing Provider: Mishel Pacheco MD Administered by: Dana Gupta on 11/14/17 16:22 Dose Route Admin Location Lot Number Expiration Date NDC Refrigerating Engineer 0.5 mL IM Left Deltoid [id number] 07/08/19 20130-201-58 [employer] VIS Given Date VIS Publication Date 08/07/18 02/24/15 Eligibility Eligibility Date Assessment AND Plan Problems 1. screening encounter Z36.9 08/07/17 NT Optimal draw dates: 09/03/17-09/17/17 2. Supervision of high risk in first trimester O09. PRR RITA 02/13/18 Girl [employer] 3. Chronic hypertension affecting O10.919 labetalol 200mg bid, baseline labs ekg 4. Abnormal glucose in , antepartum O99.810 nl 3 hour gtt 5. BMI 50.0-59.9, adult Z68.43 nutrition consult, weekly nsts and growth us from 32 weeks Plan movement and labor precautions reviewed. ACOG trimester education reviewed and updated. see problem list details for updated plan management information and see below for orders placed at this visit. GA appropriate handout given. Orders Orders: Medications Discontinued: Boostrix Tdap (diphth,pertus(acell),tetanus) Disc0.5 mL IM ONCE NS Z23 Dana Gupta ontinued Reason: Office Medication has been Documen arun as given Coding Level of Care Code OB Routine Diagnoses screening encounter Z36.9 Supervision of high risk in first trimester O. Chronic hypertension affecting O10.919 Abnormal glucose in , antepartum O99.810 BMI 50.0-59.9, adult Z68.43 11/14/17 1709 <Electronically signed by Mishel Pacheco MD> Date Mishel Pacheco MD Cosigner Signature: Date (if applicable) CC: CBC W/DIFF, AUTOMATED Collected: 11/14/2017 Status: F Source: [facility] 4:49 PM [facility] REPOSITORY TYPE CODE TESTS RESULT OUT OF RANGE REFERENCE UNITS LAB L100.1000 4.4-11.0 K/mm3 High WBC 14.0 LAB L100.1200 4.2-5.4 M/mm3 Normal RBC 4.47 LAB L100.1300 12.0-15.0 g/dl Normal HGB 12.3 LAB L100.1400 37-47 % Normal HCT 37.4 LAB L100.1500 81-99 fL Normal MCV 83.7 LAB L100.1600 27.0-32.0 pg Normal MCH 27.5 LAB L100.1700 32-36 g/gl Normal MCHC 32.9 LAB L100.1810 11.6-14.6 % Normal RDW CV 13.7 LAB L100.1820 35.1-43.9 fl Normal RDW SD 41.5 LAB L100.1900 150-450 K/mm3 Normal PLT 268 LAB L100.2000 6.2-12.0 fl Normal MPV 9.7 LAB L100.2100 47-70 % Normal NEUT% 68.7 LAB L100.2200 19-41 % Normal LY% 21.0 LAB L100.2300 0-10 % Normal MONO% 8.2 LAB L100.2400 0-5 % Normal EO% 1.3 LAB L100.2500 0-1 % Normal BASO% 0.2 LAB L100.2550 0.0-0.9 % Normal IM GRAN % 0.600 Result Comment: IG% - Immature Granulocytes (promyelocytes, myelocytes and metamyelocytes) > 1% indicates that a LEFT SHIFT is Present. LAB L100.2620 2.0-7.7 X10 3/uL High Absolute Neut 9.6 LAB L100.2720 0.83-4.51 X10 3/ul Normal Absolute Lymph 2.93 Performed By: #### L100.0100, L500.4050, L501.0250 #### [facility] [address] [place], [address] COMPREHENSIVE METABOLIC Collected: 11/14/2017 Status: F Source: [facility] 4:49 PM [facility] REPOSITORY TYPE CODE TESTS RESULT OUT OF RANGE REFERENCE UNITS LAB L501.0100 74-106 mg/dL Normal GLU 105 Result Comment: Fasting Glucose result from 100 to 125 mg/dL suggests IMPAIRED HOMEOSTASIS per A.D.A. criteria. Please note revised GLUCOSE reference range effective 2017. LAB L501.1000 7-18 mg/dL Low BUN 6 LAB L501.1100 0.55-1.02 mg/dL Low CREAT,SERUM 0.47 Result Comment: The validity of the calculated GFR AND GFRAA in patients over 70 years has not been determined. Clinical correlation is essential. LAB L501.1110 >60 mL/min Normal EST GFR 173 Result Comment: Non- GFR Calc LAB L501.1115 >60 mL/min Normal EST GFR - AA 209 Result Comment: GFR Calc LAB L501.1300 10-20 RATIO Normal BUN/CRE 12.8 LAB L501.1500 6.4-8.2 g/dL T Normal PROT 6.9 LAB L501.1800 3.2-5.0 g/dL Low ALB 3.0 LAB L501.1950 2.2-4.2 g/dL Normal GLOB 3.9 LAB L501.2000 0.9-2.4 RATIO Low A/G 0.8 LAB L501.2200 8.5-10.1 mg/dL CA Normal 8.8 LAB L501.4100 15-37 U/L Low AST 11 LAB L501.4305 45-117 U/L Normal ALK P 75 LAB L501.4405 13-56 U/L Normal ALT 28 LAB L501.4600 0.20-1.00 mg/dL T Normal BILI 0.20 LAB L501.5300 136-145 mmol/L NA Normal 138 LAB L501.5600 3.5-5.1 mmol/L K Normal 3.9 LAB L501.5900 98-107 mmol/L CL Normal 106 LAB L501.6100 21.0-32.0 mmol/L Normal CO2 25.0 LAB L501.6200 5-15 Normal GAP 7 Performed By: #### L100.0100, L500.4050, L501.0250 #### [facility] [address] [place], [place], [id number] GLUCOSE CHALLENGE GEST Collected: 11/14/2017 Status: F Source: [facility] 1H 50G 4:49 PM [facility] REPOSITORY TYPE CODE TESTS RESULT OUT OF RANGE REFERENCE UNITS LAB L501.0250 70-140 mg/dL Normal GLU GEST 105 50g 1H Performed By: #### L100.0100, L500.4050, L501.0250 #### [facility] [address] [place], [address] PROTEIN+CREATININE Collected: Status: F Source: [facility] PARTIDAURINE 11/14/2017 4:49 PM [facility] REPOSITORY TYPE CODE TESTS RESULT OUT OF RANGE REFERENCE UNITS LAB L501.1200 NO RANGE EST. mg/dL Normal UR CREAT 113.00 LAB L501.1930 <11.9 mg/dL High 15.3 PROTEIN,UR.R AN. LAB L501.1940 0-200 mg/g CRE Normal PROT:CRE 135 RATIO Performed By: #### L501.0900 #### [facility] [address] [place], [address] EMERGENCY DEPARTMENT Observed: 10/31/2017 Status: F Source: [facility] SUMMARY 4:27 AM [facility] REPOSITORY [facility] Medical Records Department [address] [place] [address] Emergency Department Summary 10/17/17 0113 MR#: [id number] Acct: [id number] Name: REBECCA RODNEY Rep #: [id number] : 1995 22 From: Cas Morrell MD PCP: Care Physician, No Primary Status: DEP ER ADDENDUM by Cas Morrell MD on 10/31/17 at 0427 Laceration length is 2 cm Date Cas Morrell MD cc: No Primary Care Physician * Signed - ER Visit Summary Date of Service: 10/17/17 Chief Complaint: [] Left middle finger injury History of Present Illness: The patient is a 22 F injured her left middle finger today just prior to arrival. She had a glass bowl break in her hand. Suffered laceration to the medial aspect of her distal left middle finger. Last tetanus was greater than 10 years she believes but she is not 100% sure. She is currently at 23 weeks. She is on labetalol for hypertension throughout this Physical Examination: [] Vital signs reviewed General: Well-nourished well-developed Head: Normocephalic atraumatic Eyes: Pupils equal round and reactive to light extraocular movements intact ENT: TMs clear no hemotympanum no trauma Neck: Nontender full range of motion Cardiovascular: Regular rate rhythm no murmurs normal S1-S2 Respiratory: No distress clear to auscultation bilaterally chest nontender Abdomen: Soft nontender nondistended normal bowel sounds no masses Back: Nontender no CVA tenderness Extremities: Abrasion to the left distal phalanx laterally on the middle finger. Distal neurovascular intact. No active bleeding. Neuro alert oriented cranial nerves II through XII intact normal strength sensation reflexes Test Results: [] Emergency Department Course and Treatment: [] X-ray of the finger obtained. Patient refuses tetanus shot. She is can I discussed this with her CONTRACT AGENT tomorrow. She states that she gets these in her third trimester and her doctor can give it to her tomorrow. She understands the risk of getting tetanus. X-ray was negative for foreign body or injury to the bone. Wound was cleansed with chlorhexidine. Washed with 500 cc of normal saline after being anesthetized with 1% lidocaine 3 cc. Closed with 3 simple five-point 0 suture. Will follow-up in 2 weeks for suture removal. Bacitracin applied and a finger splint applied after wound care. Treatment Plan: [] Disposition: [] Impression: [] Finger laceration status post suture x3 This note was generated with KartMe dictation software. It may contain incorrect words, spelling, and punctuation that were not noted in review of the chart prior to signing ED Disposition - Plan for ED Patient: Chief Complaint: Laceration Referrals: Care Physician,No Primary [Primary Care Provider] - What to do if you have Problems For any increased pain, shortness of breath, bleeding, nausea or vomiting, chest pain, or any unexpected problems, contact your Primary Care Provider. Call [facility] ([phone]) or report to the closest Emergency Room. Call 911 if necessary. 10/17/17 0720 <Electronically signed by Cas Morrell MD> Date Cas Morrell MD Cosigner Signature (If Indicated): Date CC: No Primary Care Physician CONTRACT AGENT OFFICE VISIT Observed: 10/17/2017 Status: F Source: [facility] REPORT 3:39 PM [facility] [address] [place] [address] OFFICE VISIT Date of Service: 10/17/17 MR#: [id number] Acct: [id number] Name: REBECCA RODNEY Rep #: [id number] : 1995 Provider: RONDA Márquez Age/Sex: 22/F Location: [facility] Status: Signed Intake Vital Signs10/17/17 Height 5 ft 7 in 10/17/17 Weight: 349 lb 10/17/17 Body Mass Index (BMI) 54.6 10/17/17 Blood Pressure 138/88 Intake Visit Reasons: 22 WEEK OB Accompanied by: Is patient in pain?: No Allergies diphenhydramine [From Benadryl] Allergy (Mild, Verified 10/17/17 15:20) increases anxiety Medications vitamin,calcium,njgoqjen-spcz-timsn acid tablet 1 tab PO QDAY 07/06/17 [History Confirmed 10/17/17] promethazine 12.5 mg tablet 12.5 mg PO Q6H PRN #60 tab 08/31/17 [Rx Confirmed 10/17/17] labetalol 200 mg tablet 200 mg PO BID #60 tab 09/27/17 [Rx Confirmed 10/17/17] magnesium oxide 500 mg capsule 500 mg PO QDAY cap 10/17/17 [History Confirmed 10/17/17] Last Menstral Period: 05/09/17 Zika: Zika virus screening: Negative PFSH PFSH Medical History Anxiety (Acute) Surgical History S/P tonsillectomy and adenoidectomy (Resolved) lymph node removed (Resolved) Family History Father Hypertension Grandmother Diabetes Mother Cervical cancer Social History Smoking Status: Never smoker alcohol intake: never substance use type: does not use caffeine: Yes (occasional) what type of physical activity do you participate in: walking, none seatbelt use: always do you feel safe at home: Yes 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 DateName GA/Weeks Outcome Route Bth WeighInfant GeLabor LgtAnesthesiDel LocatProvider FOB t n h a n Unknown Delivery Date: On 07/06/17 @ 13:57 Dana Gupta Miscarriage at 5 weeks in 02/2017 HPI 22 WEEK OB: Details: REBECCA RODNEY is a 22 year old who presents for routine OB visit. OB Visit RITA Calculator Estimated Delivery Date 02/13/18 Based on LMP (certain) 05/09/17 Current WG 23w 0d Number 1 Expected Delivery Route/Plan Specific Issue/Plans flu vaccine: given minichart given: [] tdap vaccine: [] rhogam: [] LARC form signed: [] labor support person: [employer] pain management: epidural cut cord/dad catch: yes : yes PP control planned: [] special requests: [] Initial Weight: Not Recorded Date Weight BP Urine PrFHR FuHt Pres MoCTX DilationFetal StVisit NoProviderComments E ot v te GA G Effac lucose ed Visit Notes Visit Date: 10/17/17 No VB, LOF. Good FM. ED last night-sutures in left finger/dropped a glass bowl BLANCA Levine on 10/17/17 Visit Date: 08/31/17 no vb lof good fm no regualr ctx Mishel Pacheco MD on 09/05/17 labetalol increased borderline elevated bps at home. urine protein ratio sent. seeing neurologist for migraines. referring to PT and chiropractor also. no vb still having nausea Mishel Pacheco MD on 08/31/17 Visit Date: 08/03/17 bps WNL at home, needs nt screening and ekg done, ordered Mishel Pacheco MD on 08/04/17 Visit Date: 07/25/17 no vb cramping, elevated bps recommend starting labetalol, already had baseline urine negative for protein, ordered ekg Mishel Pacheco MD on 07/25/17 no vb cramping Mishel Pacheco MD on 07/25/17 Visit Date: 07/06/17 No visit notes to display ACOG First Trimester First Trimester: Desire for , Alcohol, Tobacco Cessation, Illicit/Recreational Drug/Substance Use, Intimate Partner Violence, Barriers to care, Unstable Housing, Communication Barriers, Environmental/Work Hazards, Anticipated Course of Care, Toxoplasmosis Precations, Use of Any medications, Sexual activity, Exercise, Dental Care, Sauna/Hot tub use, Seat Belt use, Childbirth classes/Hospital facilities, , Travel, Indications for US and Screening for Aneuploidy Diagnostics Diagnostics Labs Blood Type A POSITIVE 07/11/17 Antibody Screen NEGATIVE 07/11/17 Hct 40.8 % (37-47) 07/11/17 Hgb 13.8 g/dl (12.0-15.0) 07/11/17 Obstetrics Ultrasound 09/27/17 Rubella IgG Antibody 19.5 IU/mL 07/11/17 RPR NONREACTIVE (NONREACTIVE) 07/11/17 Hep Bs Antigen Negative (Negative) 07/11/17 Chlam trachomat DNA PCR Negative (Negative) 07/06/17 N.gonorrhoeae DNA (PCR) Negative (Negative) 07/06/17 Glucose 1 Hr 50 gm 172 mg/dL (70-140) H 07/11/17 Miscellaneous Test 08/07/17 Details: HIV: Urine Culture: Sequential Screen: NIPT Screen: Results [id number] Office Urine Glucose Negative Last Edit by Tracey Childress on 10/17/17 15:25 Office Urine Protein Negative Last Edit by Tracey Childress on 10/17/17 15:25 Assessment AND Plan Problems 1. Supervision of high risk in first trimester O09.91 PRR RITA 02/13/18 Girl [place] 2. Chronic hypertension affecting O10.919 labetalol 200mg bid, baseline labs ekg 3. screening encounter Z36.9 08/07/17 NT Optimal draw dates: 09/03/17-09/17/17 4. BMI 50.0-59.9, adult Z68.43 nutrition consult, weekly nsts and growth us from 32 weeks Plan Orders placed: none Plan 28 week labs next visit Hope BPs have been normal, continue as instructed Reviewed of labor precautions, movement/kick counts ACOG trimester education reviewed and updated See problem list details for updated plan of care Gestational age appropriate handout given RTO: 4 weeks Orders Orders: Coding Level of Care Code OB Routine Diagnoses Supervision of high risk in first trimester O09.91 Chronic hypertension affecting O10.919 screening encounter Z36.9 BMI 50.0-59.9, adult Z68.43 10/17/17 1539 <Electronically signed by Marielle RIOS> Date Marielle RIOS Cosigner Signature: Date (if applicable) CC: DISCHARGE INSTRUCTION Observed: 10/17/2017 Status: F Source: [facility] 7:20 AM [facility] REPOSITORY [facility] Medical Records Department [address] [place] [address] Discharge Instruction 10/17/17 0210 MR#: [id number] Acct: [id number] Name: REBECCA RODNEY Rep #: [id number] : 1995 22 From: Cas Morrell MD PCP: Care Physician, No Primary Status: DEP ER ED Disposition - Plan for ED Patient: Disposition: Home or Assisted Living Chief Complaint: Laceration Instructions: ED Laceration All Referrals: Care Physician,No Primary [Primary Care Provider] - Tres [place], [NON CLINICAL AFFILIATE] - What to do if you have Problems For any increased pain, shortness of breath, bleeding, nausea or vomiting, chest pain, or any unexpected problems, contact your Primary Care Provider. Call Doctors Registry ([phone]) or report to the closest Emergency Room. Call 911 if necessary. 10/17/17 0720 <Electronically signed by Cas Morrell MD> Date Cas Morrell MD Cosigner Signature (If Indicated): Date CC: No Primary Care Physician FINGER(S) MIN 2 VIEWS Observed: 10/17/2017 Status: F Source: [facility] 1:14 AM [facility] REPOSITORY [facility] Imaging Services [address] [place] [id number] Finger(s) Min 2 Views MR#: [id number] Acct: [id number] Name: REBECCA RODNEY Rep #: [id number] : 1995 F 22 From: Vitaliy Sanchez MD PCP: Care Physician, No Primary Status: REG ER Study: Finger(s) Min 2 Views Date of Exam: 10/17/17 Exam# [id number] Ordering Dr: Cas Morrell MD STUDY: X-RAY - LEFT HAND, ATTENTION THIRD FINGER REASON FOR EXAM: Female, 22 years old. Laceration TECHNIQUE: 3 view(s) of the finger were obtained. COMPARISON: None. FINDINGS: Normal metacarpal head. Normal metacarpophalangeal joint. Normal proximal phalanx. Normal middle phalanx. Normal distal phalanx. Normal proximal interphalangeal joint. Normal distal interphalangeal joint. RAD/Finger(s) Min 2 Views IMPRESSION: Normal x-ray examination of the finger. Electronically Signed: Vitaliy Sanchez MD at 1:33 EDT Tel , Service support , CC: No Primary Care Physician; Cas Morrell MD Whittling Room Operator: Signed OB ANATOMY SCAN Observed: 09/27/2017 Status: F Source: [facility] 2:09 PM [facility] REPOSITORY [facility] Imaging Services [address] [place] [address] OB Anatomy Scan MR#: [id number] Acct: [id number] Name: REBECCA RODNEY Rep #: [id number] : 1995 F 22 From: Justin Steward MD PCP: Care Physician, No Primary Status: REG CLI Study: OB Anatomy Scan Date of Exam: 09/27/17 Exam# [id number] Ordering Dr: Mishel Pacheco MD STUDY: SECOND AND THIRD TRIMESTER OBSTETRICAL ULTRASOUND REASON FOR EXAM: Female, 22 years old. Complete 2nd trimester OB ultrasound with anatomy survey and biometrics. LMP: 05/09/2017. GA (LMP) 20 week 1 day. RITA 02/13/2018. TECHNIQUE: Transabdominal pelvic ultrasound of 2nd trimester . Complete anatomic survey and biometrics. PRIOR ULTRASOUND: None. FINDINGS: There is a single intrauterine fetus. The fetus is in breech presentation. There is demonstrated cardiac activity with a heart rate of 160 bpm. There is a normal amniotic fluid volume. The largest amniotic fluid pocket measures 5.8 cm.The placenta is There are Grade 0 placental changes. There is a 1.2 cm placental venous sen. The cervix measures 3.8 in length. The cervix is closed. The placenta is fundal, without previa. No acute adnexal process is evident in limited evaluation. BIOMETRY: BPD: 4.4 cm: 19 weeks, 2 days HC: 16.5 cm: 19 weeks, 2 days AC: 14.2 cm: 19 weeks, 4 days FL: 3.2 cm: 19 weeks, 6 days CI: 80 FL/BPD: 72 FL/AC: 22 HC/AC: 1.16 age by current US: 19 weeks, 4 days. RITA by current US: 02/17/2018. Estimated weight: 301 grams, +/- 11 grams, 18 %. ANATOMY: Gender: Female Cranium: Normal lateral ventricles. Normal choroid plexus. Normal cerebellum. Normal cisterna magna. Normal face, nose and lips. Chest: Normal 4-chamber heart. Abdomen/Pelvis: Normal diaphragm. Normal stomach. Normal abdominal wall. Normal cord insertion. Normal 3 vessel cord. Normal kidneys. Normal bladder. Spine: Normal cervical spine. Normal thoracic spine. Normal lumbar spine. Normal sacrum. Extremities: Normal bilateral upper extremities. Normal bilateral lower extremities. US/OB Anatomy Scan IMPRESSION: 1. Normal anatomic survey. 2. Single live intrauterine gestation. No acute or maternal abnormality is evident. 3. Measurements on today's study are closely concordant with expected dates within 4 days. Electronically Signed: Justin Steward, at 11:13 EDT Tel , Service support , CC: No Primary Care Physician; Mishel Pacheco MD Whittling Room Operator: Signed CONTRACT AGENT OFFICE VISIT Observed: 09/06/2017 Status: F Source: [facility] RE[facility] 7:35 AM [facility] [address] [place] [address] OFFICE VISIT Date of Service: 08/31/17 MR#: [id number] Acct: [id number] Name: REBECCA RODNEY Carlos Rep #: [id number] : 1995 Provider: Mishel Pacheco MD Age/Sex: 22/F Location: [facility] Status: Signed Intake Vital Signs08/31/17 Height 5 ft 7 in 08/31/17 Weight: 345 lb 4 oz 08/31/17 Body Mass Index (BMI) 54.1 08/31/17 Blood Pressure 156/98 Intake Visit Reasons: 16 WEEK Linen Room Custodian Required: No Accompanied by: Is patient in pain?: Yes Pain scale (1-10): 7 Allergies diphenhydramine [From Benadryl] Allergy (Mild, Verified 08/31/17 12:05) increases anxiety Medications vitamin,calcium,mbqrotwv-lkek-exrnk acid tablet 1 tab PO QDAY 07/06/17 [History Confirmed 08/31/17] blood pressure monitor kit See Dose Instructions .ROUTE .MEDSUPPLY #1 ea 07/25/17 [Rx Confirmed 08/31/17] labetalol 100 mg tablet 100 mg PO BID #60 tab 07/25/17 [Rx Confirmed 08/31/17] magnesium oxide 400 mg capsule 400 mg PO QDAY cap 08/31/17 [History Confirmed 08/31/17] promethazine 12.5 mg tablet 12.5 mg PO Q6H PRN #60 tab 08/31/17 [Rx Confirmed 08/31/17] sumatriptan 50 mg tablet 25 mg PO ONCE tab 08/31/17 [History Confirmed 08/31/17] Last Menstral Period: 05/09/17 Zika: Zika virus screening: Negative : No PFSH PFSH Medical History Anxiety (Acute) Surgical History S/P tonsillectomy and adenoidectomy (Resolved) lymph node removed (Resolved) Family History Father Hypertension Grandmother Diabetes Mother Cervical cancer Social History Smoking Status: Never smoker alcohol intake: never substance use type: does not use caffeine: No what type of physical activity do you participate in: walking, none seatbelt use: always do you feel safe at home: Yes 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 DateName GA/Weeks Outcome Route Bth Weigh[facility]ant GeLabor LgtAnesthesiDel LocatProvider FOB t n h a n Unknown Delivery Date: On 07/06/17 @ 13:57 Dana Gupta Miscarriage at 5 weeks in 02/2017 HPI 16 WEEK: Details: REBECCA RODNEY is a 22 year old who presents for routine OB visit. OB Visit RITA Calculator Estimated Delivery Date 02/13/18 Based on LMP (certain) 05/09/17 Current WG 17w 1d Number 1 Expected Delivery Route/Plan Specific Issue/Plans flu vaccine: given minichart given: [] tdap vaccine: [] rhogam: [] LARC form signed: [] labor support person: [] pain management: [] cut cord/dad catch: [] : [] PP control planned: [] special requests: [] Initial Weight: Not Recorded Date Weight BP Urine PrFHR FuHt Pres MoCTX DilationFetal StVisit NoProviderComments E ot v te GA G Effac lucose ed Visit Notes Visit Date: 08/31/17 no vb lof good fm no regualr ctx Mishel Pacheco MD on 09/05/17 labetalol increased borderline elevated bps at home. urine protein ratio sent. seeing neurologist for migraines. referring to PT and chiropractor also. no vb still having nausea Mishel Pacheco MD on 08/31/17 Visit Date: 08/03/17 bps WNL at home, needs nt screening and ekg done, ordered Mishel Pacheco MD on 08/04/17 Visit Date: 07/25/17 no vb cramping, elevated bps recommend starting labetalol, already had baseline urine negative for protein, ordered ekg Mishel Pacheco MD on 07/25/17 no vb cramping Mishel Pacheco MD on 07/25/17 Visit Date: 07/06/17 No visit notes to display ACOG First Trimester First Trimester: Desire for , Alcohol, Tobacco Cessation, Illicit/Recreational Drug/Substance Use, Intimate Partner Violence, Barriers to care, Unstable Housing, Communication Barriers, Environmental/Work Hazards, Anticipated Course of Care, Toxoplasmosis Precations, Use of Any medications, Sexual activity, Exercise, Dental Care, Sauna/Hot tub use, Seat Belt use, Childbirth classes/Hospital facilities, , Travel, Indications for US and Screening for Aneuploidy Diagnostics Diagnostics Labs Blood Type A POSITIVE 07/11/17 Antibody Screen NEGATIVE 07/11/17 Hct 40.8 % (37-47) 07/11/17 Hgb 13.8 g/dl (12.0-15.0) 07/11/17 Rubella IgG Antibody 19.5 IU/mL 07/11/17 RPR NONREACTIVE (NONREACTIVE) 07/11/17 Hep Bs Antigen Negative (Negative) 07/11/17 Chlam trachomat DNA PCR Negative (Negative) 07/06/17 N.gonorrhoeae DNA (PCR) Negative (Negative) 07/06/17 Glucose 1 Hr 50 gm 172 mg/dL (70-140) H 07/11/17 Miscellaneous Test 08/07/17 Details: HIV: Urine Culture: Sequential Screen: NIPT Screen: Results [id number] Office Urine Glucose Negative Last Edit by Dana Gupta on 08/31/17 12:13 Office Urine Protein Trace Last Edit by Dana Gupta on 08/31/17 12:13 Assessment AND Plan Problems 1. screening encounter Z36.9 08/07/17 NT Optimal draw dates: 09/03/17-09/17/17 2. Chronic hypertension affecting O10.919 labetalol 200mg bid, baseline labs ekg 3. Supervision of high risk in first trimester O09. PRR RITA 02/13/18 [place] 4. Abnormal glucose in , antepartum O99.810 nl 3 hour gtt 5. BMI 50.0-59.9, adult Z68.43 nutrition consult, weekly nsts and growth us from 32 weeks Plan Orders placed: labetalol increased to 200mg ACOG trimester education reviewed and updated. see problem list details for updated plan management information. [place] appropriate handout given. Orders Orders: Medications New: Coding Level of Care Code OB Routine Diagnoses screening encounter Z36.9 Chronic hypertension affecting O10.919 Supervision of high risk in first trimester O09. Abnormal glucose in , antepartum O99.810 BMI 50.0-59.9, adult Z68.43 09/06/17 0735 <Electronically signed by Mishel Pacheco MD> Date Mishel Pacheco MD Cosigner Signature: Date (if applicable) CC: PROTEIN+CREATININE Collected: Status: F Source: AMBIKA RATIO,URINE 08/31/2017 5:14 PM [facility] REPOSITORY TYPE CODE TESTS RESULT OUT OF RANGE REFERENCE UNITS LAB L501.1200 NO RANGE EST. mg/dL Normal UR CREAT 209.00 LAB L501.1930 <11.9 mg/dL High 17.5 PROTEIN,UR.R AN. LAB L501.1940 0-200 mg/g CRE Normal PROT:CRE 84 RATIO Performed By: #### L501.0900 #### [facility] [address] [place], [address] MISCELLANEOUS LAB Collected: 08/07/2017 Status: F Source: AMBIKA PROCEDURE 1:38 PM [facility] REPOSITORY Order Comment: Test(s) Ordered: SEQUENTIAL SCREEN TYPE CODE TESTS RESULT OUT OF RANGE REFERENCE UNITS LAB L801.1541 Normal [facility] LAB TEST Result Comment: Sent directly to testing facility per ordering physician. 08/11/17 1212 MYOUNG Performed By: #### L801.1541 #### [facility] [address] [place], [address] CONTRACT AGENT OFFICE VISIT Observed: 08/04/2017 Status: F Source: AMBIKA REPORT 4:41 AM [facility] REPOSITORY [facility] [address] [place] [address] OFFICE VISIT Date of Service: 08/03/17 MR#: [id number] Acct: [id number] Name: REBECCA RODNEY Rep #: [id number] : 1995 Provider: Mishel Pacheco MD Age/Sex: 22/F Location: [facility] Status: Signed Intake Vital Signs08/03/17 Height 5 ft 7 in 08/03/17 Weight: 350 lb 4 oz 08/03/17 Body Mass Index (BMI) 54.8 08/03/17 Blood Pressure 136/90 Intake Visit Reasons: OB FU BP Linen Room Custodian Required: No Is patient in pain?: No Allergies diphenhydramine [From Benadryl] Allergy (Mild, Verified 08/03/17 10:59) increases anxiety Medications vitamin,calcium,flrtwhpe-exkr-rchhk acid tablet 1 tab PO QDAY 07/06/17 [History Confirmed 08/03/17] blood pressure monitor kit See Dose Instructions .ROUTE .MEDSUPPLY #1 ea 07/25/17 [Rx Confirmed 08/03/17] labetalol 100 mg tablet 100 mg PO BID #60 tab 07/25/17 [Rx Confirmed 08/03/17] Last Menstral Period: 05/09/17 Zika: Zika virus screening: Negative : No PFSH PFSH Medical History Anxiety (Acute) Surgical History S/P tonsillectomy and adenoidectomy (Resolved) lymph node removed (Resolved) Family History Father Hypertension Grandmother Diabetes Mother Cervical cancer Social History Smoking Status: Never smoker alcohol intake: never substance use type: does not use caffeine: No what type of physical activity do you participate in: walking, none seatbelt use: always do you feel safe at home: Yes 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 DateName GA/Weeks Outcome Route Bth WeighInfant GeLabor LgtAnesthesiDel LocatProvider FOB t n h a n Unknown Delivery Date: On 07/06/17 @ 13:57 Dana Gupta Miscarriage at 5 weeks in 02/2017 HPI OB FU BP: Details: REBECCA RODNEY is a 22 year old who presents for routine OB visit. OB Visit RITA Calculator Estimated Delivery Date 02/13/18 Based on LMP (certain) 05/09/17 Current WG 12w 3d Number 1 Expected Delivery Route/Plan Specific Issue/Plans flu vaccine: given minichart given: [] tdap vaccine: [] rhogam: [] LARC form signed: [] labor support person: [] pain management: [] cut cord/dad catch: [] : [] PP control planned: [] special requests: [] Initial Weight: Not Recorded Date Weight BP Urine PrFHR FuHt Pres MoCTX DilationFetal StVisit NoProviderComments E ot v te GA G Effac lucose ed Visit Notes Visit Date: 08/03/17 bps WNL at home, needs nt screening and ekg done, ordered Mishel Pacheco MD on 08/04/17 Visit Date: 07/25/17 no vb cramping, elevated bps recommend starting labetalol, already had baseline urine negative for protein, ordered ekg Mishel Pacheco MD on 07/25/17 no vb cramping Mishel Pacheco MD on 07/25/17 Visit Date: 07/06/17 No visit notes to display ACOG First Trimester First Trimester: Desire for , Alcohol, Tobacco Cessation, Illicit/Recreational Drug/Substance Use, Intimate Partner Violence, Barriers to care, Unstable Housing, Communication Barriers, Environmental/Work Hazards, Anticipated Course of Care, Toxoplasmosis Precations, Use of Any medications, Sexual activity, Exercise, Dental Care, Sauna/Hot tub use, Seat Belt use, Childbirth classes/Hospital facilities, , Travel, Indications for US and Screening for Aneuploidy Diagnostics Diagnostics Labs Blood Type A POSITIVE 07/11/17 Antibody Screen NEGATIVE 07/11/17 Hct 40.8 % (37-47) 07/11/17 Hgb 13.8 g/dl (12.0-15.0) 07/11/17 Rubella IgG Antibody 19.5 IU/mL 07/11/17 RPR NONREACTIVE (NONREACTIVE) 07/11/17 Hep Bs Antigen Negative (Negative) 07/11/17 Chlam trachomat DNA PCR Negative (Negative) 07/06/17 N.gonorrhoeae DNA (PCR) Negative (Negative) 07/06/17 Glucose 1 Hr 50 gm 172 mg/dL (70-140) H 07/11/17 Details: HIV: Urine Culture: Sequential Screen: NIPT Screen: Results [id number] Office Urine Glucose Negative Last Edit by Dana Gupta on 08/03/17 11:30 Office Urine Protein Negative Last Edit by Dana Gupta on 08/03/17 11:30 Assessment AND Plan Problems 1. BMI 50.0-59.9, adult Z68.43 nutrition consult, 1 tm glucola, weekly nsts and growth us from 32 weeks 2. Abnormal glucose in , antepartum O99.810 nl 3 hour gtt 3. Chronic hypertension affecting O10.919 labetalol 100mg bid, baseline labs ekg 4. Supervision of high risk in first trimester O09. PRR RITA 02/13/18 [place] Plan Orders placed: nt ACOG trimester education reviewed and updated. see problem list details for updated plan management information. [place] appropriate handout given. Orders Orders: Coding Level of Care Code OB Routine Diagnoses BMI 50.0-59.9, adult Z68.43 Abnormal glucose in , antepartum O99.810 Chronic hypertension affecting O10.919 Supervision of high risk in first trimester O09.91 08/04/17 0441 <Electronically signed by Mishel Pacheco MD> Date Mishel Pacheco MD Cosigner Signature: Date (if applicable) CC: CONTRACT AGENT OFFICE VISIT Observed: 07/25/2017 Status: F Source: AMBIKA REPORT 3:07 PM [facility] [address] [place] [address] OFFICE VISIT Date of Service: 07/25/17 MR#: [id number] Acct: [id number] Name: REBECCA RODNEY Rep #: [id number] : 1995 Provider: Mishel Pacheco MD Age/Sex: 22/F Location: [facility] Status: Signed Intake Vital Signs07/25/17 Height 5 ft 7 in 07/25/17 Weight: 350 lb 07/25/17 Body Mass Index (BMI) 54.8 07/25/17 Blood Pressure 155/100 Intake Visit Reasons: OB FU Is patient in pain?: No Allergies No Known Allergies Allergy (Verified 07/25/17 14:38) Medications vitamin,calcium,nnltykdn-dnux-crjyb acid tablet 1 tab PO QDAY 07/06/17 [History Confirmed 07/25/17] blood pressure monitor kit See Dose Instructions .ROUTE .MEDSUPPLY #1 ea 07/25/17 [Rx Confirmed 07/25/17] labetalol 100 mg tablet 100 mg PO BID #60 tab 07/25/17 [Rx Confirmed 07/25/17] Last Menstral Period: 05/09/17 Zika: Zika virus screening: Negative : No PFSH PFSH Medical History Anxiety (Acute) Surgical History S/P tonsillectomy and adenoidectomy (Resolved) lymph node removed (Resolved) Family History Father Hypertension Grandmother Diabetes Mother Cervical cancer Social History Smoking Status: Never smoker alcohol intake: never substance use type: does not use caffeine: No what type of physical activity do you participate in: walking, none seatbelt use: always do you feel safe at home: Yes 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 DateName GA/Weeks Outcome Route Bth WeighInfant GeLabor LgtAnesthesiDel LocatProvider FOB t n h a n Unknown Delivery Date: On 07/06/17 @ 13:57 Dana Gupta Miscarriage at 5 weeks in 02/2017 HPI OB FU: Details: REBECCA RODNEY is a 22 year old who presents for routine OB visit. OB Visit RITA Calculator Estimated Delivery Date 02/13/18 Based on LMP (certain) 05/09/17 Current WG 11w 0d Number 1 Expected Delivery Route/Plan Specific Issue/Plans flu vaccine: given minichart given: [] tdap vaccine: [] rhogam: [] LARC form signed: [] labor support person: [] pain management: [] cut cord/dad catch: [] : [] PP control planned: [] special requests: [] Initial Weight: Not Recorded Date Weight BP Urine PrFHR FuHt Pres MoCTX DilationFetal StVisit NoProviderComments E ot v te GA G Effac lucose ed Visit Notes Visit Date: 07/25/17 no vb cramping, elevated bps recommend starting labetalol, already had baseline urine negative for protein, ordered ekg Mishel Pacheco MD on 07/25/17 no vb cramping Mishel Pacheco MD on 07/25/17 Visit Date: 07/06/17 No visit notes to display ACOG First Trimester First Trimester: Desire for , Alcohol, Tobacco Cessation, Illicit/Recreational Drug/Substance Use, Intimate Partner Violence, Barriers to care, Unstable Housing, Communication Barriers, Environmental/Work Hazards, Anticipated Course of Care, Toxoplasmosis Precations, Use of Any medications, Sexual activity, Exercise, Dental Care, Sauna/Hot tub use, Seat Belt use, Childbirth classes/Hospital facilities, , Travel, Indications for US and Screening for Aneuploidy Diagnostics Diagnostics Labs Blood Type A POSITIVE 07/11/17 Antibody Screen NEGATIVE 07/11/17 Hct 40.8 % (37-47) 07/11/17 Hgb 13.8 g/dl (12.0-15.0) 07/11/17 Rubella IgG Antibody 19.5 IU/mL 07/11/17 RPR NONREACTIVE (NONREACTIVE) 07/11/17 Hep Bs Antigen Negative (Negative) 07/11/17 Chlam trachomat DNA PCR Negative (Negative) 07/06/17 N.gonorrhoeae DNA (PCR) Negative (Negative) 07/06/17 Glucose 1 Hr 50 gm 172 mg/dL (70-140) H 07/11/17 Details: HIV: Urine Culture: Sequential Screen: NIPT Screen: Assessment AND Plan Problems 1. BMI 50.0-59.9, adult Z68.43 nutrition consult, 1 tm glucola, weekly nsts and growth us from 32 weeks 2. Abnormal glucose in , antepartum O99.810 nl 3 hour gtt 3. Chronic hypertension affecting O10.919 labetalol 100mg bid, baseline labs ekg 4. Supervision of high risk in first trimester O09.91 PRR RITA 02/13/18 [place] 5. 11 weeks gestation of Z3A.11 Plan Orders placed: ekg labetalol bp kit fu in 1 week ACOG trimester education reviewed and updated. see problem list details for updated plan management information. [place] appropriate handout given. Orders Orders: Medications New: blood pressure monitor kit (Blood Pressure Kitake twice daily and call if SBP>160 or DBP>1 t) 10 Coding Level of Care Code OB Routine Diagnoses BMI 50.0-59.9, adult Z68.43 Abnormal glucose in , antepartum O99.810 Chronic hypertension affecting O10.919 Supervision of high risk in first trimester O09.91 11 weeks gestation of Z3A.11 07/25/17 1507 <Electronically signed by Mishel Pacheco MD> Date Mishel Pacheco MD Cosigner Signature: Date (if applicable) CC: GESTATIONAL GTT 3HR Collected: 07/20/2017 Status: F Source: AMBIKA 100G 7:13 AM [facility] REPOSITORY Order Comment: Is Patient Fasting? Y TYPE CODE TESTS RESULT OUT OF RANGE REFERENCE UNITS LAB L501.0660 <190 mg/dL Normal GLU GTT- 141 1HR LAB L501.0650 <105 mg/dL Normal GLU 82 GTT-FASTING Result Comment: GLUCOSE TOLERANCE TEST FOR Reference Interval GESTATIONAL DIABETES Fasting <105 mg/dL 1 hour <190 mg/dl 2 hour <165 mg/dl 3 hour <145 mg/dl LAB L501.0680 <145 L Normal GLU GTT- 3HR 64 LAB L501.0670 <165 mg/dL Normal GLU GTT- 2HR 92 Performed By: #### L500.4710 #### [facility] [address] [place], [address] DISCHARGE INSTRUCTION Observed: 07/12/2017 Status: F Source: AMBIKA 10:39 PM [facility] REPOSITORY [facility] Medical Records Department [address] [facility] [place] [address] Discharge Instruction 07/12/17 2238 MR#: [id number] Acct: [id number] Name: REBECCA RODNEY Rep #: [id number] : 1995 22 From: Darrell Emmanuel DO PCP: Care Physician, No Primary Status: REG ER ED Disposition - Plan for ED Patient: Chief Complaint: Vision Prob Instructions: ED Headache Migraine Referrals: Care Physician,No Primary [Primary Care Provider] - Jean Burgos MD [STAFF PHYSICIAN] - 5-7 Days What to do if you have Problems For any increased pain, shortness of breath, bleeding, nausea or vomiting, chest pain, or any unexpected problems, contact your Primary Care Provider. Call [facility] ([phone]) or report to the closest Emergency Room. Call 911 if necessary. 07/12/172238 <Electronically signed by Darrell Emmanuel DO> Date Darrell Emmanuel DO Cosigner Signature (If Indicated): Date CC: No Primary Care Physician EMERGENCY DEPARTMENT Observed: 07/12/2017 Status: F Source: GLIDE SUMMARY 10:38 PM [facility] REPOSITORY [facility] Medical Records Department [address] [place] [address] Emergency Department Summary 07/12/172234 MR#: [id number] Acct: [id number] Name: REBECCA RODNEY Rep #: [id number] : 1995 22 From: Darrell Emmanuel DO PCP: Jahaira Physician, No Primary Status: REG ER - ER Visit Summary Date of Service: 07/12/17 Chief Complaint: [Blurred vision and headache] History of Present Illness: The patient is a 22 F [presents to the emergency department with complaint of blurred vision that started approximately 7:30 PM. Patient had sudden onset of blurred vision in the right eye temporal visual field where she describes almost like a watery film. Patient had a hard time reading the phone numbers on her phone. Patient also saw some flashing lights in her right eye. Symptoms lasted approximately 20 minutes and then patient developed a headache to the left side of her head. 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 Patient does complain of photophobia and nausea currently. Patient denies any recent illness or head injury. Patient is 9 weeks .] Physical Examination: [HEENT-PERRLA, EOMI. Cranial nerves II through XII grossly intact. TMs clear. Mucous membranes moist. No adenopathy. Cardiovascular-regular rate and rhythm without murmur or ectopy Lungs-clear to auscultation, chest wall stable without crepitus or subcu emphysema Abdomen-normoactive bowel sounds, soft, nontender, no rebound or rigidity, no peritoneal signs. Neuro wszw-glfxry-harn and heel tang testing within normal limits, negative Romberg, negative pronator drift, fundi benign Extremities-intact 4, normal range of motion, normal pulses, atraumatic] Test Results: [None indicated] Emergency Department Course and Treatment: [IV line was established and patient given a liter normal same fluid bolus along with Compazine 10 mg IV as well as Benadryl 25 mill grams IV. Patient's headache resolved. I did discuss case with neurologist on-call Dr. Jean Burgos and at this point it spelled symptoms most likely due to complex migraine.] Treatment Plan: [Patient will be referred to Dr. Burgos's office for follow-up.] Disposition: [Discharged to home in stable condition]. Patient advised to return if worsening symptoms or condition should worsen in any way. Impression: [Complex migraine] This note was generated with KartMe dictation software. It may contain incorrect words, spelling, and punctuation that were not noted in review of the chart prior to signing ED Disposition - Plan for ED Patient: Chief Complaint: Vision Prob Referrals: Care Physician,No Primary [Primary Care Provider] - What to do if you have Problems For any increased pain, shortness of breath, bleeding, nausea or vomiting, chest pain, or any unexpected problems, contact your Primary Care Provider. Call [facility] ([phone]) or report to the closest Emergency Room. Call 911 if necessary. 07/12/17 4857 <Electronically signed by Darrell Emmanuel DO> Date Darrell Emmanuel DO Cosigner Signature (If Indicated): Date CC: No Primary Care Physician OFFICE VISIT REPORT Observed: 07/11/2017 Status: F Source: AMBIKA 2:05 PM [facility] REPOSITORY [address] [place] [address] OFFICE VISIT Date of Service: 07/11/17 MR#: [id number] Acct: [id number] Patient: REBECCA RODNEY Rep #: [id number] : 1995 Provider: RONDA Márquez Age/Sex: 22/F Location: [facility] Status: Signed Intake Vital Signs07/11/17 Blood Pressure 140/88 Intake Visit Reasons: blood pressure check Is patient in pain?: No Allergies No Known Allergies Allergy (Verified 07/11/17 13:09) Medications vitamin,calcium,ihfgocqc-yrjs-obkcw acid tablet 1 tab PO QDAY 07/06/17 [History Confirmed 07/11/17] Post menopausal: No Patient : Yes Assessment AND Plan Plan Per Dr. Pahceco: labs, home BP, RTO 1 week Orders Orders: 07/11/17 1405 <Electronically signed by Marielle RIOS> Date Marielle RIOS Cosigner Signature: Date (if applicable) CC: CBC W/DIFF, AUTOMATED Collected: 07/11/2017 Status: F Source: AMBIKA 1:21 PM [facility] REPOSITORY TYPE CODE TESTS RESULT OUT OF RANGE REFERENCE UNITS LAB L100.1000 4.4-11.0 K/mm3 High WBC 11.3 LAB L100.1200 4.2-5.4 M/mm3 Normal RBC 4.94 LAB L100.1300 12.0-15.0 g/dl Normal HGB 13.8 LAB L100.1400 37-47 % Normal HCT 40.8 LAB L100.1500 81-99 fL Normal MCV 82.6 LAB L100.1600 27.0-32.0 pg Normal MCH 27.9 LAB L100.1700 32-36 g/gl Normal MCHC 33.8 LAB L100.1810 11.6-14.6 % Normal RDW CV 13.7 LAB L100.1820 35.1-43.9 fl Normal RDW SD 40.7 LAB L100.1900 150-450 K/mm3 Normal PLT 322 LAB L100.2000 6.2-12.0 fl Normal MPV 9.5 LAB L100.2100 47-70 % Normal NEUT% 56.5 LAB L100.2200 19-41 % Normal LY% 34.7 LAB L100.2300 0-10 % Normal MONO% 5.5 LAB L100.2400 0-5 % Normal EO% 2.4 LAB L100.2500 0-1 % Normal BASO% 0.6 LAB L100.2550 0.0-0.9 % Normal IM GRAN % 0.300 Result Comment: IG% - Immature Granulocytes (promyelocytes, myelocytes and metamyelocytes) > 1% indicates that a LEFT SHIFT is Present. LAB L100.2620 2.0-7.7 X10 3/uL Normal Absolute Neut 6.4 LAB L100.2720 0.83-4.51 X10 3/ul Normal Absolute Lymph 3.90 Performed By: #### L100.0100, B101.7450 #### [facility] [address] [place], [place], [address] TYPE AND SCREEN Collected: 07/11/2017 Status: F Source: AMBIKA 1:21 PM [facility] REPOSITORY Order Comment: Reason for Type AND Screen/Red Cells: TYPE CODE TESTS RESULT OUT OF RANGE REFERENCE UNITS LAB B10.0800 A Normal BLOOD TYPE GEL POSITIVE LAB B100.4000 Normal Antibody NEGATIVE Screen Performed By: #### L100.0100, B101.7450 #### [facility] [address] [place], [address] PROTEIN+CREATININE Collected: Status: F Source: AMBIKA RATIO,URINE 07/11/2017 1:21 PM [facility] REPOSITORY TYPE CODE TESTS RESULT OUT OF RANGE REFERENCE UNITS LAB L501.1200 NO RANGE EST. mg/dL Normal UR CREAT 178.00 LAB L501.1930 <11.9 mg/dL High 19.7 PROTEIN,UR.R AN. LAB L501.1940 0-200 mg/g CRE Normal PROT:CRE 111 RATIO Performed By: #### L501.0900 #### [facility] [address] [place], [address] GLUCOSE CHALLENGE GEST Collected: 07/11/2017 Status: F Source: GLIDE 1H 50G 1:21 PM [facility] REPOSITORY TYPE CODE TESTS RESULT OUT OF RANGE REFERENCE UNITS LAB L501.0250 70-140 mg/dL High GLU GEST 172 50g 1H Performed By: #### L501.0250 #### [facility] [address] [place], [address] RUBELLA IGG Collected: 07/11/2017 Status: F Source: GLIDE 1:21 PM [facility] REPOSITORY TYPE CODE TESTS RESULT OUT OF RANGE REFERENCE UNITS LAB L509.4000 IU/mL Normal Rubella IgG 19.5 Result Comment: Antibody results Interpretation of Immune Status < 5 IU/ml Presumed Non-immune 5 - < 10 IU/ml Equivocal > or = 10 IU/ml Presumed Immune Performed By: #### L509.4000, L3890.6005, L700.5000 #### [facility] [address] [place], [address] #### L3100.0390, L7000.7000 #### [facility] (refer to report for specific site) refer to report for address and phone number [facility] Collected: 07/11/2017 Status: F Source: GLIDE 1:21 PM [facility] REPOSITORY TYPE CODE TESTS RESULT OUT OF RANGE REFERENCE UNITS LAB L3890.6005 Nonreactive Normal HIV - [facility] Non-Reactive Performed By: #### L509.4000, L3890.6005, L700.5000 #### [facility] [address] [facility] [place], [place], [address] #### L3100.0390, L7000.7000 #### [facility] (refer to report for specific site) refer to report for address and phone number HEPATITIS B SURFACE Collected: 07/11/2017 Status: F Source: GLIDE AG 1:21 PM [facility] REPOSITORY TYPE CODE TESTS RESULT OUT OF RANGE REFERENCE UNITS LAB L3100.0400 Negative Normal HB Negative SURF AG Result Comment: Performed at: [facility] [address] [id number] Bobtail Driver: Bernard Lacey MD, Phone: [phone] Performed at: [facility] [address] [id number] Bobtail Driver: Padilla Porter PhD, Phone: [phone] Performed By: #### L509.4000, L3890.6005, L700.5000 #### [facility] [place], [address] #### L3100.0390, L7000.7000 #### [facility] (refer to report for specific site) refer to report for address and phone number HEPATITIS C,RNA PCR Collected: 07/11/2017 Status: F Source: GLIDE VIRAL LOAD 1:21 PM [facility] REPOSITORY TYPE CODE TESTS RESULT OUT OF RANGE REFERENCE UNITS LAB L7000.7100 . IU/mL HCV Normal HCV Not Detected QT PCR LAB L7000.7350 . Test Normal HCV not performed log 10 LAB L7000.7500 . Normal TEST Comment INFO: Result Comment: The quantitative range of this assay is 15 IU/mL to 100 million IU/mL. Performed By: #### L509.4000, L3890.6005, L700.5000 #### [facility] [address] [facility] [place], [address] #### L3100.0390, L7000.7000 #### [facility] (refer to report for specific site) refer to report for address and phone number RAPID PLASMIN REAGIN Collected: 07/11/2017 Status: F Source: AMBIKA (RPR) 1:21 PM [facility] REPOSITORY TYPE CODE TESTS RESULT OUT OF REFERENCE UNITS RANGE LAB L700.5000 NONREACTIVE NONREACTIVE Normal RPR Performed By: #### L509.4000, L3890.6005, L700.5000 #### [facility] [address] [place], [place], [address] #### L3100.0390, L7000.7000 #### [facility] (refer to report for specific site) refer to report for address and phone number CONTRACT AGENT OFFICE VISIT Observed: 07/10/2017 Status: F Source: AMBIKA REPORT 10:52 PM [facility] REPOSITORY [facility] [address] [place] [address] OFFICE VISIT Date of Service: 07/06/17 MR#: [id number] Acct: [id number] Name: REBECCA RODNEY Rep #: [id number] : 1995 Provider: Mishel Pacheco MD Age/Sex: 22/F Location: 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: No Is patient in pain?: No Allergies No Known Allergies Allergy (Verified 07/06/17 13:51) Medications vitamin,calcium,gmfpunrh-uoxx-zotaw acid tablet 1 tab PO QDAY 07/06/17 [History Confirmed 07/06/17] Last Menstral Period: 05/09/17 Zika: Zika virus screening: Negative : No PFSH PFSH Medical History Anxiety (Acute) Surgical History lymph node removed (Resolved) Family History Father Hypertension Grandmother Diabetes Mother Cervical cancer Social History Smoking Status: Never smoker alcohol intake: never substance use type: does not use caffeine: No what type of physical activity do you participate in: walking, none seatbelt use: always do you feel safe at home: Yes 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 DateName GA/Weeks Outcome Route Bth WeighInfant GeLabor LgtAnesthesiDel LocatProvider FOB t n h a n Unknown Delivery Date: On 07/06/17 @ 13:57 Dana Gupta Miscarriage at 5 weeks in 02/2017 HPI NEW OB LMP 05/09/17: Details: REBECCA RODNEY is a 22 year old who presents for New OB visit. OB Visit RITA Calculator Estimated Delivery Date 02/13/18 Based on LMP (certain) 05/09/17 Current WG 8w 6d Number 1 Comments: Limited transvaginal ultrasound performed to confirm EDC and viability. CRL is 13.7 mm measuring 7w 5d which is consistent with LMP. FHTs 170. no gross abnormalities noted. Expected Delivery Route/Plan Specific Issue/Plans flu vaccine: given minichart given: [] tdap vaccine: [] rhogam: [] LARC form signed: [] labor support person: [] pain management: [] cut cord/dad catch: [] : [] PP control planned: [] special requests: [] Initial Weight: Not Recorded Date Weight BP Urine PrFHR FuHt Pres MoCTX DilationFetal StVisit NoProviderComments E ot v te GA G Effac lucose ed Menstrual History Last Menstral Period: 05/09/17 Reported LMP: definite Normal amount/duration: Yes On hormonal BC at conception: No Antepartum Record Genetic Screening: Congenital Heart Defect: Other, Neural Tube Defect: Other, Hemoglobinopathy Or Carrier: Other, Cystic Fibrosis: Other, Chromosome Abnormality: Patient (removed member with DS), Edinson-Sachs: Other, Hemophilia: Other, Intellectual Disability/Autism: Other, Recurrent Loss/Stillbirth: Other, Other Structural Defect: Other, Other Genetic Disease: Other, Maternal Metabolic Disorder: Other Infection History: Live with someone with TB or Exposed to TB: No, Patient or Partner has history of Genital Herpes: No, Rash or Viral illness since last mentrual period: No, Prior GBS-Infected child: No, History of STD: No, HIV Infection: No, History of Hepatitis: No, Recent travel outside of : No, Concern for Hep exposure: No, Varicella immune: Yes Comments: travel to [place] in october Medical History Medical History: Positive: Hypertension (elevated bp today no history of meds or diagnosis but borderline in past), Neurologic/epilepsy (migraines), Depression/ depression (depression in past), Pulmonary (e.g.,TB,Asthma) (exercise induced no inhaler in years), Infertility, Negative: Diabetes, Heart disease, Auto-immune disorder, Kidney disease/UTI, Psychiatric, Hepatitis/liver disease, Varicosities/phlebitis, Thyroid dysfunction, Trauma/domestic violence, History of blood transfusions, D (Rh) Sensitized, Seasonal allergies, Drug/latex allergies/reactions, Breast, Director Intelligence Analysis Programs surgery, Operations/hospitalizations, Anesthetic complications, History of abnormal pap, Uterine anomaly/nguyen, Anti-retroviral treatment, Relevant family history, Other ACOG First Trimester First Trimester: Desire for , Alcohol, Tobacco Cessation, Illicit/Recreational Drug/Substance Use, Intimate Partner Violence, Barriers to care, Unstable Housing, Communication Barriers, Environmental/Work Hazards, Anticipated Course of Care, Nurtrition and weight gain, Toxoplasmosis Precations, Use of Any medications, Sexual activity, Exercise, Dental Care, Sauna/Hot tub use, Seat Belt use, Childbirth classes/Hospital facilities, , Travel, Indications for US and Screening for Aneuploidy ROS Const Denies fever(s), Reports system reviewed and no additional complaints, except as docu, Reports fatigue Eyes Reports system reviewed and no additional complaints, except as docu ENT Reports system reviewed and no additional complaints, except as docu Card Denies chest pain, Denies shortness of breath Resp Reports system reviewed and no additional complaints, except as docu, Denies shortness of breath, Denies cough GI Reports nausea, Denies abdominal pain Reports system reviewed and no additional complaints, except as docu Musc Reports system reviewed and no additional complaints, except as docu Skin/Breast Reports system reviewed and no additional complaints, except as docu Neuro Yes system reviewed and no additional complaints, except as docu Psych Reports system reviewed and no additional complaints, except as docu Endo Reports fatigue, Reports system reviewed and no additional complaints, except as docu Exam Const General: healthy appearing, comfortable, no acute distress Orientation: alert [facility] Head: normal to inspection, atraumatic, normocephalic Ears: external ears normal, hearing grossly normal bilaterally Nose: nares normal, external nose normal Mouth: oral mucosae normal Teeth and gingiva: dentition normal Eyes General: appearance normal, both eyes and all related structures Neck Neck: no lymphadenopathy, supple, normal visual inspection Thyroid: thyroid normal Resp Effort AND Inspection: normal respiratory effort GI Inspection: normal to inspection Palpation: soft, no hepatosplenomegaly General: bladder normal to palpation External Female Exam: normal external appearance, normal appearance of the urethra Urethra: normal appearance of the urethra Speculum Exam - Vagina: normal appearance of the vagina, normal vaginal discharge Speculum Exam - Cervix: normal appearance of the cervix Bimanual Exam- Vagina AND Uterus: bladder normal to palpation, normal bimanual exam, uterus non-tender, other Bimanual Exam- Adnexa, other: adnexae non-tender Skin General: no rashes or lesions noted Neuro Motor: muscle tone normal throughout, no movement abnormalities noted Extrem General: normal to inspection, full ROM Assessment AND Plan Problems 1. Encounter for supervision of normal first in first trimester Z34.01 RITA 02/13/18 Gustabo Santoyo. BMI 50.0-59.9, adult Z68.43 nutrition consult, 1 tm glucola, weekly nsts and growth us from 32 weeks Plan Patient oriented to practice and discussed care expectations and screenings. OG book offered to patient. labs and 19-20 week anatomy ultrasound ordered. Genetic screening offered to patient and patient chose: nt considering Orders Orders: Medications Discontinued: ondansetron Discontinued Reason: Orde4 mg PO Q8H PRN PRN Nausea J10.1 Dana polanco Completed oseltamivir Discontinued Reason: Orde75 mg PO BID J10.1 Dana polanco Completed Supplemental Info ACOG book given and patient encouraged to read about nutrition, exercise, weight gain, and food avoidance in . Coding Level of Care Code OB Routine Diagnoses Encounter for supervision of normal first in first trimester Z34.01 Trimester: first trimester BMI 50.0-59.9, adult Z68.43 07/10/17 3062 <Electronically signed by Mishel Pacheco MD> Date Mishel Pacheco MD Cosigner Signature: Date (if applicable) CC: CT/NG WCH BY PCR Collected: 07/06/2017 Status: F Source: AMBIKA 2:00 PM [facility] REPOSITORY TYPE CODE TESTS RESULT OUT OF RANGE REFERENCE UNITS LAB L8200.2100 Negative Normal Chlam Negative Trac PCR LAB L8200.2200 Negative Normal NG by Negative PCR Performed By: #### L8200.2000, M100.0650 #### [facility] [address] [place], [address] Observed: 07/06/2017 Status: F Source: AMBIKA CULTURE, URINE 2:00 PM [facility] REPOSITORY Urine Culture Probable skin contaminants. ORGANISM 1: Mixed Gram Positive Organisms Deridder Count >100,000 Performed By: #### L8200.2000, M100.0650 #### [facility] [address] [place], [address] PAP I-G W/RFX Collected: 07/06/2017 Status: F Source: AMBIKA HRHPV-APTIMA 2:00 PM [facility] REPOSITORY Order Comment: CYTOLOGY INFORMATION: - CLINICAL INFORMATION: HYSTERECTOMY - DATE LMP/MENOPAUSE: LMP - COLLECTION VIAL: Thin Prep Vial - PROCESS DESIGNER SOURCE: CERVICAL - COLLECTION TECHNIQUE: CX BROOM ONLY Specimen Comment: [id number] Specimen Comment: No. of containers..01 ThinPrep Vial TYPE CODE TESTS RESULT OUT OF RANGE REFERENCE UNITS LAB L7400.0800 . Normal DIAGN Comment Result Comment: NEGATIVE FOR INTRAEPITHELIAL LESION AND MALIGNANCY. THIS SPECIMEN WAS RESCREENED PART OF OUR SWIFT TENDER PROGRAM. LAB L7400.0900 . Normal ADEQ Comment Result Comment: Satisfactory for evaluation. Endocervical and/or squamous metaplastic cells (endocervical component) are present. LAB L7400.1400 . Normal PERFORM Comment Result Comment: Luis Keenan, Clerk Operator (ASCP) LAB L7400.1500 . Normal QC Comment REV Result Comment: Malini Iniguez, Supervisory Clerk Operator (ASC) LAB L7400.2575 . Normal TEST METHOD Comment Result Comment: This liquid based ThinPrep(R) pap test was screened with the use of an image guided system. LAB L7400.2600 . Normal . COMM LAB L7400.2700 . Normal PAPSMR Comment Result Comment: The Pap smear is a screening test designed to aid in the detection of premalignant and malignant conditions of the uterine cervix. It is not a diagnostic procedure and should not be used as the sole means of detecting cervical cancer. Both false-positive and false-negative reports do occur. LAB L7400.2800 . Normal HPV RFLX Comment Result Comment: The HPV DNA reflex criteria were not met with this specimen result therefore, no HPV testing was performed. Performed at: - [facility] [id number] Bobtail Driver: Rosana Condon MD, Phone: [phone] Performed By: #### L7400.0353 #### [facility] (refer to report for specific site) refer to report for address and phone number HCG TITER QUANT., Collected: 06/14/2017 Status: F Source: GLIDE SERUM 9:42 AM [facility] REPOSITORY TYPE CODE TESTS RESULT OUT OF RANGE REFERENCE UNITS LAB L700.8000 <9 non-preg mIU/mL High HCG 576 QUANT. Performed By: #### L700.8000 #### [facility] [address] [place], [address] HCG TITER QUANT., Collected: 06/12/2017 Status: F Source: GLIDE SERUM 11:26 AM [facility] REPOSITORY TYPE CODE TESTS RESULT OUT OF RANGE REFERENCE UNITS LAB L700.8000 <9 non-preg mIU/mL High HCG 298 QUANT. Performed By: #### L700.8000 #### [facility] [address] [place], [address] ALLERGIES ALLERGIES DATE TYPE / CODE NAME / CODE REACTION SEVERITY SOURCE 03/28/2018 Drug diphenhydrami increases [place] [facility] Allergy/4160 ne/[id number] anxiety Hospital 71749(SNOMED (RXNORM) Repository CT) 07/25/2017 Drug No Known Unknown [facility] Allergy/4160 Allergies/F00 Hospital 13281(SNOMED 7972255(RXNOR Repository CT) M) ENCOUNTERS ENCOUNTERS ADMIT/DISCHARGE ACCOUNT NUMBER ADMITTING ENCOUNTER LOCATION SOURCE CLASS 03/28/2018/03/28/20 [id number] Ambulatory BMSBuilding: [place] 18 BMS.[facility] Repository 03/22/2018/03/22/20 [id number] Ambulatory BMSBuilding: [place] 18 BMS.[facility] Repository 03/22/2018 [id number] Ambulatory [facility] ding:[facility] Repository 02/16/2018/02/17/20 [id number] Ambulatory BMSBuilding: [place] 18 BMS.[facility] Repository 01/31/2018 [id number] Ambulatory [facility] ding:[facility] Repository 01/31/2018/02/01/20 [id number] Ambulatory BMSBuilding: [place] 18 BMS.[facility] Repository 01/26/2018/01/27/20 [id number] Emergency [address] ding:ED Repository 01/20/2018/01/25/20 [id number] Edwige, Inpatient [place] [address] [facility] ding:WPRoom: Repository QW470Lla: 1 01/20/2018 [id number] Edw[place] Ambulatory BMSBuilding: [place] Mishel BMS.CF.[facility] Repository 01/20/2018 [id number] [place] Ambulatory BMSBuilding: [place] Mishel BMS.CF.[facility] Repository 01/20/2018 [id number] [place] Ambulatory BMSBuilding: [facility] Mishel BMS.CF.[facility] Repository 01/20/2018 [id number] Edwige, Ambulatory BMSBuilding: [place] Mishel BMS.CF.[facility] Repository 01/20/2018 [id number] Edwige, Ambulatory BMSBuilding: [facility] Mishel BMS.CF.[facility] Repository 01/20/2018 [id number] Edwige, Ambulatory BMSBuilding: [place] Mishel BMS.CF.[facility] Repository 01/19/2018 [id number] Ambulatory [facility] ding:[facility] Repository 01/19/2018/01/20/20 [id number] Ambulatory BMSBuilding: [place] 18 BMS.[facility] Repository 01/17/2018 [id number] [facility] 01/16/2018/01/17/20 [id number] Ambulatory [address] [facility] om: WP012 01/13/2018 [id number] Ambulatory BMSBuilding: [place] BMS.CF.[facility] Repository 01/12/2018 [id number] [facility] 01/12/2018/01/13/20 [id number] Ambulatory BMSBuilding: [place] 18 BMS.[facility] Repository 01/12/2018/01/13/20 [id number] Ambulatory [address] [facility] om: WP015 01/10/2018 [id number] Ambulatory [facility] ding:OPUS Repository 01/09/2018/01/10/20 [id number] Ambulatory [address] ding:WPOUTRo Repository om: WP012 01/07/2018 [id number] Ambulatory BMSBuilding: [place] BMS.CF.[facility] Repository 01/07/2018/01/08/20 [id number] Ambulatory [address] ding:WPOUTRo Repository om: WP013 01/07/2018 [id number] Ambulatory BMSBuilding: Amb[facility] Repository 01/05/2018/01/06/20 [id number] Ambulatory [place] [address] [place] [address] ding:WPOUTRo Repository om: WP012 01/02/2018/01/03/20 [id number] Ambulatory BMSBuilding: [place] 18 BMS.[facility] Repository 12/29/2017/12/30/19 [id number] Ambulatory BMSBuilding: [place] 18 BMS.[facility] Repository 12/29/2017 [id number] [facility] 12/28/2017 [id number] Ambulatory BMSBuilding: [place] BMS.CF.[facility] Repository 12/26/2017 [id number] Ambulatory BMSBuilding: [place] BMS.[facility] Repository 12/26/2017/12/27/19 [id number] Ambulatory [address] [facility] om: WP013 12/22/2017 [id number] Ambulatory [facility] ding:[facility]SPEC Repository 12/22/2017/12/23/19 [id number] Ambulatory [place] [facility] om: WP012 12/22/2017/12/23/19 [id number] Ambulatory BMSBuilding: [place] 18 BMS.[facility] Repository 12/20/2017 [id number] Ambulatory BMSBuilding: [place] BMS.CF.[facility] Repository 12/19/2017/12/20/19 [id number] Ambulatory [place] [address] [facility] om: WP019 12/19/2017/12/20/19 [id number] Ambulatory BMSBuilding: [place] 18 BMS.[facility] Repository 12/15/2017 [id number] Ambulatory [facility] ding:US Repository 12/15/2017/12/16/19 [id number] Ambulatory BMSBuilding: [place] 18 BMS.[facility] Repository 11/28/2017 [id number] Ambulatory BMSBuilding: [place] BMS.[facility] Repository 11/24/2017 [id number] Inpatient [address] [place] [address] 2NRoom: System [id number]: Repository [id number] 11/24/2017/11/25/19 [id number] Ambulatory [address] ding:WPOUT Repository 11/24/2017 [id number] Ambulatory BMSBuilding: [place] BMS.CF.[facility] Repository 11/24/2017/11/25/19 [id number] Ambulatory BMSBuilding: [place] 18 BMS.[facility] Repository 11/22/2017/11/23/19 [id number] Ambulatory BMSBuilding: [place] 18 BMS.[facility] Repository 11/14/2017 [id number] Ambulatory [facility] ding:LAB Repository 11/14/2017/11/15/19 [id number] Ambulatory BMSBuilding: [place] 18 BMS.[facility] Repository 10/17/2017/10/18/19 [id number] Ambulatory BMSBuilding: [place] 18 BMS.[facility] Repository 10/17/2017/10/18/19 [id number] Emergency [address] ding:ED Repository 09/27/2017 [id number] Ambulatory [facility] ding:US Repository 09/14/2017/09/15/19 [id number] Ambulatory BMSBuilding: [place] 18 BMS.[facility] Repository 08/31/2017 [id number] Ambulatory [facility] ding:LABSPEC Repository 08/31/2017/09/01/19 [id number] Ambulatory BMSBuilding: [place] 18 BMS.[facility] Repository 08/29/2017 [id number] Ambulatory [address] [place] [address] System ([place]) Repository 08/07/2017 [id number] Ambulatory [facility] ding:LAB Repository 08/07/2017/08/08/19 [id number] Ambulatory Building:[facility] 18 [facility] Repository 08/03/2017/08/04/19 [id number] Ambulatory BMSBuilding: [place] 18 BMS.[facility] Repository 08/01/2017 [id number] Ambulatory BMSBuilding: [place] BMS.[facility] Repository 07/25/2017/07/26/19 [id number] Ambulatory BMSBuilding: [place] 18 BMS.[facility] Repository 07/20/2017 [id number] Ambulatory [facility] ding:LAB Repository 07/12/2017/07/13/19 [id number] Emergency [facility] ding:ED Repository 07/11/2017 [id number] Ambulatory [facility] ding:LAB Repository 07/11/2017/07/12/19 [id number] Ambulatory BMSBuilding: [place] 18 BMS.[facility] Repository 07/06/2017 [id number] Ambulatory [facility] ding:LABSPEC Repository 07/06/2017/07/07/19 [id number] Ambulatory BMSBuilding: [place] 18 BMS.[facility] Repository 06/14/2017 [id number] Ambulatory [facility] ding:LAB Repository 06/12/2017 [id number] Ambulatory [facility] ding:LAB Repository 06/08/2017 [id number] Ambulatory [facility] Repository 06/08/2017 [id number] Ambulatory [facility] Repository PAYERS PAYERS ENCOUNTER GUARANTOR PAYER SUBSCRIBER SOURCE 03/28/2018 REBECCA SHEARERAnderson Apple [id number] CR Insurance:MEDICAL JARRELLDOB: [address] [id number] [address]Vvh: Number: Repository [id number] (HP) Date:[id number] [address] [place] [phone]: 03/28/2018 Secondary NOT GIVENUNK [place] Insurance:SELF PAY [facility] Number: Effective Repository Date:2018-03-28 03/22/2018 REBECCA Gonzalez Primary YOHANA Apple [id number] CR Insurance:MEDICAL JARRELLDOB: [address] [id number] Women's Hospital [address]Fed: Number: Repository [id number] (HP) Date:[id number] [address] [place] [phone]: 03/22/2018 Secondary NOT GIVENUNK [place] Insurance:SELF PAY [facility] Number: Effective Repository Date:2018-03-22 03/22/2018 REBECCA Gonzalez Primary YOHANA Apple [id number] CR Insurance:MEDICAL JARRELLDOB: [address] [id number] [address]Bev: Number: Repository [id number] (HP) Date:[id number] [address] [place] [phone]: 03/22/2018 Secondary NOT GIVENUNK [place] Insurance:SELF PAY [facility] Number: Effective Repository Date:2018-03-22 02/16/2018 REBECCA Gonzalez Primary YOHANA Apple [id number] CR Insurance:MEDICAL JARRELLDOB: [address] [id number] Women's Hospital [address]Klh: Number: Repository [id number] (HP) Date:[id number] [address] [place] [phone]: 02/16/2018 Secondary NOT GIVENUNK [place] Insurance:SELF PAY [facility] Number: Effective Repository Date:2018-02-16 01/31/2018 REBECCA Carlos Primary YOHANA Apple [id number] CR Insurance:MEDICAL JARRELLDOB: [address] [id number] Women's Hospital [address]Qkm: Number: Repository [id number] (HP) Date:[id number] [address] [place] [phone]: 01/31/2018 Secondary NOT GIVENUNK [place] Insurance:SELF PAY [facility] Number: Effective Repository Date:2018-01-31 01/31/2018 REBECCA Apple [id number] CR Insurance:MEDICAL JARRELLDOB: [address] [id number] Women's Hospital [address]Hly: Number: Repository [id number] (HP) Date:0917-02-58UK [place] [address]01[address]WP: 01/31/2018 Secondary NOT GIVENUNK Henning Insurance:SELF PAY [facility] Number: Effective Repository Date:2018-01-31 01/26/2018 REBECCA Gonzalez [facility] YOHANA Weston Henning [id number] CR Insurance:MEDICAL JARRELLDOB: [address] 7894-11-59LTX [place] [address]Loc: Number: Repository [id number] (HP) Date:0340-25-16NE [place] [address]01[address]WP: 01/26/2018 Secondary NOT GIVENUNK Henning Insurance:SELF PAY [facility] Number: Effective Repository Date:2018-01-26 01/20/2018 REBECCA Gonzalez [facility] YOHANA Apple [id number] CR Insurance:MEDICAL JARRELLDOB: [address] 5698-79-51SYJLovelace Women's Hospital [address]Mkt: Number: Repository [id number] (HP) Date:0861-04-49ON [place] [id number]: 01/20/2018 Secondary NOT GIVENUNK Ambika Insurance:SELF PAY [facility] Number: Effective Repository Date:2018-01-19 01/20/2018 REBECCA Apple [id number] CR Insurance:MEDICAL JARRELLDOB: [address] 0316-69-26HSRLovelace Women's Hospital [address]Crj: Number: Repository [id number] (HP) Date:0688-38-27RY [address] [address]AE: 01/20/2018 Secondary NOT GIVENUNK Ambika Insurance:SELF PAY [facility] Number: Effective Repository Date:2018-01-20 01/20/2018 REBECCA Gonzalez [facility] YOHANA M Ambika [id number] CR Insurance:MEDICAL JARRELLDOB: Community [address] [place] [address] 5453-62-23YMWLovelace Women's Hospital [address]Hfk: Number: Repository [id number] (HP) Date:3249-06-92JX [address] [address]UH: 01/20/2018 Secondary NOT GIVENUNK Henning Insurance:SELF PAY [facility] Number: Effective Repository Date:2018-01-20 01/20/2018 REBECCA Gonzalez [facility] YOHANA M Ambika [id number] CR Insurance:MEDICAL JARRELLDOB: [address] 1948-54-56RCWLovelace Women's Hospital [address]Rzd: Number: Repository [id number] (HP) Date:6620-56-76GN [place] [address]16401[address]WP: 01/20/2018 Secondary NOT GIVENUNK Henning Insurance:SELF PAY [facility] Number: Effective Repository Date:2018-01-20 01/20/2018 REBECCA Gonzalez [facility] YOHANA M Ambika [id number] CR Insurance:MEDICAL JARRELLDOB: [address] 8283-50-98BXKLovelace Women's Hospital [address]Vba: Number: Repository [id number] (HP) Date:3110-33-43RP [address] [address]EY: 01/20/2018 Secondary NOT GIVENUNK Henning Insurance:SELF PAY [facility] Number: Effective Repository Date:2018-01-20 01/20/2018 REBECCA Carlos [facility] YOHANA M Ambika [id number] CR Insurance:MEDICAL JARRELLDOB: [address] 9974-08-38NCPLovelace Women's Hospital [address]Kcx: Number: Repository [id number] (HP) Date:6259-16-75BZ [place] [address]16401[address]WP: 01/20/2018 Secondary NOT GIVENUNK Henning Insurance:SELF PAY [facility] Number: Effective Repository Date:2018-01-20 01/20/2018 REBECCA Carlos [facility] YOHANA M Ambika [id number] CR Insurance:MEDICAL JARRELLDOB: [address] 0498-20-13VNH [place] [address]Lei: Number: Repository [id number] (HP) Date:2262-69-29ZV [place] [address]01[address]WP: 01/20/2018 Secondary NOT GIVENUNK Ambika Insurance:SELF PAY [facility] Number: Effective Repository Date:2018-01-20 01/19/2018 REBECCA Carlos [facility] YOHANA Weston Ambika [id number] CR Insurance:MEDICAL JARRELLDOB: [address] 9898-00-20GSL [place] [address]Sba: Number: Repository [id number] (HP) Date:8379-61-55WM [place] [address]01[address]WP: 01/19/2018 Secondary NOT GIVENUNK Ambika Insurance:SELF PAY [facility] Number: Effective Repository Date:2018-01-19 01/19/2018 REBECCA Carlos [facility] YOHANA Weston Ambika [id number] CR Insurance:MEDICAL JARRELLDOB: [address] 0634-50-87UPO [place] [address]Lwr: Number: Repository [id number] (HP) Date:0414-24-74IN [place] [address]01[address]WP: 01/19/2018 Secondary NOT GIVENUNK Ambika Insurance:SELF PAY [facility] Number: Effective Repository Date:2018-01-11 01/17/2018 REBECCA Gonzalez Primary NOT GIVENUNK Henning [id number] CR Insurance:SELF PAY [place] [id number]: Number: Effective Repository Date:2018-01-17 (HP) 01/16/2018 REBECCA Gonzalez Primary YOHANA Weston Henning [id number] CR Insurance:MEDICAL JARRELLDOB: [address] 1470-06-94HAI [place] [address]Wyv: Number: Repository [id number] (HP) Date:1085-91-33GY [place] [address]01[address]WP: 01/16/2018 Secondary NOT GIVENUNK Henning Insurance:SELF PAY [facility] Number: Effective Repository Date:2018-01-16 01/13/2018 REBECCA Gonzalez Primary NOT GIVENUNK Henning [id number] CR Insurance:SELF PAY [address] [address]Wmw: Number: Effective Repository Date:2018-01-13 (HP) 01/12/2018 REBECCA Gonzalez Primary YOHANA Rowleyoster [id number] CR Insurance:MEDICAL JARRELLDOB: [address] 9172-07-56USILovelace Women's Hospital [address]Jau: Number: Repository [id number] (HP) Date:1427-01-69QK [place] [address]01[address]WP: 01/12/2018 Secondary NOT GIVENUNK Henning Insurance:SELF PAY [facility] Number: Effective Repository Date:2018-01-12 01/12/2018 REBECCA Apple [id number] CR Insurance:MEDICAL JARRELLDOB: [address] 6937-15-70SOCLovelace Women's Hospital [address]Sre: Number: Repository [id number] (HP) Date:8380-83-70AA [address] [place], [place] [address]WP: 01/12/2018 Secondary NOT GIVENUNK Henning Insurance:SELF PAY [facility] Number: Effective Repository Date:2018-01-11 01/12/2018 REBECCA Gonzalez [facility] YOHNAA Weston Ambika [id number] CR Insurance:MEDICAL JARRELLDOB: [address] 6006-35-66IXE [place] [address]Rje: Number: Repository [id number] (HP) Date:8062-55-24LW [address] [place] [address]WP: 01/12/2018 Secondary NOT GIVENUNK Ambika Insurance:SELF PAY [facility] Number: Effective Repository Date:2018-01-08 01/10/2018 REBECCA Gonzalez [facility] YOHANA Rowleyoster [id number] CR Insurance:MEDICAL JARRELLDOB: [address] 4268-29-83JDG [place] [address]Llp: Number: Repository [id number] (HP) Date:2261-51-08GT [address] [place], [place] [address]WP: 01/10/2018 Secondary NOT GIVENUNK Ambika Insurance:SELF PAY [facility] Number: Effective Repository Date:2018-01-10 01/09/2018 REBECCA Gonzalez [facility] YOHANA Apple [id number] CR Insurance:MEDICAL JARRELLDOB: [address] 9337-26-88TZL [place] [address]Hua: Number: Repository [id number] (HP) Date:3069-61-26UI [address] [place] [address]RF: 01/09/2018 Secondary NOT GIVENUNK Henning Insurance:SELF PAY [facility] Number: Effective Repository Date:2018-01-09 01/07/2018 REBECCA Carlos Primary YOHANA M Ambika [id number] CR Insurance:MEDICAL JARRELLDOB: [address] 4348-87-80PFKLovelace Women's Hospital [address]Mmu: Number: Repository [id number] (HP) Date:9241-26-50QX [address] [place], [place] [address]WP: 01/07/2018 Secondary NOT GIVENUNK Ambika Insurance:SELF PAY [facility] Number: Effective Repository Date:2018-01-07 01/07/2018 REBECCA Gonzalez Primary YOHANA Apple [id number] CR Insurance:MEDICAL JARRELLDOB: [address] 6547-28-62PPHKeith [place] [id number]: Number: Repository [id number] (HP) Date:9100-74-14JP [place] [address]01[address]WP: 01/07/2018 Secondary NOT GIVENUNK Ambika Insurance:SELF PAY [facility] Number: Effective Repository Date:2018-01-07 01/07/2018 REBECCA Gonzalez Primary YOHANA M Ambika [id number] CR Insurance:MEDICAL JARRELLDOB: [address] 6912-07-16EIIKe[place] [id number]: Number: Repository [id number] (HP) Date:9305-39-67PA [place] [address]01[address]WP: 01/07/2018 Secondary NOT GIVENUNK Ambika Insurance:SELF PAY [facility] Number: Effective Repository Date:2018-01-07 01/05/2018 REBECCA Gonzalez Primary YOHANA M Ambika [id number] CR Insurance:MEDICAL JARRELLDOB: [address] 2308-68-28KMFLovelace Women's Hospital [address]Okl: Number: Repository [id number] (HP) Date:8903-96-82XM [address] [place] [address]BY: 01/05/2018 Secondary NOT GIVENUNK Henning Insurance:SELF PAY [facility] Number: Effective Repository Date:2018-01-05 01/02/2018 REBECCA Gonzalez Primary YOHANA Apple [id number] CR Insurance:MEDICAL JARRELLDOB: [address] 0825-89-15NFJLovelace Women's Hospital [address]Stx: Number: Repository [id number] (HP) Date:0336-52-90SW [address] [place] [address]SZ: 01/02/2018 Secondary NOT GIVENUNK Ambika Insurance:SELF PAY [facility] Number: Effective Repository Date:2018-01-02 12/29/2017 REBECCA Gonzalez Primary YOHANA Apple [id number] CR Insurance:MEDICAL JARRELLDOB: [address]09-20[place] [id number]: Number: Repository [id number] (HP) Date:4475-87-79UC [address] [place], [place] [address]WP: 12/29/2017 Secondary NOT GIVENUNK Ambika Insurance:SELF PAY [facility] Number: Effective Repository Date:2017-12-29 12/29/2017 REBECCA Gonzalez Primary YOHANA Trista Apple [id number] CR Insurance:MEDICAL JARRELLDOB: [address]09-20[facility] [address]Cyb: Number: Repository [id number] (HP) Date:3036-34-90SF [address] [place], [place] [address]WP: 12/29/2017 Secondary NOT GIVENUNK Ambika Insurance:SELF PAY [facility] Number: Effective Repository Date:2017-12-21 12/28/2017 REBECCA Carlos Primary YOHANA M Ambika [id number] CR Insurance:MEDICAL JARRELLDOB: [address] 5585-64-08FLZLovelace Women's Hospital [address]Oig: Number: Repository [id number] (HP) Date:3535-38-57FH [address] [place], [place] [address]WP: 12/28/2017 Secondary NOT GIVENUNK Henning Insurance:SELF PAY [facility] Number: Effective Repository Date:2017-12-28 12/26/2017 REBECCA SHEARERAnderson Weston Ambika [id number] CR Insurance:MEDICAL JARRELLDOB: [address] 8961-33-68IDFLovelace Women's Hospital [address]Fgu: Number: Repository [id number] (HP) Date:1020-06-93NN [address] [place] [address]XX: 12/26/2017 Secondary NOT GIVENUNK Henning Insurance:SELF PAY [facility] Number: Effective Repository Date:2017-12-26 12/26/2017 REBECCA Carlos SHEARERAnderson Weston Ambika [id number] CR Insurance:MEDICAL JARRELLDOB: [address] 8036-80-50LZSLovelace Women's Hospital [address]Kto: Number: Repository [id number] (HP) Date:2814-76-90OO [address] [place] [address]GE: 12/26/2017 Secondary NOT GIVENUNK Henning Insurance:SELF PAY [facility] Number: Effective Repository Date:2017-12-26 12/22/2017 REBECCA SHEARERAnderson Weston Ambika [id number] CR Insurance:MEDICAL JARRELLDOB: [address] 6238-26-08WUTLovelace Women's Hospital [address]Ohz: Number: Repository [id number] (HP) Date:0768-00-46RU [address] [place] [address]WR: 12/22/2017 Secondary NOT GIVENUNK Henning Insurance:SELF PAY [facility] Number: Effective Repository Date:2017-12-22 12/22/2017 REBECCA Gonzalez Primary YOHANA M Ambika [id number] CR Insurance:MEDICAL JARRELLDOB: [address] 1828-50-16ALPLovelace Women's Hospital [address]Rlp: Number: Repository [id number] (HP) Date:1441-87-63FK [address] [place] [address]NT: 12/22/2017 Secondary NOT GIVENUNK Ambika Insurance:SELF PAY [facility] Number: Effective Repository Date:2017-12-22 12/22/2017 REBECCA Gonzalez Primary YOHANA M Ambika [id number] CR Insurance:MEDICAL JARRELLDOB: [address] 5982-06-25ZLTLovelace Women's Hospital [address]Vjv: Number: Repository [id number] (HP) Date:9603-27-31UC [address] [place], [place] [address]WP: 12/22/2017 Secondary NOT GIVENUNK Ambika Insurance:SELF PAY [facility] Number: Effective Repository Date:2017-12-15 12/20/2017 REBECCA L Primary NOT GIVENUNK Ambika [id number] CR Insurance:SELF PAY [address] [address]Ibc: Number: Effective Repository Date:2017-12-20 (HP) 12/19/2017 REBECCA Carlos Primary YOHANA M Henning [id number] CR Insurance:MEDICAL JARRELLDOB: [address] 1283-92-87DHXLovelace Women's Hospital [address]Ybi: Number: Repository [id number] (HP) Date:2648-91-35PN [address] [place], [place] [address]WP: 12/19/2017 Secondary NOT GIVENUNK Ambika Insurance:SELF PAY [facility] Number: Effective Repository Date:2017-12-19 12/19/2017 REBECCA Carlos Primary YOHANA Apple [id number] CR Insurance:MEDICAL JARRELLDOB: Community [address] [place] [address] 3515-01-62YZKLovelace Women's Hospital [address]Odb: Number: Repository [id number] (HP) Date:7274-39-51WN [place] [address]WP: 12/19/2017 Secondary NOT GIVENUNK Henning Insurance:SELF PAY [facility] Number: Effective Repository Date:2017-12-19 12/15/2017 REBECCA Carlos Primary YOHANA Rowleyoster [id number] CR Insurance:MEDICAL JARRELLDOB: [address]09-20[facility] [address]Xar: Number: Repository [id number] (HP) Date:7881-66-40IC [address] [place] [address]FM: 12/15/2017 Secondary NOT GIVENUNK Henning Insurance:SELF PAY [facility] Number: Effective Repository Date:2017-12-12 12/15/2017 REBECCA Carlos Primary YOHANA Apple [id number] CR Insurance:MEDICAL JARRELLDOB: [address]09-20[facility] [address]Ntm: Number: Repository [id number] (HP) Date:1407-16-15IJ [address] [place], [place] [address]WP: 12/15/2017 Secondary NOT GIVENUNK Henning Insurance:SELF PAY [facility] Number: Effective Repository Date:2017-12-15 11/28/2017 REBECCA Gonzalez [facility] YOHANA Apple [id number] CR Insurance:MEDICAL JARRELLDOB: [address] 4671-66-15IIXLovelace Women's Hospital [address]Bzo: Number: Repository [id number] (HP) Date:2899-88-12WC [address] [place], [place] [address]WP: 11/28/2017 Secondary NOT GIVENUNK Henning Insurance:SELF PAY [facility] Number: Effective Repository Date:2017-11-22 11/24/2017 Rebecca Gonzalez [facility] Hamilton[facility]zD[facility]: Insurance:Medical Wojmelrose area hospitalzD[facility]: System [facility] 8312-17-77MRU Repository [address] [place] [address], Number: Effective [place] [address]Woe: Date: (HP) 11/24/2017 REBECCA Gonzalez [facility] YOHANA Apple [id number] CR Insurance:MEDICAL JARRELLDOB: [address] 5400-45-48SIELovelace Women's Hospital [address]Drv: Number: Repository [id number] (HP) Date:0171-33-98DH [place] [address]01[address]WP: 11/24/2017 Secondary NOT GIVENUNK Ambika Insurance:SELF PAY [facility] Number: Effective Repository Date:2017-11-24 11/24/2017 REBECCA Gonzalez [facility] YOHANA Weston Henning [id number] CR Insurance:MEDICAL JARRELLDOB: [address] 4086-20-32LVGLovelace Women's Hospital [address]Ejm: Number: Repository [id number] (HP) Date:1222-29-90OO [address] [place] [address]ST: 11/24/2017 Secondary NOT GIVENUNK Ambika Insurance:SELF PAY [facility] Number: Effective Repository Date:2017-11-24 11/24/2017 REBECCA Apple [id number] CR Insurance:MEDICAL JARRELLDOB: [address] 5781-08-71JNC [place] [address]Mdi: Number: Repository [id number] (HP) Date:8374-72-68ZI [address] [place], [place] [address]WP: 11/24/2017 Secondary NOT GIVENUNK Henning Insurance:SELF PAY [facility] Number: Effective Repository Date:2017-11-24 11/22/2017 REBECCA Rowleyoster [id number] CR Insurance:MEDICAL JARRELLDOB: [address] 3717-61-34PWW [place] [address]Hpl: Number: Repository [id number] (HP) Date:0898-97-76IF [address] [place], [place] [address]WP: 11/22/2017 Secondary NOT GIVENUNK Henning Insurance:SELF PAY [facility] Number: Effective Repository Date:2017-11-22 11/14/2017 REBECCA Apple [id number] CR Insurance:MEDICAL JARRELLDOB: [address] 6779-06-33GTV [place] [address]Ugd: Number: Repository [id number] (HP) Date:6659-46-33UJ [address] [place], [place] [address]WP: 11/14/2017 Secondary NOT GIVENUNK Henning Insurance:SELF PAY [facility] Number: Effective Repository Date:2017-11-14 11/14/2017 REBECCA Apple [id number] CR Insurance:MEDICAL JARRELLDOB: [address] 0623-10-30YKLLovelace Women's Hospital [address]Xhl: Number: Repository [id number] (HP) Date:9785-22-32OX [address] [place] [address]IM: 11/14/2017 Secondary NOT GIVENUNK Henning Insurance:SELF PAY [facility] Number: Effective Repository Date:2017-11-14 10/17/2017 REBECCA Gonzalez Primary YOHANA Apple [id number] CR Insurance:MEDICAL JARRELLDOB: Community [address] [place] [address] 6807-40-98AAOLovelace Women's Hospital [address]Dvq: Number: Repository [id number] (HP) Date:6272-66-10SL [place] [address]01[address]WP: 10/17/2017 Secondary NOT GIVENUNK Henning Insurance:SELF PAY [facility] Number: Effective Repository Date:2017-10-17 10/17/2017 REBECCA Gonzalez [facility] YOHANA Apple [id number] CR Insurance:MEDICAL JARRELLDOB: [address] 0809-23-18KQOLovelace Women's Hospital [address]Ijt: Number: Repository [id number] (HP) Date:5215-46-09EW [place] [address]WP: 10/17/2017 Secondary NOT GIVENUNK Henning Insurance:SELF PAY [facility] Number: Effective Repository Date:2017-10-17 09/27/2017 REBECCA Gonzalez [facility] YOHANA Apple [id number] CR Insurance:MEDICAL JARRELLDOB: [address] 7633-29-68GGCLovelace Women's Hospital [address]Zvv: Number: Repository [id number] (HP) Date:8308-70-99MY [address] [address]FA: 09/27/2017 Secondary NOT GIVENUNK Henning Insurance:SELF PAY [facility] Number: Effective Repository Date:2017-09-21 09/14/2017 REBECCA Carlos Primary YOHANA M Ambika [id number] CR Insurance:MEDICAL JARRELLDOB: [address] 9769-09-51FTTLovelace Women's Hospital [address]Btj: Number: Repository [id number] (HP) Date:2684-61-89PJ [place] [address]WP: 09/14/2017 Secondary NOT GIVENUNK Ambika Insurance:SELF PAY [facility] Number: Effective Repository Date:2017-09-21 08/31/2017 REBECCA Carlos Primary YOHANA Apple [id number] CR Insurance:MEDICAL JARRELLDOB: [address] 7420-23-42MXW [place] [address]Qdc: Number: Repository [id number] (HP) Date:0323-50-02JQ [place] [address]WP: 08/31/2017 Secondary NOT GIVENUNK Henning Insurance:SELF PAY [facility] Number: Effective Repository Date:2017-08-31 08/31/2017 REBECCA Carlos Primary YOHANA Trista Apple [id number] CR Insurance:MEDICAL JARRELLDOB: [address] 5714-95-15IWW [place] [address]Jaa: Number: Repository [id number] (HP) Date:0988-35-65FT [place] [address]WP: 08/31/2017 Secondary NOT GIVENUNK Ambika Insurance:SELF PAY [facility] Number: Effective Repository Date:2017-08-31 08/07/2017 REBECCA Carlos Primary YOHANA M Ambika [id number] CR Insurance:MEDICAL JARRELLDOB: [address] 4182-07-21XKK [place] [address]Hai: Number: Repository [id number] (HP) Date:0172-59-77GG [address] [place] [address]ZK: 08/07/2017 Secondary NOT GIVENUNK Henning Insurance:SELF PAY [facility] Number: Effective Repository Date:2017-08-07 08/07/2017 REBECCA SHEARERAnderson [facility] WOJNICZDOB: Insurance:MEDICAL JARRELLDOB: Hospital [facility] [id number] Repository [facility] [address] Number: [address], [id number] [facility] [address]Vni: Date: [address] (HP) 08/03/2017 REBECCA Gonzalez [facility] YOHANA Trista Apple [id number] CR Insurance:MEDICAL JARRELLDOB: [address] 3234-91-53KVAKeith Ville 6004442Tel: Number: Repository [id number] (HP) Date:5733-14-09YW [address] [place] [address]ZP: 08/03/2017 Secondary NOT GIVENUNK Henning Insurance:SELF PAY [facility] Number: Effective Repository Date:2017-07-25 08/01/2017 REBECCA Gonzalez [facility] YOHANA Trista Apple [id number] CR Insurance:MEDICAL JARRELLDOB: [address] 1769-88-07MINLovelace Women's Hospital [address]Pev: Number: Repository [id number] (HP) Date:9397-06-95SP [address] [place] [address]QF: 08/01/2017 Secondary NOT GIVENUNK Henning Insurance:SELF PAY [facility] Number: Effective Repository Date:2017-07-06 07/25/2017 REBECCA SHEARERAnderson Weston Ambika [id number] CR Insurance:MEDICAL JARRELLDOB: [address] 7313-62-64YXGLovelace Women's Hospital [address]Xht: Number: Repository [id number] (HP) Date:3893-97-38XF [address] [place] [address]QG: 07/25/2017 Secondary NOT GIVENUNK Ambika Insurance:SELF PAY [facility] Number: Effective Repository Date:2017-07-25 07/20/2017 REBECCA Gonzalez Primary YOHANA Apple [id number] CR Insurance:MEDICAL JARRELLDOB: [address] 9387-23-61FWW [place] [address]Osq: Number: Repository [id number] (HP) Date:6318-94-91LG [address] [place] [address]XG: 07/20/2017 Secondary NOT GIVENUNK Henning Insurance:SELF PAY [facility] Number: Effective Repository Date:2017-07-19 07/12/2017 REBECCA Gonzalez Primary YOHANA Rowleyoster [id number] CR Insurance:MEDICAL JARRELLDOB: [address]09-20[facility] [address]Cqi: Number: Repository [id number] (HP) Date:8125-24-79HU [address] [place] [address]EW: 07/12/2017 Secondary NOT GIVENUNK Henning Insurance:SELF PAY [facility] Number: Effective Repository Date:2017-07-12 07/11/2017 REBECCA Gonzalez Primary YOHANA Apple [id number] CR Insurance:MEDICAL JARRELLDOB: [address]09-20[facility] [address]Mgj: Number: Repository [id number] (HP) Date:8845-64-60ZF [address] [place] [address]GA: 07/11/2017 Secondary NOT GIVENUNK Ambika Insurance:SELF PAY [facility] Number: Effective Repository Date:2017-07-11 07/11/2017 REBECCA L Candy SHEARERAnderson Weston Ambika [id number] CR Insurance:MEDICAL JARRELLDOB: [address] 0210-12-50SIPLovelace Women's Hospital [address]Vfy: Number: Repository [id number] (HP) Date:3120-62-02IH [address] [place], [place] [address]WP: 07/11/2017 Secondary NOT GIVENUNK Henning Insurance:SELF PAY [facility] Number: Effective Repository Date:2017-07-11 07/06/2017 REBECCA Carlos SHEARERAnderson Weston Ambika [id number] CR Insurance:MEDICAL JARRELLDOB: [address] 7333-47-89NQI [place] [address]Guk: Number: Repository [id number] (HP) Date:9139-45-04CI [address] [place], [place] [address]WP: 07/06/2017 Secondary NOT GIVENUNK Ambika Insurance:SELF PAY [facility] Number: Effective Repository Date:2017-07-06 07/06/2017 REBECCA L Candy SHEARERAnderson Weston Ambika [id number] CR Insurance:MEDICAL JARRELLDOB: [address] 1924-25-47LPVLovelace Women's Hospital [address]Jjc: Number: Repository [id number] (HP) Date:7140-92-04CF [address] [place], [place] [address]WP: 07/06/2017 Secondary NOT GIVENUNK Ambika Insurance:SELF PAY [facility] Number: Effective Repository Date:2017-07-06 06/14/2017 REBECCA Carlos SHEARERAnderson Weston Ambika [id number] CR Insurance:MEDICAL JARRELLDOB: [address] [id number] Women's Hospital [address]Xdp: Number: Repository [id number] (HP) Date:[id number] [address] [address]RS: 06/14/2017 Secondary NOT GIVENUNK Ambika Insurance:SELF PAY [facility] Number: Effective Repository Date:2017-06-14 06/12/2017 Rebecca [id number] [facility]:MEDICAL JARRELLDOB: Community [address] [place] [address] [id number] Women's Hospital [address]Dih: Number: Repository [id number] (HP) Date:[id number] [address] [address]KM: 06/12/2017 Secondary NOT GIVENUNK Henning Insurance:SELF PAY [facility] Number: Effective Repository Date:2017-06-12 06/08/2017 Rebecca Carlos [facility] Insurance:Self WojniczDOB: System [facility] Number: [id number] Repository [address], Effective Date: [place] [address]Ebh: (HP) 06/08/2017 Rebecca L Primary Rebecca [employer] WojniczDOB: Insurance:Medical WojniczDOB: System [facility] [id number] Repository [address], Number: Effective [place] [address]Jyo: Date: (HP)
== END ==
LOC: LABSPEC 03-23 09:15
PROVIDERS: Referring Provider Nurse Practitioner Women's Health; Visit Provider Nurse Practitioner Women's Health
DX: Z12.4 Encounter for screening for malignant neoplasm of cervix (principal)
CPT/HCPCS: 87624; 88175; G0145

== ENCOUNTER 2019-10-23 08:41 | Emergency (ER) | payer OTHER, SELFPAY ==
[2018-03-28 13:54] VITALS: BMI 49.9
[2019-10-23 08:42] VITALS: BP 161/115; PULSE 74; RESP 20; TEMP 36.8; O2SAT 99; BMI 53.2
--- NOTE | 2019-10-23 09:00 | CT_ITS ---
STUDY: CT BRAIN WITHOUT CONTRAST REASON FOR EXAM: Female, 24 years old. Headache, right side. Nausea/vomiting. Pt shielded. Hx of HTN-rx controlled RADIATION DOSAGE (If Supplied By Facility): CTDIvol = ( 44.99 ) mGy, DLP = ( 812.98 ) mGycm TECHNIQUE: Transaxial CT imaging of the brain was performed without administration of intravenous contrast material. Individualized dose optimization techniques were used for this CT. COMPARISON: Comparison is made with prior examination June 16, 2016. FINDINGS: Normal soft tissue structures. Normal calvarium. Normal size ventricles and extra-axial spaces for the patient''s age. Normal white matter tracts of the cerebral hemispheres. Normal basal ganglia and thalami. Normal brainstem. Normal cerebellum. There is no intracranial hemorrhage. There are no findings of an acute ischemic infarction. Normal visualized paranasal sinuses. CT/Brain/Head without Contrast IMPRESSION: Normal unenhanced CT scan of the brain. Electronically Signed: Kenan Alcantara, at 9:50 EDT , Service support ,
--- NOTE | 2019-10-23 09:00 | ED.DCSUM_ITS ---
History of Present Illness Chief Complaint: Headache Informant: Patient Narrative: Patient is a 24-year-old female who presents to the emergency department for headache. This started yesterday and progressively got worsened today. She currently rates the headache as an 8 out of 10. It was not acute onset. Not the worst headache of her life. She is having some neck stiffness. She denies any fevers or chills. She has been nauseous and vomited twice. No chest pain or shortness of breath. No back pain. Have a history of migraines in the past. This is unilateral on the right side. She states that everything makes the headache worse. She tried taking multiple different ifyd-kjp-avwxhdv medications including Tylenol, ibuprofen, aspirin, caffeine. This has not given her any relief. Denies any changes in bowel habits. No urinary symptoms. No known sick contacts. She denies any head trauma. She is on antihypertensive medications but states that she threw it up this morning. Past Medical History - Allergies and Home Meds Allergies/Adverse Reactions: Allergies diphenhydramine [From Benadryl] Allergy (Mild, Verified 10/23/19 08:44) increases anxiety Primary Care Physician: [facility] Doctor,Out of [NON-STAFF] - 2 Days Prior records reviewed: Yes Past Medical History: - - Hypertension Smoking Status: Former smoker Review of Systems All systems negative except as indicated General: Denies: Chills, Fever, Sweats Eyes: Denies: Visual changes - bilaterally, Diplopia ENT: Denies: Rhinorrhea, Sore throat Cardiovascular: Denies: Chest pain, Palpitations Respiratory: Denies: Dyspnea, Cough, Dyspnea on exertion Gastrointestinal: Reports: Nausea, Vomiting. Denies: Abdominal pain, Diarrhea Genitourinary: Denies: Dysuria, Hematuria, Frequency Musculoskeletal: Reports: Neck pain. Denies: Back pain, Extremity Pain Skin: Denies: Rash, Wounds Neurological: Reports: Headache. Denies: Weakness, Numbness Physical Exam Vital Signs/Narrative: Vital Signs Temp Pulse Resp BP Pulse Ox 10/23/19 08:42 98.2 F 74 20 H 161/115 H 99 Inital Vital Signs reviewed: Yes General: Well nourished, Well developed, No Acute Distress, - - Patient sitting in dark room with her eyes closed. Head: Normocephalic, Atraumatic Eyes: Perrl, EOMI ENT: Moist mucous membranes, No rhinorrhea, TM's clear Neck: - - Negative Brudzinski and Kernig sign. Patient has supple neck movement. Cardiovascular: Regular rate, Regular rhythm, No murmurs Respiratory: No distress, CTA bilaterally, Chest nontender Abdomen: Soft, Nontender, Nondistended, Normal bowel sounds Back: Nontender, Normal Inspection Extremities: Nontender, No edema Skin: Normal color, No rash Neurological: Alert, Oriented x3, Cranial nerves II-XII grossly intact, Normal Strength, Normal Sensation Psychological: Normal affect, Normal Mood Diagnostic/Tx/Re-eval - Medical Decision Making Patient presents to the emergency department for headache and neck pain. Discussed the possibility of meningitis. Highly unlikely that this is bacterial meningitis as her symptoms have been going on since yesterday. I did discuss a lumbar puncture but she is declining at this time. She does want to do the head CT as she has not had one in multiple years. She states that the previous time she is gotten migraine cocktails that she has been very anxious with the medication. She believes it is Benadryl but I talked her about the Reglan side effects. We will start with Toradol and Zofran at this time. CT scan of her head did not show any acute intracranial abnormality. She is feeling much better after treatment. I again discussed the lumbar puncture but she is declining at this time. She does feel comfortable going home now. She needs to have close follow-up with her PCP. If she develops any fevers chills o r worsening neck stiffness she is to return to the emergency department immediately. I did offer antiemetics for home but she is declining at this time. ED Disposition - Plan for ED Patient: Disposition: Home or Assisted Living Diagnosis: Headache, Nausea and vomiting Instructions: ED Headache Unspecified Referrals: [facility] Doctor,Out of [NON-STAFF] - 2 Days
[2019-10-23] MEDS: Ondansetron 4 MG/2 ML Vial IV (09:05)
[2019-10-23] MEDS: Ketorolac 30 MG/ML Syringe IV (09:06)
[2019-10-23] MEDS: 0.9% Normal Saline 1,000 ML 999 ML IV (09:07)
[2019-10-23 09:55] LABS: Internal QC Validated? YES +Cl - CLEAR BKGD; Pregnancy, Urine Negative Negative
[2019-10-23 10:22] VITALS: BP 135/74; PULSE 87; RESP 18; O2SAT 99
== END 2019-10-23 10:29 | disposition home or self-care (01) ==
PROVIDERS: Emergency Provider Emergency Medicine
DX: R51 Headache (principal); R11.2 Nausea with vomiting, unspecified; M54.2 Cervicalgia; I10 Essential (primary) hypertension; G43.909 Migraine, unspecified, not intractable, without status migrainosus; Z79.899 Other long term (current) drug therapy; Z87.891 Personal history of nicotine dependence
CPT/HCPCS: 70450; 81025; 96361; 96374; 96375; 99282; J7030; A4216; J2405

== ENCOUNTER → 2020-11-02 | Outpatient (CLI) | payer OTHER, SELFPAY ==
[2020-11-02 12:00] VITALS: BMI 49.5
[2020-11-03 20:08] LABS: Chlamydia By Nucleic Acid AMP Negative (Negative)
[2020-11-03 21:32] LABS: Gonococcus By Nucleic Acid AMP Negative (Negative)
== END | disposition home or self-care (01) ==
PROVIDERS: Referring Provider Nurse Practitioner Women's Health; Visit Provider Nurse Practitioner Women's Health
DX: R10.2 Pelvic and perineal pain (principal)
CPT/HCPCS: 87070; 87205; 87491; 87591

== ENCOUNTER → 2023-01-17 | Outpatient (CLI) | payer OTHER, SELFPAY ==
[2023-01-17 16:02] LABS: hCG Titer Quant., Serum 40 mIU/mL (1-3)
== END | disposition home or self-care (01) ==
LOC: LAB 14:58
PROVIDERS: Referring Provider Obstetrics & Gynecology; Visit Provider Obstetrics & Gynecology
DX: O20.0 Threatened abortion (principal); Z3A.00 Weeks of gestation of pregnancy not specified
CPT/HCPCS: 36415; 84702

== ENCOUNTER → 2023-01-19 | Outpatient (CLI) | payer OTHER, SELFPAY ==
[2023-01-19 12:42] LABS: hCG Titer Quant., Serum 79 mIU/mL (1-3)
== END | disposition home or self-care (01) ==
LOC: LAB 10:45
PROVIDERS: Referring Provider Obstetrics & Gynecology; Visit Provider Obstetrics & Gynecology
DX: O20.0 Threatened abortion (principal); Z3A.00 Weeks of gestation of pregnancy not specified
CPT/HCPCS: 36415; 84702

== ENCOUNTER → 2023-02-02 | Outpatient (CLI) | payer OTHER, SELFPAY | END | disposition home or self-care (01) | LOC: LABSPEC 12:43 | PROVIDERS: Referring Provider Nurse Practitioner Women's Health; Visit Provider Nurse Practitioner Women's Health | DX: O23.40 Unspecified infection of urinary tract in pregnancy, unspecified trimester (principal); Z3A.00 Weeks of gestation of pregnancy not specified | CPT/HCPCS: 87086 ==

== ENCOUNTER → 2023-02-20 | Outpatient (CLI) | payer OTHER, SELFPAY ==
[2023-02-23 11:08] LABS: Chlamydia By Nucleic Acid AMP Positive (Negative); Gonococcus By Nucleic Acid AMP Negative (Negative)
[2023-02-27 17:42] LABS: HPV Reflexed? NOT INDICATED
== END | disposition home or self-care (01) ==
LOC: LABSPEC 12:06
PROVIDERS: Referring Provider Obstetrics & Gynecology; Visit Provider Obstetrics & Gynecology
DX: Z34.90 Encounter for supervision of normal pregnancy, unspecified, unspecified trimester (principal)
CPT/HCPCS: 87086; 87088; 87491; 87591; 88175; G0145

== ENCOUNTER → 2023-03-09 | Outpatient (CLI) | payer OTHER, SELFPAY ==
--- NOTE | 2023-03-09 08:08 | US_ITS ---
STUDY: FIRST TRIMESTER OBSTETRICAL ULTRASOUND REASON FOR EXAM: Female, 27 years old well being . Dating/viability. LMP: December 23, 2022. TECHNIQUE: Transabdominal and Transvaginal TECHNICAL QUALITY: Adequate. PRIOR ULTRASOUND: None. FINDINGS: There is visualization of a single gestational sac in a normal intrauterine position. The mean sac diameter (MSD) measures 4.8 cm, indicating an estimated gestational age (EGA) of 10 weeks, 3 days. The gestational sac shape is within normal limits. There is a visualized yolk sac. The yolk sac measures 4 mm. There is visualization of the placenta. Posterior placenta. There is visualization of a live embryo. The crown-rump length (CRL) measures 4.35 cm, indicating an estimated gestational age (EGA) of 11 weeks, 0 days. There is demonstrated cardiac activity with a heart rate of 166 bpm. The estimated gestation age (EGA) by LMP is 10 weeks, 6 days. The estimated date of delivery (RITA) by LMP is September 29, 2023. The estimated gestation age (EGA) by US is 10 weeks, 3 days. The estimated date of delivery (RITA) by US is October 02, 2023. The uterus measures 12.4 cm x 9.7 cm x 7.3 cm. There is no demonstrated uterine fibroid. The cervix is closed. The right ovary measures 2.6 cm x 1.7 cm x 1.7 cm. There is no right ovarian cyst. There is no visualized right adnexal mass or complex lesion. The left ovary measures 2.7 cm x 1.7 cm x 1.6 cm. There is no left ovarian cyst. There is no visualized left adnexal mass or complex lesion. There is no fluid in the cul de sac. US/Init OB < 14Wks US IMPRESSION: Single live intrauterine gestation with a mean gestational age of 10 weeks and 3 days. Electronically Signed: Kenan Alcantara MD at 13:17 EST ,
== END | disposition home or self-care (01) ==
LOC: US 08:07
PROVIDERS: Referring Provider Nurse Practitioner Women's Health; Visit Provider Nurse Practitioner Women's Health
DX: O09.90 Supervision of high risk pregnancy, unspecified, unspecified trimester (principal); Z3A.00 Weeks of gestation of pregnancy not specified
CPT/HCPCS: 76801

== ENCOUNTER → 2023-03-15 | Outpatient (CLI) | payer OTHER, SELFPAY ==
[2023-03-15 12:33] LABS: Absolute Lymphocyte Count 3.15 X10^3/uL (0.83-4.51); Absolute Neutrophil Count 6.8 X10^3/uL (2.0-7.7); Basophil# 0.06 X10^3/uL; Basophil% 0.6 % (0-1); Eosinophil# 0.13 X10^3/uL; Eosinophils% 1.2 % (0-5); Hematocrit 40.1 % (37-47); Hemoglobin 13.5 g/dL (12.0-15.0); Lymphocyte # 3.15 X10^3/ul (0.83-4.51); Lymphocyte % 29.2 % (19-41); Mean Corp Hgb Conc 33.7 g/dL (32-36); Mean Corpuscular Hgb 28.7 pg (27.0-32.0); Mean Corpuscular Volume 85.3 fL (81-99); Monocyte# 0.65 X10^3/uL; NRBC Flagged by Analyzer 0 % (0-5); Neutrophil # 6.76 X10^3/uL (2.7-7.7); Neutrophil % 62.5 % (47-70); Platelet Count 318 K/mm3 (150-450); RBC Distribution Width CV 12.9 % (11.6-14.6); RBC Distribution Width SD 39.3 fl (35.1-43.9); White Blood Count 10.8 K/mm3 (4.4-11.0)
[2023-03-15 12:39] LABS: NATERA MAILED SPECIMEN
[2023-03-15 13:09] LABS: ALB/GLOB Ratio 0.9 RATIO (0.9-2.4); AST(SGOT) 12 U/L (15-37); Alanine Aminotransfer ALT/SGPT 21 U/L (13-56); Albumin, Serum 3.2 g/dL (3.2-5.0); Alkaline Phosphatase 47 U/L (45-117); Anion Gap 8 (5-15); BUN 8 mg/dL (7-18); BUN/Creat Ratio 15.6 RATIO (10-20); Calcium,Total 8.6 mg/dL (8.5-10.1); Chloride 105 mmol/L (98-107); Creatinine, Serum 0.51 mg/dL (0.55-1.02); EST Glomerular Filtration Rate 150 mL/min (>60); Est Glom Filt Rate - Afr Amer 182 mL/min (>60); Globulin 3.4 g/dL (2.2-4.2); Glucose 104 mg/dL (74-106); Potassium 3.5 mmol/L (3.5-5.1); Protein, Total 6.6 g/dL (6.4-8.2); Sodium Level 137 mmol/L (136-145)
[2023-03-15 13:42] LABS: Hemoglobin A1c 4.9 % (3.8-5.6)
[2023-03-15 13:43] LABS: HIV - WCH Non-Reactive (Nonreactive); Hepatitis B Surface Antigen Non-Reactive (Nonreactive); Hepatitis C Antibody Non-Reactive (Nonreactive); Rubella IgG Reactive (Nonreactive); Syphilis Antibodies Non-reactive
== END | disposition home or self-care (01) ==
LOC: LAB 11:27
PROVIDERS: Referring Provider Obstetrics & Gynecology; Visit Provider Obstetrics & Gynecology
DX: Z34.90 Encounter for supervision of normal pregnancy, unspecified, unspecified trimester (principal)
CPT/HCPCS: 36415; 80053; 83036; 85025; 86703; 86762; 86780; 86803; 86850; 86900; 86901; 87340

== ENCOUNTER 2023-03-24 06:26 | Emergency (ER) | payer OTHER, SELFPAY ==
[2023-03-24 06:27] VITALS: BP 155/111; PULSE 75; RESP 16; TEMP 36.1; O2SAT 98; BMI 48.3
--- NOTE | 2023-03-24 06:47 | EDS_ITS ---
HPI HPI - Female History of Present Illness Chief Complaint: Vag Bld, Preg Informant: patient Narrative Narrative: 13 weeks gestation by ultrasound presents with vaginal spotting this morning. Yesterday had some cramping. Sexual intercourse 2 days ago. Denies alcohol tobacco or illicit drug use. She is on vitamins. She has had intermittent bleeding throughout this has seen her OB and multiple ultrasounds. 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 She states they have ruled out subchorionic hemorrhage. She denies any dysuria. Prior similar symptoms: Yes PFSH PFSH Medical History ADHD Anxiety Chronic hypertension Home Medications bupropion HCl 100 mg tablet 100 mg PO BID 11/02/20 [History Last Taken Unknown] metformin 500 mg tablet 500 mg PO BID 11/02/20 [History Last Taken Unknown] metoprolol tartrate 100 mg tablet 100 mg PO DAILY 11/02/20 [History Last Taken Unknown] multivitamin no.47-iron fum 27 mg-folate no.1 1 mg-dha 300 mg capsule (PNV-DHA) 1 cap PO DAILY 02/14/23 [History Last Taken Unknown] docusate sodium 100 mg capsule (DOK) 100 mg PO BID PRN constipation #60 CAPSULES 03/24/23 [Rx Last Taken Unknown] ondansetron 4 mg disintegrating tablet 4 mg PO Q8H PRN PRN Nausea #10 tabs 03/24/23 [Rx Last Taken Unknown] simethicone 250 mg capsule 250 mg PO BID PRN abdominal gas #20 caps 03/24/23 [Rx Last Taken Unknown] Allergy/AdvReac Type Severity Reaction Status Date / Time diphenhydramine Allergy Mild increases Verified 03/24/23 06:27 [From Benadryl] anxiety Family History Father Hypertension Grandmother Diabetes Mother Cervical cancer Surgical History lymph node removed S/P tonsillectomy and adenoidectomy Social History adopted: No household members: children number of children: 1 current occupational status: employed 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 [employer] pets and animals: Yes ( 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) pets and animals: cat(s) and dog(s) history of recent travel: Yes ([place]) out of state: No out of country: Yes sexually active: Yes Smoking Status: Never smoker alcohol intake: never substance use type: does not use well-balanced diet: daily or most days caffeine: Yes (occasional) Type: coffee Number of servings: 1 eating out: 1-3 times/week during the past year weight has: decreased > 10 lbs what type of physical activity do you participate in: none kaylee/anabaptism: None seatbelt use: always do you feel safe at home: Yes additional social history: Legally - Omi BF/FOB Zan Herr ROS ROS ED Constitutional Constitutional ED: Denies chills, fever(s) or sweats Eyes Eyes: Denies change in vision ENT ENT ED: Denies dysphagia or sore throat Cardiovascular Cardiovascular: Denies chest pain, leg edema, palpitations or racing heartbeat Respiratory/Chest Respiratory/Chest: Denies cough, dyspnea or dyspnea on exertion Gastrointestinal Gastrointestinal: Reports other Details: Cramping ; Denies abdominal pain, diarrhea, nausea or vomiting Genitourinary Genitourinary ED: Reports other Details: Vaginal spotting ; Denies dysuria, hematuria or urinary frequency Musculoskeletal Musculoskeletal: Denies back pain, extremity pain or neck pain Integumentary Denies rash or wounds Neurologic Neurologic: Denies headache(s), paresthesias or weakness EXAM Physical Exam Const Vital Signs: 03/24/23 06:27 03/24/23 06:56 Temperature 97 F L Temperature Source Temporal Pulse Rate 75 Respiratory Rate 16 Blood Pressure 155/111 H 144/83 H Blood Pressure Mean 125 103 Pulse Ox 98 Positive well nourished and well developed General Appearance ED: well developed and NAD HEENT Reports moist mucous membranes normocephalic and atraumatic Eyes EOMs intact bilaterally and conjunctivae normal General Eye ED: Yes normal appearance of both eyes Neck General: Negative for tenderness Chest Wall Chest: Negative for tenderness Resp normal respiratory effort and normal air movement Effort and Inspection: symmetric chest movement; Negative for respiratory distress Cardio regular rate, regular rhythm and no murmurs Peripheral Pulses: pulses 2+ throughout GI normal to inspection, nondistended, normoactive bowel sounds and non-tender Palpation: Negative for guarding or rebound tenderness present Narrative: Declines pelvic examination as stating does not want to irritate her cervix. Back/Spine no CVA tenderness and no thoracic nor lumbar tenderness Extremity normal to inspection General Extremety ED: Negative for edema or tenderness General Extremity: Negative for edema Neuro oriented x3 and no sensory deficits noted Sensorium / Orientation: awake and alert Skin no rashes or lesions noted and no wounds MDM MDM MDM Narrative Medical decision making narrative: Interventions / MDM: Differential diagnosis: Threatened miscarriage, gestational hypertension Diagnosis considered but do not suspect: Too early for preeclampsia My EKG interpretation: N/A Imaging independently reviewed and interpreted by myself: N/A External documents reviewed: Blood type a positive. Test considered but not ordered:N/A ED course: Urine ordered, hCG quant ordered for baseline. Bedside ultrasound intrauterine movements with heart tone 157. Blood pressure is elevated, she states anxious. Will monitor and recheck this. Blood pressure still elevated 144/83. Further discussion reports she had gestational hypertension with her previous child. She currently on metoprolol. She is previous on labetalol. She will have this rechecked by her OB team and Understands should likely be on more medications. 0755: Results of urine negative for infection. Requesting Zofran which was given to her. She requested prescriptions for Colace and simethicone to her pharmacy. This was sent. Her hCG quant is pending however she would like to go home. She understands this is a baseline number. She will follow-up with her OB doctor. Re-evaluation: stable Disposition discussed with patient/family/significant other: Patient Case discussed with consulting clinician: N/A This note was generated with Fourandhalf dictation software. It may contain incorrect words, spelling, and punctuation that were not noted in checking the note before signing. Lab Data Attestation: I reviewed the patient's lab results. Labs: Laboratory Results - last 24 hr 03/24/23 07:07 Urine Color Yellow Urine Clarity Clear Urine pH 6.5 Ur Specific [place] 1.020 Urine Protein 15 H Urine Glucose (UA) Normal Urine Ketones 5 H Urine Occult Blood 10 H Urine Nitrite Negative Urine Bilirubin Negative Urine Urobilinogen Normal Ur Leukocyte Esterase Negative Urine RBC 0 SEEN Urine WBC 0 SEEN Ur Squamous Epith Cells 0-5 SEEN Urine Bacteria 0 SEEN Urine Mucus 0 SEEN Discharge Plan Triage Chief Complaint: Vag Bld, Preg ED Provider: Shamir Sims Dx/Rx/DC Orders Clinical Impression: Threatened miscarriage, First trimester , Elevated blood pressure affecting in first trimester, antepartum Instructions: 1st Trimester, Miscarriage Threatened Prescriptions: New docusate sodium [DOK] 100 mg capsule 100 mg PO BID PRN (Reason: constipation) Qty: 60 0RF ondansetron [ondansetron] 4 mg tablet,disintegrating 4 mg PO Q8H PRN PRN (Reason: Nausea) Qty: 10 0RF simethicone 250 mg capsule 250 mg PO BID PRN (Reason: abdominal gas) Qty: 20 0RF No Action metformin 500 mg tablet 500 mg PO BID metoprolol tartrate 100 mg tablet 100 mg PO DAILY bupropion HCl 100 mg tablet 100 mg PO BID PNV-DHA 27 mg iron-1 mg -300 mg capsule 1 cap PO DAILY Primary Care Provider: Care Physician,No Primary Referrals: Mishel Pacheco MD [Med Staff - Active Staff] - 3-5 Days Care Physician,No Primary [Primary Care Provider] - Activity Restrictions/Additional Instructions: Bedside ultrasound with movement and heart tones of 157. Urine negative for infection. Blood pressure elevated in the ED initially 155/111, repeat 144/83. Follow-up with your OB team recheck blood pressure and treatment as needed. Pelvic rest as discussed. Follow-up with your OB doctor.
[2023-03-24 06:56] VITALS: BP 144/83
[2023-03-24 07:12] LABS: Bacteria 0 SEEN /hpf (None Seen); Mucous, Urine 0 SEEN /hpf (<or=2+); Red Blood Cells-Urine 0 SEEN /hpf (0-5); White Blood Cells 0 SEEN /hpf (0-5)
[2023-03-24] MEDS: Ondansetron ODT 4 MG Tablet PO (07:18)
[2023-03-24 07:40] LABS: Color, Urine Yellow (Yellow); Glucose, Dipstick Normal (Normal); Ketone-Dipstick 5 mg/dl (Negative); Leukocyte Esterase-Dipstick Negative /ul (Negative); Nitrite-Dipstick Negative (Negative); Occult Blood-Urine 10 /ul (Negative); Protein-Dipstick 15 mg/dl (Negative); Urine Bilirubin Dipstick Negative (Negative); Urine Clarity Clear (Clear); Urine Urobilinogen Normal (Normal); Urine pH 6.5 (5.0 - 8.0)
[2023-03-24 07:49] LABS: Squamous Epithelial Cells - UA 0-5 SEEN /hpf (5-10)
[2023-03-24 08:03] VITALS: BP 139/88; PULSE 72; RESP 15; O2SAT 98
[2023-03-24 08:05] LABS: hCG Titer Quant., Serum 24364 mIU/mL (1-3)
== END 2023-03-24 08:05 | disposition home or self-care (01) ==
LOC: ED 07:18
PROVIDERS: Emergency Provider Emergency Medicine; Visit Provider Emergency Medicine
DX: O20.0 Threatened abortion (principal); O99.341 Other mental disorders complicating pregnancy, first trimester; F90.9 Attention-deficit hyperactivity disorder, unspecified type; F41.9 Anxiety disorder, unspecified; R03.0 Elevated blood-pressure reading, without diagnosis of hypertension; Z79.899 Other long term (current) drug therapy; Z3A.13 13 weeks gestation of pregnancy
CPT/HCPCS: 81001; 84702; 99282; A4216

== ENCOUNTER → 2023-04-11 | Outpatient (CLI) | payer OTHER, SELFPAY ==
[2023-04-11 10:39] LABS: NATERA MAILED SPECIMEN
[2023-04-13 22:06] LABS: Chlamydia By Nucleic Acid AMP Negative (Negative); Gonococcus By Nucleic Acid AMP Negative (Negative)
== END | disposition home or self-care (01) ==
PROVIDERS: Referring Provider Nurse Practitioner Women's Health; Visit Provider Nurse Practitioner Women's Health
DX: O98.819 Other maternal infectious and parasitic diseases complicating pregnancy, unspecified trimester (principal); A74.9 Chlamydial infection, unspecified; Z3A.00 Weeks of gestation of pregnancy not specified
CPT/HCPCS: 36415; 87491; 87591

== ENCOUNTER → 2023-07-05 | Outpatient (CLI) | payer OTHER, SELFPAY ==
[2023-07-05 12:03] LABS: Absolute Lymphocyte Count 2.49 X10^3/uL (0.83-4.51); Absolute Neutrophil Count 8.4 X10^3/uL (2.0-7.7); Basophil# 0.06 X10^3/uL; Basophil% 0.5 % (0-1); Eosinophil# 0.13 X10^3/uL; Eosinophils% 1.1 % (0-5); Hematocrit 39.5 % (37-47); Hemoglobin 13.2 g/dL (12.0-15.0); Lymphocyte # 2.49 X10^3/ul (0.83-4.51); Lymphocyte % 21.3 % (19-41); Mean Corp Hgb Conc 33.4 g/dL (32-36); Mean Corpuscular Hgb 29.3 pg (27.0-32.0); Mean Corpuscular Volume 87.8 fL (81-99); Mean Platelet Vol. 10.5 fl (6.2-12.0); Monocyte# 0.57 X10^3/uL; Monocyte% 4.9 % (0-10); NRBC Flagged by Analyzer 0 % (0-5); Neutrophil # 8.38 X10^3/uL (2.7-7.7); Neutrophil % 71.5 % (47-70); Platelet Count 254 K/mm3 (150-450); RBC Distribution Width CV 13.2 % (11.6-14.6); RBC Distribution Width SD 41.6 fl (35.1-43.9); White Blood Count 11.7 K/mm3 (4.4-11.0)
[2023-07-05 13:28] LABS: HIV - WCH Non-Reactive (Nonreactive); Syphilis Antibodies Non-reactive
[2023-07-05 13:38] LABS: Glucose Challenge Gest 1H 50g 184 mg/dL (70-140)
== END | disposition home or self-care (01) ==
LOC: LAB 11:02
PROVIDERS: Referring Provider Advanced Practice Midwife; Visit Provider Advanced Practice Midwife
DX: O09.90 Supervision of high risk pregnancy, unspecified, unspecified trimester (principal); Z13.1 Encounter for screening for diabetes mellitus; Z3A.00 Weeks of gestation of pregnancy not specified
CPT/HCPCS: 36415; 82950; 85025; 86703; 86780

== ENCOUNTER 2023-07-24 11:43 | Outpatient (CLI) | payer OTHER, SELFPAY ==
[2023-07-24 12:11] VITALS: BP 127/75; PULSE 90; RESP 18; TEMP 37.1; O2SAT 95
[2023-07-24 12:29] VITALS: BMI 48.9
[2023-07-24 13:22] LABS: Mucous, Urine 0 SEEN /hpf (<or=2+); Red Blood Cells-Urine 0 SEEN /hpf (0-5); White Blood Cells 0 SEEN /hpf (0-5)
[2023-07-24 13:23] LABS: Color, Urine Yellow (Yellow); Glucose, Dipstick Normal (Normal); Ketone-Dipstick 5 mg/dl (Negative); Leukocyte Esterase-Dipstick 25 /ul (Negative); Nitrite-Dipstick Negative (Negative); Occult Blood-Urine Negative /ul (Negative); Protein-Dipstick 15 mg/dl (Negative); Specific Gravity, Urine 1.015 (1.002-1.030); Urine Bilirubin Dipstick Negative (Negative); Urine Clarity Clear (Clear); Urine Urobilinogen Normal (Normal); Urine pH 6.5 (5.0 - 8.0)
[2023-07-24 13:35] LABS: Bacteria 1+ /hpf (None Seen); Squamous Epithelial Cells - UA 0-5 SEEN /hpf (5-10)
--- NOTE | 2023-07-24 21:16 | OB.TRI.HP_ITS ---
HPI - General General Date of Service: 07/24/23 Chief Complaint: abdominal discomfort HPI Narrative MARCIA TIPTON, is a 28 F who presents with abdominal pain since yesterday. has been moving all weekend and today is very uncomfortable. +FM, no vb/lof. Maternal Data Information RITA Calculator Estimated Delivery Date Method Current WG Current Estimate 09/29/23 LMP (Certain) 30w 3d PFSH PFSH Medical History ADHD Anxiety Chronic hypertension Home Medications metformin 500 mg tablet 500 mg PO BID 11/02/20 [History Last Taken Unknown] multivitamin no.47-iron fum 27 mg-folate no.1 1 mg-dha 300 mg capsule (PNV-DHA) 1 cap PO DAILY 02/14/23 [History Last Taken 07/23/23 21:00] docusate sodium 100 mg capsule (DOK) 100 mg PO BID PRN constipation #60 CAPSULES 03/24/23 [Rx Last Taken Unknown] ondansetron 4 mg disintegrating tablet 4 mg PO Q4H PRN nausea and vomiting #60 tabs 04/11/23 [Rx Last Taken Unknown] citalopram 20 mg tablet 20 mg PO DAILY #30 tabs 05/08/23 [Rx Last Taken Unknown] metoprolol succinate 100 mg tablet,extended release 24 hr 100 mg PO DAILY #30 tabs 07/03/23 [Rx Last Taken 07/24/23 08:00] flash glucose scanning reader (FreeStyle Ariel 2 [place]) #1 ea 07/05/23 [Rx Last Taken Unknown] flash glucose sensor (FreeStyle Ariel 2 Sensor kit) #1 ea 07/14/23 [Rx Last Taken Unknown] Allergy/AdvReac Type Severity Reaction Status Date / Time diphenhydramine Allergy Mild increases Verified 07/24/23 12:30 [From Benadryl] anxiety Family History Father Hypertension Grandmother Diabetes Mother Cervical cancer Surgical History lymph node removed S/P tonsillectomy and adenoidectomy Social History adopted: No household members: children number of children: 1 current occupational status: employed 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 [employer] pets and animals: Yes ([employer] 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) pets and animals: cat(s) and dog(s) history of recent travel: Yes ([place]) out of state: No out of country: Yes sexually active: Yes Smoking Status: Never smoker alcohol intake: never substance use type: does not use well-balanced diet: daily or most days caffeine: Yes (occasional) Type: coffee Number of servings: 1 eating out: 1-3 times/week during the past year weight has: decreased > 10 lbs what type of physical activity do you participate in: none kaylee/church: None seatbelt use: always do you feel safe at home: Yes additional social history: Legally - Omi GARCIA/FOKalani Herr History 3 Elective abortions Hx Para 1 Spontaneous abortions 1 Hx # Term Pregnancies Ectopic pregnancies Hx # Pregnancies Multiple births # of living children 1 Past Pregnancies Del. Date Name GA/Weeks Outcome Route Bth Weight Gen Labor Lgth Anesthesia Del Locatn Provider FOB Unknown 01/20/18 Harvest 36 live - 4lbs 13oz Female epidural [facility] Delivery Date: Last Updated by: Dana Gupta Miscarriage at 5 weeks in 02/2017 Delivery Date: 01/20/18 Last Updated by: Dana Gupta Chronic HTN, GDMA2, Oligo, decels Visit Details Expected Delivery Route/Plan RLTCS with SM Plans Covid status: [] Flu vaccine: declined Tdap vaccine: given Rhogam: [] LARC form signed: [] Problem list reviewed and updated with the most current plan of care details and appropriate orders placed. Relevant counseling for the gestational age provided. Continue routine care and follow up unless otherwise noted in visit notes/problem list details OB Flowsheet Initial Weight: Not Recorded Date -?-?-?-?-?-?-?-?-?-?-?-?- EGA Weight BP Urine Prot -?-?-?-?-?-?-?-?-?-?-?-?- Glucose FHR FuHt Pres Dilation -?-?-?-?-?-?-?-?-?-?-?-?- Effaced St Visit Note 02/20/23 -?-?-?-?-?-?-?-?-?-?-?-?- 8w 3d 304 lb 142/88 -?-?-?-?-?-?-?-?-?-?-?-?- 165 -?-?-?-?-?-?-?-?-?-?-?-?- SM- CRL 1.9 cm c ons with LMP 03/15/23 -?-?-?-?-?-?-?-?-?-?-?-?- 11w 5d 305 lb 124/88 Negative -?-?-?-?-?-?-?-?-?-?-?-?- Negative 160 -?-?-?-?-?-?-?--?-?-?-?-?- JV- no cramping or bleeding since was treated for Chlamydia. rpt andrade in 2 months. wants NIPT along with all pnl's JV- no cramping or bleeding since was treated for Chlamydia. rpt andrade next month. wants NIPT along with all pnl's 03/24/23 -?-?-?-?-?-?-?-?-?-?-?-?- 13w 0d 306 lb 134/82 -?-?-?-?-?-?-?-?-?-?-?-?- 160 -?-?-?-?-?-?-?-?-?-?-?-?- LC- had spotting vaginal bleeding last night seen in ED. LC- had spotting vaginal ble eding last night seen in ED. speculum exam benign. no bleeding in vagina. active fetus on handheld us with +FHR 04/11/23 -?-?-?-?-?-?-?-?-?-?-?-?- 15w 4d 302 lb 6 oz 122/82 Nega tive -?-?-?-?-?-?-?-?-?-?-?-?- Negative 153 -?-?-?-?-?-?-?-?-?-?-?-?- MH-No VB. Feelin g much anxiety. Still with nausea. Br US confirm live IUP. Refill zofran. Increase wellbutrin to 150mg bid. Handout counselors given 05/08/23 -?-?-?-?-?-?-?-?-?-?-?-?- 19w 3d 304 lb 140/90 132/82 -?-?-?-?-?-?-?-?-?-?-?-?- 160 -?-?-?-?-?-?-?-?-?-?-?-?- SM- no vb lof di scussed persistent depresison symptoms recommend changing meds and psych referral 06/08/23 -?-?-?-?-?-?-?-?-?-?-?-?- 23w 6d 304 lb 8 oz 127/80 Nega tive -?-?-?-?-?-?-?-?-?-?-?-?- Negative 148 -?-?-?-?-?-?-?-?-?-?-?-?- KW-No vb/lof/ctx . good fm. 28 week labs discussed. May want a TOLAC- to discuss with physician at next appt 07/07/23 -?-?-?-?-?-?-?-?-?-?-?-?- 28w 0d 310 lb 2 oz 125/83 Nega tive -?-?-?-?-?-?-?-?-?-?-?-?- Negative 155 -?-?-?-?-?--?-?-?-?-?-?-?- SM- no vb lof go od fm n regular ctx BS well controlled Physical Exam Const alert, oriented x3 and no apparent distress Resp normal respiratory effort, normal air movement, no retractions and no use of accessory muscles Cardio regular rate and regular rhythm GI soft to palpation and non-tender Inspection: Palpation: soft Rectal Exam: deferred no CVA tenderness and external exam normal Bimanual Exam - Vag & Uterus: uterus non-tender and other gravid uterus, normal for gestational age OB / External & Speculum: Negative for herpetic lesions Manual OB Exam: estimated gestational size appropriate and presentation cephalic Amniotic Fluid: no amniotic fluid noted Extremity normal to inspection and full ROM Neuro Motor Exam: strength 5/5 throughout and muscle tone normal throughout Deep Tendon Reflexes: Rt Patellar (L4): 2+ and Lt Patellar (L4): 2+ NST FHR Rate Baby A Baseline: 150 Variability:: Moderate Accelerations:: 15 x 15 Decelerations:: None NST Reactive:: Yes FHR Category:: Category I Assessment & Plan (1) uterine contractions: COMMENT: no cervical change. urine dip negative. improved with hydration. PLAN: Plan Patient presents for triage evaluation secondary to abdominal pain and abdominal discomfort since yesterday. actively moving and was lifting a lot. no vb. FHT: Moderate variability reactive no decelerations category I tracing Schuyler: irreg Contractions Assessment and plan: Reactive NST, reassuring maternal and status patient discharged to home to follow-up in office. See problem list details for additional plan information. Charges/Coding Multi Select Codes Urinary/Genital Urinary/Genital CPT Codes: 33015-92 non-stress test Interp
== END 2023-07-24 14:00 | disposition home or self-care (01) ==
LOC: WPOUT 11:50 → WP 11:50
PROVIDERS: Referring Provider Registered Nurse; Visit Provider Registered Nurse
DX: O47.03 False labor before 37 completed weeks of gestation, third trimester (principal); O99.343 Other mental disorders complicating pregnancy, third trimester; O16.3 Unspecified maternal hypertension, third trimester; F41.9 Anxiety disorder, unspecified; Z79.899 Other long term (current) drug therapy; Z79.84 Long term (current) use of oral hypoglycemic drugs; Z3A.30 30 weeks gestation of pregnancy
CPT/HCPCS: 59025; 59050; 81001; 99221; G0378

== ENCOUNTER → 2023-08-04 | Outpatient (CLI) | payer OTHER, SELFPAY ==
--- NOTE | 2023-08-04 09:07 | US_ITS ---
STUDY: OBSTETRICAL ULTRASOUND - BIOPHYSICAL PROFILE REASON FOR EXAM: Female, 28 years old Weekly BPP''s starting 32w obesity, GDM LMP: December 23, 2022. PRIOR ULTRASOUND: Comparison is made with prior study March 09, 2023. TECHNIQUE: Transabdominal TECHNICAL QUALITY: Adequate. FINDINGS: There is a single intrauterine fetus. The fetus is in a breech presentation. There is demonstrated cardiac activity with a heart rate of 143 bpm. There is a normal amniotic fluid volume. The largest amniotic fluid pocket measures 4.5 cm. The amniotic fluid index (RIO) is 14.4 cm. The placenta is posterior in location and is not low lying. There are Grade 0 placental changes. Age by LMP: 32 weeks, 0 days. RITA by LMP: September 29, 2023. BIOPHYSICAL PROFILE: Breathing Movements (FBM): 2 Gross Body Movements (GBM): 2 Tone (FT): 2 Amniotic Fluid Volume (AFV): 2 TOTAL SCORE: 8 / 8 US/Biophysical Prof W/O Non Stres IMPRESSION: Normal biophysical profile of 8/8. Electronically Signed: Kenan Alcantara MD at 10:41 EDT ,
== END | disposition home or self-care (01) ==
LOC: US 09:06
PROVIDERS: Referring Provider Advanced Practice Midwife; Visit Provider Advanced Practice Midwife
DX: O99.212 Obesity complicating pregnancy, second trimester (principal); O24.419 Gestational diabetes mellitus in pregnancy, unspecified control; Z3A.00 Weeks of gestation of pregnancy not specified
CPT/HCPCS: 76819

== ENCOUNTER 2023-08-18 21:02 | Outpatient (CLI) | payer OTHER, SELFPAY ==
[2023-08-18 21:49] VITALS: BMI 49.2
[2023-08-18 22:20] LABS: Hematocrit 41.4 % (37-47); Mean Corp Hgb Conc 33.8 g/dL (32-36); Mean Corpuscular Volume 85.7 fL (81-99); Mean Platelet Vol. 10.9 fl (6.2-12.0); Platelet Count 238 K/mm3 (150-450); RBC Distribution Width SD 39.7 fl (35.1-43.9); Red Blood Count 4.83 M/mm3 (4.2-5.4); White Blood Count 14.1 K/mm3 (4.4-11.0)
[2023-08-18] MEDS: Lactated Ringers 1,000 ML 999 ML IV (22:26)
[2023-08-18] MEDS: Ondansetron 4 MG/2 ML Vial IV (22:26)
[2023-08-18 22:34] LABS: AST(SGOT) 11 U/L (15-37); Alanine Aminotransfer ALT/SGPT 16 U/L (13-56); EST Glomerular Filtration Rate 197 mL/min (>60); Est Glom Filt Rate - Afr Amer 239 mL/min (>60); Estimated Creatinine Clearance 305.19 ml/min; Uric Acid 4.9 mg/dL (2.6-6.0)
[2023-08-18 22:35] LABS: Protein, Urine (Random) 53.2 mg/dL (<11.9); Protein:Creat Ratio 252 mg/g CRE (0-200)
[2023-08-18] MEDS: Famotidine 200 MG/20 ML MDV 20 MG in 0.9% Normal Saline (Pres. free 8 ML 300 MG IV (22:48)
[2023-08-18] MEDS: Lactated Ringers 1,000 ML 100 ML IV (23:25)
--- NOTE | 2023-08-18 23:57 | OB.TRI.PN ---
Progress Notes Date of Service: 08/18/23 Progress Note: Patient presents for triage evaluation secondary to headache and nausea/vomiting. Her daughter just had a viral illness earlier this week and is possible she got it from her. FHT: 135 Moderate variability reactive no decelerations category I tracing [place]: no Contractions Assessment and plan: reassuring PIH labs, IV fluid bolus and zofran, continue PO zofran and hydration at home, Reactive NST, reassuring maternal and status patient discharged to home to follow-up in office/BPP on monday. See problem list details for additional plan information. Laboratory Studies: Laboratory Tests 08/18/23 08/18/23 Range/Units 22:05 22:00 WBC 14.1 H (4.4-11.0) K/mm3 RBC 4.83 (4.2-5.4) M/mm3 Hgb 14.0 (12.0-15.0) g/dL Hct 41.4 (37-47) % MCV 85.7 (81-99) fL MCH 29.0 (27.0-32.0) pg MCHC 33.8 (32-36) g/dL RDW Std Deviation 39.7 (35.1-43.9) fl RDW Coeff of Jennifer 13.0 (11.6-14.6) % Plt Count 238 (150-450) K/mm3 MPV 10.9 (6.2-12.0) fl Creatinine 0.40 L (0.55-1.02) mg/dL Estim Creat Clear Calc 305.19 ml/min Est GFR (MDRD) Af Amer 239 (>60) mL/min Est GFR (MDRD) Non-Af 197 (>60) mL/min Uric Acid 4.9 (2.6-6.0) mg/dL AST 11 L (15-37) U/L ALT 16 (13-56) U/L U Random Total Protein 53.2 H (<11.9) mg/dL Urine Creatinine 211.00 (NO RANGE EST.) mg/dL Protein/Creatinin Ratio 252 H (0-200) mg/g CRE Charges/Coding Multi Select Codes Urinary/Genital Urinary/Genital CPT Codes: 46143-98 non-stress test Interp Assessment & Plan (1) Nausea and vomiting during : COMMENT: IV fluid bolus and zofran. Reactive NST. D/C home (2) Insulin dependent gestational diabetes mellitus (GDM), antepartum: COMMENT: 08/03 started on 29u NPH AM and PM. 08/10 decreased to 15 units AM and PM. NST weekly in office and BPP x1 weekly for 2x weekly testing. (3) uterine contractions: COMMENT: no cervical change. urine dip negative. improved with hydration. (4) Gestational diabetes mellitus (GDM) affecting , antepartum: COMMENT: 4xdaily testing, nutrition consult. (5) Chlamydia infection affecting : QUALIFIERS: Trimester: first trimester Qualified Code(s): O98.811 - Other maternal infectious and parasitic diseases complicating , first trimester; A74.9 - Chlamydial infection, unspecified COMMENT: ordered treatment, repeat testing negative 04/11/23: and at 36 weeks (6) Obesity affecting : QUALIFIERS: Trimester: second trimester Obesity type affecting : unspecified obesity Qualified Code(s): O99.212 - Obesity complicating , second trimester COMMENT: encouraged healthy weight gain weekly bpp's starting 32 weeks per MFM (7) History of oligohydramnios: (8) Previous section: COMMENT: may want TOLAC, plan RLTCS with SM 6 @ 7 (9) Hx of gestational diabetes in prior , currently : COMMENT: on metformin due to PCOS, discussed continuation vs stopping, patient requests continuation. check HgA1C (10) Supervision of high-risk : QUALIFIERS: Trimester: second trimester Qualified Code(s): O09.92 - Supervision of high risk , unspecified, second trimester COMMENT: [id number], RITA 09/29/23 girl LORETTA Bryant (11) : QUALIFIERS: Weeks of gestation: 33 weeks Qualified Code(s): Z3A.33 - 33 weeks gestation of COMMENT: NIPT no results initially, : afp declined. Carrier neg (12) Depression with anxiety: COMMENT: wellbutrin decreassed back to 150mg, added celexa 20mg. encouraged counseling/handout given. (13) Hypertension: QUALIFIERS: Hypertension type: essential hypertension Qualified Code(s): I10 - Essential (primary) hypertension COMMENT: metoprolol. baseline labs ordered, recommend baby ASA at 12-14 weeks.
== END 2023-08-19 00:30 | disposition home or self-care (01) ==
LOC: WPOUT 21:06 → WP 21:07
PROVIDERS: Referring Provider Advanced Practice Midwife; Visit Provider Advanced Practice Midwife
DX: O21.9 Vomiting of pregnancy, unspecified (principal); O99.891 Other specified diseases and conditions complicating pregnancy; R51.9 Headache, unspecified; Z3A.00 Weeks of gestation of pregnancy not specified; O24.414 Gestational diabetes mellitus in pregnancy, insulin controlled; O98.819 Other maternal infectious and parasitic diseases complicating pregnancy, unspecified trimester; O99.210 Obesity complicating pregnancy, unspecified trimester; O99.340 Other mental disorders complicating pregnancy, unspecified trimester; F41.8 Other specified anxiety disorders; O16.9 Unspecified maternal hypertension, unspecified trimester
CPT/HCPCS: 96375; 96374; 96361; 59025; 59050; 82565; 82570; 84156; 84450; 84460; 84550; 85027; 99221; J7120; G0378; J2405; J3490

== ENCOUNTER → 2023-08-25 | Outpatient (CLI) | payer OTHER, SELFPAY ==
--- NOTE | 2023-08-25 16:48 | US_ITS ---
INDICATION: non reactive nst EXAMINATION: Ultrasound US Biophysical Profile W/O Nonst TECHNIQUE: Transabdominal pelvic ultrasound was performed. COMPARISON: 08/04/2023 LMP: Unknown. Beta-hCG: Unknown. Provided EGA: 35 weeks 0 days FINDINGS: INTRAUTERINE GESTATION(s): Single. HEART MOTION is 133 bpm. AMNIOTIC FLUID INDEX (RIO): 15.5 cm BIOPHYSICAL PROFILE (BPP): 11/15 -- Breathin/2. -- Movement: 2/2. -- Tone: 2/2. --RIO: 2/2. PRESENTATION: Cephalic PLACENTA: Posterior. There is no placenta previa or abruption. CERVIX: The cervix is not visualized. US/Biophysical Prof W/O Non Stres IMPRESSION: Single live intrauterine . Biophysical profile score 11/15. Electronically Signed: Slim Sanchez MD at 17:54 EDT ,
== END | disposition home or self-care (01) ==
LOC: US 16:47
PROVIDERS: Referring Provider Obstetrics & Gynecology; Visit Provider Obstetrics & Gynecology
DX: O28.8 Other abnormal findings on antenatal screening of mother (principal); Z3A.00 Weeks of gestation of pregnancy not specified
CPT/HCPCS: 76819

== ENCOUNTER 2023-08-29 15:13 | Outpatient (CLI) | payer OTHER, SELFPAY ==
[2023-08-29 15:38] VITALS: BP 136/92; PULSE 99; RESP 15; TEMP 36.6
[2023-08-29 15:44] VITALS: PULSE 91; O2SAT 98
[2023-08-29 15:45] VITALS: O2SAT 98
[2023-08-29 16:17] LABS: ROM Internal Control Test YES-OK TO RESULT pt. (Internal QC)
[2023-08-29 16:18] LABS: ROM Patient Test Negative (Negative); Record Kit Lot#, ROM+ K1866
[2023-08-29 16:19] VITALS: BP 135/82; PULSE 85
--- NOTE | 2023-08-29 20:29 | OB.TRI.PN ---
Progress Notes Date of Service: 08/29/23 Progress Note: Patient presents for triage evaluation secondary to vaginal discharge FHT: 135 Moderate variability reactive no decelerations category I tracing [place]: irregular Contractions Assessment and plan: negative ROM+. Reactive NST, reassuring maternal and status patient discharged to home to follow-up in office. See problem list details for additional plan information. Laboratory Studies: Laboratory Tests 08/29/23 Range/Units 15:40 Vag Amniotic Fld Detect Negative (Negative) Charges/Coding Multi Select Codes Urinary/Genital Urinary/Genital CPT Codes: 81150-64 non-stress test Interp Assessment & Plan (1) Vaginal discharge during : COMMENT: ROM+ negative. reactive NST. D/C home (2) Nausea and vomiting during : COMMENT: IV fluid bolus and zofran. Reactive NST. D/C home (3) Insulin dependent gestational diabetes mellitus (GDM), antepartum: COMMENT: 08/03 started on 29u NPH AM and PM. 08/10 decreased to 15 units AM and PM. NST weekly in office and BPP x1 weekly for 2x weekly testing. (4) uterine contractions: COMMENT: no cervical change. urine dip negative. improved with hydration. (5) Gestational diabetes mellitus (GDM) affecting , antepartum: COMMENT: 4xdaily testing, nutrition consult. (6) Chlamydia infection affecting : QUALIFIERS: Trimester: first trimester Qualified Code(s): O98.811 - Other maternal infectious and parasitic diseases complicating , first trimester; A74.9 - Chlamydial infection, unspecified COMMENT: ordered treatment, repeat testing negative 04/11/23: and at 36 weeks (7) Obesity affecting : QUALIFIERS: Trimester: second trimester Obesity type affecting : unspecified obesity Qualified Code(s): O99.212 - Obesity complicating , second trimester COMMENT: encouraged healthy weight gain weekly bpp's starting 32 weeks per MFM (8) History of oligohydramnios: (9) Previous section: COMMENT: may want TOLAC, plan RLTCS with SM 09/07 @ 7 (10) Hx of gestational diabetes in prior , currently : COMMENT: on metformin due to PCOS, discussed continuation vs stopping, patient requests continuation. check HgA1C (11) Supervision of high-risk : QUALIFIERS: Trimester: second trimester Qualified Code(s): O09.92 - Supervision of high risk , unspecified, second trimester COMMENT: [id number], RITA 09/29/23 girl LORETTA Bryant (12) : QUALIFIERS: Weeks of gestation: 35 weeks Qualified Code(s): Z3A.35 - 35 weeks gestation of COMMENT: NIPT no results initially, : afp declined. Carrier neg (13) Depression with anxiety: COMMENT: wellbutrin decreassed back to 150mg, added celexa 20mg. encouraged counseling/handout given. (14) Hypertension: QUALIFIERS: Hypertension type: essential hypertension Qualified Code(s): I10 - Essential (primary) hypertension COMMENT: metoprolol. baseline labs ordered, recommend baby ASA at 12-14 weeks.
== END 2023-08-29 16:39 | disposition home or self-care (01) ==
LOC: WPOUT 15:20 → WP 15:20
PROVIDERS: Referring Provider Advanced Practice Midwife; Visit Provider Advanced Practice Midwife
DX: O99.891 Other specified diseases and conditions complicating pregnancy (principal); O21.9 Vomiting of pregnancy, unspecified; O24.414 Gestational diabetes mellitus in pregnancy, insulin controlled; O47.03 False labor before 37 completed weeks of gestation, third trimester; O99.213 Obesity complicating pregnancy, third trimester; O34.219 Maternal care for unspecified type scar from previous cesarean delivery; O99.343 Other mental disorders complicating pregnancy, third trimester; O16.3 Unspecified maternal hypertension, third trimester; F32.A Depression, unspecified; F41.9 Anxiety disorder, unspecified; Z3A.35 35 weeks gestation of pregnancy; N89.8 Other specified noninflammatory disorders of vagina
CPT/HCPCS: 59025; 59050; 84112; 99221; G0378

== ENCOUNTER → 2023-09-01 | Outpatient (CLI) | payer OTHER, SELFPAY | END | disposition home or self-care (01) | PROVIDERS: Referring Provider Obstetrics & Gynecology; Visit Provider Obstetrics & Gynecology | DX: O09.92 Supervision of high risk pregnancy, unspecified, second trimester (principal); Z3A.00 Weeks of gestation of pregnancy not specified | CPT/HCPCS: 87081; 87186 ==

== ENCOUNTER 2023-09-05 14:23 | Inpatient (IN) | payer OTHER, SELFPAY ==
[2023-09-05] VITALS (28 sets, daily range): BP systolic 126–173; BP diastolic 72–99; PULSE 78–108; RESP 16–19; TEMP 36.2–37.3; O2SAT 97–100; BMI 49.9
[2023-09-05] MEDS: 0.9% Saline Lock 10 ML Syringe IV ×2 (12:08→14:53)
[2023-09-05] MEDS: Acetaminophen 500 MG Tablet 1000 MG PO ×2 (12:18→19:19)
[2023-09-05 12:35] LABS: Hemoglobin 12.8 g/dL (12.0-15.0); Mean Corp Hgb Conc 34.6 g/dL (32-36); Mean Corpuscular Volume 83.9 fL (81-99); Mean Platelet Vol. 11.2 fl (6.2-12.0); Platelet Count 235 K/mm3 (150-450); RBC Distribution Width CV 13.2 % (11.6-14.6); RBC Distribution Width SD 40.7 fl (35.1-43.9); Red Blood Count 4.41 M/mm3 (4.2-5.4); White Blood Count 9.5 K/mm3 (4.4-11.0)
[2023-09-05 12:49] LABS: AST(SGOT) 11 U/L (15-37); Alanine Aminotransfer ALT/SGPT 17 U/L (13-56); Creatinine, Serum 0.44 mg/dL (0.55-1.02); EST Glomerular Filtration Rate 177 mL/min (>60); Est Glom Filt Rate - Afr Amer 214 mL/min (>60); Estimated Creatinine Clearance 279.79 ml/min; Uric Acid 4.3 mg/dL (2.6-6.0)
[2023-09-05 13:09] LABS: Syphilis Antibodies Non-reactive
[2023-09-05 13:27] LABS: Protein, Urine (Random) 29.3 mg/dL (<11.9); Protein:Creat Ratio 177 mg/g CRE (0-200)
[2023-09-05] MEDS: Lactated Ringers 1,000 ML 999 ML IV (14:53)
[2023-09-05 15:31] LABS: Bedside Glucose 87 mg/dL (74-106)
[2023-09-05] MEDS: Lactated Ringers 1,000 ML 150 ML IV (15:57)
[2023-09-05] MEDS: Sodium Citrate/Citric Acid 30 ML UDC PO (17:08)
[2023-09-05] MEDS: Cefazolin 3 GM in 0.9% Normal Saline (100mL Bag) 100 ML IV (17:25)
--- NOTE | 2023-09-05 18:39 | HP.PCM.OB_ITS ---
HPI - General General Date of Admission: 09/05/23 HPI Narrative MARCIA TIPTON, is a 28 F who presents with headache not ersolved with tylenol and psersistently elevated bps, one severe range in office and mildl yelevated with one severe range o nl and d . decision to proceed with RLTCS Maternal Data Information RITA Calculator Estimated Delivery Date Method Current WG Current Estimate 09/29/23 LMP (Certain) 36w 4d PFSH PFSH Medical History Nausea and vomiting during ADHD Chronic hypertension Anxiety Home Medications ?Medication ?Instructions ?Recorded ?Last Taken ?Type multivitamin no.47-iron fum 27 1 cap PO DAILY 02/14/23 09/04/23 21:00 History mg-folate no.1 1 mg-dha 300 mg 1 cap capsule (PNV-DHA) metoprolol succinate 100 mg 100 mg PO DAILY #30 tabs 07/03/23 09/05/23 09:00 Rx tablet,extended release 24 hr 100 mg flash glucose scanning reader #1 ea 07/05/23 Unknown Rx (FreeStyle Ariel 2 [place]) flash glucose sensor (FreeStyle #1 ea 07/28/23 Unknown Rx Ariel 2 Sensor kit) needle (disp) 27 gauge 27 gauge x #100 ea 08/06/23 Unknown Rx 1/2 (BD Regular Bevel [place]) insulin NPH isoph U-100 human 100 17 unit subcut BID 08/18/23 08/18/23 08:00 History unit/mL (3 mL) subcutaneous pen (Humulin N NPH U-100 Insulin KwikPen) Allergy/AdvReac Type Severity Reaction Status Date / Time diphenhydramine (From Allergy Mild increases Verified 09/05/23 11:51 Benadryl) anxiety Family History Father Hypertension Grandmother Diabetes Mother Cervical cancer Surgical History lymph node removed S/P tonsillectomy and adenoidectomy Social History adopted: No household members: children number of children: 1 current occupational status: employed 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 [employer] pets and animals: Yes ( 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) pets and animals: cat(s) and dog(s) history of recent travel: Yes ([place]) out of state: No out of country: Yes sexually active: Yes Smoking Status: Never smoker alcohol intake: never substance use type: does not use well-balanced diet: daily or most days caffeine: Yes (occasional) Type: coffee Number of servings: 1 eating out: 1-3 times/week during the past year weight has: decreased > 10 lbs what type of physical activity do you participate in: none kaylee/adventist: None seatbelt use: always do you feel safe at home: Yes additional social history: Legally - Omi BF/FOB Zan Herr History 3 Elective abortions Hx Para 1 Spontaneous abortions 1 Hx # Term Pregnancies Ectopic pregnancies Hx # Pregnancies Multiple births # of living children 1 Past Pregnancies Del. Date Name GA/Weeks Outcome Route Bth Weight Gen Labor Lgth Anesthesia Del Locatn Provider FOB Unknown 01/20/18 [place] 36 live - 4lbs 13oz Female epidural [facility] Delivery Date: Last Updated by: Dana Gupta Miscarriage at 5 weeks in 02/2017 Delivery Date: 01/20/18 Last Updated by: Dana Gupta Chronic HTN, GDMA2, Oligo, decels Visit Details Expected Delivery Route/Plan RLTCS with SM Plans Covid status: [] Flu vaccine: declined Tdap vaccine: given Rhogam: [] LARC form signed: [] Problem list reviewed and updated with the most current plan of care details and appropriate orders placed. Relevant counseling for the gestational age provided. Continue routine care and follow up unless otherwise noted in visit notes/problem list details OB Flowsheet Initial Weight: 304 lb Date -?-?-?-?-?-?-?-?-?-?-?-?- EGA Weight BP Urine Prot -?-?-?-?-?-?-?-?-?-?-?-?- Glucose FHR FuHt Pres Dilation -?-?-?-?-?-?-?-?-?-?-?-?- Effaced St Visit Note 02/20/23 -?-?-?-?-?-?-?-?-?-?-?-?- 8w 3d 304 lb (+0 oz) 142/88 -?-?-?-?-?-?-?-?-?-?-?-?- 165 -?-?-?-?-?-?-?-?-?-?-?-?- SM- CRL 1.9 cm c ons with LMP 03/15/23 -?-?-?-?-?-?-?-?-?-?-?-?- 11w 5d 305 lb (+16 oz) 124/88 Negative -?-?-?-?-?-?-?-?-?-?-?-?- Negative 160 -?-?-?-?-?-?-?-?-?-?-?-?- JV- no cramping or bleeding since was treated for Chlamydia. rpt andrade in 2 months. wants NIPT along with all pnl's JV- no cramping or bleeding since was treated for Chlamydia. rpt andrade next month. wants NIPT along with all pnl's 03/24/23 -?-?-?-?-?-?-?-?-?-?-?-?- 13w 0d 306 lb (+2 lb) 134/82 -?-?-?-?-?-?-?-?-?-?-?-?- 160 -?-?-?-?-?-?-?-?-?-?-?-?- LC- had spotting vaginal bleeding last night seen in ED. LC- had spotting vaginal ble eding last night seen in ED. speculum exam benign. no bleeding in vagina. active fetus on handheld us with +FHR 04/11/23 -?-?-?-?-?-?-?-?-?-?-?-?- 15w 4d 302 lb 6 oz (-1 lb 10 oz) 122/82 Negative -?-?-?-?-?-?-?-?-?-?-?-?- Negative 153 -?-?-?-?-?-?-?-?-?-?-?-?- MH-No VB. Feelin g much anxiety. Still with nausea. Br US confirm live IUP. Refill zofran. Increase wellbutrin to 150mg bid. Handout counselors given 05/08/23 -?-?-?-?-?-?-?-?-?-?-?-?- 19w 3d 304 lb (+0 oz) 140/90 132/82 -?-?-?-?-?-?-?-?-?-?-?-?- 160 -?-?-?-?-?-?-?-?-?-?-?-?- SM- no vb lof di scussed persistent depresison symptoms recommend changing meds and psych referral 06/08/23 -?-?-?-?-?-?-?-?-?-?-?-?- 23w 6d 304 lb 8 oz (+8 oz) 127/80 Negative -?-?-?-?-?-?-?-?-?--?-?-?- Negative 148 -?-?-?-?-?-?-?-?-?-?-?-?- KW-No vb/lof/ctx . good fm. 28 week labs discussed. May want a TOLAC- to discuss with physician at next appt 07/07/23 -?-?-?-?-?-?-?-?-?-?-?-?- 28w 0d 310 lb 2 oz (+6 lb 2 oz) 125/83 Negative -?-?-?-?-?-?-?-?-?-?-?-?- Negative 155 -?-?-?-?-?-?-?-?-?-?-?-?- SM- no vb lof go od fm n regular ctx BS well controlled 07/28/23 -?-?-?-?-?-?-?-?-?-?-?-?- 31w 0d 316 lb (+12 lb) 124/82 Negative -?-?-?-?-?-?-?-?-?-?-?-?- Negative 145 -?-?-?-?-?-?-?-?-?-?-?-?- KW- no vb/lof/ct x. good fm. growth US q4 weeks. BPPS weekly per MFM starting at 32 weeks. 08/04/23 -?-?-?-?-?-?-?-?-?-?-?-?- 32w 0d 317 lb 6 oz (+13 lb 6 oz) 148/86 Negative -?-?-?-?-?-?-?-?-?-?-?-?- Negative 152 35 -?-?-?-?-?-?-?-?-?-?-?-?- LC- no vb/ctx/lo f. good fm. all fasting bs elevated to start NPH. LC- no vb/ctx/lof. good fm. all fasting bs elevated to start NPH 29u AM and PM, consulted with TERRI for dose. 08/11/23 -?-?-?-?-?-?-?-?-?-?-?-?- 33w 0d 319 lb 2 oz (+15 lb 2 oz) 128/85 Negative -?-?-?-?-?-?-?-?-?-?-?-?- Negative 135 -?-?-?-?-?-?-?-?-?-?-?-?- KW- no vb/lof/ct x. NST today. reactive. not taking the insulin as it was dropping her BS to the 50s. She said she never has true fasting BS because of her work schedule. true fasting today in office 103. Discussed with TERRI. Has BPPS weekly with MFM. Growth US next week. 08/17/23 -?-?-?-?-?-?-?-?-?-?-?-?- 33w 6d 319 lb (+15 lb) 139/86 Negative -?-?-?-?-?-?-?-?-?-?-?-?- Negative 140 -?-?-?-?-?-?-?-?-?-?-?-?- Sm- no vb lof go od fm no regular ctx but had some irregular and some lower pelvic pain yesterday- improved today, has pain at the end of a work day. BS not controlle din am, will increas insulin. discussed moving up csection to 37 weeks. 08/25/23 -?-?-?-?-?-?-?-?-?-?-?-?- 35w 0d 317 lb 6 oz (+13 lb 6 oz) 122/85 Negative -?-?-?-?-?-?-?-?-?-?-?-?- Negative 140 -?-?-?-?-?-?-?-?-?-?-?-?- JV- NST showed o ne accel only. there was likely a second but was broken up then was unable to keep baby on the monitor. pt now wonders if can if cervix is favorable. glucose levels are stable. 09/01/23 -?-?-?-?-?-?-?-?-?-?-?-?- 36w 0d 316 lb (+12 lb) 131/84 Negative -?-?-?-?-?-?-?-?-?-?-?-?- Negative 140 36 Cephalic 0 -?-?-?-?-?-?-?-?-?-?-?-?- JV- glucose log normal JV- glucose log normal, NST reactive. has scheduled repeat section on Monday next week. Do not recommend . chance of success is 17% based on NIH calculator. ruiz score is 0 09/05/23 -?-?-?-?-?-?-?-?-?-?-?-?- 36w 4d 318 lb 8 oz (+14 lb 8 oz) 146/84 Trace -?-?-?-?-?-?-?-?-?-?-?-?- Negative -?-?-?-?-?-?-?-?--?-?-?-?- -Patient prese nted with headache for BP check and sent to per Dr Genao NST FHR Rate Baby A Baseline: 130 Variability:: Moderate Accelerations:: 15 x 15 Decelerations:: None NST Reactive:: Yes FHR Category:: Category I Uterine Activity:: irregular ROS Constitutional Constitutional: Reports systems reviewed and no addt'l complaints, except as documented Eyes Eyes: Denies change in vision ENT HEENT: Reports systems reviewed and no addt'l complaints, except as documented and headache(s) Cardiovascular Cardiovascular: Reports systems reviewed and no addt'l complaints, except as documented; Denies chest pain or dyspnea Respiratory/Chest Respiratory/Chest: Reports systems reviewed and no addt'l complaints, except as documented Gastrointestinal Gastrointestinal: Reports systems reviewed and no addt'l complaints, except as documented; Denies abdominal pain Genitourinary Genitourinary: Reports systems reviewed and no addt'l complaints, except as documented, contractions Details: present (irregular) and movement Details: present; Denies dysuria or genital lesions Musculoskeletal Musculoskeletal: Reports systems reviewed and no addt'l complaints, except as documented Neurologic Neurologic: Reports systems reviewed and no addt'l complaints, except as documented Endocrine Endocrinology: Reports systems reviewed and no addt'l complaints, except as documented Vital Signs Vital Signs Vital Signs: 09/05/23 11:50 09/05/23 11:50 09/05/23 11:50 Temperature Temperature Source Temporal Pulse Rate 101 H Respiratory Rate Blood Pressure 139/75 H Blood Pressure Mean BP Systolic 139 BP Diastolic 75 Blood Pressure Source Blood Pressure Position Blood Pressure Location 09/05/23 11:50 09/05/23 11:50 09/05/23 12:05 Temperature 98.9 F Temperature Source Pulse Rate Respiratory Rate 16 Blood Pressure 145/91 H Blood Pressure Mean BP Systolic 145 BP Diastolic 91 Blood Pressure Source Blood Pressure Position Blood Pressure Location 09/05/23 12:05 09/05/23 12:21 09/05/23 12:21 Temperature Temperature Source Pulse Rate 108 H 93 Respiratory Rate Blood Pressure 152/88 H Blood Pressure Mean BP Systolic 152 BP Diastolic 88 Blood Pressure Source Blood Pressure Position Blood Pressure Location 09/05/23 12:35 09/05/23 12:35 09/05/23 12:49 Temperature Temperature Source Pulse Rate 97 Respiratory Rate Blood Pressure 150/79 H 156/84 H Blood Pressure Mean BP Systolic 150 156 BP Diastolic 79 84 Blood Pressure Source Blood Pressure Position Blood Pressure Location 09/05/23 12:49 09/05/23 13:20 09/05/23 13:20 Temperature Temperature Source Pulse Rate 93 99 Respiratory Rate Blood Pressure 167/95 H Blood Pressure Mean BP Systolic 167 BP Diastolic 95 Blood Pressure Source Blood Pressure Position Blood Pressure Location 09/05/23 13:36 09/05/23 13:36 09/05/23 13:50 Temperature Temperature Source Pulse Rate 96 Respiratory Rate Blood Pressure 145/86 H 159/99 H Blood Pressure Mean BP Systolic 145 159 BP Diastolic 86 99 Blood Pressure Source Blood Pressure Position Blood Pressure Location 09/05/23 13:50 09/05/23 14:08 09/05/23 14:08 Temperature Temperature Source Pulse Rate 93 91 Respiratory Rate Blood Pressure 142/89 H Blood Pressure Mean BP Systolic 142 BP Diastolic 89 Blood Pressure Source Blood Pressure Position Blood Pressure Location 09/05/23 14:59 09/05/23 14:59 09/05/23 15:01 Temperature Temperature Source Pulse Rate 88 Respiratory Rate Blood Pressure 173/98 H 144/74 H Blood Pressure Mean BP Systolic 173 144 BP Diastolic 98 74 Blood Pressure Source Blood Pressure Position Blood Pressure Location 09/05/23 15:01 09/05/23 15:03 09/05/23 15:12 Temperature 99.1 F Temperature Source Temporal Pulse Rate 86 86 Respiratory Rate 18 Blood Pressure 144/74 H 136/72 H Blood Pressure Mean 97 BP Systolic 136 BP Diastolic 72 Blood Pressure Source Monitor Blood Pressure Position Semi-Fowlers Blood Pressure Location Left Arm 09/05/23 15:12 09/05/23 15:13 09/05/23 15:13 Temperature Temperature Source Temporal Pulse Rate 82 Respiratory Rate 18 Blood Pressure Blood Pressure Mean BP Systolic BP Diastolic Blood Pressure Source Blood Pressure Position Blood Pressure Location 09/05/23 15:13 09/05/23 15:44 09/05/23 15:44 Temperature 99.1 F Temperature Source Pulse Rate 83 Respiratory Rate Blood Pressure 135/74 H Blood Pressure Mean BP Systolic 135 BP Diastolic 74 Blood Pressure Source Blood Pressure Position Blood Pressure Location 09/05/23 16:36 09/05/23 16:36 Temperature Temperature Source Pulse Rate 86 Respiratory Rate Blood Pressure 143/75 H Blood Pressure Mean BP Systolic 143 BP Diastolic 75 Blood Pressure Source Blood Pressure Position Blood Pressure Location Weight Weight: 318 lb 12.615 oz Body Mass Index (BMI) 49.9 Physical Exam Const alert, oriented x3, no apparent distress and healthy appearing HEENT normocephalic and moist oral mucous membranes Head and Scalp: atraumatic Neck full ROM, no lymphadenopathy, supple and thyroid normal General: trachea midline Lymph Lymphatic: no lymphadenopathy noted Chest inspection of chest normal Resp normal respiratory effort Cardio regular rate GI normal to inspection, nondistended, normoactive bowel sounds, soft to palpation and non-tender Inspection: gravid external exam normal Manual OB Exam: estimated gestational size appropriate, presentation cephalic, dilated, effaced and station Extremity normal to inspection General Extremity: Negative for edema Skin no rashes or lesions noted Neuro no focal motor deficits and deep tendon reflexes 2+ bilaterally Motor Exam: strength 5/5 throughout and clonus absent Psych mental status grossly normal Labs Labs Labs: Blood Type A POSITIVE Antibody Screen NEGATIVE Hct 37.0 % (37-47) Hgb 12.8 g/dL (12.0-15.0) Obstetrics Ultrasound Syphilis Total Ab Non-reactive Rubella IgG Antibody Reactive (Nonreactive) Hep Bs Antigen Non-Reactive (Nonreactive) Hepatitis C Antibody Non-Reactive (Nonreactive) Chlamydia DNA (CARMINA) Negative (Negative) N.gonorrhoeae DNA (CARMINA) Negative (Negative) HIV 1&2 Antibody Non-Reactive (Nonreactive) Glucose 1 Hr 50 gm 184 mg/dL (70-140) H Gest Glucose Tolerance MG/DL Group B Strep DNA POSITIVE (Negative) H Rhogam given: No Miscellaneous Test Assessment & Plan (1) Positive GBS test: (2) Headache in : (3) Insulin dependent gestational diabetes mellitus (GDM), antepartum: COMMENT: was on insulin and then decreased and was diet controlled NST weekly in office and BPP x1 weekly for 2x weekly testing. (4) Chlamydia infection affecting : QUALIFIERS: Trimester: first trimester Qualified Code(s): O98.811 - Other maternal infectious and parasitic diseases complicating , first trimester; A74.9 - Chlamydial infection, unspecified COMMENT: ordered treatment, repeat testing negative 04/11/23: and at 36 weeks (5) Obesity affecting : QUALIFIERS: Trimester: second trimester Obesity type affecting : unspecified obesity Qualified Code(s): O99.212 - Obesity complicating , second trimester COMMENT: encouraged healthy weight gain weekly bpp's starting 32 weeks per MFM (6) Previous section: COMMENT: may want TOLAC, plan RLTCS with SM 09/07 @ 7 (7) Supervision of high-risk : QUALIFIERS: Trimester: second trimester Qualified Code(s): O09.92 - Supervision of high risk , unspecified, second trimester COMMENT: [id number], RITA 09/[birth year] girl Markus DAMARIS Rojas LORETTA Zan Carmenza (8) : QUALIFIERS: Weeks of gestation: 36 weeks Qualified Code(s): Z3A.36 - 36 weeks gestation of COMMENT: NIPT no results initially, : afp declined. Carrier neg (9) Hypertension: QUALIFIERS: Hypertension type: essential hypertension Qualified Code(s): I10 - Essential (primary) hypertension COMMENT: metoprolol. baseline labs ordered, recommend baby ASA at 12-14 weeks. (10) Depression with anxiety: COMMENT: wellbutrin decreassed back to 150mg, added celexa 20mg. encouraged counseling/handout given. PLAN: Plan proceed with RLTCS repeat labs PRN
--- NOTE | 2023-09-05 18:43 | EX.PCM.OBRPT ---
Assessment & Plan (1) Positive GBS test: (2) Headache in : (3) Insulin dependent gestational diabetes mellitus (GDM), antepartum: COMMENT: was on insulin and then decreased and was diet controlled NST weekly in office and BPP x1 weekly for 2x weekly testing. (4) Chlamydia infection affecting : QUALIFIERS: Trimester: first trimester Qualified Code(s): O98.811 - Other maternal infectious and parasitic diseases complicating , first trimester; A74.9 - Chlamydial infection, unspecified COMMENT: ordered treatment, repeat testing negative 04/11/23: and at 36 weeks (5) Obesity affecting : QUALIFIERS: Trimester: second trimester Obesity type affecting : unspecified obesity Qualified Code(s): O99.212 - Obesity complicating , second trimester COMMENT: encouraged healthy weight gain weekly bpp's starting 32 weeks per MFM (6) Previous section: COMMENT: may want TOLAC, plan RLTCS with 09/07 @ 7 (7) Hx of gestational diabetes in prior , currently : COMMENT: on metformin due to PCOS, discussed continuation vs stopping, patient requests continuation. check HgA1C (8) Supervision of high-risk : QUALIFIERS: Trimester: second trimester Qualified Code(s): O09.92 - Supervision of high risk , unspecified, second trimester COMMENT: [id number], RITA 09/29/23 marcelino Aparicio DAMARIS Rojas, LORETTA Herr (9) : QUALIFIERS: Weeks of gestation: 36 weeks Qualified Code(s): Z3A.36 - 36 weeks gestation of COMMENT: NIPT no results initially, : afp declined. 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 Nance catheter was placed. The patient was placed in the dorsal supine position with leftward tilt. Patient was prepped and draped in the normal sterile fashion. Pfannenstiel skin incision was made with the scalpel and carried through to the underlying layer of fascia with the scalpel. Fascia was nicked in the midline and the incision extended laterally. The rectus bellies were dissected off superiorly and inferiorly with out complication both sharply and bluntly. The peritoneum was entered sharply and omental adhesions were encountered and taken down with the ligasure. The incision was stretched and a low transverse uterine incision was made with the scalpel. The infant's head was delivered atraumatically followed by the anterior and posterior shoulders without complication the rest of the delivered. The cord was clamped and cut and the was handed off to awaiting nurse. The placenta was delivered spontaneously immediately following and was noted to be intact and have a three-vessel cord. The uterus was exteriorized cleared of all clots and debris, and the incision was closed in a single layer closure using #1 Monocryl. The ovaries and fallopian tubes were noted to be within normal limits. The uterus was returned to the maternal abdomen and gutters were cleared of all clots and debris. hemoblast used over raw appearance over incision. The peritoneum was closed with 3-0 Monocryl in a running fashion. Fascia was closed with 0 PDS in a running fashion. Subcutaneous tissue was copiously irrigated and the skin was closed with 3-0 Monocryl in a subcuticular fashion. Mepilex dressing was applied without complication. Patient was taken to recovery in stable condition. It was discussed with the patient that based on the clinical information obtained during this encounter, combined with her history, at this time I would recommend cesareans for future deliveries if further pregnancies are desired. Amniotic Membrane Rupture Type: Artificial Amniotic Fluid Description: Clear Placenta Disposition: [facility] Cord Vessel Description: 3 Vessels Delayed Cord Clamping: Yes Complications Risks of Surgery Discussed w/Patient: Bleeding, Infection, Need for Future C-Sections and Injury to surrounding structure(s) including bowel and bladder Vaginal Delivery Complication Complications: None Admit VTE Documentation VTE Present on Admission: No VTE Mechan Device Prophylaxis: SCD's Procedures Urinary/Genital [id number]: [id number] [facility]
--- NOTE | 2023-09-05 18:47 | DCINST_ITS ---
Discharge Instructions Diet Discharge Diet: No restrictions Activity Discharge Activity: May Not Drive (for 2 weeks or while taking narcotic pain medications.), May Shower and May Take a Tub Bath (in 7 days) May shower in (days): 0 May resume sexual activity in: 4-6 weeks Weight Bearing Status: Full weight bearing Lifting Restrictions: 20 pounds Dressing / Incision Call your doctor if your incision/area has: Continuous Slow Oozing, Sudden Increased Bleeding, Increased Pain/ Swelling, Increased Redness and Foul Smelling Discharge Call your doctor if you observe: Fever of 101 or Higher and Using more than 1 pad per hour (for 2 hours) Suture Line Care: Avoid Pulling/Pushing and Avoid Pinching/Bending Cleanse incision/area with: Soap & Water and Keep Dressing Clean & Dry Follow Up Care Please Follow Up With: Mishel Pacheco MD When: Call [phone] to make an appointment for an incision check in 1-2 weeks. Test Results: Test results from this visit will be discussed in further detail at your follow- up appointment, if applicable. Discharge Plan Admission Admit Date/Time: 09/05/23 14:23 Attending Provider: Mishel Pacheco Primary Care Provider: Care PhysicianCaridad Primary Discharge Orders/Prescriptions Prescriptions: New oxycodone-acetaminophen [Percocet] 5-325 mg tablet 1 tab PO Q6H PRN (Reason: pain) 7 Days Qty: 20 0RF naproxen 500 mg tablet 500 mg PO BID PRN PRN (Reason: Pain) Qty: 30 1RF No Action PNV-DHA 27 mg iron-1 mg -300 mg capsule 1 cap PO DAILY (DME) FreeStyle Ariel 2 Sensor Kit See Rx Instructions .Route Qty: 1 4RF Rx Instructions: As directed Humulin N NPH Insulin KwikPen 100 unit/mL (3 mL) insulin pen 17 unit subcut BID metoprolol succinate 100 mg tablet extended release 24 hr 100 mg PO DAILY Qty: 30 5RF (DME) FreeStyle Ariel 2 [place] Misc See Rx Instructions .Route Qty: 1 0RF Rx Instructions: As directed (DME) BD Regular Bevel Kellogg 27 gauge x 1/2 needle See Rx Instructions .Route Qty: 100 3RF Rx Instructions: As directed Referrals / Follow Up: Care Physician,No Primary [Primary Care Provider] - Disposition Disposition (needs filled in before D/C Order can be placed): Home, Self Care
[2023-09-05] MEDS: Oxytocin 15 Units/NS 250ml 15 UNITS/250 ML IV.SOLN 83 UNITS IV (19:07)
[2023-09-05] MEDS: Ketorolac 30 MG/ML Syringe IV (19:19)
[2023-09-05] MEDS: HYDROmorphone 1 MG/ML Syringe IV ×2 (19:29→22:33)
[2023-09-05 20:24] LABS: Bedside Glucose 95 mg/dL (74-106)
[2023-09-05] MEDS: Lactated Ringers 1,000 ML 100 ML IV (21:55)
--- NOTE | 2023-09-05 22:27 | NURSING ---
2227: Updated about pt's BP's throughout recovery in the 140's/90's with the last recovery BP being 156/95. Orders to start pt on Labetalol 100mg BID.
[2023-09-05] MEDS: Labetalol 100 MG Tablet PO (22:55)
[2023-09-06] VITALS (8 sets, daily range): BP systolic 112–154; BP diastolic 45–94; PULSE 91–100; RESP 14–16; TEMP 36.1–36.4; O2SAT 96–99
[2023-09-06] MEDS: Acetaminophen 500 MG Tablet 1000 MG PO ×4 (01:38→18:44)
[2023-09-06] MEDS: Ketorolac 30 MG/ML Syringe IV ×3 (01:39→13:01)
[2023-09-06] MEDS: HYDROmorphone 1 MG/ML Syringe IV ×4 (01:40→11:23)
[2023-09-06] MEDS: 0.9% Saline Lock 10 ML Syringe IV ×5 (05:00→13:03)
[2023-09-06 06:16] LABS: Hematocrit 34.1 % (37-47); Hemoglobin 11.6 g/dL (12.0-15.0); Mean Corpuscular Hgb 28.9 pg (27.0-32.0); Mean Corpuscular Volume 84.8 fL (81-99); Mean Platelet Vol. 10.5 fl (6.2-12.0); Platelet Count 205 K/mm3 (150-450); RBC Distribution Width CV 13.2 % (11.6-14.6); RBC Distribution Width SD 40.8 fl (35.1-43.9); Red Blood Count 4.02 M/mm3 (4.2-5.4); White Blood Count 12.3 K/mm3 (4.4-11.0)
[2023-09-06 06:26] LABS: Bedside Glucose 91 mg/dL (74-106)
[2023-09-06 06:33] LABS: ALB/GLOB Ratio 0.8 RATIO (0.9-2.4); AST(SGOT) 9 U/L (15-37); Alanine Aminotransfer ALT/SGPT 15 U/L (13-56); Albumin, Serum 2.4 g/dL (3.2-5.0); Alkaline Phosphatase 71 U/L (45-117); Anion Gap 9 (5-15); BUN 11 mg/dL (7-18); BUN/Creat Ratio 19.5 RATIO (10-20); Calcium,Total 9.2 mg/dL (8.5-10.1); Chloride 106 mmol/L (98-107); Creatinine, Serum 0.56 mg/dL (0.55-1.02); EST Glomerular Filtration Rate 134 mL/min (>60); Est Glom Filt Rate - Afr Amer 162 mL/min (>60); Estimated Creatinine Clearance 219.84 ml/min; Globulin 3.1 g/dL (2.2-4.2); Glucose 104 mg/dL (74-106); Potassium 3.5 mmol/L (3.5-5.1); Protein, Total 5.5 g/dL (6.4-8.2); Sodium Level 137 mmol/L (136-145)
[2023-09-06] MEDS: Enoxaparin 40 MG/0.4 ML Syringe SC ×2 (07:03→18:42)
--- NOTE | 2023-09-06 08:10 | PN.OBGYN_ITS ---
Subjective Subjective Patient doing well without complaints. Tolerating PO. Ambulating and voiding without difficulty. Feeding well. Denies chest pain, shortness of breath, calf pain/swelling, fevers, chills, lightheadedness. Objective Data Objective Data Vital Signs: Vital Signs Temp Pulse Resp BP Pulse Ox O2 Del Method 97.6 F L 94 16 133/82 H 96 Room Air 09/06/23 07:54 09/06/23 07:54 09/06/23 07:54 09/06/23 07:54 09/06/23 07:54 09/06/23 07:54 Oxygen Delivery Method Room Air Weight: 318 lb 12.615 oz Body Mass Index (BMI) 49.9 Intake & Output: Intake and Output for Last 24 Hours 09/04/23 09/05/23 09/06/23 23:59 23:59 23:59 Intake Total 2760 / 2760 826.67 / 826.67 Output Total 750 / 750 550 / 550 Balance 2009 276.67 / 276.67 Lab / Micro Data 09/06/23 06:05 09/06/23 06:05 Labs: Laboratory Results - last 24 hr 09/05/23 12:05: WBC 9.5, RBC 4.41, Hgb 12.8, Hct 37.0, MCV 83.9, MCH 29.0, MCHC 34.6, RDW Std Deviation 40.7, RDW Coeff of Jennifer 13.2, Plt Count 235, MPV 11.2, C reatinine 0.44 L, Estim Creat Clear Calc 279.79, Est GFR (MDRD) Af Amer 214, Est GFR (MDRD) Non-Af 177, Uric Acid 4.3, AST 11 L, ALT 17, U Random Total Protein 29.3 H, Urine Creatinine 166.00, Protein/Creatinin Ratio 177, Syphilis Total Ab Non-reactive, Blood Type A POSITIVE, Antibody Screen NEGATIVE 09/05/23 15:09: POC Glucose 87 09/05/23 19:45: POC Glucose 95 09/06/23 06:05: WBC 12.3 H, RBC 4.02 L, Hgb 11.6 L, Hct 34.1 L, MCV 84.8, MCH 28.9, MCHC 34.0, RDW Std Deviation 40.8, RDW Coeff of Jennifer 13.2, Plt Count 205, MPV 10.5, Sodium 137, Potassium 3.5, Chloride 106, Carbon Dioxide 22.0, Anion Gap 9, BUN 11, Creatinine 0.56, Estim Creat Clear Calc 219.84, Est GFR (MDRD) Af Amer 162, Est GFR (MDRD) Non-Af 134, BUN/Creatinine Ratio 19.5, Glucose 104, Calcium 9.2, Total Bilirubin 0.30, AST 9 L, ALT 15, Alkaline Phosphatase 71, T otal Protein 5.5 L, Albumin 2.4 L, Globulin 3.1, Albumin/Globulin Ratio 0.8 L 09/06/23 06:06: POC Glucose 91 Physical Exam Const alert and oriented x3 General Appearance: cooperative HEENT normocephalic Eyes PERRL Neck full ROM Resp normal respiratory effort GI soft to palpation GI Narrative: FF below U. Dressing dry and intact Palpation: tender other (appropriately) Assessment & Plan (1) delivery delivered: COMMENT: RLTCS girl Markus 36 pree with severe feature (2) Preeclampsia, severe: QUALIFIERS: Trimester: unspecified trimester Qualified Code(s): O 14.10 - Severe pre-eclampsia, unspecified trimester COMMENT: stable pp (3) History of gestational diabetes: COMMENT: stable pp PLAN: Plan s/p LTCS PPD # 1 1. routine post care 2. breast feeding- support given 3. rh positive 4. rubella immune
[2023-09-06] MEDS: Labetalol 100 MG Tablet PO ×2 (10:07→23:44)
[2023-09-06] MEDS: Senna/Docusate Sodium 1 Tablet PO (10:07)
[2023-09-06] MEDS: oxyCODONE 5 MG Tablet PO ×3 (14:27→23:43)
[2023-09-06] MEDS: Ibuprofen 600 MG Tablet PO (18:43)
[2023-09-07] MEDS: Acetaminophen 500 MG Tablet 1000 MG PO ×2 (01:03→07:15)
[2023-09-07] MEDS: Ibuprofen 600 MG Tablet PO ×2 (01:03→07:15)
[2023-09-07 02:13] VITALS: BP 135/82; PULSE 99; RESP 16; TEMP 36.2; O2SAT 98
[2023-09-07] MEDS: oxyCODONE 5 MG Tablet PO ×2 (06:32→10:32)
[2023-09-07] MEDS: Enoxaparin 40 MG/0.4 ML Syringe SC (07:14)
[2023-09-07 08:48] VITALS: BP 112/65; PULSE 91; RESP 16; TEMP 36.4; O2SAT 96
--- NOTE | 2023-09-07 09:37 | PN.OBGYN_ITS ---
Subjective Subjective Patient doing well without complaints. Tolerating PO. Ambulating and voiding without difficulty. feeding well. Denies chest pain, shortness of breath, calf pain/swelling, fevers, chills, lightheadedness. Objective Data Objective Data Vital Signs: Vital Signs Temp Pulse Resp BP Pulse Ox O2 Del Method 97.6 F L 91 16 112/65 96 Room Air 09/07/23 08:48 09/07/23 08:48 09/07/23 08:48 09/07/23 08:48 09/07/23 08:48 09/07/23 08:48 Oxygen Delivery Method Room Air Weight: 318 lb 12.615 oz Body Mass Index (BMI) 49.9 Intake & Output: Intake and Output for Last 24 Hours 09/05/23 09/06/23 09/07/23 23:59 23:59 23:59 Intake Total 2760 / 2760 826.67 / 826.67 Output Total 750 / 750 550 / 550 Balance 2009 276.67 / 276.67 Lab / Micro Data 09/06/23 06:05 09/06/23 06:05 ROS Constitutional Constitutional: Reports systems reviewed and no addt'l complaints, except as documented Cardiovascular Cardiovascular: Reports systems reviewed and no addt'l complaints, except as documented Respiratory/Chest Respiratory/Chest: Reports systems reviewed and no addt'l complaints, except as documented Gastrointestinal Gastrointestinal: Reports systems reviewed and no addt'l complaints, except as documented Physical Exam Const alert, oriented x3 and no apparent distress HEENT Head and Scalp: atraumatic Resp normal respiratory effort GI soft to palpation and non-tender Inspection: incision intact, healing well and drainage (none) Bimanual Exam - Vag & Uterus: uterus non-tender Uterus Palpation: uterus fundus firm (below Umbilicus) Assessment & Plan (1) delivery delivered: COMMENT: RLTCS girl Markus 36 pree with severe feature (2) Preeclampsia, severe: QUALIFIERS: Trimester: unspecified trimester Qualified Code(s): O 14.10 - Severe pre-eclampsia, unspecified trimester COMMENT: stable pp (3) History of gestational diabetes: COMMENT: stable pp PLAN: Plan s/p LTCS PPD # 2 1. routine post care 2. breast feeding- support given 3. rh positive 4. rubella immune
[2023-09-07] MEDS: Senna/Docusate Sodium 1 Tablet PO (10:24)
[2023-09-07] MEDS: Labetalol 100 MG Tablet PO (10:24)
--- NOTE | 2023-09-07 13:53 | NURSING ---
1000- Lower abdominal dressing changed for moderate amount old reddish drainage. Old silver mepilex dressing removed without difficulty, incision without redness. 3 steri-strips off of skin, replaced stersrips and new sterile silver mepilex applied. Tolerated well.
--- NOTE | 2023-09-11 13:56 | NURSING ---
F/up phone call performed. No answer, left voicemail with unit phone number if pt has any questions or concerns.
== END 2023-09-07 12:50 | disposition home or self-care (01) | DRG 788 ==
LOC: WPOUT 14:25 → WP 14:25
PROVIDERS: Nurse Practitioner Women's Health; Admitting Provider Obstetrics & Gynecology; Referring Provider Obstetrics & Gynecology; Visit Provider Obstetrics & Gynecology
DX: O14.14 Severe pre-eclampsia complicating childbirth (principal); O24.420 Gestational diabetes mellitus in childbirth, diet controlled; F32.A Depression, unspecified; F41.9 Anxiety disorder, unspecified; O99.214 Obesity complicating childbirth; O10.02 Pre-existing essential hypertension complicating childbirth; O99.344 Other mental disorders complicating childbirth; O99.824 Streptococcus B carrier state complicating childbirth; Z37.0 Single live birth; Z3A.36 36 weeks gestation of pregnancy; O34.211 Maternal care for low transverse scar from previous cesarean delivery
CPT/HCPCS: 59025; 59050; 80053; 82565; 82570; 82962; 84156; 84450; 84460; 84550; 85027; 86780; 86850; 86900; 86901; 99221; J7120; A4216; G0378; J2405

== ENCOUNTER → 2024-03-19 | Outpatient (CLI) | payer MEDICAID, SELFPAY ==
[2024-03-19 17:34] LABS: Thyroid Stim Hormone (TSH) 0.995 uIU/mL (0.358-3.740)
[2024-03-19 17:47] LABS: Vitamin D,25 Hydroxy 27.1 ng/mL
[2024-03-19 18:18] LABS: Hemoglobin A1c 4.9 % (3.8-5.6)
== END | disposition home or self-care (01) ==
LOC: BWCLAB 15:30
PROVIDERS: Referring Provider Obstetrics & Gynecology; Visit Provider Obstetrics & Gynecology
DX: Z13.29 Encounter for screening for other suspected endocrine disorder (principal); Z13.1 Encounter for screening for diabetes mellitus
CPT/HCPCS: 82652; 36415; 82306; 83036; 84443

== ENCOUNTER → 2024-05-01 | Outpatient (CLI) | payer OTHER, SELFPAY ==
[2024-05-01 17:01] LABS: Absolute Neutrophil Count 4.2 X10^3/uL (2.0-7.7); Basophil# 0.07 X10^3/uL; Basophil% 0.8 % (0-1); Eosinophil# 0.26 X10^3/uL; Eosinophils% 2.9 % (0-5); Hematocrit 44.8 % (37-47); Hemoglobin 14.9 g/dL (12.0-15.0); Lymphocyte % 42.2 % (19-41); Mean Corp Hgb Conc 33.3 g/dL (32-36); Mean Corpuscular Hgb 28.4 pg (27.0-32.0); Mean Corpuscular Volume 85.5 fL (81-99); Monocyte# 0.63 X10^3/uL; NRBC Flagged by Analyzer 0 % (0-5); Neutrophil # 4.22 X10^3/uL (2.7-7.7); Neutrophil % 46.9 % (47-70); Platelet Count 360 K/mm3 (150-450); RBC Distribution Width SD 39.6 fl (35.1-43.9); Red Blood Count 5.24 M/mm3 (4.2-5.4)
[2024-05-01 17:22] LABS: ALB/GLOB Ratio 1.2 RATIO (0.9-2.4); AST(SGOT) 9 U/L (15-37); Alanine Aminotransfer ALT/SGPT 22 U/L (13-56); Alkaline Phosphatase 57 U/L (45-117); Anion Gap 8 (5-15); BUN 14 mg/dL (7-18); BUN/Creat Ratio 24.3 RATIO (10-20); Calcium,Total 9.5 mg/dL (8.5-10.1); Chloride 104 mmol/L (98-107); Creatinine, Serum 0.58 mg/dL (0.55-1.02); EST Glomerular Filtration Rate 130 mL/min (>60); Est Glom Filt Rate - Afr Amer 157 mL/min (>60); Globulin 3.2 g/dL (2.2-4.2); Glucose 87 mg/dL (74-106); Protein, Total 7.2 g/dL (6.4-8.2); Sodium Level 139 mmol/L (136-145)
== END | disposition home or self-care (01) ==
PROVIDERS: Referring Provider Nurse Practitioner Family; Visit Provider Nurse Practitioner Family
DX: I10 Essential (primary) hypertension (principal); Z68.42 Body mass index [BMI] 45.0-49.9, adult; E66.09 Other obesity due to excess calories; Z13.220 Encounter for screening for lipoid disorders
CPT/HCPCS: 36415; 80053; 85025

== ENCOUNTER → 2024-05-17 | Outpatient (CLI) | payer OTHER, SELFPAY ==
[2024-05-17 10:56] LABS: Cholesterol 229 mg/dL (200); High Density Lipoprotein 56 mg/dL; Triglycerides 56 mg/dL; Very Low Density Lipoprotein 11 mg/dL (5-40)
== END | disposition home or self-care (01) ==
LOC: LAB 09:51
PROVIDERS: Referring Provider Nurse Practitioner Family; Visit Provider Nurse Practitioner Family
DX: E66.01 Morbid (severe) obesity due to excess calories (principal); Z68.42 Body mass index [BMI] 45.0-49.9, adult
CPT/HCPCS: 36415; 80061